=== PATIENT | female | born 1935 | race Asian ===

== ENCOUNTER 2016-09-27 05:42 | Inpatient (IN) | payer MEDICARE, OTHER ==
[2016-09-27] MEDS ORDERED: SODIUM CHLORIDE 1,000 ML IV STA ×2 (05:55→06:57)
--- NOTE | 2016-09-27 06:00 | PDOC ---
History of Present Illness - General Stated Complaint: WEAKNESS Time Seen by Provider: 09/27/16 05:45 History Source: Patient, Family Exam Limitations: Language Barrier (The patient's son provided translation) - History of Present Illness Initial Comments: CHIEF COMPLAINT: 81 y/o female with PMH NIDDM, HTN, HLD, afib (on Coumadin), ACS with previous CABG BIB EMS for hematuria and weakness. HISTORY OF PRESENT ILLNESS: According to the patient's son the patient has had blood in her urine for the past 3 days and has been feeling progressively worse. She was seen by her primary and prescribed an antibiotic but she has only taken 1 dose so far. She continues to feel unwell and feverish although no temp was ever taken. The patient denies cough, CP, SOB, n/v/d, abd pain, back pain, dysuria. PCP is Dr. Delgado Vice President Business & Corporate Development is Dr. Fishman. Vital signs on arrival are within normal limits. REVIEW OF SYSTEMS: GENERAL/CONSTITUTIONAL: + fever/chills. + weakness. No weight change. HEAD, EYES, EARS, NOSE AND THROAT: No change in vision. No ear pain or discharge. No sore throat. CARDIOVASCULAR: No chest pain or shortness of breath. RESPIRATORY: No cough, wheezing, or hemoptysis. GASTROINTESTINAL: No abd pain, nausea, vomiting, diarrhea. GENITOURINARY: +hematuria. MUSCULOSKELETAL: No joint or muscle swelling or pain. No neck or back pain. SKIN: No rash or easy bruising. NEUROLOGIC: No headache, vertigo, loss of consciousness, or loss of sensation. PHYSICAL EXAM: GENERAL: The patient is awake, alert, and fully oriented, in no acute distress. She has increased respirations. HEAD: Normal with no signs of trauma. ENT: Pupils equal, round and reactive to light, extraocular movements intact, sclera anicteric, conjunctiva clear. Neck supple. Mucous membranes mildly dry. LUNGS: Clear to auscultation bilaterally. Normal excursion. No respiratory distress or use of accessory muscles. CV: RRR, S1/S2, no MRG. Cap refill < 2 sec. ABDOMEN: Soft, non-distended, non-tender even to deep palpation, no hepatomegaly or splenomegaly, no masses. EXTREMITIES: Normal range of motion, no edema. NEUROLOGICAL: Normal speech, normal gait. CN II-XII grossly intact. PSYCH: Normal mood, normal affect. SKIN: Warm, dry, normal turgor, no rashes or lesions noted. Past History - Past Medical History Allergies/Adverse Reactions: Allergies Allergy/AdvReac Type Severity Reaction Status Date / Time No Known Allergies Allergy Verified 12/14/14 12:05 Home Medications: Ambulatory Orders Folic Acid - 1 mg PO DAILY #0 tablet 10/22/12 Metformin HCl [Glucophage -] 500 mg PO ACBK #0 tablet 10/22/12 Multivitamins [Multivit ([facility] Formulary)] 1 udtab PO DAILY #0 tab 10/22/12 Warfarin Sodium [Coumadin] 5 mg PO DAILY #0 07/31/13 Bisacodyl [Laxative] 5 mg PO DAILY 12/14/14 Diltiazem Cd [Cardizem Cd -] 120 mg PO DAILY 12/14/14 Furosemide [Lasix -] 40 mg PO DAILY 12/14/14 Meloxicam [Mobic -] 15 mg PO DAILY 12/14/14 Montelukast Na [Singulair -] 10 mg PO HS 12/14/14 Ondansetron [Zofran *Odt*] 8 mg SL TID #20 od.tablet 12/14/14 Oxycodone HCl/Acetaminophen [Percocet 5-325 mg Tablet] 1 tab PO Q6H #20 tablet 12/14/14 Pregabalin [Lyrica -] 50 mg PO DAILY 12/14/14 Ranitidine HCl [Zantac] 150 mg PO HS 12/14/14 Salmeterol/Fluticasone [Advair 100Mcg/50Mcg -] 1 inh PO BID 12/14/14 Simvastatin [Zocor -] 10 mg PO HS 12/14/14 Asthma: Yes Cardiac Disorders: Yes COPD: Yes Diabetes: Yes HTN: Yes Hypercholesterolemia: Yes - Surgical History Cardiac Surgery: Yes (Open heart, Mitral valve replaced) - Immunization History Immunization Up to Date: No - Psycho/Social/Smoking Cessation Hx Anxiety: No Suicidal Ideation: No Smoking Status: No Smoking History: Never smoked Have you smoked in the past 12 months: No Number of Cigarettes Smoked Daily: 0 Hx Alcohol Use: No Drug/Substance Use Hx: No Substance Use Type: None Hx Substance Use Treatment: No Heart Score/ECG Review - ECG Intrepretation Comment:: Twelve-lead EKG was performed and reviewed by Dr. Hills. There is an undetermined rhythm with a rate of 78bpm. The axis is normal. The intervals are normal. There are no ST or T wave abnormalities. Impression: Borderline twelve-lead EKG ED Treatment Course - LABORATORY CBC & Chemistry Diagram: 09/28/16 06:40 09/28/16 06:40 Medical Decision Making - Medical Decision Making A/P: 81 y/o female with subjective fever, hematuria and progressively worsening weakness for the past 3 days. Suspect urosepsis. Plan is as follows: 1. Septic work up CXR IMPRESSION: No evidence of acute pathology. I am signing this patient out to my colleague: SIOMARA May In brief, this patient is being seen in the ED for a chief complaint of: hematuria, subjective fever and weakness I have completed the initial assessment interview note and have ordered: labs, EKG, CXR, UA/culture, IV fluids I have reviewed the following results: EKG Pending results are: rest Please call the PCP: Sandy Plan for disposition is as follows: Pending *DC/Admit/Observation/Transfer Diagnosis at time of Disposition: Hematuria, Weakness, Hyperkalemia, Acute kidney injury, Sepsis - Referrals
[2016-09-27 06:19] LABS: BASOPHIL 0.2 % (0-2.0); EOSINOPHIL 0.1 % (0-4.5); MCHC 32.8 g/dl (32.0-36.0); MEAN CELL VOLUME 88.4 fl (80-96); MEAN PLT VOLUME 10.1 fl (7.5-11.1); NEUTROPHILS 80.9 % (42.8-82.8); PLATELET COUNT 155 K/MM3 (134-434); RDW 13.5 % (11.6-15.6); WHITE BLOOD COUNT 10.5 K/mm3 (4.0-10.0)
--- NOTE | 2016-09-27 06:23 | PDOC ---
[id number] 96 09/27/16 06:02 09/27/16 06:02 09/27/16 06:02 09/27/16 06:02 09/27/16 06:02 ED Treatment Course - LABORATORY CBC & Chemistry Diagram: 09/27/16 06:12 09/27/16 15:30 Medical Decision Making - Medical Decision Making 09/27/16 06:23 agree with care from APRIL Olmos *DC/Admit/Observation/Transfer Diagnosis at time of Disposition: Hematuria, Weakness, Hyperkalemia, Acute kidney injury, Sepsis
[2016-09-27 06:43] LABS: ALBUMIN 3.5 g/dl (3.4-5.0); ANION GAP 10 (8-16); BILIRUBIN,TOTAL 0.7 mg/dL (0.2-1.0); CALCIUM 8.6 mg/dL (8.5-10.1); CO2 19 mmol/L (21-32); CREATININE 2.9 mg/dL (0.55-1.02); GLUCOSE,RANDOM 164 mg/dL (74-106); SGOT/AST 26 U/L (15-37); SGPT/ALT 23 U/L (12-78); TOT PROT 6.9 g/dl (6.4-8.2)
[2016-09-27 06:44] LABS: PROTHROMBIN TIME (PATIENT) 75.9 SEC (9.98-11.88)
[2016-09-27 06:45] LABS: ALK PHOS 77 U/L (45-117); TROPONIN I < 0.02 ng/ml (0.00-0.05)
[2016-09-27 06:47] LABS: ACTIVATED PTT 57.8 SECONDS (26.9-34.4)
[2016-09-27] MEDS ORDERED: DEXTROSE 50%-WATER 50 ML VIAL IVPUSH ONE (06:58)
[2016-09-27] MEDS ORDERED: CALCIUM CHLORIDE 1 GM/10 ML *DISP.SYRIN IVPUSH ONE (06:58)
[2016-09-27] MEDS ORDERED: SODIUM POLYSTYRENE SULFONATE 15 GM/60 ML BOTTLE PO ONE (06:58)
[2016-09-27] MEDS ORDERED: SODIUM BICARBONATE 8.4% 50 MEQ/50 ML DISP.SYRIN IVPUSH ONE (06:58)
[2016-09-27] MEDS ORDERED: FUROSEMIDE 40 MG/4 ML INJECTABLE VIAL IVPUSH ONE (06:58)
[2016-09-27] MEDS ORDERED: INSULIN REGULAR HUMAN 100 UNITS/ML *VIAL IVPUSH ONE (06:58)
--- NOTE | 2016-09-27 07:07 | PDOC ---
*Physical Exam - Vital Signs Last Vital Signs Temp Pulse Resp BP Pulse Ox 98.9 F 80 14 122/60 96 09/27/16 06:02 09/27/16 06:02 09/27/16 06:02 09/27/16 06:02 09/27/16 06:02 ED Treatment Course - LABORATORY CBC & Chemistry Diagram: 09/27/16 06:12 09/27/16 06:12 - ADDITIONAL ORDERS Additional order review: Laboratory Results 09/27/16 09/27/16 06:12 06:12 Sodium 134 L Potassium 6.5 H* D Chloride 105 Carbon Dioxide 19 L D Anion Gap 10 BUN 76 H D Creatinine 2.9 H D Creat Clearance w eGFR 15.61 Random Glucose 164 H D Lactic Acid 1.081 Calcium 8.6 Total Bilirubin 0.7 D AST 26 D ALT 23 D Alkaline Phosphatase 77 D Creatine Kinase 53 Troponin I < 0.02 Total Protein 6.9 Albumin 3.5 09/27/16 06:12 RBC 3.77 MCV 88.4 MCHC 32.8 RDW 13.5 MPV 10.1 Neutrophils % 80.9 Lymphocytes % 9.0 D Monocytes % 9.8 Eosinophils % 0.1 D Basophils % 0.2 - Medications Given in the ED: ED Medications Discontinued Medications Generic Name Dose Route Start Last Admin Trade Name Freq PRN Reason Stop Dose Admin Sodium Chloride 1,000 mls @ 1,000 mls/hr 09/27/16 05:55 09/27/16 06:33 Normal Saline - IV 09/27/16 06:54 1,000 mls/hr ASDIR STA Administration Medical Decision Making - Medical Decision Making 09/27/16 07:07 Signout received from APRIL Olmos. Briefly, this is an 81 year old female with a history of NIDDM, HTN, HLD, Afib (on Coumadin), and CAD s/p CABG brought in by ambulance this morning for evaluation of weakness and hematuria. ER course so far notable for: -K 6.5: Kayexelate, calcium gluconate, sodium bicarbonate, insulin/dextrose given. (Lasix was ordered but canceled prior to administration). -Cr 2.9 (0.6 in 2015) -INR 6.64 Attempted to re-interview patient using [employer] client technical support associate #[id number], but she is barely answering questions other than to say that she feels cold. She is rigoring and tachypneic at 26 RR/min. Discussed with son Osmin by phone ); he states she has frequent UTIs. She has been having dysuria and hematuria for about 4 days. She has been complaining of chills. She saw Breanne (urology) in the office yesterday; son believes the doctor "did something to look at the bladder" (?cystoscopy) and prescribed Bactrim, of which she had one dose yesterday. Plan: -UA is pending; straight cath ordered -Will obtain rectal temp -Treatment of hyperkalemia above -Empiric Ceftriaxone -Fluids infusing -Renal consultation placed -Urology consultation placed -Will obtain renal and pelvic/bladder u/s -No active bleeding at this time; no reversal of warfarin ordered -Will admit *DC/Admit/Observation/Transfer Diagnosis at time of Disposition: Hematuria, Weakness, Hyperkalemia, Acute kidney injury Sepsis Qualifiers: Sepsis type: sepsis due to unspecified organism Qualified Code(s): A41.9 - Sepsis, unspecified organism - Discharge Dispostion Admit: Yes - Referrals - Patient Instructions - Post Discharge Activity
[2016-09-27] MEDS ORDERED: DEXTROSE 50%-WATER 50 ML DISP.SYRIN ONE (07:10)
[2016-09-27] MEDS ORDERED: INSULIN REGULAR HUMAN 100 UNITS/ML *VIAL ONE ×2 (07:11→08:06)
[2016-09-27] MEDS ORDERED: CALCIUM CHLORIDE 1 GM/10 ML *DISP.SYRIN ONE (07:12)
[2016-09-27 07:13] LABS: INR 6.64 (0.82-1.09)
[2016-09-27] MEDS ORDERED: CALCIUM GLUCONATE 10% - 1,000 MG/10 ML VIAL IVPUSH ONE (07:13)
[2016-09-27] MEDS ORDERED: CEFTRIAXONE 1 GM in DEXTROSE 5%-WATER - 50 ML IVPB ONE (07:30)
[2016-09-27] MEDS ORDERED: SODIUM POLYSTYRENE SULFONATE 15 GM/60 ML BOTTLE ONE (08:07)
[2016-09-27] MEDS ORDERED: CEFTRIAXONE 50 ML ONE (08:20)
[2016-09-27] MEDS ORDERED: ACETAMINOPHEN 325 MG TABLET (FP) PO ONE (08:34)
[2016-09-27 08:39] LABS: URINE APPEARANCE SLCLOUDY; URINE BILIRUBIN NEGATIVE (NEGATIVE); URINE GLUCOSE (UA) 2+ (NEGATIVE); URINE KETONE NEGATIVE (NEGATIVE); URINE NITRITE NEGATIVE (NEGATIVE); URINE UROBILINOGEN NEGATIVE E.U./dl (0.2-1.0)
[2016-09-27 08:45] LABS: URINE BLOOD 3+ (NEGATIVE)
[2016-09-27] MEDS ORDERED: ACETAMINOPHEN 325 MG TABLET (FP) ONE (08:45)
[2016-09-27 08:46] LABS: URINE COLOR PINK; URINE LEUK ESTERASE TRACE (NEGATIVE); URINE PROTEIN 2+ (NEGATIVE)
[2016-09-27 09:15] LABS: URINE MUCUS RARE; URINE RBC 960 /hpf (0-3); URINE WBC 20 /hpf (3-5)
[2016-09-27 10:19] LABS: CALCIUM 9.4 mg/dL (8.5-10.1); CREATININE 2.7 mg/dL (0.55-1.02)
--- NOTE | 2016-09-27 10:56 | CONSULT ---
Consult - text type - Consultation Consultation Note: Renal Consult for KATIE and Hyperkalemia This is a 81 year old Woman with PMhx of CAD s/p CABG, Hepatitis C, NIDDM, HLD, HTN, Afib on Coumadin, recurrent UTI's who presented with complaints of weakness and hematuria and found to have BUN/Cr of 76/2.9 and K of 6.5. Pt has seen urology before admission and was started on Bactrium for UTI. Daughter reports that she has been having gross red urine. No fever or chills. No N/V/D. Recently started on PPI, clarithromycin by GI (PUD?). On Lasix at home. uses Mobic at home. No recent contrast exposure. In the ED was given Insulin, D50, Kayexalate. No repeat K performed. PMHx: as above Allergies: NKDA Family Hx: NC Social Hx: No T/A/D ROS: as per HPI Home Meds: Home Medications Medication Instructions Recorded Folic Acid - 1 mg PO DAILY #0 tablet 10/22/12 Metformin HCl [Glucophage -] 500 mg PO ACBK #0 tablet 10/22/12 Multivitamins [Multivit ([facility] 1 udtab PO DAILY #0 tab 10/22/12 Formulary)] Warfarin Sodium [Coumadin] 5 mg PO DAILY #0 07/31/13 Bisacodyl [Laxative] 5 mg PO DAILY 12/14/14 Diltiazem Cd [Cardizem Cd -] 120 mg PO DAILY 12/14/14 Furosemide [Lasix -] 40 mg PO DAILY 12/14/14 Meloxicam [Mobic -] 15 mg PO DAILY 12/14/14 Montelukast Na [Singulair -] 10 mg PO HS 12/14/14 Ondansetron [Zofran *Odt*] 8 mg SL TID #20 od.tablet 12/14/14 Oxycodone HCl/Acetaminophen 1 tab PO Q6H #20 tablet 12/14/14 [Percocet 5-325 mg Tablet] Pregabalin [Lyrica -] 50 mg PO DAILY 12/14/14 Ranitidine HCl [Zantac] 150 mg PO HS 12/14/14 Salmeterol/Fluticasone [Advair 1 inh PO BID 12/14/14 100Mcg/50Mcg -] Simvastatin [Zocor -] 10 mg PO HS 12/14/14 Vital Signs Temperature 100.3 F H 09/27/16 07:50 Pulse Rate 82 09/27/16 09:11 Respiratory Rate 20 09/27/16 09:11 Blood Pressure 156/67 09/27/16 09:11 O2 Sat by Pulse Oximetry (%) 100 09/27/16 09:11 Intake & Output 09/24/16 09/25/16 09/26/16 09/27/16 23:59 23:59 23:59 23:59 Weight 165 lb Gen: NAD, awake and alert HEENT: NC/AT, MMM, No JVD CVS: irregular, No M/R Lungs: CTA (jun BS throughout) Abd: soft NT/ND, No bladder distension Ext: No edema, clubbing or cyanosis. Neuro: Awake and alert CBC, BMP 09/27/16 06:12 09/27/16 09:42 Current Medications Ceftriaxone Sodium (Rocephin 1gm Ivpb (Pre-Docked)) 50 mls @ 100 mls/hr IVPB DAILY NOA Sodium Chloride (Normal Saline -) 1,000 mls @ 100 mls/hr IV ASDIR NOA A/P 81 year old Woman with PMhx of CAD s/p CABG, Hepatitis C, NIDDM, HLD, HTN, Afib on Coumadin, recurrent UTI's who presented with complaints of weakness and hematuria and found to have BUN/Cr of 76/2.9 and K of 6.5 #Acute Renal Injury Likey related to volume depletion from diuretics + GOMEZ 2 inhibotor affecting renal circulatioin vs. Psedo KATIE From Bactrium Check Urine studies and Renal/Bladder US Start isotonic saline at 100cc per hour Dose all med for Cr Cl elss then 15 avoid NSAIDS, IV contrast #Hyperkalemia From Renal failure +/- Bactrium No improvement in K this AM, however only got kayexlate this morning at 8AM pt is having BM's continue isotonic saline and monitor K Tele monitoring repeat BMP this afternoon #Hematuria from UTI/Cysitis Urology follow up #Cystitis/UTI/Leukocytosis Started Ceftriaxone f/u cultures ID follow up #Metabolic Acidosis Start sodum bicarb 650mg Daily #Hypertension Resume Cardizem Goal BP < 140/90 #DM type 2 Insulin Sliding scale #Chronic Pain Avoid NSAIDs #Hepatitis C as reported by daughter Check Hepatitis Panel Thank you Jace Zavala DO
[2016-09-27] MEDS ORDERED: ONDANSETRON 4 MG TABLET PO PRN (10:58)
[2016-09-27] MEDS ORDERED: BISACODYL 5 MG TABLET.DR (FP) PO PRN (11:31)
[2016-09-27 11:54] VITALS: BMI 32.8
[2016-09-27] MEDS: CEFTRIAXONE 1 GM/50 ML IVPB SCH (12:08)
[2016-09-27] MEDS: SODIUM CHLORIDE 1,000 ML IV SCH ×2 (12:09→23:33)
[2016-09-27] MEDS ORDERED: PT OWN MED DRAWER 7, Y5N ONE (12:51)
[2016-09-27] MEDS: MULTIVITAMINS (DAILY MVI) TABLET (FP) PO SCH (12:54)
[2016-09-27] MEDS: FUROSEMIDE 40 MG TABLET (FP) PO SCH (12:54)
[2016-09-27] MEDS: PREGABALIN 50 MG CAPSULE PO SCH (12:54)
[2016-09-27] MEDS: FOLIC ACID 1 MG TABLET (FP) PO SCH (12:54)
--- NOTE | 2016-09-27 15:46 | PN ---
Progress Note (short form) - Note Progress Note: ID consult dictated imp/reccd 81 year old female admitted from home with hematuria and weakness noted to have elevated INR pmh of NIDDM, MVR started on bactrim yesterday agree with switch to ceftriaxone for UTI f/u cultures hematuria elevated INR KATIE history of MVR
[2016-09-27] MEDS: INSULIN SLIDING SCALE (NOVOLOG) 1 VIAL SQ SCH ×2 (17:11→21:45)
--- NOTE | 2016-09-27 17:29 | CONS ---
DATE OF CONSULTATION: 09/27/2016 REQUESTED BY : Isabelle Ferrari MD CHIEF COMPLAINT: 1. Rigors. 2. Feverish feeling. 3. Hematuria. 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 mechanical mitral valve prosthesis (2008), history of aortic valvular disease, aortic regurgitation of moderate severity, history of left ventricular diastolic dysfunction, status post left ventricular failure, history of hypertension, hypertensive cardiovascular disease, [id number]-zwyzajdni diabetes mellitus, hypercholesterolemia, bronchial asthma, and has had a traumatic intracranial bleed. The patient, for the past 5 days, has been complaining of gross hematuria, which is painless, does have frequency of micturition. No history of dysuria or urgency reported. She also has felt feverish and has had rigors. She developed generalized lethargy and weakness and was brought to the emergency room. There is no history of cough or expectoration. No history of chest pain or discomfort, either with rest or with exertion. Has chronic intermittent, dyspnea. No history of palpitations. PAST MEDICAL HISTORY: 1. As mentioned in the history of present illness. 2. History of pulmonary hypertension of mild to moderate severity. 3. History of degenerative joint disease. 4. History of chronic anemia. PAST SURGICAL HISTORY: Status post [employer] mechanical mitral valve replacement (tilting disc). SOCIAL HISTORY: She is a , has 3 sons and 3 daughters who are healthy. Nonsmoker and does not imbibe alcohol. FAMILY HISTORY: Father in his 70s of unknown cause. Mother in her early 80s, apparently related to carcinoma. Has one sister who apparently is healthy. ALLERGIES: None reported. PREADMISSION MEDICATIONS: 1. Cardizem CD 360 mg p.o. daily. 2. Zocor 10 mg p.o. daily. 3. Diovan HCT 320/12.5 mg p.o. daily. 4. Lasix 40 mg p.o. daily. 5. Potassium supplement 20 mEq p.o. daily. 6. Coumadin dose is being adjusted according to INR and was on 5 mg alternating with 7.5 mg. 7. Metformin 500 mg p.o. b.i.d. a.c. 8. Ecotrin 81 mg p.o. daily. 9. Lyrica 15 mg p.o. daily. 10. Advair 1 inhalation b.i.d. 11. Singulair 10 mg p.o. daily. 12. Multivitamin 1 p.o. daily. 13. Ventolin 1 inhalation t.i.d. p.r.n. 14. Zantac 150 mg p.o. daily. 15. Calcium plus vitamin D 1 p.o. daily. 16. Baclofen 10 mg p.o. daily. 17. Folic acid 1 mg p.o. daily. 18. Mobic 15 mg p.o. nightly p.r.n. 19. Parallax 1 packet p.o. daily. 20. Zocor 10 mg p.o. daily. REVIEW OF SYSTEMS: Constitutional: History of rigors, night sweats, and chills. No history of unintentional weight loss. HEENT: Denies having headaches, diplopia, blurred vision. No history of epistaxis, hoarseness, tinnitus, or deafness reported. Cardiovascular: See history of present illness. Respiratory: See history of present illness. History of intermittent dyspnea. No history of recent cough, expectoration, or hemoptysis. Denies having tuberculosis. Gastrointestinal: No history of nausea, vomiting, melena, hematemesis. History of recent constipation. No history of abdominal pain or discomfort. Neurological: No history of seizures or syncope, history of recent postural dizziness. No history of focal weakness. Genitourinary: See history of present illness. Endocrine: See history of present illness. Denies having any polyuria or polydipsia. No history of intolerance to cold or warm weather. Musculoskeletal: History of arthralgias. No history of myalgias reported. Hematological: No history of ecchymosis. See history of present illness. History of chronic anemia. PHYSICAL EXAMINATION: General: An 81-year-old female who was slightly lethargic. No pallor, cyanosis, clubbing, or jaundice. Vital Signs: Weight 173.6 pounds, blood pressure 156/67 mmHg. Followup blood pressure 124/52 mmHg. Pulse 95 beats per minute and regular. Respirations 18 per minute. Temperature 98.4 degrees Fahrenheit. Neck: Supple. No jugular venous distention. Hepatojugular reflux was negative, carotids were 2+, upstrokes were normal. No bruits were heard and no thyromegaly was present. Heart: PMI was in the 5th intercostal space. No heaves or thrills. Hood prosthetic sounds, grade 1/6 decrescendo systolic murmur was heard at the apex. No diastolic murmur or gallops were heard. Lungs: Decreased breath sound at both bases, no extraneous sounds were heard. Chest: Normal AP diameter, expansion was symmetrical. There was a well-healed midline sternotomy scar. Abdomen: Soft, protuberant and nontender. No hepatosplenomegaly or palpable masses were felt. Bowel sounds were present. No bruits were heard. Extremities: No calf tenderness or dependent edema. Femoral pulses were 2+. Dorsalis pedis and posterior tibial pulses were 1+. ECG: Not available. LABORATORY DATA: Urinalysis revealed 2+ protein, 2+ glucose, 3+ blood, trace urine leukocyte esterase. Chemistry: Sodium 139. Potassium 6.5, and 6.3, respectively. Chloride 110. CO2 20 mmol/L. BUN at 6:12 a.m. was 76 and creatinine was 2.9. Followup BUN is 68 and creatinine was 2.10 mg/dL. Random glucose at 9:42 234 mg/dL. Lactic acid was 1.007 at 8:18 a.m. Liver function tests: Total bilirubin 0.7, AST 26, ALT 23, alkaline phosphatase 77, troponin less than 0.02. CK was 53. WBC count 10,500. Hemoglobin 10.9 g/dL. Platelet count 155,000. There is a slight shift to the left. IMAGIN. X-ray chest. Impression: No evidence of pneumonia, congestive heart failure, pleural effusion or pneumothorax. 2. Ultrasound of the bladder and kidneys. Impression: Subcentimeter cyst in the upper pole of the right kidney. Bladder wall thickness is at the upper limits of normal. Contracted gallbladder with multiple stones. IMPRESSION: 1. Gross hematuria, most likely related to urinary tract infection/cystitis. 2. Acute renal failure. 3. Hyperkalemia, etiology secondary to renal failure. 4. Rheumatic mitral valvular disease with mitral stenosis and regurgitation, status post [employer] mechanical tilting disc prosthesis. 5. Hypertension, hypertensive cardiovascular disease. 6. Fve-laozeti-naikgcjbn diabetes mellitus. 7. Hypercholesterolemia. 8. History of bronchial asthma. 9. Chronic anemia. 10. Rheumatic valvular disease with aortic regurgitation of moderate severity. 11. Left ventricular diastolic dysfunction. 12. Status post traumatic intracranial bleed. 13. History of anemia. 14. History of hepatitis C as documented in the hospital record. 15. Suspect acute sepsis related to urinary tract infection. RECOMMENDATIONS: 1. Serial blood cultures. 2. Urinary culture and sensitivity. 3. Correction of hyperkalemia in progress. 4. Close monitoring of serum potassium levels. 5. ECG stat. 6. Nonsteroidal drugs must be avoided. 7. Close followup of INR. 8. Close followup of serum glucose levels. 9. . Continue cardiac medications as outlined. 10. The patient will require continuation of anticoagulation. PROGNOSIS: Critical. Thank you for your referral. YAHAIRA GAMBLE M.D. [id number]
--- NOTE | 2016-09-27 17:58 | HP ---
DATE OF ADMISSION: 09/27/2016 The patient is an 81-year-old female with a history of hypertension, hypercholesterolemia, diabetes, status post open heart surgery for mitral valve replacement, chronic arthralgia, hepatitis C, brought to the emergency room by the family with complaints of blood in the urine for the last 3 days, and was having progressive worsening. The patient was seen by Urology and given antibiotics for the UTI. She continues to feel unwell and feverish but no temperature was taken. Patient denies any chest pain, shortness of breath, nausea, vomiting, diarrhea, abdominal pain, back pain, or any dysuria. Regarding past medical history, as mentioned before. SURGICAL HISTORY: History of open heart surgery for mitral valve replacement. No known drug allergy. Patient is taking folic acid 1 mg daily, metformin 500 mg p.o. b.i.d., multivitamin, Coumadin 5 mg, laxative, diltiazem, Cardizem CD 120 mg p.o. daily, Lasix 40 mg p.o. daily, Mobic 15 mg daily, Singulair 10 mg, Zofran 4 mg p.o. t.i.d., Percocet, Lyrica 50 mg p.o. daily, Zantac 150 mg p.o. nightly, Advair 100/50 one inhalation b.i.d., simvastatin 10 mg p.o. nightly. Regarding the past medical history, history of asthma, COPD, diabetes, hypertension, chronic arthralgia. PERSONAL HISTORY: Nothing significant. No history of smoking or alcohol. Lives with the family. REVIEW OF SYSTEMS: Constitutional: Patient complains of mild feverish and chills. Head and Neck, ENT: Nothing significant. Cardiovascular: No chest pain, no shortness of breath. Respiratory: No cough, no wheezing. Gastrointestinal: No abdominal pain, nausea, vomiting, diarrhea. Genitourinary: No hematuria present. Musculoskeletal: No joint or muscle pain. Skin: No rash. PHYSICAL EXAMINATION IN EMERGENCY ROOM: Vital Signs: Temperature was 98.6, pulse rate 80, respiration 14, blood pressure 122/60, saturation 96%. Head and Neck: Normal. Chest: Clear. Cardiovascular: 1st and 2nd sound normal. Abdomen: Soft. No tenderness, no distention. Bowel sounds present. No CVA tenderness. Extremities: Mild pedal edema present. Neurological: Normal speech, normal gait. Cranial nerves 2-12 normal. LABORATORIES: CBC: WBC 10.5, hemoglobin 10.9, hematocrit 3.3, platelets 155, INR 6.64, PTT 57.8, calcium 8.4, AST/ALT normal. BMP: Sodium 134, potassium 6.5, chloride 105, bicarbonate 19, BUN 76, creatinine 2.9, sugar 164, lactic acid pending. CK 53. Urine shows protein 2+, glucose 2+, ketone negative. Chest x-ray: No pneumonia. Urine shows blood 3+, leukocyte esterase plus, RBC 960, WBC 20. Blood culture pending, urine culture pending. EKG shows 78 per minute, no ST-T wave changes. Patient was given Kayexalate because of the potassium 6.5, calcium gluconate, started on bicarbonate, insulin, in the emergency room, and was given ceftriaxone 1 dose in the emergency room and renal consult, urology consult, ID consult called. Patient admitted in the floor with admitting diagnosis of hematuria, UTI, weakness, hypokalemia, acute kidney injury hypokalemia, type 2 diabetes, chronic pain. PLAN: Coumadin on hold, metformin on hold. Renal consult, urology consult, cardiology consult, ID consult called. Patient empirically started on ceftriaxone. Home medication resumed. Will monitor the labs and PT/INR and potassium. Patient stable on the floor. MANISH ALCANTARA M.D. [id number]
[2016-09-27 18:12] LABS: CALCIUM 9.2 mg/dL (8.5-10.1); CREATININE 2.4 mg/dL (0.55-1.02)
--- NOTE | 2016-09-27 18:39 | CONS ---
DATE OF CONSULTATION: INFECTIOUS DISEASE CONSULTATION REQUESTING PHYSICIAN: Hilda Delgado M.D. CONSULTING PHYSICIAN: Yvette Martinez M.D. HISTORY OF PRESENT ILLNESS: This is an 81-year-old woman with past medical history of diabetes, hypertension, hyperlipidemia. She had a prosthetic mitral valve, history of rheumatic heart disease. She was admitted with hematuria. She was started on Bactrim the day prior to admission. She had taken 1 dose. She felt feverish at home. She came to the emergency room. She was found to have a temperature of 100.3 and hematuria, as well she was noted to have an elevated INR. I am asked to see her for possible urinary tract infection. She is awake and alert and currently resting comfortably. PAST MEDICAL HISTORY: Notable for history of asthma, coronary artery disease, COPD, diabetes, hypertension, hypercholesterolemia. SURGICAL HISTORY: Notable for mitral valve replacement. ALLERGIES: No known drug allergies. MEDICATION: As an outpatient include folic acid, metformin, multivitamins, Coumadin, Cardizem, Lasix, Mobic, Singulair, Percocet, Lyrica, Zantac, Advair, Zocor. FAMILY HISTORY: Noncontributory. SOCIAL HISTORY: She lives at home. REVIEW OF SYSTEMS: Notable for, she denies any chest pain, she denies any nausea/vomiting. PHYSICAL EXAMINATION: General: She is resting comfortably. Vital signs: Temperature 97.6, she had a temperature of 100.3 earlier this morning. Pulse is 97, blood pressure 119/43, respiratory rate 18. HEENT: Normocephalic. Eyes are anicteric. Neck: Supple. Lungs: Clear to auscultation. Heart: Regular rate and rhythm. Abdomen: Soft, nontender. Extremities: Without edema. LABORATORY: Notable for a white count of 10.5, hemoglobin 10.9, platelets 155, BUN and creatinine are 68 and 2.7. Urinalysis has 960 red cells with 20 white cells , INR is 6.6. Urine and blood cultures are pending. She had a renal and bladder ultrasound that is negative for obstruction. IMPRESSION: 1. In summary, this is an 81-year-old woman with a history of coronary artery bypass graft, hepatitis C, prior mitral valve replacement on Coumadin, admitted with hematuria, INR of 6. She was often noted to be in acute renal failure with a creatinine of 2.7 and a potassium of 6.3. She was started on Rocephin for possible UTI. I would continue her on this at this time. 2. Hematuria, may be partially due to her elevated INR. Her coumadin is being held. 3. Acute kidney injury, she is being evaluated by nephrology. There is no evidence of hydronephrosis. She is receiving some IV hydration. Lastly, history of mitral valve replacement. Blood cultures have been sent, we will follow up on this. Further recommendations to follow. Morena [id number] MTDD
[2016-09-27] MEDS: ATORVASTATIN CA 10 MG TABLET (FP) PO SCH (21:44)
[2016-09-27] MEDS: FLUTICASONE/SALMETEROL 100 MCG/50 MCG DISKUS IH SCH (21:44)
[2016-09-27] MEDS: MONTELUKAST NA 10 MG TABLET PO SCH (21:45)
[2016-09-27] MEDS: RANITIDINE HCL 150 MG TABLET (FP) PO SCH (21:45)
[2016-09-28] MEDS: INSULIN SLIDING SCALE (NOVOLOG) 1 VIAL SQ SCH ×4 (06:16→21:54)
[2016-09-28 07:35] LABS: BASOPHIL 0.7 % (0-2.0); EOSINOPHIL 0.8 % (0-4.5); MCH 29.3 pg (25.7-33.7); MCHC 33.1 g/dl (32.0-36.0); MEAN CELL VOLUME 88.3 fl (80-96); MEAN PLT VOLUME 9.6 fl (7.5-11.1); NEUTROPHILS 66.9 % (42.8-82.8); PLATELET COUNT 146 K/MM3 (134-434); RDW 13.7 % (11.6-15.6); WHITE BLOOD COUNT 8.5 K/mm3 (4.0-10.0)
[2016-09-28 07:42] LABS: PROTHROMBIN TIME (PATIENT) 93.2 SEC (9.98-11.88)
[2016-09-28 08:25] LABS: ALBUMIN 3.4 g/dl (3.4-5.0); BILIRUBIN,TOTAL 0.5 mg/dL (0.2-1.0); CALCIUM 8.8 mg/dL (8.5-10.1); CREATININE 2.2 mg/dL (0.55-1.02); INR 8.12 (0.82-1.09); TOT PROT 6.7 g/dl (6.4-8.2)
--- NOTE | 2016-09-28 09:10 | PN ---
Progress Note, Physician Chief Complaint: Pt lying in bed hematuria improved blood cul negative urine cul report pending bladder ultrasound shows subcentimeter cyst in the upperpole of kidney contracted gallbladder with multiple stones Inr supertherapeutic,no active bleeding Urology consult pending - Current Medication List Current Medications: Active Medications Acetaminophen (Tylenol -) 650 mg PO Q6H PRN PRN Reason: FEVER OR PAIN Atorvastatin Calcium (Lipitor -) 10 mg PO HS [facility] Last Admin: 09/27/16 21:44 Dose: 10 mg Bisacodyl (Dulcolax -) 5 mg PO DAILY PRN PRN Reason: CONSTIPATION Diltiazem HCl (Cardizem Cd -) 120 mg PO DAILY [facility] Last Admin: 09/27/16 12:54 Dose: 120 mg Folic Acid (Folic Acid -) 1 mg PO DAILY [facility] Last Admin: 09/27/16 12:54 Dose: 1 mg Furosemide (Lasix -) 40 mg PO DAILY [facility] Last Admin: 09/27/16 12:54 Dose: 40 mg Ceftriaxone Sodium (Rocephin 1gm Ivpb (Pre-Docked)) 50 mls @ 100 mls/hr IVPB DAILY [facility] Last Admin: 09/27/16 12:08 Dose: Not Given Sodium Chloride (Normal Saline -) 1,000 mls @ 100 mls/hr IV ASDIR [facility] Last Admin: 09/27/16 23:33 Dose: 100 mls/hr Insulin Aspart (Novolog Vial Sliding Scale -) 1 vial SQ ACHS [facility] PRN Reason: Protocol Last Admin: 09/28/16 06:16 Dose: Not Given Montelukast Sodium (Singulair -) 10 mg PO [facility] Last Admin: 09/27/16 21:45 Dose: 10 mg Multivitamins/Minerals/Vitamin C (Tab-A-Vit -) 1 tab PO DAILY [facility] Last Admin: 09/27/16 12:54 Dose: 1 tab Ondansetron HCl (Zofran -) 4 mg PO TID PRN PRN Reason: NAUSEA/VOMITING Pregabalin (Lyrica -) 50 mg PO DAILY [facility] Last Admin: 09/27/16 12:54 Dose: 50 mg Ranitidine HCl (Zantac -) 150 mg PO [facility] Last Admin: 09/27/16 21:45 Dose: 150 mg Fluticasone/Salmeterol (Advair 100mcg/50mcg -) 1 puff IH BID [facility] Last Admin: 09/27/16 21:44 Dose: 1 puff - Objective Vital Signs: Vital Signs Temperature 99.2 F 09/28/16 06:00 Pulse Rate 107 H 09/28/16 06:00 Respiratory Rate 20 09/28/16 06:00 Blood Pressure 138/71 09/28/16 06:00 O2 Sat by Pulse Oximetry (%) 97 09/27/16 21:00 Constitutional: Yes: No Distress Eyes: Yes: Conjunctiva Clear HENT: Yes: Atraumatic, Normocephalic Neck: Yes: Supple, Trachea Midline Cardiovascular: Yes: Regular Rate and Rhythm Respiratory: Yes: Wheezes Gastrointestinal: Yes: Normal Bowel Sounds, Soft Genitourinary: Yes: Hematuria Musculoskeletal: Yes: WNL Extremities: Yes: WNL Edema: Yes Edema: LLE: Trace, RLE: Trace Peripheral Pulses WNL: Yes Neurological: Yes: WNL, Alert, Oriented Psychiatric: Yes: Alert, Oriented Labs: CBC, BMP 09/28/16 06:40 09/28/16 06:40 INR, PTT INR 8.12 (0.82-1.09) H* 09/28/16 06:40 - ....Imaging Ultrasound: Report Reviewed Assessment/Plan Hematuria R/o UTI KATIE improving Hyperkalemia improving INR supertherapeutic DM ,HTN Open heart surgery for mitral valve repair arthralgia ASTHMA PLAN Coumadin on hold Bronchodialator Will monitor,INR,CREatininie,K will f/u cardiology,renal,ID ,and urology recc will f/u urine cul report
--- NOTE | 2016-09-28 09:51 | CON.GU ---
Consult Reason for Consultation:: GROSS HEMATURIA AND UTI RECCURENT - History of Present Illness Chief Complaint: GROSS HEMATURIA AND UTI History of Present Illness: 81 YO FEMALE PATIENT ON CHRONIC AC FOR AF ADMITTED WITH COAGULOPATHY SECONDARY TO COUMADIN. PT HAD BEEN SEEN IN OFFICE FOR RECCURENT UTI'S AND GROSS HEMATURIA TREATED WITH ANTIBIOTICS. PMH: CABG, HTN, COPD, DM MEDS: MONTELEUKAST,SIMVISTATIN,METFORMIN, LASIX, ALDACTONE,COUMADIN, DITROPAN ALL: NONE - History Source History Provided By: Patient, Medical Record - Past Medical History [employer]: Yes: Dementia Cardio/Vascular: Yes: CAD, HTN, Mitral Stenosis Pulmonary: Yes: Asthma Infectious Disease: Yes: Other (Cellulitis) Musculoskeletal: Yes: Bursitis Rheumatology: Yes: Other (Rhematoid ) - Past Surgical History Past Surgical History: Yes: CABG, Valve Replacement - Alcohol/Substance Use Hx Alcohol Use: No History of Substance Use: reports: None - Smoking History Smoking history: Never smoked Have you smoked in the past 12 months: No Aproximately how many cigarettes per day: 0 Home Medications - Allergies Allergies/Adverse Reactions: Allergies Allergy/AdvReac Type Severity Reaction Status Date / Time No Known Allergies Allergy Verified 12/14/14 12:05 - Home Medications Home Medications: Ambulatory Orders Folic Acid - 1 mg PO DAILY #0 tablet 10/22/12 Metformin HCl [Glucophage -] 500 mg PO ACBK #0 tablet 10/22/12 Multivitamins [Multivit ([facility] Form[facility])] 1 udtab PO DAILY #0 tab 10/22/12 Warfarin Sodium [Coumadin] 5 mg PO DAILY #0 07/31/13 Bisacodyl [Laxative] 5 mg PO DAILY 12/14/14 Diltiazem Cd [Cardizem Cd -] 120 mg PO DAILY 12/14/14 Furosemide [Lasix -] 40 mg PO DAILY 12/14/14 Meloxicam [Mobic -] 15 mg PO DAILY 12/14/14 Montelukast Na [Singulair -] 10 mg PO HS 12/14/14 Ondansetron [Zofran *Odt*] 8 mg SL TID #20 od.tablet 12/14/14 Oxycodone HCl/Acetaminophen [Percocet 5-325 mg Tablet] 1 tab PO Q6H #20 tablet 12/14/14 Pregabalin [Lyrica -] 50 mg PO DAILY 12/14/14 Ranitidine HCl [Zantac] 150 mg PO HS 12/14/14 Salmeterol/Fluticasone [Advair 100Mcg/50Mcg -] 1 inh PO BID 12/14/14 Simvastatin [Zocor -] 10 mg PO HS 12/14/14 Review of Systems Findings/Remarks: GROSS HEMATURIA AND RECCURENT UTI Physical Exam- Vital Signs: Vital Signs Temperature 99.2 F 09/28/16 06:00 Pulse Rate 107 H 09/28/16 06:00 Respiratory Rate 20 09/28/16 06:00 Blood Pressure 138/71 09/28/16 06:00 O2 Sat by Pulse Oximetry (%) 97 09/27/16 21:00 Labs: CBC, BMP 09/28/16 06:40 09/28/16 06:40 Problem List - Problems (1) Hematuria Assessment/Plan: WILL NEED CYSTO BLADDER BX WHEN INR NORMALIZED TO R/O B;LADDER NEOPLASM MAY BE DONE OUTPT Code(s): R31.9 - HEMATURIA, UNSPECIFIED
[2016-09-28] MEDS: FLUTICASONE/SALMETEROL 100 MCG/50 MCG DISKUS IH SCH ×2 (09:58→21:54)
[2016-09-28] MEDS: FUROSEMIDE 40 MG TABLET (FP) PO SCH (09:59)
[2016-09-28] MEDS: MULTIVITAMINS (DAILY MVI) TABLET (FP) PO SCH (09:59)
[2016-09-28] MEDS: PREGABALIN 50 MG CAPSULE PO SCH (09:59)
[2016-09-28] MEDS: FOLIC ACID 1 MG TABLET (FP) PO SCH (09:59)
[2016-09-28] MEDS: CEFTRIAXONE 1 GM/50 ML IVPB SCH (10:00)
[2016-09-28] MEDS: SODIUM CHLORIDE 1,000 ML IV SCH ×2 (10:02→11:19)
[2016-09-28] MEDS: ACETAMINOPHEN 325 MG TABLET (FP) PO PRN ×2 (10:15→16:46)
[2016-09-28] MEDS: ALBUTEROL SO4 0.083% IH SOL 2.5 MG/3 ML VIAL.NEB. NEB PRN ×3 (10:49→23:10)
--- NOTE | 2016-09-28 11:31 | PN ---
Progress Note (short form) - Note Progress Note: Renal Follow up for KATIE Pt seen and examined at the bedside getting Neb Tx no sob no overnight events Vital Signs Temperature 98.8 F 09/28/16 10:00 Pulse Rate 112 H 09/28/16 10:00 Respiratory Rate 22 09/28/16 10:00 Blood Pressure 144/75 09/28/16 10:00 O2 Sat by Pulse Oximetry (%) 97 09/27/16 21:00 Gen: NAD, awake and alert CVS: irregular, No M/R Lungs: CTA (dec BS throughout) Abd: soft NT/ND, No bladder distension Ext: No edema, clubbing or cyanosis. CBC, BMP 09/28/16 06:40 09/28/16 06:40 Laboratory Tests 09/28/16 06:40 Calcium 8.8 Phosphorus 4.0 Magnesium 2.0 D Albumin 3.4 Current Medications Acetaminophen (Tylenol -) 650 mg PO Q6H PRN PRN Reason: FEVER OR PAIN Last Admin: 09/28/16 10:15 Dose: 650 mg Albuterol Sulfate (Ventolin 0.083% Nebulizer Soln -) 1 amp NEB Q6H PRN PRN Reason: SHORT OF BREATH/WHEEZING Last Admin: 09/28/16 10:49 Dose: 1 amp Atorvastatin Calcium (Lipitor -) 10 mg PO HS [facility] Last Admin: 09/27/16 21:44 Dose: 10 mg Bisacodyl (Dulcolax -) 5 mg PO DAILY PRN PRN Reason: CONSTIPATION Diltiazem HCl (Cardizem Cd -) 120 mg PO DAILY [facility] Last Admin: 09/28/16 10:00 Dose: 120 mg Folic Acid (Folic Acid -) 1 mg PO DAILY [facility] Last Admin: 09/28/16 09:59 Dose: 1 mg Furosemide (Lasix -) 40 mg PO DAILY [facility] Last Admin: 09/28/16 09:59 Dose: 40 mg Ceftriaxone Sodium (Rocephin 1gm Ivpb (Pre-Docked)) 50 mls @ 100 mls/hr IVPB DAILY [facility] Last Admin: 09/28/16 10:00 Dose: 100 mls/hr Sodium Chloride (Normal Saline -) 1,000 mls @ 100 mls/hr IV ASDIR [facility] Last Admin: 09/28/16 11:19 Dose: Not Given Insulin Aspart (Novolog Vial Sliding Scale -) 1 vial SQ ACHS [facility] PRN Reason: Protocol Last Admin: 09/28/16 06:16 Dose: Not Given Montelukast Sodium (Singulair -) 10 mg PO HS [facility] Last Admin: 09/27/16 21:45 Dose: 10 mg Multivitamins/Minerals/Vitamin C (Tab-A-Vit -) 1 tab PO DAILY [facility] Last Admin: 09/28/16 09:59 Dose: 1 tab Ondansetron HCl (Zofran -) 4 mg PO TID PRN PRN Reason: NAUSEA/VOMITING Pregabalin (Lyrica -) 50 mg PO DAILY [facility] Last Admin: 09/28/16 09:59 Dose: 50 mg Ranitidine HCl (Zantac -) 150 mg PO HS [facility] Last Admin: 09/27/16 21:45 Dose: 150 mg Fluticasone/Salmeterol (Advair 100mcg/50mcg -) 1 puff IH BID [facility] Last Admin: 09/28/16 09:58 Dose: 1 puff A/P 81 year old Woman with PMhx of CAD s/p CABG, Hepatitis C, NIDDM, HLD, HTN, Afib on Coumadin, recurrent UTI's who presented with complaints of weakness and hematuria and found to have BUN/Cr of 76/2.9 and K of 6.5 #Acute Renal Injury Likey related to volume depletion from diuretics + GOMEZ 2 inhibotor affecting renal circulatioin vs. Psedo KATIE From Bactrium Cr improving with IVF continue for now #Hyperkalemia From Renal failure +/- Bactrium improved continue IVF and trend avoid bactrium #Cystitis/UTI/Leukocytosis Continue Ceftriaxone f/u cultures ID follow up #Metabolic Acidosis Continue sodum bicarb 650mg Daily #Hypertension Resume Cardizem Goal BP < 140/90 #Hepatitis C as reported by daughter Check Hepatitis Panel Thank you Jace Zavala DO
[2016-09-28] MEDS ORDERED: INSULIN (NOVOLOG) ASPART 100 UNITS/ML 10ML VIAL ONE (11:58)
--- NOTE | 2016-09-28 12:32 | EKG ---
Test Reason : Blood Pressure : / mmHG Vent. Rate : 078 BPM Atrial Rate : 078 BPM P-R Int : 000 ms QRS Dur : 080 ms QT Int : 348 ms P-R-T Axes : 000 089 048 degrees QTc Int : 396 ms SINUS RHYTHM WITH SINUS ARRHYTHMIA versus ATRIAL FLUTTER WITH VARIABLE A-V BLOCK LOW VOLTAGE QRS ABNORMAL ECG Confirmed by ELVIS HARO MD ([id number]) on 09/28/2016 12:31:42 PM Referred By: Confirmed By:ELVIS HARO MD
--- NOTE | 2016-09-28 16:28 | PN ---
Progress Note (short form) - Note Progress Note: feels better pink urine fevers resolved Vital Signs Period Temp Pulse Resp BP Sys/[place] Pulse Ox Last 24 Hr 98.1 F-99.2 F 88-112 18-22 109-144/46-75 95-97 cor-rrr llungs clear abd soft,nt no cvat, no suprapubic tenderness ext no edema CBC, BMP 09/28/16 06:40 09/28/16 06:40 a/p hematuria elevated inr KATIE prosthetic MVR improving suspect UTI- culture negative, but received antibiotics prior to urine culture being sent continue rocephin #2
--- NOTE | 2016-09-28 16:40 | PN ---
Progress Note, Physician Chief Complaint: Events noted Not in distress History of Present Illness: Patient was seen and examined. Awake. Chart was reviewed No chest pain, SOB or palpitation - Current Medication List Current Medications: Active Medications Acetaminophen (Tylenol -) 650 mg PO Q6H PRN PRN Reason: FEVER OR PAIN Last Admin: 09/28/16 10:15 Dose: 650 mg Albuterol Sulfate (Ventolin 0.083% Nebulizer Soln -) 1 amp NEB Q6H PRN PRN Reason: SHORT OF BREATH/WHEEZING Last Admin: 09/28/16 10:49 Dose: 1 amp Atorvastatin Calcium (Lipitor -) [address] [facility] Last Admin: 09/27/16 21:44 Dose: 10 mg Bisacodyl (Dulcolax -) 5 mg PO DAILY PRN PRN Reason: CONSTIPATION Diltiazem HCl (Cardizem Cd -) [address] [facility] Last Admin: 09/28/16 10:00 Dose: 120 mg Folic Acid (Folic Acid -) [address] [facility] Last Admin: 09/28/16 09:59 Dose: 1 mg Furosemide (Lasix -) [address] [facility] Last Admin: 09/28/16 09:59 Dose: 40 mg Ceftriaxone Sodium (Rocephin 1gm Ivpb (Pre-Docked)) 50 mls @ 100 mls/hr IVPB DAILY [facility] Last Admin: 09/28/16 10:00 Dose: 100 mls/hr Sodium Chloride (Normal Saline -) 1,000 mls @ 100 mls/hr IV ASDIR [facility] Last Admin: 09/28/16 11:19 Dose: Not Given Insulin Aspart (Novolog Vial Sliding Scale -) [address] [facility] PRN Reason: Protocol Last Admin: 09/28/16 16:27 Dose: Not Given Montelukast Sodium (Singulair -) [address] [facility] Last Admin: 09/27/16 21:45 Dose: 10 mg Multivitamins/Minerals/Vitamin C (Tab-A-Vit -) [address] [facility] Last Admin: 09/28/16 09:59 Dose: 1 tab Ondansetron HCl (Zofran -) 4 mg PO TID PRN PRN Reason: NAUSEA/VOMITING Pregabalin (Lyrica -) [address] [facility] Last Admin: 09/28/16 09:59 Dose: 50 mg Ranitidine HCl (Zantac -) [address] [facility] Last Admin: 09/27/16 21:45 Dose: 150 mg Fluticasone/Salmeterol (Advair 100mcg/50mcg -) [address] [facility] Last Admin: 09/28/16 09:58 Dose: 1 puff - Objective Vital Signs: Vital Signs Temperature 98.5 F 09/28/16 14:12 Pulse Rate 94 H 09/28/16 14:12 Respiratory Rate 18 09/28/16 14:12 Blood Pressure 109/55 09/28/16 14:12 O2 Sat by Pulse Oximetry (%) 95 09/28/16 09:00 Neck: Yes: Supple Cardiovascular: Yes: Regular Rate and Rhythm, S1, S2, Other (Mechanical click) Respiratory: Yes: Diminished Gastrointestinal: Yes: Normal Bowel Sounds, Soft. No: Tenderness Edema: No Labs: CBC, BMP 09/28/16 06:40 09/28/16 06:40 INR, PTT INR 8.12 (0.82-1.09) H* 09/28/16 06:40 Problem List - Problems (1) Acute kidney injury Code(s): N17.9 - ACUTE KIDNEY FAILURE, UNSPECIFIED (2) Anemia Code(s): D64.9 - ANEMIA, UNSPECIFIED Qualifiers: Anemia type: unspecified type Qualified Code(s): D64.9 - Anemia, unspecified (3) Aortic valvular disease Code(s): I35.9 - NONRHEUMATIC AORTIC VALVE DISORDER, UNSPECIFIED (5) Diabetes mellitus Code(s): E11.9 - TYPE 2 DIABETES MELLITUS WITHOUT COMPLICATIONS Qualifiers: Diabetes mellitus type: type 2 Diabetes mellitus complication status: without complication Diabetes mellitus intermediate school teacher insulin use: without intermediate school teacher use Qualified Code(s): E11.9 - Type 2 diabetes mellitus without complications (6) H/O mitral valve replacement Code(s): Z95.2 - PRESENCE OF PROSTHETIC HEART VALVE (7) Hypertension Code(s): I10 - ESSENTIAL (PRIMARY) HYPERTENSION Qualifiers: Hypertension type: essential hypertension Qualified Code(s): I10 - Essential (primary) hypertension (8) Hematuria Code(s): R31.9 - HEMATURIA, UNSPECIFIED (9) INR, elevated Code(s): R79.1 - ABNORMAL COAGULATION PROFILE (10) UTI (urinary tract infection) Code(s): N39.0 - URINARY TRACT INFECTION, SITE NOT SPECIFIED Assessment/Plan 1. History of Influenza A infection with underlying COPD 2. Rheumatic heart disease s/p mechanical mitral valve replacement 3. HTN 4. Type 2 DM 5. Hyperlipidemia 6. History of ntracranial hemorrhage 7. CKD 8. UTI 9. Supratherapeutic INR PLAN: 1. Continue antibiotic coverage as per ID 2. Hold Warfarin and monitor INR 3. Continue Diltiazem 4. Continue Lipitor Further plans are to follow Israel Pinto MD
[2016-09-28] MEDS: ATORVASTATIN CA 10 MG TABLET (FP) PO SCH (21:54)
[2016-09-28] MEDS: MONTELUKAST NA 10 MG TABLET PO SCH (21:54)
[2016-09-28] MEDS: RANITIDINE HCL 150 MG TABLET (FP) PO SCH (21:54)
[2016-09-29] MEDS: INSULIN SLIDING SCALE (NOVOLOG) 1 VIAL SQ SCH ×3 (06:13→16:40)
[2016-09-29 08:02] LABS: BASOPHIL 0.8 % (0-2.0); EOSINOPHIL 4.9 % (0-4.5); MCH 29.3 pg (25.7-33.7); MCHC 33.3 g/dl (32.0-36.0); MEAN PLT VOLUME 9.4 fl (7.5-11.1); NEUTROPHILS 65.6 % (42.8-82.8); PLATELET COUNT 145 K/MM3 (134-434); RDW 13.7 % (11.6-15.6); WHITE BLOOD COUNT 6.6 K/mm3 (4.0-10.0)
[2016-09-29 08:21] LABS: ALBUMIN 3.1 g/dl (3.4-5.0); BILIRUBIN,TOTAL 0.6 mg/dL (0.2-1.0); CALCIUM 8.1 mg/dL (8.5-10.1); CREATININE 1.8 mg/dL (0.55-1.02); MAGNESIUM 1.7 mg/dL (1.8-2.4); TOT PROT 6.2 g/dl (6.4-8.2)
[2016-09-29 08:29] LABS: PROTHROMBIN TIME (PATIENT) 50.6 SEC (9.98-11.88)
[2016-09-29 08:43] LABS: INR 4.46 (0.82-1.09)
--- NOTE | 2016-09-29 08:49 | PN ---
Progress Note, Physician Chief Complaint: Pt lying in bed hematuria improved blood cul negative urine cul report negative bladder ultrasound shows subcentimeter cyst in the upperpole of kidney contracted gallbladder with multiple stones Inr supertherapeutic,no active bleeding,INR4.6 Urology consult appreciated,rec cystoscopy and bladder biopsy once INR therapeutic - Current Medication List Current Medications: Active Medications Acetaminophen (Tylenol -) 650 mg PO Q6H PRN PRN Reason: FEVER OR PAIN Last Admin: 09/28/16 16:46 Dose: 650 mg Albuterol Sulfate (Ventolin 0.083% Nebulizer Soln -) 1 amp NEB Q6H PRN PRN Reason: SHORT OF BREATH/WHEEZING Last Admin: 09/28/16 23:10 Dose: 1 amp Atorvastatin Calcium (Lipitor -) 10 mg PO HS [facility] Last Admin: 09/28/16 21:54 Dose: 10 mg Bisacodyl (Dulcolax -) 5 mg PO DAILY PRN PRN Reason: CONSTIPATION Diltiazem HCl (Cardizem Cd -) 120 mg PO DAILY [facility] Last Admin: 09/28/16 10:00 Dose: 120 mg Folic Acid (Folic Acid -) 1 mg PO DAILY [facility] Last Admin: 09/28/16 09:59 Dose: 1 mg Furosemide (Lasix -) 40 mg PO DAILY [facility] Last Admin: 09/28/16 09:59 Dose: 40 mg Ceftriaxone Sodium (Rocephin 1gm Ivpb (Pre-Docked)) 50 mls @ 100 mls/hr IVPB DAILY [facility] Last Admin: 09/28/16 10:00 Dose: 100 mls/hr Sodium Chloride (Normal Saline -) 1,000 mls @ 100 mls/hr IV ASDIR [facility] Last Admin: 09/28/16 11:19 Dose: Not Given Insulin Aspart (Novolog Vial Sliding Scale -) 1 vial SQ ACHS [facility] PRN Reason: Protocol Last Admin: 09/29/16 06:13 Dose: Not Given Montelukast Sodium (Singulair -) 10 mg PO HS [facility] Last Admin: 09/28/16 21:54 Dose: 10 mg Multivitamins/Minerals/Vitamin C (Tab-A-Vit -) 1 tab PO DAILY [facility] Last Admin: 09/28/16 09:59 Dose: 1 tab Ondansetron HCl (Zofran -) 4 mg PO TID PRN PRN Reason: NAUSEA/VOMITING Pregabalin (Lyrica -) 50 mg PO DAILY [facility] Last Admin: 09/28/16 09:59 Dose: 50 mg Ranitidine HCl (Zantac -) 150 mg PO HS [facility] Last Admin: 09/28/16 21:54 Dose: 150 mg Fluticasone/Salmeterol (Advair 100mcg/50mcg -) 1 puff IH BID [facility] Last Admin: 09/28/16 21:54 Dose: 1 puff - Objective Vital Signs: Vital Signs Temperature 98.6 F 09/29/16 05:12 Pulse Rate 96 H 09/29/16 05:12 Respiratory Rate 18 09/29/16 05:12 Blood Pressure 158/79 09/29/16 05:12 O2 Sat by Pulse Oximetry (%) 97 09/28/16 21:00 Constitutional: Yes: No Distress Eyes: Yes: Conjunctiva Clear HENT: Yes: Atraumatic, Normocephalic Neck: Yes: Supple, Trachea Midline Cardiovascular: Yes: Regular Rate and Rhythm Respiratory: Yes: CTA Bilaterally Gastrointestinal: Yes: Normal Bowel Sounds Edema: Yes Edema: LLE: Trace, RLE: Trace Peripheral Pulses WNL: Yes Neurological: Yes: WNL, Alert, Oriented Psychiatric: Yes: Alert, Oriented Labs: CBC, BMP 09/29/16 06:00 09/29/16 06:00 INR, PTT INR 4.46 (0.82-1.09) H* D 09/29/16 06:00 - ....Imaging EKG: Report Reviewed Assessment/Plan Hematuria R/o UTI KATIE improving Hyperkalemia improving INR supertherapeutic DM ,HTN Open heart surgery for mitral valve repair arthralgia ASTHMA PLAN Coumadin on hold Bronchodialator Will monitor,INR,CREatininie,K will f/u cardiology,renal,ID ,and urology recc continue meds
[2016-09-29] MEDS ORDERED: MAGNESIUM OXIDE 400 MG TABLET (FP) PO ONE (09:00)
[2016-09-29] MEDS: MULTIVITAMINS (DAILY MVI) TABLET (FP) PO SCH (09:31)
[2016-09-29] MEDS: PREGABALIN 50 MG CAPSULE PO SCH (09:31)
[2016-09-29] MEDS: FUROSEMIDE 40 MG TABLET (FP) PO SCH (09:31)
[2016-09-29] MEDS: FLUTICASONE/SALMETEROL 100 MCG/50 MCG DISKUS IH SCH (09:32)
[2016-09-29] MEDS: FOLIC ACID 1 MG TABLET (FP) PO SCH (09:32)
[2016-09-29] MEDS: CEFTRIAXONE 1 GM/50 ML IVPB SCH (09:32)
[2016-09-29] MEDS: SODIUM CHLORIDE 1,000 ML IV SCH (11:27)
--- NOTE | 2016-09-29 12:15 | PN ---
Progress Note (short form) - Note Progress Note: S: 81 year old female, history of rheumatic heart disease s/p mechanical [employer] mitral valve prosthesis. History of aortic valve disease, aortic regurgitation. Was admitted to the hospital with gross hemturia, rigors and lethargy, also known to have non insulin dependent diabetes mellitus, hypertension, hypertensive cardiovascular disease. On admission patient was found to have INR of of 6.64 and following day went up to 8.12. Currently is trending down and is 4.46. There is no gross hemturia noted. No chest pain reported. No dyspnea, PND or orthopnea. No history of palpitations. Patient is in atrial flutter with variant response. Active Medications Generic Name Dose Route Start Last Admin Trade Name Freq PRN Reason Stop Dose Admin Acetaminophen 650 mg 09/27/16 10:58 09/28/16 16:46 Tylenol - PO 650 mg Q6H PRN Administration FEVER OR PAIN Albuterol Sulfate 1 amp 09/28/16 09:11 09/28/16 23:10 Ventolin 0.083% Nebulizer Soln - NEB 1 amp Q6H PRN Administration SHORT OF BREATH/WHEEZING Atorvastatin Calcium 10 mg 09/27/16 22:00 09/28/16 21:54 Lipitor - PO 10 mg HS NOA Administration Bisacodyl 5 mg 09/27/16 11:31 Dulcolax - PO DAILY PRN CONSTIPATION Diltiazem HCl 120 mg 09/27/16 11:45 09/29/16 09:32 Cardizem Cd - PO 120 mg DAILY NOA Administration Folic Acid 1 mg 09/27/16 11:45 09/29/16 09:32 Folic Acid - PO 1 mg DAILY NOA Administration Furosemide 40 mg 09/27/16 11:30 09/29/16 09:31 Lasix - PO 40 mg DAILY NOA Administration Ceftriaxone Sodium 50 mls @ 100 mls/hr 09/27/16 11:00 09/29/16 09:32 Rocephin 1gm Ivpb (Pre-Docked) IVPB 100 mls/hr DAILY NOA Administration Sodium Chloride 1,000 mls @ 100 mls/hr 09/27/16 11:00 09/29/16 11:27 Normal Saline - IV Not Given ASDIR NOA Insulin Aspart 1 vial 09/27/16 16:30 09/29/16 11:28 Novolog Vial Sliding Scale - SQ Not Given ACHS NOA Protocol Montelukast Sodium 10 mg 09/27/16 22:00 09/28/16 21:54 Singulair - PO 10 mg HS NOA Administration Multivitamins/Minerals/Vitamin C 1 tab 09/27/16 11:30 09/29/16 09:31 Tab-A-Vit - PO 1 tab DAILY NOA Administration Ondansetron HCl 4 mg 09/27/16 10:58 Zofran - PO TID PRN NAUSEA/VOMITING Pregabalin 50 mg 09/27/16 11:30 09/29/16 09:31 Lyrica - PO 50 mg DAILY NOA Administration Ranitidine HCl 150 mg 09/27/16 22:00 09/28/16 21:54 Zantac - PO 150 mg HS NOA Administration Fluticasone/Salmeterol 1 puff 09/27/16 22:00 09/29/16 09:32 Advair 100mcg/50mcg - IH 1 puff BID NOA Administration O: 81 year old female was in no acute distress, no pallor, cyanosis, clubbing, or jaundice. Last Vital Signs Temp Pulse Resp BP Pulse Ox 98.6 F 98 H 18 158/79 96 09/29/16 05:12 09/29/16 11:33 09/29/16 05:12 09/29/16 05:12 09/29/16 11:33 Neck: Supple, no JVD, negative HJR, carotids were equal and upstrokes were normal, no thyromegaly appreciated. Heart: PMI was in the 5th intercostal space, no heaves or thrills, crisp prosthetic sounds. Grade I/ epical systolic murmur. No diastolic murmur or gallops were appreciated. Lungs: Clear on auscultation bilaterally. Abdomen: Soft, nontender, no hepatosplenomegaly appreciated, and no palpable masses were felt. Extremities: No calf tenderness or dependent edema. Pulses are normal. CBC, BMP 09/29/16 06:00 09/29/16 06:00 Laboratory Results - last 24 hr 09/27/16 09/28/16 09/28/16 15:30 16:04 21:52 WBC RBC Hgb Hct MCV MCHC RDW Plt Count MPV Neutrophils % Lymphocytes % Monocytes % Eosinophils % Basophils % INR Sodium Potassium Chloride Carbon Dioxide Anion Gap BUN Creatinine Creat Clearance w eGFR POC Glucometer 113 152 Random Glucose Calcium Phosphorus Magnesium Total Bilirubin AST ALT Alkaline Phosphatase Total Protein Albumin Hepatitis A IgM Ab Negative Hep Bs Antigen Negative Hep B Core IgM Ab Negative Hepatitis C Ab (EIA) >11.0 H 09/29/16 09/29/16 09/29/16 05:37 06:00 06:00 WBC 6.6 RBC 3.39 L Hgb 9.9 L Hct 29.8 L MCV 88.0 MCHC 33.3 RDW 13.7 Plt Count 145 MPV 9.4 Neutrophils % 65.6 Lymphocytes % 17.6 Monocytes % 11.1 H Eosinophils % 4.9 H D Basophils % 0.8 INR 4.46 H* D Sodium Potassium Chloride Carbon Dioxide Anion Gap BUN Creatinine Creat Clearance w eGFR POC Glucometer 120 Random Glucose Calcium Phosphorus Magnesium Total Bilirubin AST ALT Alkaline Phosphatase Total Protein Albumin Hepatitis A IgM Ab Hep Bs Antigen Hep B Core IgM Ab Hepatitis C Ab (EIA) 09/29/16 09/29/16 06:00 11:28 WBC RBC Hgb Hct MCV MCHC RDW Plt Count MPV Neutrophils % Lymphocytes % Monocytes % Eosinophils % Basophils % INR Sodium 140 Potassium 5.0 Chloride 108 H Carbon Dioxide 25 Anion Gap 7 L BUN 38 H D Creatinine 1.8 H Creat Clearance w eGFR 27.07 POC Glucometer 102 Random Glucose 121 H Calcium 8.1 L Phosphorus 4.0 Magnesium 1.7 L Total Bilirubin 0.6 AST 50 H D ALT 33 Alkaline Phosphatase 75 Total Protein 6.2 L Albumin 3.1 L Hepatitis A IgM Ab Hep Bs Antigen Hep B Core IgM Ab Hepatitis C Ab (EIA) Impression: 1. Gross hematuria and clinical presentation compatible with urinary sepsis. Code(s): R31.9 - HEMATURIA, UNSPECIFIED 2. Rheumatic heart disease s/p mechanical valve prosthesis Code(s): I09.9 - RHEUMATIC HEART DISEASE, UNSPECIFIED 3. Hypertension, hypertensive cardiovascular disease Code(s): I10 - ESSENTIAL (PRIMARY) HYPERTENSION 4. Atrial flutter with varying AV response. Code(s): I48.92 - UNSPECIFIED ATRIAL FLUTTER 5. Non insulin dependent diabetes mellitus Code(s): E11.9 - TYPE 2 DIABETES MELLITUS WITHOUT COMPLICATIONS 6. Aortic valvular disease with moderate aortic regurgitation. Code(s): I35.9 - NONRHEUMATIC AORTIC VALVE DISORDER, UNSPECIFIED 7. Anemia Code(s): D64.9 - ANEMIA, UNSPECIFIED Recommendations: 1. According to her son, he suspects his mother may have been accidentally been taking excessive dose of warfarin. 2. Son was advised that family should take responsibility that she receives appropriate doses of medications. 3. INR should be between 2.5-3.5, preferably around 3.0 or slightly above. 4. Follow up hemoglobin, hematocrit. 5. Antibiotics prophylaxes for surgical procedure. Attestation: Documentation prepared by Ben Gale, acting as medical auditor for Robert Langley MD.
--- NOTE | 2016-09-29 13:33 | PN ---
Progress Note (short form) - Note Progress Note: feels better Vital Signs Period Temp Pulse Resp BP Sys/[place]more Pulse Ox Last 24 Hr 98.4 F-98.6 F 86-98 18-20 109-158/55-79 96-97 cor-rrr lungs clear abd soft,nt ext no edema CBC, BMP 09/29/16 06:00 09/29/16 06:00 Microbiology 09/27/16 06:12 Blood - Peripheral Venous Blood Culture - Preliminary NO GROWTH OBTAINED AFTER 48 HOURS, INCUBATION TO CONTINUE FOR 3 DAYS. 09/27/16 06:12 Blood - Peripheral Venous Blood Culture - Preliminary NO GROWTH OBTAINED AFTER 48 HOURS, INCUBATION TO CONTINUE FOR 3 DAYS. 09/27/16 08:57 Urine - Urine Clean Catch Urine Culture - Final NO GROWTH OBTAINED a/p hematuria-uti elevated inr-improved KATIE- imprroving prosthetic MVR improving suspect UTI- culture negative, but received antibiotics prior to urine culture being sent on rocephin #3 can switch to po keflex to complete 7 days Problem List - Problems (1) Hematuria Code(s): R31.9 - HEMATURIA, UNSPECIFIED (2) UTI (urinary tract infection) Code(s): N39.0 - URINARY TRACT INFECTION, SITE NOT SPECIFIED (3) Acute kidney injury Code(s): N17.9 - ACUTE KIDNEY FAILURE, UNSPECIFIED (4) H/O mitral valve replacement Code(s): Z95.2 - PRESENCE OF PROSTHETIC HEART VALVE
--- NOTE | 2016-09-29 15:11 | PN ---
Progress Note (short form) - Note Progress Note: Renal Follow up for KATIE Pt seen and examined at the bedside no acute complaints Vital Signs Temperature 97.8 F 09/29/16 14:51 Pulse Rate 74 09/29/16 14:51 Respiratory Rate 18 09/29/16 14:51 Blood Pressure 130/54 09/29/16 14:51 O2 Sat by Pulse Oximetry (%) 96 09/29/16 11:33 Intake & Output 09/26/16 09/27/16 09/28/16 09/29/16 23:59 23:59 23:59 23:59 Intake Total 800 3000 1930 Output Total 100 Balance 800 2900 1930 Weight 173 lb 6.4 oz 260 lb 8 oz 168 lb 7 oz Gen: NAD, awake and alert CVS: irregular, No M/R Lungs: CTA Abd: soft NT/ND, No bladder distension Ext: No edema, clubbing or cyanosis. CBC, BMP 09/29/16 06:00 09/29/16 06:00 Current Medications Acetaminophen (Tylenol -) 650 mg PO Q6H PRN PRN Reason: FEVER OR PAIN Last Admin: 09/28/16 16:46 Dose: 650 mg Albuterol Sulfate (Ventolin 0.083% Nebulizer Soln -) 1 amp NEB Q6H PRN PRN Reason: SHORT OF BREATH/WHEEZING Last Admin: 09/28/16 23:10 Dose: 1 amp Aspirin (Asa -) 81 mg PO DAILY [facility] Atorvastatin Calcium (Lipitor -) 10 mg PO HS [facility] Last Admin: 09/28/16 21:54 Dose: 10 mg Bisacodyl (Dulcolax -) 5 mg PO DAILY PRN PRN Reason: CONSTIPATION Cephalexin HCl (Keflex -) 250 mg PO BID [facility] Diltiazem HCl (Cardizem Cd -) 120 mg PO DAILY [facility] Last Admin: 09/29/16 09:32 Dose: 120 mg Folic Acid (Folic Acid -) 1 mg PO DAILY [facility] Last Admin: 09/29/16 09:32 Dose: 1 mg Furosemide (Lasix -) 40 mg PO DAILY [facility] Last Admin: 09/29/16 09:31 Dose: 40 mg Sodium Chloride (Normal Saline -) 1,000 mls @ 100 mls/hr IV ASDIR [facility] Last Admin: 09/29/16 11:27 Dose: Not Given Insulin Aspart (Novolog Vial Sliding Scale -) 1 vial SQ ACHS NOA PRN Reason: Protocol Last Admin: 09/29/16 11:28 Dose: Not Given Montelukast Sodium (Singulair -) 10 mg PO HS [facility] Last Admin: 09/28/16 21:54 Dose: 10 mg Multivitamins/Minerals/Vitamin C (Tab-A-Vit -) 1 tab PO DAILY [facility] Last Admin: 09/29/16 09:31 Dose: 1 tab Ondansetron HCl (Zofran -) 4 mg PO TID PRN PRN Reason: NAUSEA/VOMITING Pregabalin (Lyrica -) 50 mg PO DAILY [facility] Last Admin: 09/29/16 09:31 Dose: 50 mg Ranitidine HCl (Zantac -) 150 mg PO HS [facility] Last Admin: 09/28/16 21:54 Dose: 150 mg Fluticasone/Salmeterol (Advair 100mcg/50mcg -) 1 puff IH BID [facility] Last Admin: 09/29/16 09:32 Dose: 1 puff A/P 81 year old Woman with PMhx of CAD s/p CABG, Hepatitis C, NIDDM, HLD, HTN, Afib on Coumadin, recurrent UTI's who presented with complaints of weakness and hematuria and found to have BUN/Cr of 76/2.9 and K of 6.5 #Acute Renal Injury Secondary to volume depletion -> ATN Urine studies consistent with tubular damage volume status looks improved BP stable d/C IVF and trend renal function Dose all meds for Cr Cl less then 20 #Hyperkalemia no improved low k diet #Cystitis/UTI/Leukocytosis Continue Ceftriaxone f/u cultures ID follow up #Metabolic Acidosis Continue sodum bicarb 650mg Daily #Hypertension Resume Cardizem Goal BP < 140/90 #Hepatitis C as reported by daughter hepatitis C ab positive GI/Hepatology follow up as outpatient Thank you Jace Zavala DO
[2016-09-29 18:06] VITALS: BP 147/67; PULSE 98; TEMP 97.6
[2016-09-30] MEDS ORDERED: CEPHALEXIN MONOHYDRATE 250 MG CAPSULE (FP) PO SCH (10:00)
[2016-09-30] MEDS ORDERED: ASPIRIN 81 MG CHEWABLE TABLETS PO SCH (10:00)
== END 2016-09-29 19:20 | disposition left against medical advice (07) | DRG 689 ==
LOC: JER 05:42 → JERBED 08:32 → J5S 10:12
PROVIDERS: ADMIT Internal Medicine; ATTEND Internal Medicine
DX: N39.0 Urinary tract infection, site not specified (principal); N17.0 Acute kidney failure with tubular necrosis; E87.2 Acidosis; I48.92 Unspecified atrial flutter; R31.9 Hematuria, unspecified; E86.9 Volume depletion, unspecified; D72.829 Elevated white blood cell count, unspecified; R31.0 Gross hematuria; I09.9 Rheumatic heart disease, unspecified; E11.9 Type 2 diabetes mellitus without complications; D64.9 Anemia, unspecified; R79.1 Abnormal coagulation profile; E78.5 Hyperlipidemia, unspecified; I11.9 Hypertensive heart disease without heart failure; I25.10 Atherosclerotic heart disease of native coronary artery without angina pectoris; Z95.1 Presence of aortocoronary bypass graft; E87.5 Hyperkalemia; G89.29 Other chronic pain; I48.91 Unspecified atrial fibrillation; B19.20 Unspecified viral hepatitis C without hepatic coma; Z95.2 Presence of prosthetic heart valve; I35.1 Nonrheumatic aortic (valve) insufficiency
CPT/HCPCS: 36415; 71010-TC; 76775-TC; 76856-TC; 80048; 80053; 80074; 81003; 81015; 82550; 82570; 83605; 83735; 84100; 84156; 84300; 84484; 85025; 85610; 85730; 86850; 86900; 86901; 87040; 87086; 93005; 93010; 94640; 99285-25

== ENCOUNTER 2016-11-02 08:12 | Emergency (ER) | payer OTHER ==
[2016-11-02 08:29] VITALS: TEMP 98.5; BMI 30.5
[2016-11-02] MEDS ORDERED: SODIUM CHLORIDE 1,000 ML IV SCH (08:45)
--- NOTE | 2016-11-02 08:52 | PDOC ---
History of Present Illness - General Chief Complaint: Pain, Acute Stated Complaint: left side pain Time Seen by Provider: 11/02/16 08:20 - History of Present Illness Initial Comments: 11/02/16 08:48 81-year-old female who speaks M[place]ese, who is with an aide who speaks [place]. Neither speak Hebrew History was provided by old records, and the patient was interviewed with the translation phone 81-year-old female with a past medical history of CAD and CABG, hepatitis C, diabetes, hyperlipidemia, hypertension, atrial fibrillation on Coumadin, recurrent UTIs, rheumatic heart disease, prosthetic mitral valve, and a recent admission for acute kidney injury and UTI at [facility] Patient is complaining of left flank pain, without radiation to the abdomen She denies any dysuria or burning She denies any associated abdominal pain She denies any chest pain No further history or review of systems is available from the patient, as she is a poor historian coming even with the waste transportation technician phone and a certified [place] waste transportation technician We are attempting to contact her daughter No further history or review of systems is available at this time Past History - Past Medical History Allergies/Adverse Reactions: Allergies Allergy/AdvReac Type Severity Reaction Status Date / Time No Known Allergies Allergy Verified 11/02/16 08:31 Home Medications: Ambulatory Orders Diltiazem HCl [Tiazac] 360 mg PO DAILY 11/02/16 Docusate Sodium [Colace -] 100 mg PO TID 11/02/16 Folic Acid 1 mg PO DAILY 11/02/16 Furosemide [Lasix] 40 mg PO DAILY 11/02/16 Lidocaine 5% Patch [Lidoderm Patch -] 1 patch TP DAILY #30 patch 11/02/16 Loratadine [Allergy] 10 mg PO DAILY 11/02/16 Meloxicam [Mobic (Nf) -] 7.5 mg PO DAILY 11/02/16 Metformin HCl 500 mg PO BID 11/02/16 Montelukast Na [Singulair -] 10 mg PO HS 11/02/16 Spironolactone [Aldactone] 25 mg PO DAILY 11/02/16 Valsartan/Hydrochlorothiazide [Valsartan-Hctz 160-12.5 mg Tab] 1 each PO DAILY 11/02/16 Levofloxacin [Levaquin] 500 mg PO DAILY #10 tablet 05/07/17 Asthma: Yes Cardiac Disorders: Yes COPD: Yes Diabetes: Yes HTN: Yes Hypercholesterolemia: Yes - Surgical History Cardiac Surgery: Yes (MITRAL VALVE REPLACMENT) - Immunization History Immunization Up to Date: No - Psycho/Social/Smoking Cessation Hx Anxiety: No Suicidal Ideation: No Smoking Status: No Smoking History: Never smoked Have you smoked in the past 12 months: No Number of Cigarettes Smoked Daily: 0 Hx Alcohol Use: No Drug/Substance Use Hx: No Substance Use Type: None Hx Substance Use Treatment: No *Physical Exam - Vital Signs Last Vital Signs Temp Pulse Resp BP Pulse Ox 98.5 F 115 H 20 130/74 97 11/02/16 08:13 11/02/16 08:13 11/02/16 08:13 11/02/16 08:13 11/02/16 08:13 - Physical Exam Comments: 11/02/16 08:51 Physical exam Last Vital Signs Temp Pulse Resp BP Pulse Ox 98.5 F 115 H 20 130/74 97 11/02/16 08:13 11/02/16 08:13 11/02/16 08:13 11/02/16 08:13 11/02/16 08:13 GENERAL: The patient is awake, alert, answering simple questions with waste transportation technician from and moving all extremities HEAD: Normal with no signs of trauma. EYES: sclera anicteric, conjunctiva are normal. ENT: Moist mucous membranes. NECK: Normal range of motion, supple LUNGS: Breath sounds equal, clear to auscultation bilaterally. No wheezes, and no crackles. HEART: Tachycardic Regular rate and rhythm 100-110, normal S1 and S2 with a 1-2 out of 6 prosthetic valve murmur ABDOMEN: Soft, nontender, normoactive bowel sounds. No guarding, no rebound. No masses appreciated. The abdomen is completely soft and nontender A left flank bruise is noted, and there is tenderness around this area There is no right CVA or flank tenderness EXTREMITIES: Normal range of motion, no edema. No clubbing or cyanosis. No cords, erythema, or tenderness. NEUROLOGICAL: Cranial nerves II through XII grossly intact. Normal speech, normal gait. PSYCH: Normal mood, normal affect. SKIN: Warm, Dry, ED Treatment Course - LABORATORY CBC & Chemistry Diagram: 11/02/16 08:37 11/02/16 08:37 - RADIOLOGY Radiology Studies Ordered: Category Date Time Status CHEST X-RAY PORTABLE* [RAD] Stat Radiology 11/02/16 08:32 Ordered Medical Decision Making - Medical Decision Making 11/02/16 08:54 EKG Sinus tachycardia 101 And IV conduction time Normal QTC Nonspecific ST-T is When compared to the EKG of 09/27/16, atrial fibrillation was present on the prior EKG 81-year-old female with extensive past medical history as noted, who is a poor historian even with a certified [place] waste transportation technician via waste transportation technician phone, presents with left flank pain, and bruise noted on the left flank, although patient does not know how that occurred She does have a history of recent UTI and ARF/KATIE 11/02/16 09:33 Daughter just arrived - further hx obtained Since Sunday pt has been having midline back pain rad to L flank area She did take her mother to pain management physician, and she did have some injections in the area from pain management and thinks that the flank hematoma is due to the pain management injections The patient denies any recent urinary burning, dysuria, urgency, or frequency, although she does get frequent UTIs there has been no recent fever There was no fall or injury The patient denies any abdominal pain 11/02/16 10:56 Chest x-ray Patient is slightly rotated which, in, in addition with overlying soft tissues, obscures the left lateral base No focal consolidation is seen CT scan of the chest without contrast No evidence of left rib fracture or acute pathology The lung archuleta are clear, and there are no areas of consolidation or pleural effusions CT scan of the abdomen and pelvis NAD Severe DJD of the L-spine 11/02/16 11:33 Case and all results discussed with Dr. Delgado on-patient's primary care physician and admitting physician on recent admission She does not want the patient started on antibiotics yet, and will await urine results, because she often has contaminated urine specimens Will hold Coumadin for [address] Delgado will check the urine culture results, and recheck INR Dr. Mccollum states that the patient always has back pain and they have tried multiple different ways to manage her chronic back pain Impression-back area hematoma due to pain management injection Repeat vital signs Vital Signs - 24 hr 11/02/16 11/02/16 11/02/16 08:13 08:57 09:40 Temperature 98.5 F Pulse Rate 115 H Pulse Rate [ 96 H Apical] Respiratory 20 Rate Blood Pressure 130/74 130/74 Blood Pressure 126/71 [Right Arm] O2 Sat by Pulse 97 99 Oximetry (%) Vital signs improved, patient comfortable Patient was given IV hydration in the ER due to her elevated BUN to creatinine ratio Urine micro pending at the time of discharge all labwork reviewed Addendum - Progress Note - Progress Note Progress Note: Informed by the support staff that the patient had a positive urine culture from her ED visit on 11/02/16 for >100,000 colonies of Klebsiella Pneumoniae. I reviewed the patient's EMR and found that she was not started on abx during that visit as she has had frequent colonization and they were waiting for the UCx before starting abx. I called the patient and spoke to her daughter and informed her of the results. I called the [facility] in [place] and precribed Levaquin 500mg QD x 10 days. I have also instructed the patient's daughter to have her follow-up with her PCP this week. Initialized on 11/05/16 13:57 - END OF NOTE *DC/Admit/Observation/Transfer Diagnosis at time of Disposition: Hematoma, Back pain - Discharge Dispostion Disposition: HOME Condition at time of disposition: Stable - Prescriptions Prescriptions: Levofloxacin [Levaquin] 500 mg PO DAILY #10 tablet Lidocaine 5% Patch [Lidoderm Patch -] 1 patch TP DAILY #30 patch - Referrals Referrals: Hilda Delgado MD [Primary Care Provider] - 24 hours - Patient Instructions Additional Instructions: Do not take your Coumadin for 2 days-please call Dr. Delgado for further instructions on her Coumadin Dr. Delgado will call you with the urine cultures if they are positive Dr. Delgado will arrange for a repeat Coumadin level/INR Followup with your primary care physician in 24 hours Return immediately if you worsen in any way Take your medications as directed -no Coumadin for 2 days
[2016-11-02 09:40] VITALS: BP 126/71; PULSE 96
[2016-11-02 10:05] LABS: ALBUMIN 4.2 g/dl (3.5-5.0); ALK PHOS 81 U/L (32-92); ANION GAP 9 (8-16); BILIRUBIN,TOTAL 0.5 mg/dl (0.2-1.0); CO2 26 mmol/L (22-28); GLUCOSE,RANDOM 134 mg/dl (74-106); MAGNESIUM 1.8 mg/dL (1.8-2.4); SGOT/AST 45 U/L (10-42); SGPT/ALT 33 U/L (10-40)
[2016-11-02 10:11] LABS: MCH 28.9 pg (25.7-33.7); MCHC 32.9 g/dl (32.0-36.0); MEAN CELL VOLUME 87.9 fl (80-96); MEAN PLT VOLUME 10.1 fl (7.5-11.1); PLATELET COUNT 223 K/MM3 (134-434); RDW 13.2 % (11.6-15.6); WHITE BLOOD COUNT 7.4 K/mm3 (4.0-10.8)
[2016-11-02 10:38] LABS: PROTHROMBIN TIME (PATIENT) 48.2 SEC (10.2-13.0)
[2016-11-02 11:00] LABS: CPK(DFH) 44 IU/L (26-140)
[2016-11-02 11:16] LABS: PH,URINE 5.5 (4.5-8); URINE BILIRUBIN Negative (NEGATIVE); URINE BLOOD Negative (NEGATIVE); URINE GLUCOSE (UA) Negative (NEGATIVE); URINE KETONE Negative (NEGATIVE); URINE NITRITE Negative (NEGATIVE); URINE PROTEIN Negative (NEGATIVE); URINE UROBILINOGEN 0.2 E.U/dl (0.2-1.0)
[2016-11-02 11:19] LABS: URINE APPEARANCE CLOUDY; URINE COLOR YELLOW; URINE LEUK ESTERASE 1+ (NEGATIVE)
[2016-11-02 11:30] LABS: TROPONIN I (DFP) < 0.03 ng/ml (0.03-0.50)
[2016-11-02 11:35] LABS: INR 4.43 (0.82-1.09)
--- NOTE | 2016-11-02 13:53 | EKG ---
Test Reason : Blood Pressure : / mmHG Vent. Rate : 101 BPM Atrial Rate : 101 BPM P-R Int : 160 ms QRS Dur : 078 ms QT Int : 326 ms P-R-T Axes : 069 084 068 degrees QTc Int : 422 ms SINUS TACHYCARDIA POSSIBLE LEFT ATRIAL ENLARGEMENT NONSPECIFIC T WAVE ABNORMALITY BORDERLINE ECG WHEN COMPARED WITH ECG OF 27-SEP-2016 06:07, SINUS RHYTHM HAS REPLACED ATRIAL FLUTTER Confirmed by ELIU MI MD ([id number]) on 11/02/2016 1:53:10 PM Referred By: LUBNA ABARCA Confirmed By:ELIU MI MD
[2016-11-02 14:47] LABS: URINE RBC 0-1 /hpf (0-3)
[2016-11-02 14:48] LABS: URINE BACTERIA MANY /hpf (NEGATIVE)
== END 2016-11-02 12:04 | disposition home or self-care (01) ==
LOC: FER 08:12
DX: M54.9 Dorsalgia, unspecified (principal); S30.1XXA Contusion of abdominal wall, initial encounter; I25.10 Atherosclerotic heart disease of native coronary artery without angina pectoris; Z95.1 Presence of aortocoronary bypass graft; E11.9 Type 2 diabetes mellitus without complications; E78.5 Hyperlipidemia, unspecified; I10 Essential (primary) hypertension; I48.91 Unspecified atrial fibrillation; Z79.01 Long term (current) use of anticoagulants; I34.1 Nonrheumatic mitral (valve) prolapse
CPT/HCPCS: 36415; 71010-TC; 71250-TC; 74176-TC; 80053; 81003; 81015; 82550; 83605; 83690; 83735; 84484; 85027; 85610; 87040; 87086; 87186; 93005; 99285-25

== ENCOUNTER 2017-01-23 10:40 | Emergency (ER) | payer OTHER ==
[2017-01-23 10:49] VITALS: TEMP 97.9; BMI 32.9
[2017-01-23 11:06] LABS: BASOPHIL 1.2 % (0-2.0); EOSINOPHIL 1.9 % (0-4.5); MCH 29.3 pg (25.7-33.7); MCHC 33.8 g/dl (32.0-36.0); MEAN CELL VOLUME 86.7 fl (80-96); MEAN PLT VOLUME 8.9 fl (7.5-11.1); NEUTROPHILS 72.2 % (42.8-82.8); PLATELET COUNT 193 K/MM3 (134-434); RDW 12.4 % (11.6-15.6); WHITE BLOOD COUNT 7.2 K/mm3 (4.0-10.8)
[2017-01-23 11:20] LABS: PH,URINE 5.5 (4.5-8); URINE APPEARANCE Clear; URINE BILIRUBIN Negative (NEGATIVE); URINE BLOOD 1+ (NEGATIVE); URINE GLUCOSE (UA) Negative (NEGATIVE); URINE KETONE Negative (NEGATIVE); URINE NITRITE Positive (NEGATIVE); URINE PROTEIN Negative (NEGATIVE); URINE UROBILINOGEN 0.2 (0.2-1.0)
[2017-01-23 11:20] LABS: INR 3.79 (0.82-1.09); PROTHROMBIN TIME (PATIENT) 41.4 SEC (10.2-13.0)
[2017-01-23 11:21] LABS: URINE COLOR YELLOW; URINE LEUK ESTERASE TRACE (NEGATIVE)
[2017-01-23 11:24] LABS: CPK(DFH) 40 IU/L (26-140)
[2017-01-23 11:25] LABS: ALBUMIN 3.9 g/dl (3.5-5.0); ALK PHOS 94 U/L (32-92); ANION GAP 6 (8-16); BILIRUBIN,TOTAL 0.7 mg/dl (0.2-1.0); CALCIUM 9.2 mg/dl (8.4-10.2); CO2 29 mmol/L (22-28); CREATININE 0.8 mg/dl (0.6-1.3); GLUCOSE,RANDOM 159 mg/dl (74-106); SGOT/AST 63 U/L (10-42); SGPT/ALT 32 U/L (10-40); TOT PROT 7.2 g/dl (6.4-8.3)
--- NOTE | 2017-01-23 11:25 | PDOC ---
History of Present Illness - General Chief Complaint: Shortness of Breath Stated Complaint: SOB Time Seen by Provider: 01/23/17 10:45 History Source: Care Provider Exam Limitations: No Limitations, Language Barrier - History of Present Illness Initial Comments: 01/23/17 11:20 81 yo F with h/o HTN asthma, DM HTN mitral valve replacement, frequent UTI chf, here with c/o sob. per aid, pt started to have c/o sob yesterday, also c/o bilat leg swelling. now c/o chest pain and upper back pain. was given 3 nebs yesterday no relief. no f/c no n/v no mod factors. on coumadin, no f/c no h/o pe or dvt. no other mod factors. 01/23/17 11:36 Presenting Symptoms: Chest Pain, Short of Breath Timing/Duration: reports: constant Location: reports: substernal, back Chest Pain Radiation: reports: no radiation Activities at Onset: reports: none Past History - Past Medical History Allergies/Adverse Reactions: Allergies Allergy/AdvReac Type Severity Reaction Status Date / Time No Known Allergies Allergy Verified 01/23/17 10:43 Home Medications: Ambulatory Orders Albuterol Sulfate Inhaler - [Ventolin Hfa Inhaler -] 1 puff IH TID 01/23/17 Aspirin [Ecotrin] 81 mg PO DAILY 01/23/17 Baclofen [Lioresal -] 10 mg PO DAILY 01/23/17 Bisacodyl [Gentle Laxative] 5 mg PO DAILY 01/23/17 Calcium Carb/Vitamin D3/Vit K1 [Calcium + D Soft Chewable Tab] 1 each PO DAILY 01/23/17 Diltiazem Cd [Cardizem Cd -] 360 mg PO ONCE 01/23/17 Fluticasone/Salmeterol [Advair Hfa 115-21 Mcg Inhaler] 1 inh PO BID 01/23/17 Folic Acid 1 mg PO DAILY 01/23/17 Furosemide [Lasix] 40 mg PO DAILY 01/23/17 Hydrochlorothiazide [Hctz -] 12.5 mg PO DAILY 01/23/17 Meloxicam [Mobic] 15 mg PO DAILY 01/23/17 Metformin HCl [Glucophage -] 500 mg PO BID 01/23/17 Montelukast Na [Singulair -] 10 mg PO HS 01/23/17 Polyethylene Glycol 3350 [Miralax (For Daily Use) -] 17 gm PO DAILY 01/23/17 Pregabalin [Lyrica -] 50 mg PO DAILY 01/23/17 Ranitidine HCl [Zantac] 150 mg PO DAILY 01/23/17 Simvastatin [Zocor] 10 mg PO HS 01/23/17 Spironolactone [Aldactone] 25 mg PO DAILY 01/23/17 Valsartan [Diovan] 320 mg PO DAILY 01/23/17 Warfarin Sodium [Coumadin] 0 mg PO ASDIR 01/23/17 Asthma: Yes Cardiac Disorders: Yes COPD: Yes Diabetes: Yes HTN: Yes Hypercholesterolemia: Yes - Surgical History Cardiac Surgery: Yes (MITRAL VALVE REPLACMENT) - Immunization History Immunization Up to Date: No - Psycho/Social/Smoking Cessation Hx Anxiety: No Suicidal Ideation: No Smoking Status: No Smoking History: Never smoked Have you smoked in the past 12 months: No Number of Cigarettes Smoked Daily: 0 Hx Alcohol Use: No Drug/Substance Use Hx: No Substance Use Type: None Hx Substance Use Treatment: No Review of Systems - Review of Systems Constitutional: No: Chills, Diaphoresis, Fever Respiratory: Yes: Cough, Orthopnea, Shortness of Breath, SOB at Rest, Wheezing Cardiac (ROS): Yes: Chest Pain, Edema. No: Irregular Heart Rate : No: Burning, Dysuria, Discharge Integumentary: No: Bruising All Other Systems: Reviewed and Negative *Physical Exam - Vital Signs Last Vital Signs Temp Pulse Resp BP Pulse Ox 97.9 F 83 24 155/81 97 01/23/17 10:40 01/23/17 14:20 01/23/17 14:20 01/23/17 14:20 01/23/17 14:20 - Physical Exam General Appearance: Yes: Nourished, Appropriately Dressed, Mild Distress HEENT: positive: Normal ENT Inspection Neck: positive: Trachea midline Respiratory/Chest: positive: Accessory Muscle Use, Labored Respiration, Other ( decre breath sounds on expiration) Cardiovascular: positive: Regular Rhythm, Regular Rate, S1, S2, Edema Gastrointestinal/Abdominal: positive: Normal Bowel Sounds. negative: Tender, Flat Musculoskeletal: positive: Normal Inspection. negative: CVA Tenderness Extremity: positive: Normal Capillary Refill Integumentary: positive: Normal Color, Dry, Warm Neurologic: positive: Fully Oriented, Alert, Normal Mood/Affect Heart Score/ECG Review #1 ECG reviewed & interpreted by me at: 11:28 General ECG Interpretation: Sinus Rhythm, Normal Rate, Normal Intervals, No acute ischemic changes Compared to previous ECG there are: Changes noted - ECG Intrepretation Rhythm: Regularly Irregular ED Treatment Course - LABORATORY CBC & Chemistry Diagram: 01/23/17 10:57 01/23/17 10:57 - ADDITIONAL ORDERS Additional order review: Laboratory Results 01/23/17 01/23/17 01/23/17 11:21 10:57 10:57 INR Sodium 136 Potassium 4.1 Chloride 101 Carbon Dioxide 29 H Anion Gap 6 L BUN 24 H D Creatinine 0.8 Creat Clearance w eGFR > 60 Random Glucose 159 H Calcium 9.2 Total Bilirubin 0.7 D AST 63 H D ALT 32 Alkaline Phosphatase 94 H Creatine Kinase 40 Troponin I < 0.03 L Total Protein 7.2 Albumin 3.9 Urine Color Yellow Urine Appearance Clear Urine pH 5.5 Ur Specific [place] 1.010 Urine Protein Negative Urine Glucose (UA) Negative Urine Ketones Negative Urine Blood 1+ Urine Nitrite Positive Urine Bilirubin Negative Urine Urobilinogen 0.2 Ur Leukocyte Esterase Trace H 01/23/17 10:57 INR 3.79 H Sodium Potassium Chloride Carbon Dioxide Anion Gap BUN Creatinine Creat Clearance w eGFR Random Glucose Calcium Total Bilirubin AST ALT Alkaline Phosphatase Creatine Kinase Troponin I Total Protein Albumin Urine Color Urine Appearance Urine pH Ur Specific [place] Urine Protein Urine Glucose (UA) Urine Ketones Urine Blood Urine Nitrite Urine Bilirubin Urine Urobilinogen Ur Leukocyte Esterase 01/23/17 10:57 RBC 3.79 MCV 86.7 MCHC 33.8 RDW 12.4 MPV 8.9 D Neutrophils % 72.2 Lymphocytes % 19.9 Monocytes % 4.8 Eosinophils % 1.9 D Basophils % 1.2 - RADIOLOGY Radiology Studies Ordered: Category Date Time Status CHEST X-RAY PORTABLE* [RAD] Stat Radiology 01/23/17 10:55 Completed - Medications Given in the ED: ED Medications Discontinued Medications Generic Name Dose Route Start Last Admin Trade Name Freq PRN Reason Stop Dose Admin Albuterol/Ipratropium 1 amp 01/23/17 11:39 01/23/17 11:48 Duoneb - NEB 01/23/17 11:40 1 amp ONCE ONE Administration Aspirin 162 mg 01/23/17 11:38 07/25/17 11:48 Asa - PO 01/23/17 11:39 162 mg ONCE ONE Administration Methylprednisolone Sodium Succinate 125 mg 01/23/17 12:27 01/23/17 12:42 Solu-Medrol - IVPB 01/23/17 12:28 125 mg ONCE ONE Administration Medical Decision Making - Medical Decision Making 01/23/17 11:31 81 yo F wtih /o HTN HLD CHF CAD ( cabg) frequet UTI asthma here wtih sob, and peripheral edema. differential CHF, pna, acs, infection such as uti, anemia. plan labs cxr asa, ekg trop cbc lytes bnp. will require admission. 01/23/17 12:57 pt much improved with nebs, steroids, will admit due to severity of sxs, mild distress on initial evaluation. cxr mild congestion overall unchanged. dr. saldaña. 01/23/17 15:27 d/w dr saldaña who knows pt well,. states pt refuseds admission frequently leaves AMA. daughter at bedside would like to take pt home. states much improved. has followup scheduled with radiology technologist in am tomorrow. will dc on steroids, given xtra dose of lasix here in ed. feeling much better. rq dc home. *DC/Admit/Observation/Transfer Diagnosis at time of Disposition: Asthma attack - Discharge Dispostion Disposition: HOME Condition at time of disposition: Improved Admit: No - Patient Instructions Printed Discharge Instructions: Asthma -- Adult Additional Instructions: you should follow up with your water quality manager DR Gifford or Dr Salmeron. call to schedule. also you should take prednisone 40 mg daily 5 days. follow up with your radiology technologist tomorrow as scheduled. return for any worsening symtpoms, recurrent pain or any concerns.
[2017-01-23] MEDS ORDERED: ASPIRIN 81 MG CHEWABLE TABLETS PO ONE (11:38)
[2017-01-23] MEDS ORDERED: ALBUTEROL SO4 2.5/IPRATROPIUM 0.5 INH SOL 3 ML VIAL.NEB. NEB ONE ×2 (11:39→11:45)
[2017-01-23] MEDS ORDERED: ASPIRIN 81 MG CHEWABLE TABLETS ONE (11:45)
[2017-01-23] MEDS ORDERED: methylPREDNISolone NA SUCC 125 MG/2 ML VIAL IVPB ONE (12:27)
[2017-01-23] MEDS ORDERED: methylPREDNISolone NA SUCC 125 MG/2 ML VIAL ONE (12:36)
[2017-01-23 13:49] LABS: TROPONIN I (DFP) < 0.03 ng/ml (0.03-0.50)
[2017-01-23 14:20] VITALS: BP 155/81; PULSE 83
[2017-01-23] MEDS ORDERED: FUROSEMIDE 40 MG/4 ML INJECTABLE VIAL IVPUSH ONE (15:26)
[2017-01-23] MEDS ORDERED: FUROSEMIDE 40 MG/4 ML INJECTABLE VIAL ONE (15:29)
[2017-01-23 17:16] LABS: URINE RBC 0-2 /hpf (0-3)
[2017-01-23 17:17] LABS: URINE BACTERIA MODERATE /hpf (NEGATIVE)
--- NOTE | 2017-01-23 21:03 | EKG ---
Test Reason : Blood Pressure : / mmHG Vent. Rate : 098 BPM Atrial Rate : 098 BPM P-R Int : 172 ms QRS Dur : 082 ms QT Int : 338 ms P-R-T Axes : 064 080 063 degrees QTc Int : 431 ms NORMAL SINUS RHYTHM NORMAL ECG WHEN COMPARED WITH ECG OF 02-NOV-2016 08:38, NO SIGNIFICANT CHANGE WAS FOUND CL Confirmed by YAHAIRA GAMBLE MD ([id number]) on 01/23/2017 9:03:13 PM Referred By: INGRIS MASON Confirmed By:YAHAIRA GAMBLE MD
== END 2017-01-23 15:40 | disposition home or self-care (01) ==
LOC: FER 10:40
PROC: 3E0F7GC Introduction of Other Therapeutic Substance into Respiratory Tract, Via Natural or Artificial Opening (ICD-10-PCS; principal; 2017-01-23)
PROC: 3E033GC Introduction of Other Therapeutic Substance into Peripheral Vein, Percutaneous Approach (ICD-10-PCS; 2017-01-23)
DX: J45.901 Unspecified asthma with (acute) exacerbation (principal); I10 Essential (primary) hypertension; E78.5 Hyperlipidemia, unspecified; I25.10 Atherosclerotic heart disease of native coronary artery without angina pectoris; Z87.440 Personal history of urinary (tract) infections
CPT/HCPCS: 36415; 71010-TC; 80053; 81003; 81015; 82550; 83880; 84484; 85025; 85610; 93005; 94640; 96374; 96375; 99284-25

== ENCOUNTER 2017-05-01 23:22 | Emergency (ER) | payer OTHER ==
[2017-05-01 23:33] VITALS: BP 134/64; PULSE 88; TEMP 97.5; BMI 29.2
--- NOTE | 2017-05-01 23:40 | PDOC ---
History of Present Illness - General Chief Complaint: Nasal Bleeding Stated Complaint: NOSE BLEED Time Seen by Provider: 05/01/17 23:35 History Source: Patient Exam Limitations: No Limitations - History of Present Illness Initial Comments: 05/01/17 23:36 82 yo [place] woman with artificial heart valve taking 10 mg coumadin daily had 5 minute nosebleed at 6pm. No bleeding since then. In the past when this has happened, her INR has been too high. It was checked yesterday and it was 2.5. Last month she was in [place], she had a nosebleed and the local doctor gave her a pill to take to stop the bleeding ? (vitK?) ? She took one of those tonight. She also was recently found to have a UTI by her pmd and is scheduled to start an antibiotic tomorrow. Timing/Duration: resolved prior to arrival Severity: mild Modifying Factors: worse with: cold therapy, eating, immobilization, medication , movement, rest, other Associated Symptoms: denies: denies symptoms, chest pain, cough, diaphoresis, fever/chills, headaches, loss of appetite, malaise, nausea/vomiting, rash, seizure, shortness of breath, syncope, weakness, other Aspirin Received prior to arrival: Yes: 81 mg x 1 (also taking coumadin) Past History - Past Medical History Allergies/Adverse Reactions: Allergies Allergy/AdvReac Type Severity Reaction Status Date / Time No Known Allergies Allergy Verified 05/01/17 23:23 Home Medications: Ambulatory Orders Albuterol Sulfate Inhaler - [Ventolin Hfa Inhaler -] 1 puff IH TID 01/23/17 Bisacodyl [Gentle Laxative] 5 mg PO DAILY 01/23/17 Calcium Carb/Vitamin D3/Vit K1 [Calcium + D Soft Chewable Tab] 1 each PO DAILY 01/23/17 Fluticasone/Salmeterol [Advair Hfa 115-21 Mcg Inhaler] 1 inh PO BID 01/23/17 Folic Acid 1 mg PO DAILY 01/23/17 Furosemide [Lasix] 40 mg PO DAILY 01/23/17 Hydrochlorothiazide [Hctz -] 12.5 mg PO DAILY 01/23/17 Meloxicam [Mobic] 15 mg PO DAILY 01/23/17 Montelukast Na [Singulair -] 10 mg PO HS 01/23/17 Polyethylene Glycol 3350 [Miralax (For Daily Use) -] 17 gm PO DAILY 01/23/17 Pregabalin [Lyrica -] 50 mg PO DAILY 01/23/17 Ranitidine HCl [Zantac] 150 mg PO DAILY 01/23/17 Simvastatin [Zocor] 10 mg PO HS 01/23/17 Spironolactone [Aldactone] 25 mg PO DAILY 01/23/17 Warfarin Sodium [Coumadin] 0 mg PO ASDIR 01/23/17 Asthma: Yes Cardiac Disorders: Yes (Artificial Mitral Valve) COPD: Yes Diabetes: Yes HTN: Yes Hypercholesterolemia: Yes - Surgical History Cardiac Surgery: Yes (MITRAL VALVE REPLACMENT) - Immunization History Immunization Up to Date: No - Suicide/Smoking/Psychosocial Hx Smoking Status: No Smoking History: Never smoked Have you smoked in the past 12 months: No Number of Cigarettes Smoked Daily: 0 Information on smoking cessation initiated: No Hx Alcohol Use: No Drug/Substance Use Hx: No Substance Use Type: None Hx Substance Use Treatment: No Review of Systems - Review of Systems Able to Perform ROS?: Yes Is the patient limited Georgian proficient: No Constitutional: No: Symptoms Reported HEENTM: Yes: See HPI Respiratory: No: Symptoms reported Cardiac (ROS): No: Symptoms Reported ABD/GI: No: Symptoms Reported : No: Symptoms Reported Musculoskeletal: No: Symptoms Reported Integumentary: No: Symptoms Reported, Pruritus Psychiatric: No: Anxiety, Depression Endocrine: No: Symptoms Reported Hematologic/Lymphatic: No: Symptoms Reported All Other Systems: Reviewed and Negative *Physical Exam - Vital Signs Last Vital Signs Temp Pulse Resp BP Pulse Ox 97.5 F L 88 18 134/64 99 05/01/17 23:29 05/01/17 23:29 05/01/17 23:29 05/01/17 23:29 05/01/17 23:29 - Physical Exam Comments: 05/01/17 23:41 NO BLEEDING General Appearance: Yes: Nourished, Appropriately Dressed. No: Apparent Distress HEENT: positive: Normal ENT Inspection Neck: positive: Trachea midline, Supple Respiratory/Chest: positive: Lungs Clear, Normal Breath Sounds Cardiovascular: positive: Regular Rhythm, Regular Rate, Murmur Gastrointestinal/Abdominal: positive: Normal Bowel Sounds, Flat, Soft Rectal Exam: positive: deferred Lymphatic: negative: Adenopathy, Tenderness Musculoskeletal: positive: Normal Inspection Extremity: positive: Normal Capillary Refill, Normal Inspection Integumentary: positive: Normal Color, Dry, Warm Neurologic: positive: Fully Oriented, Alert, Normal Mood/Affect ED Treatment Course - LABORATORY CBC & Chemistry Diagram: 05/01/17 23:46 05/01/17 23:46 *DC/Admit/Observation/Transfer Diagnosis at time of Disposition: Epistaxis not due to trauma, Elevated international normalized ratio (INR) UTI (urinary tract infection) Qualifiers: Urinary tract infection type: site unspecified Hematuria presence: without hematuria Qualified Code(s): N39.0 - Urinary tract infection, site not specified - Discharge Dispostion Disposition: HOME Condition at time of disposition: Good Admit: No - Patient Instructions Printed Discharge Instructions: DI for Nosebleed Additional Instructions: Call your doctor tomorrow to find out what coumadin dose to take.
[2017-05-02 00:27] LABS: BASOPHIL 0.7 % (0-2.0); EOSINOPHIL 2.4 % (0-4.5); MCH 27.9 pg (25.7-33.7); MEAN CELL VOLUME 84.6 fl (80-96); MEAN PLT VOLUME 9.3 fl (7.5-11.1); NEUTROPHILS 62.5 % (42.8-82.8); PLATELET COUNT 192 K/MM3 (134-434); RDW 14.9 % (11.6-15.6); WHITE BLOOD COUNT 9.6 K/mm3 (4.0-10.0)
[2017-05-02 00:29] LABS: URINE APPEARANCE CLOUDY; URINE BILIRUBIN NEGATIVE (NEGATIVE); URINE BLOOD NEGATIVE (NEGATIVE); URINE COLOR YELLOW; URINE GLUCOSE (UA) NEGATIVE (NEGATIVE); URINE KETONE NEGATIVE (NEGATIVE); URINE NITRITE POSITIVE (NEGATIVE); URINE PROTEIN NEGATIVE (NEGATIVE); URINE UROBILINOGEN NEGATIVE mg/dL (0.2-1.0)
[2017-05-02 00:34] LABS: URINE BACTERIA MANY /hpf (NONE SEEN); URINE HYALINE CAST 5 /lpf; URINE MUCUS RARE; URINE RBC 2 /hpf (0-3); URINE WBC 170 /hpf (3-5)
[2017-05-02 00:40] LABS: INR 3.02 (0.82-1.09); PROTHROMBIN TIME (PATIENT) 34.1 SEC (9.98-11.88)
[2017-05-02] MEDS ORDERED: CEPHALEXIN MONOHYDRATE 500 MG CAPSULE (UD) PO ONE (00:50)
[2017-05-02] MEDS ORDERED: CEPHALEXIN MONOHYDRATE 500 MG CAPSULE (UD) ONE (00:52)
[2017-05-02 01:03] LABS: ALBUMIN 3.7 g/dl (3.4-5.0); ALK PHOS 103 U/L (45-117); ANION GAP 7 (8-16); BILIRUBIN,TOTAL 0.3 mg/dL (0.2-1.0); CO2 30 mmol/L (21-32); GLUCOSE,RANDOM 140 mg/dL (74-106); SGOT/AST 53 U/L (15-37); SGPT/ALT 38 U/L (12-78); TOT PROT 7.8 g/dl (6.4-8.2)
[2017-05-02 09:20] LABS: URINE LEUK ESTERASE 2+ (NEGATIVE)
== END 2017-05-02 01:31 | disposition home or self-care (01) ==
LOC: FER 23:22
DX: R04.0 Epistaxis (principal); D68.9 Coagulation defect, unspecified; Z79.01 Long term (current) use of anticoagulants; J45.909 Unspecified asthma, uncomplicated; I51.9 Heart disease, unspecified; I10 Essential (primary) hypertension; E11.9 Type 2 diabetes mellitus without complications
CPT/HCPCS: 36415; 80053; 81003; 81015; 85025; 85610; 86850; 86900; 86901; 99282-25

== ENCOUNTER 2017-06-27 11:50 | Emergency (ER) | payer OTHER ==
[2017-06-27 12:19] VITALS: TEMP 97.9; BMI 33.5
--- NOTE | 2017-06-27 12:22 | PDOC ---
History of Present Illness - General Chief Complaint: Nasal Bleeding Stated Complaint: NOSE BLEED Time Seen by Provider: 06/27/17 12:21 Past History - Past Medical History Allergies/Adverse Reactions: Allergies Allergy/AdvReac Type Severity Reaction Status Date / Time No Known Allergies Allergy Verified 06/27/17 12:16 Home Medications: Ambulatory Orders Albuterol Sulfate Inhaler - [Ventolin Hfa Inhaler -] 1 puff IH TID 01/23/17 Fluticasone/Salmeterol [Advair Hfa 115-21 Mcg Inhaler] 1 inh PO BID 01/23/17 Folic Acid 1 mg PO DAILY 01/23/17 Furosemide [Lasix] 40 mg PO DAILY 01/23/17 Montelukast Na [Singulair -] 10 mg PO HS 01/23/17 Polyethylene Glycol 3350 [Miralax (For Daily Use) -] 17 gm PO DAILY 01/23/17 Pregabalin [Lyrica -] 50 mg PO DAILY 01/23/17 Simvastatin [Zocor] 10 mg PO HS 01/23/17 Dexlansoprazole [Dexilant] 60 mg PO DAILY 05/07/17 Diltiazem HCl [Diltiazem ER] 360 mg PO DAILY 05/07/17 Fluticasone/Salmeterol [Advair 250-50 Diskus] 1 each IH DAILY 05/07/17 Metformin HCl 500 mg PO DAILY 05/07/17 Valsartan/Hydrochlorothiazide [Valsartan-Hctz 320-12.5 mg Tab] 1 each PO DAILY 05/07/17 Warfarin Sodium [Coumadin] 5 mg PO HS 05/07/17 Asthma: Yes Cardiac Disorders: Yes (Artificial Mitral Valve) COPD: Yes Diabetes: Yes HTN: Yes Hypercholesterolemia: Yes - Surgical History Cardiac Surgery: Yes (MITRAL VALVE REPLACMENT) - Immunization History Immunization Up to Date: No - Suicide/Smoking/Psychosocial Hx Smoking Status: No Smoking History: Never smoked Have you smoked in the past 12 months: No Number of Cigarettes Smoked Daily: 0 Hx Alcohol Use: No Drug/Substance Use Hx: No Substance Use Type: None Hx Substance Use Treatment: No *Physical Exam - Vital Signs Last Vital Signs Temp Pulse Resp BP Pulse Ox 97.9 F 79 19 144/64 100 06/27/17 12:16 06/27/17 12:16 06/27/17 12:16 06/27/17 12:16 06/27/17 12:16 *DC/Admit/Observation/Transfer - Referrals - Patient Instructions - Post Discharge Activity - Attestations Physician Attestion: 06/27/17 12:22 I, Dr. Barney Johnson, attest that this document has been prepared under my direction and personally reviewed by me in its entirety. I further attest, that it accurately reflects all work, treatment, procedures and medical decision -making performed by me.
--- NOTE | 2017-06-27 12:29 | PDOC ---
History of Present Illness - General Chief Complaint: Nasal Bleeding Stated Complaint: NOSE BLEED Time Seen by Provider: 06/27/17 12:21 History Source: Patient, Family - History of Present Illness Timing/Duration: other (last night) Past History - Past Medical History Allergies/Adverse Reactions: Allergies Allergy/AdvReac Type Severity Reaction Status Date / Time No Known Allergies Allergy Verified 06/27/17 12:16 Home Medications: Ambulatory Orders Albuterol Sulfate Inhaler - [Ventolin Hfa Inhaler -] 1 puff IH TID 01/23/17 Fluticasone/Salmeterol [Advair Hfa 115-21 Mcg Inhaler] 1 inh PO BID 01/23/17 Folic Acid 1 mg PO DAILY 01/23/17 Furosemide [Lasix] 40 mg PO DAILY 01/23/17 Montelukast Na [Singulair -] 10 mg PO HS 01/23/17 Polyethylene Glycol 3350 [Miralax (For Daily Use) -] 17 gm PO DAILY 01/23/17 Pregabalin [Lyrica -] 50 mg PO DAILY 01/23/17 Simvastatin [Zocor] 10 mg PO HS 01/23/17 Dexlansoprazole [Dexilant] 60 mg PO DAILY 05/07/17 Diltiazem HCl [Diltiazem ER] 360 mg PO DAILY 05/07/17 Fluticasone/Salmeterol [Advair 250-50 Diskus] 1 each IH DAILY 05/07/17 Metformin HCl 500 mg PO DAILY 05/07/17 Valsartan/Hydrochlorothiazide [Valsartan-Hctz 320-12.5 mg Tab] 1 each PO DAILY 05/07/17 Warfarin Sodium [Coumadin] 5 mg PO HS 05/07/17 Asthma: Yes Cardiac Disorders: Yes (Artificial Mitral Valve) COPD: Yes Diabetes: Yes HTN: Yes Hypercholesterolemia: Yes - Surgical History Cardiac Surgery: Yes (MITRAL VALVE REPLACMENT) - Immunization History Immunization Up to Date: No - Suicide/Smoking/Psychosocial Hx Smoking Status: No Smoking History: Never smoked Have you smoked in the past 12 months: No Number of Cigarettes Smoked Daily: 0 Hx Alcohol Use: No Drug/Substance Use Hx: No Substance Use Type: None Hx Substance Use Treatment: No Review of Systems - Review of Systems Constitutional: No: Chills, Fever, Malaise, Weakness HEENTM: Yes: Nose Bleeding Neurological: No: Headache, Dizziness *Physical Exam - Vital Signs Last Vital Signs Temp Pulse Resp BP Pulse Ox 97.9 F 79 19 144/64 100 06/27/17 12:16 06/27/17 12:16 06/27/17 12:16 06/27/17 12:16 06/27/17 12:16 - Physical Exam General Appearance: Yes: Appropriately Dressed HEENT: positive: Normal Voice, Other (active bleed in L nares) Neck: positive: Supple Respiratory/Chest: negative: Respiratory Distress Integumentary: positive: Dry, Warm Neurologic: positive: Fully Oriented, Alert, Normal Mood/Affect Medical Decision Making - Medical Decision Making 06/27/17 12:26 82-year-old female, history of hypertension, hyperlipidemia, CAD, CABG, A. fib on Coumadin, CHF, prosthetic mitral valve, rheumatic heart disease, diabetes, asthma, recurrent UTIs, hep C, presents to the ER with nosebleed. States since last night, she has bled on and off only from her left nares despite holding pressure. No trauma or recent URIs. Denies headache, dizziness or syncope. Has been seen multiple times in ED for epistaxis, last time a month ago and found to have supratherapeutic INR to 4.5. At that time was told to discontinue coumadin for to 3 days and discuss possibly switching to eliquis with her software engineering project manager. As per daughter. Patient was told by her software engineering project manager, Dr. Daily, that because of her mechanical valve, she needs to continue coumadinn SEE exam Recurrent epistaxis Continues to bleed from L nares, no visible vessel, trace blood in oropharynx On coumadin w/ INR to 4.55 on ED visit for epistaxis 1 month ago -afrin/nasal pressure -labs including pt/inr -dispo pending 06/27/17 13:18 Bleeding resolved after nasal pressure 2. Will administer Afrin and have patient hold for another 10 minutes. If no resolution, will place nasal packing. Labs including INR still pending. Will discuss management w/ Dr Daily 06/27/17 13:19 Case signed out to Dr Villarreal at this time. Aware of plan
[2017-06-27] MEDS ORDERED: OXYMETAZOLINE 0.05% NASAL SOLUTION 15 ML BOTTLE NS ONE (12:42)
--- NOTE | 2017-06-27 13:51 | PDOC ---
*Physical Exam - Vital Signs Last Vital Signs Temp Pulse Resp BP Pulse Ox 97.9 F 79 19 144/64 100 06/27/17 12:16 06/27/17 12:16 06/27/17 12:16 06/27/17 12:16 06/27/17 12:16 ED Treatment Course - LABORATORY CBC & Chemistry Diagram: 06/27/17 13:00 06/27/17 13:00 Medical Decision Making - Medical Decision Making 06/27/17 13:50 The patient was signed out to me by Chanel CHEN. The patient is an 82F on coumadin who presents with epistaxis. Bleeding has stopped. APRIL Hernandez has ordered afrin. Will be administered and continue pressure by Fraknlin SY. Will reassess before and after afrin administration. 06/27/17 13:59 Bleeding has stopped in affected nostril (L). Afrin administered in both. Will wait 1 hour and reassess. 06/27/17 15:06 INR 4.42. Patient informed to hold coumadin for 1 day. CMP and cardiac profile negative. 06/27/17 15:13 Dr. Hoffmann has been paged to inform about INR checking. Prescription for Afrin sent to pt's preferred pharmacy. 06/27/17 15:45 Pt has f/u with hydro electric station operator (Sravanthi) on Sunday to check INR. Ready for d/c. *DC/Admit/Observation/Transfer Diagnosis at time of Disposition: Epistaxis, Elevated INR (international normalized ratio), INR, elevated, Epistaxis not due to trauma - Discharge Dispostion Disposition: HOME Condition at time of disposition: Stable Admit: No - Prescriptions Prescriptions: Oxymetazoline 0.05% Nasal Soln [Afrin -] 1 spray NS ONCE #1 spraybtl Oxymetazoline 0.05% Nasal Soln [Afrin -] 1 spray NS ONCE #2 spraybtl - Referrals - Patient Instructions Printed Discharge Instructions: DI for Nosebleed Additional Instructions: Please return to the ER if symptoms persist, worsen, or new symptoms arise. Please follow up with your primary care physician in 2-3 days. Please keep your appointment with Dr. Obregon and check your INR. Please return to the ER if you have any signs or symptoms of chest pain, shortness of breath, uncontrollable fever, chills, nausea, vomiting, numbness, tingling, or weakness in any part of your body, changes in vision, or slurred speech. Please take your medications as prescribed. Use Afrin as needed. - Post Discharge Activity
[2017-06-27 13:57] LABS: BASO # 0.1 #; BASO % 0.5 % (0-2.0); EOS # 0.1 #; EOS % 0.7 % (0-4.5); LYMPH # 2.5; MCH 26.2 pg (25.7-33.7); MCHC 31.1 g/dl (32.0-36.0); MEAN CELL VOLUME 84.3 fl (80-96); MEAN PLT VOLUME 9.3 fl (7.5-11.1); MONO # 0.9 #; NEUT % 69.2 % (42.8-82.8); PLATELET COUNT 173 K/MM3 (134-434); RDW 14.8 % (11.6-15.6); WHITE BLOOD COUNT 11.5 K/mm3 (4.0-10.0)
[2017-06-27 14:20] LABS: ALBUMIN 3.8 g/dl (3.4-5.0); ANION GAP 8 (8-16); CALCIUM 9.3 mg/dL (8.5-10.1); CO2 34 mmol/L (21-32); CREATININE 1.1 mg/dL (0.55-1.02); GLUCOSE,RANDOM 127 mg/dL (74-106); SGOT/AST 38 U/L (15-37); SGPT/ALT 30 U/L (12-78)
[2017-06-27 14:22] LABS: ALK PHOS 118 U/L (45-117); BILIRUBIN,TOTAL 0.5 mg/dL (0.2-1.0); TOT PROT 7.8 g/dl (6.4-8.2)
[2017-06-27 14:23] LABS: INR 4.42 (0.82-1.09)
[2017-06-27 14:57] LABS: CPK 33 IU/L (26-192); TROPONIN I < 0.02 ng/ml (0.00-0.05)
--- NOTE | 2017-06-27 15:11 | PDOC ---
Attending Attestation - Resident Resident Name: Jamie Villarreal - ED Attending Attestation I have performed the following: I have examined & evaluated the patient, The case was reviewed & discussed with the resident, I agree w/resident's findings & plan, Exceptions are as noted - HPI HPI: 06/27/17 15:10 Nosebleed hx of same on blood thinner (coumadin) - Physicial Exam PE: 06/27/17 15:10 No Active Bleeding - Medical Decision Making 06/27/17 15:[address] Villarreal's Assessment and Plan
[2017-06-27 15:54] VITALS: BP 126/56; PULSE 77
--- NOTE | 2017-06-28 13:08 | EKG ---
Test Reason : Blood Pressure : / mmHG Vent. Rate : 077 BPM Atrial Rate : 077 BPM P-R Int : 182 ms QRS Dur : 088 ms QT Int : 390 ms P-R-T Axes : 068 069 061 degrees QTc Int : 441 ms NORMAL SINUS RHYTHM NONSPECIFIC ST AND T WAVE ABNORMALITY ABNORMAL ECG WHEN COMPARED WITH ECG OF 23-JAN-2017 10:49, NONSPECIFIC T WAVE ABNORMALITY, WORSE IN ANTERIOR LEADS Confirmed by ESTRELLITA MATIAS, ELVIS ([id number]) on 06/28/2017 1:08:32 PM Referred By: Confirmed By:ELVIS HARO MD
== END 2017-06-27 16:19 | disposition home or self-care (01) ==
LOC: JER 11:50
PROC: 0W3Q7ZZ Control Bleeding in Respiratory Tract, Via Natural or Artificial Opening (ICD-10-PCS; principal; 2017-06-27)
DX: R04.0 Epistaxis (principal); D68.32 Hemorrhagic disorder due to extrinsic circulating anticoagulants; T45.515A Adverse effect of anticoagulants, initial encounter; Y92.038 Other place in apartment as the place of occurrence of the external cause; I48.91 Unspecified atrial fibrillation; Z79.01 Long term (current) use of anticoagulants; D68.8 Other specified coagulation defects; I10 Essential (primary) hypertension; J44.9 Chronic obstructive pulmonary disease, unspecified; E11.9 Type 2 diabetes mellitus without complications; Z79.4 Long term (current) use of insulin; E78.00 Pure hypercholesterolemia, unspecified; Z95.2 Presence of prosthetic heart valve
CPT/HCPCS: 36415; 80053; 82550; 84484; 85025; 85610; 93005; 93010; 99283-25

== ENCOUNTER 2017-09-01 11:44 | Inpatient (IN) | payer OTHER ==
[2017-09-01 11:57] VITALS: BMI 31.1
--- NOTE | 2017-09-01 12:04 | PDOC ---
History of Present Illness - General History Source: Patient Exam Limitations: No Limitations - History of Present Illness Initial Comments: 09/01/17 12:17 Patient is an 82-year-old female with past medical history of hypertension, HLD , diabetes, status post open heart surgery for mitral valve replacement ( mechanical) chronic arthralgia, hep C was brought to the emergency department by her family after she had multiple episodes of nausea and vomiting this morning. Her granddaughter states her symptoms began around 5 AM. She states that she was throwing up consistently and it made her nervous so she brought her to the emergency department. Patient admits to dizziness however denies vertigo symptoms, chest pain, shortness of breath, headache, visual changes, weakness, numbness and tingling, loss of consciousness. <Mei Yepez - Last Filed: 09/01/17 17:42> <Kait Coe - Last Filed: 09/05/17 09:39> - General Chief Complaint: Nausea/Vomiting Stated Complaint: VOMITING Time Seen by Provider: 09/01/17 11:59 NIH Stroke Scale - Last Known Well Date/Time & Onset Date Last Known Well: 08/31/17 Time Last Known Well: 23:55 - Initial Evaluation Level of consciousness: Alert Ask patient the month and their age: Answers both correctly Ask patient to open & close eyes; make fist and let go: Obeys both correctly Best gaze (horizontal eye movement): Normal Visual field testing: No visual field loss Facial paresis (Show teeth/raise eyebrows/close eyes tight): Minor paralysis ( flattened nasolabial fold, asymmetry on smiling) Motor Function: Left Arm: Normal Motor Function: Right Arm: Normal (extends arm 90 (or 45) degrees for 10 seconds without drift Motor Function: Left Leg: Normal (extends leg 30 degrees for 5 seconds without drift) Motor Function: Right Leg: Normal (extends leg 30 degrees for 5 seconds without drift) Limb Ataxia: No ataxia Sensory(Use pinprick test arms,legs,trunk,face/side to side): Normal Best language (Describe picture, name items, read sentences): No Aphasia Dysarthria (read several words): Normal articulation Extinction and Inattention: No abnormality - Total Score NIH Stroke Scale Score: 1 <Mei Yepez - Last Filed: 09/01/17 17:42> tPA Exclusion Checklist 0-3hr - Time Elapsed Date last known well: 08/31/17 Time last known well: 23:55 Elaspsed time: Day(s) and 17 Hour(s) and 47 Minutes - Thrombolytic Therapy Candidate Is the patient eligible for Thrombolytic Therapy?: No - Exclusion Criteria 0-3hr Hx of previous IC hemorrhage, IC neoplasm, AVM or aneurysm: Yes Active internal bleeding: Yes Blding diathesis(low plt ct, inc PTT,INR>1.7 or use of NOAC): Yes - Ineligibility reason(s) Reasons No tPA given: See reason(s) noted above <Mei Yepez - Last Filed: 09/01/17 17:42> Past History - Travel Traveled outside of the country in the last 30 days: No Close contact w/someone who was outside of country & ill: No - Past Medical History Asthma: Yes Cardiac Disorders: Yes (Artificial Mitral Valve) COPD: Yes Diabetes: Yes HTN: Yes Hypercholesterolemia: Yes - Surgical History Cardiac Surgery: Yes (MITRAL VALVE REPLACMENT) - Immunization History Immunization Up to Date: No - Suicide/Smoking/Psychosocial Hx Smoking Status: No Smoking History: Never smoked Have you smoked in the past 12 months: No Number of Cigarettes Smoked Daily: 0 Hx Alcohol Use: No Drug/Substance Use Hx: No Substance Use Type: None Hx Substance Use Treatment: No <Mei Yepez - Last Filed: 09/01/17 17:42> <Kait Coe - Last Filed: 09/05/17 09:39> - Past Medical History Allergies/Adverse Reactions: Allergies Allergy/AdvReac Type Severity Reaction Status Date / Time No Known Allergies Allergy Verified 06/27/17 12:16 Home Medications: Ambulatory Orders Albuterol Sulfate Inhaler - [Ventolin Hfa Inhaler -] 1 puff IH TID 01/23/17 Folic Acid 1 mg PO DAILY 01/23/17 Furosemide [Lasix] 40 mg PO DAILY 01/23/17 Montelukast Na [Singulair -] 10 mg PO HS 01/23/17 Polyethylene Glycol 3350 [Miralax (For Daily Use) -] 17 gm PO DAILY 01/23/17 Pregabalin [Lyrica -] 50 mg PO DAILY 01/23/17 Simvastatin [Zocor] 10 mg PO HS 01/23/17 Dexlansoprazole [Dexilant] 60 mg PO DAILY 05/07/17 Diltiazem HCl [Diltiazem ER] 360 mg PO DAILY 05/07/17 Fluticasone/Salmeterol [Advair 250-50 Diskus] 1 each IH DAILY 05/07/17 Metformin HCl 500 mg PO DAILY 05/07/17 Valsartan/Hydrochlorothiazide [Valsartan-Hctz 320-12.5 mg Tab] 1 each PO DAILY 05/07/17 Warfarin Sodium [Coumadin] 5 mg PO HS 05/07/17 Oxymetazoline 0.05% Nasal Soln [Afrin -] 1 spray NS ONCE #1 spraybtl 06/27/17 Review of Systems - Review of Systems Able to Perform ROS?: Yes Comments:: 09/01/17 13:27 CONSTITUTIONAL: Absent: fever, chills, diaphoresis, generalized weakness, malaise, loss of appetite HEENT: Absent: rhinorrhea, nasal congestion, throat pain, throat swelling, difficulty swallowing, mouth swelling, ear pain, eye pain, visual Changes CARDIOVASCULAR: Absent: chest pain, loss of consciousness, palpitations, irregular heart rate, peripheral edema RESPIRATORY: Absent: cough, shortness of breath, dyspnea with exertion, orthopnea, wheezing, stridor, hemoptysis GASTROINTESTINAL: Present: nausea, vomiting. Absent: abdominal pain, abdominal distension, nausea , vomiting, diarrhea, constipation, melena, hematochezia GENITOURINARY: Absent: dysuria, frequency, urgency, hesitancy, hematuria, flank pain, genital pain MUSCULOSKELETAL: Absent: myalgia, arthralgia, joint swelling SKIN: Absent: rash, itching, pallor HEMATOLOGIC/IMMUNOLOGIC: Absent: easy bleeding, easy bruising, lymphadenopathy, frequent infections ENDOCRINE: Absent: unexplained weight gain, unexplained weight loss, heat intolerance, cold intolerance NEUROLOGIC: Present: dizziness Absent: headache, focal weakness or paresthesias, dizziness, unsteady gait, seizure, mental status changes, bladder or bowel incontinence PSYCHIATRIC: Absent: anxiety, depression, suicidal or homicidal ideation, hallucinations. Is the patient limited Khmer proficient: No <Mei Yepez - Last Filed: 09/01/17 17:42> *Physical Exam - Vital Signs Last Vital Signs Temp Pulse Resp BP Pulse Ox 97.4 F L 84 16 178/80 91 L 09/01/17 11:55 09/01/17 11:55 09/01/17 11:55 09/01/17 11:55 09/01/17 11:55 - Physical Exam Comments: 09/01/17 17:27 GENERAL: Well developed, well nourished. Awake and alertx3. No acute distress. HEENT: Normocephalic, atraumatic. PERRLA, EOMI. No conjunctival pallor. Sclera are non- icteric. Moist mucous membranes. Oropharynx is clear. NECK: Supple. Full ROM. No JVD. Carotid pulses 2+ and symmetric, without bruits. No thyromegaly. No lymphadenopathy. CARDIOVASCULAR: Regular rate and rhythm. No murmurs, rubs, or gallops. Mechanical click heard. Distal pulses are 2+ and symmetric. PULMONARY: No evidence of respiratory distress. Lungs clear to auscultation bilaterally. No wheezing, rales or rhonchi. ABDOMINAL: Soft. Non-tender. Non-distended. No rebound or guarding. No organomegaly. Normoactive bowel sounds. MUSCULOSKELETAL Normal range of motion at all joints. No bony deformities or tenderness. No CVA tenderness. EXTREMITIES: No cyanosis. No clubbing. No edema. No calf tenderness. SKIN: Warm and dry. Normal capillary refill. No rashes. No jaundice. NEUROLOGICAL: Alert, awake, appropriate. Cranial nerves 2-12 intact. Minor flattening of the nasolabial fold on the right. No deficits to light touch and temperature in face , upper extremities and lower extremities. No motor deficits in the in face, upper extremities and lower extremities. Normoreflexic in the upper and lower extremities. Normal speech. Toes are down-going bilaterally. Gait is normal without ataxia. PSYCHIATRIC: Cooperative. Good eye contact. Appropriate mood and affect. <Mei Yepez - Last Filed: 09/01/17 17:42> - Vital Signs Last Vital Signs Temp Pulse Resp BP Pulse Ox 98.5 F 103 H 14 136/76 100 09/03/17 14:00 09/03/17 15:02 09/03/17 15:02 09/03/17 14:00 09/03/17 15:02 <Kait Coe - Last Filed: 09/05/17 09:39> ED Treatment Course - LABORATORY CBC & Chemistry Diagram: 09/01/17 12:13 09/01/17 12:13 <Mei Yepez - Last Filed: 09/01/17 17:42> - LABORATORY CBC & Chemistry Diagram: 09/03/17 05:10 09/03/17 07:20 - ADDITIONAL ORDERS Additional order review: 09/01/17 12:13 RBC 4.71 MCV 85.2 MCHC 32.9 RDW 15.0 MPV 9.3 Neutrophils % 81.1 Lymphocytes % 15.9 D Monocytes % 2.4 L Eosinophils % 0.1 D Basophils % 0.5 - Medications Given in the ED: ED Medications Discontinued Medications Generic Name Dose Route Start Last Admin Trade Name Saulq PRN Reason Stop Dose Admin Acetaminophen 650 mg 09/02/17 18:49 09/02/17 18:58 Tylenol - PO 650 mg Q6H PRN Administration PAIN LEVEL 4 - 6 Acetaminophen 1,000 mg 09/03/17 09:00 09/03/17 08:53 Ofirmev Injection - IVPB 09/03/17 09:01 1,000 mg ONCE ONE Administration Chlorhexidine Gluconate 1 applic 09/02/17 22:00 09/02/17 22:12 Hibiclens For Decolonization - TP 1 applic HS NOA Administration Diphenhydramine HCl 12.5 mg 09/01/17 12:07 09/01/17 12:28 Benadryl Injection - IVPUSH 09/01/17 12:08 12.5 mg ONCE ONE Administration Hydrochlorothiazide 12.5 mg 09/02/17 11:00 09/03/17 11:25 Hctz - PO Not Given DAILY NOA Sodium Chloride 1,000 mls @ 125 mls/hr 09/01/17 12:06 09/01/17 12:28 Normal Saline - IV 09/01/17 20:05 125 mls/hr ASDIR STA Administration Sodium Chloride 1,000 mls @ 42 mls/hr 09/01/17 16:36 09/01/17 16:40 Normal Saline - IV 09/02/17 11:54 42 mls/hr ASDIR STA Administration Nicardipine HCl 25 mg/ 250 mls @ 25 mls/hr 09/03/17 11:00 09/03/17 11:41 Dextrose IVPB 2.5 mg/hr TITR NOA 25 mls/hr Protocol Administration 2.5 MG/HR Propofol 1,000,000 mcg in 100 mls @ 4.472 mls/hr 09/03/17 15:30 09/03/17 15: 27 Diprivan - IVPB 10 mcg/kg/min TITR NOA 4.472 mls/hr Protocol Administration 10 MCG/KG/MIN Labetalol HCl 10 mg 09/03/17 08:39 09/03/17 08:48 Normodyne Injection - IVPUSH 09/03/17 08:40 10 mg ONCE ONE Administration Labetalol HCl 20 mg 09/03/17 09:42 09/03/17 09:58 Normodyne Injection - IVPUSH 09/03/17 09:43 20 mg ONCE ONE Administration Levetiracetam 500 mg 09/02/17 22:00 09/03/17 11:26 Keppra - PO Not Given BID NOA Levetiracetam 500 mg 09/03/17 12:15 09/03/17 13:04 Keppra Injection - IVPB 500 mg BID NOA Administration Mannitol 25 gm 09/03/17 12:14 09/03/17 13:37 Osmitrol - IVPB 09/03/17 12:15 25 gm ONCE ONE Administration Metoclopramide HCl 10 mg 09/01/17 12:07 09/01/17 12:28 Reglan Injection - IVPB 09/01/17 12:08 10 mg ONCE ONE Administration Mupirocin 1 applic 09/02/17 10:00 09/03/17 12:52 Bactroban Ointment (For Decolonization) - NS 09/07/17 09:59 1 appful BID NOA Administration Ondansetron HCl 8 mg 09/01/17 13:24 09/01/17 13:38 Zofran Injection IVPB 09/01/17 13:25 8 mg ONCE ONE Administration Propofol 100,000 mcg 09/03/17 14:53 09/03/17 14:45 Diprivan - IVPUSH 09/03/17 14:54 100,000 mcg ONCE STA Administration Rocuronium Rueter 50 mg 09/03/17 14:53 09/03/17 14:48 Zemuron - IV 09/03/17 14:54 50 mg ONCE STA Administration Rocuronium Rueter 50 mg 09/03/17 14:53 09/03/17 15:18 Zemuron - IVPUSH 09/03/17 14:54 50 mg ONCE STA Administration Valsartan 320 mg 09/02/17 11:00 09/03/17 11:25 Diovan - PO Not Given DAILY NOA <Kait Coe - Last Filed: 09/05/17 09:39> Medical Decision Making - Critical Care Time Total Critical Care Time (minutes): 40 Critical Care Statement: The care of this patient involved high complexity decision making to prevent further life threatening deterioration of the patient 's condition and/or to evaluate & treat vital organ system(s) failure or risk of failure. - Medical Decision Making 09/01/17 12:28 Patient is an 82-year-old female with significant past medical history, currently on Coumadin for a mechanical heart valve, weakness emergency department for nausea, vomiting and dizziness since 5 AM. Given vague symptoms will order a broad workup. Diagnosis includes but is not limited to ACS, CVA, viral illness. SBO and gallbladder pathology less likely due to no abdominal pain on exam. Vital signs are notable for an oxygen saturation of 91%. Patient was placed on 2L nasal cannula. Patient speaks primarily Urdo. Daughter at bedside translating. 1.CBC, CMP, PT/INR, cardiac profile, UA, UC, BNP, mag, lipase 2.head CT, EKG, chest x-ray 3.IV fluids, Reglan, Benadryl 4.reevaluate 09/01/17 13:01 Received call from radiology with concern for a focal lesion in the occipital region of the left lobe. Radiologist to read. 09/01/17 13:10 Radiology sees a acute/subacute hemorrhage of the left occipital lobe measuring approximately 2.7 x 2.2 cm. Neurosurgery paged at this time. Vital signs currently stable. 09/01/17 13:[address] Coles neurosurgery in the ED. He states that there is a active bleeding given the fluid level on CT. Given size he states that we should elect to observe at this time. Patient will eventually be placed in ICU. PT/INR is currently 3.9, slightly elevated from the 3.5 base. We'll consult with cardiology at this time, to discuss further Coumadin management given active bleed. Patient's primary care doctor also called at this time for admission. Lab work other than Pt/INr is grossly unremarkable. BNP is at baseline. EKG: NSR, rate 82, Normal axis. QTc 464. Non-specific st-t wave changes V2,V3 09/01/17 14:[address] 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 States that the patient has a mechanical heart valve. Given that Coumadin is a little high can hold today however does not recommend reversing the Coumadin as there is a very high risk of further clot which could lead to stroke or valve failure. Conversation was relayed to neurosurgery who agrees with management. 09/01/17 16:01 Patient's vital signs are currently stable blood pressure 153/87, no need for antihypertensives at this time we'll allow for permissive hypertension. Oxygen saturation 100 on 2 L. No focal neuro deficits at this time. Patient to be transferred to ICU. <Mei Yepez - Last Filed: 09/01/17 17:42> *DC/Admit/Observation/Transfer - Discharge Dispostion Admit: Yes <Mei Yepez - Last Filed: 09/01/17 17:42> - Attestations Physician Attestion: I reviewed the case with the mid-level practitioner and agree with the mid- level practitioner's assessment, diagnosis and disposition. <Kait Coe - Last Filed: 09/05/17 09:39> Diagnosis at time of Disposition: Hemorrhagic stroke - Discharge Dispostion Disposition: TRANSFER ACUTE CARE/OTHER HOSP Condition at time of disposition: Guarded
[2017-09-01] MEDS ORDERED: SODIUM CHLORIDE 1,000 ML IV STA ×2 (12:06→16:36)
[2017-09-01] MEDS ORDERED: METOCLOPRAMIDE HCL INJECTION 10 MG/2 ML VIAL IVPB ONE (12:07)
[2017-09-01] MEDS ORDERED: METOCLOPRAMIDE HCL INJECTION 10 MG/2 ML VIAL ONE (12:15)
[2017-09-01 12:25] LABS: BASO % 0.5 % (0-2.0); EOS % 0.1 % (0-4.5); HEMATOCRIT 40.1 % (32.4-45.2); HEMOGLOBIN 13.2 GM/dL (10.7-15.3); LYMPH % 15.9 % (8-40); MCHC 32.9 g/dl (32.0-36.0); MEAN CELL VOLUME 85.2 fl (80-96); MEAN PLT VOLUME 9.3 fl (7.5-11.1); MONO % 2.4 % (3.8-10.2); NEUT % 81.1 % (42.8-82.8); PLATELET COUNT 173 K/MM3 (134-434); RBC 4.71 M/mm3 (3.60-5.2); WHITE BLOOD COUNT 8.7 K/mm3 (4.0-10.0)
[2017-09-01 12:57] LABS: ALBUMIN 4.2 g/dl (3.4-5.0); ANION GAP 6 (8-16); BLOOD UREA NITROGEN 23 mg/dL (7-18); CALCIUM 8.8 mg/dL (8.5-10.1); CHLORIDE 102 mmol/L (98-107); CO2 30 mmol/L (21-32); GLUCOSE,RANDOM 177 mg/dL (74-106); MAGNESIUM 2.1 mg/dL (1.8-2.4); POTASSIUM 4.5 mmol/L (3.5-5.1); SODIUM 138 mmol/L (136-145)
[2017-09-01 13:00] LABS: ALK PHOS 146 U/L (45-117); BILIRUBIN,TOTAL 0.6 mg/dL (0.2-1.0); CREATININE 0.8 mg/dL (0.55-1.02); SGOT/AST 63 U/L (15-37); SGPT/ALT 42 U/L (12-78); TOT PROT 8.2 g/dl (6.4-8.2)
[2017-09-01 13:05] LABS: LIPASE 177 U/L (73-393)
[2017-09-01 13:13] LABS: INR 3.98 (0.82-1.09)
[2017-09-01 13:21] LABS: N-TERMINAL BNP 1385.96 pg/ml (5-450)
[2017-09-01] MEDS ORDERED: ONDANSETRON 4 MG/2 ML VIAL IVPB ONE (13:24)
[2017-09-01] MEDS ORDERED: ONDANSETRON 4 MG/2 ML VIAL ONE (13:35)
--- NOTE | 2017-09-01 16:10 | CONSULT ---
Consult - text type - Consultation Consultation Note: NEUROSURGERY CONSULTATION Patient is a 82 year old [place] female who is maintained on Warfarin therapy for a mechanical Mitral valve. Her INR is 3.9. She presents to the ER with a progressive headache associated with nausea and vomiting. She may have fallen at home, however, this was not observed. Head CT demonstrates a 2.9 cm Left cerebellar hematoma with a fluid level suggesting that there is no clotting of the blood. The patient is somnolent, but awakens to voice and answers questions. My understanding is that due to the nature of her heart valve , cessation and reversal of her anticoagulation is extremely risky and not advised by Cardiology. Although it does not appear that this lesion is actively bleeding, there is a trace amount of mass effect on the fourth ventricle. Fortunately, she has some degree of atrophy which is likely preventing her ICP from rising excessively. In the setting of being unable to reverse her anticoagulation, she remains at high risk of progression of this or another focus of bleeding. There is a 2 cm parasagittal density in the Left frontal lobe which may represent another hemorrhage or more likely a small parasagittal meningioma. This does not appear to warrant acute Neurosurgical attention. Management will be conservative at this time and should involve: -Admit to ICU -HOB at 30 degrees -minimize fluids -Serial Neuro exams -Repeat Head CT in AM or with any Neurological progression.
--- NOTE | 2017-09-01 20:30 | CONSULT ---
Consult Consult Specialty:: pulm critical care Referred by:: yun coles Reason for Consultation:: cerebellar hematoma - History of Present Illness Chief Complaint: dizziness History of Present Illness: This is an 82 yo female who is Jered and Kazakh speaking only with pmhx of htn, HLD, diabetes, s/p MVR replacement w/ mech valve on coumadin at home, chronic arthralgia, ?hep C (as per chart review) was initially brought to ED by her her granddaughter for multiple episodes of nausea and vomiting starting since 5AM. Her granddaughter states her symptoms began around 5 AM. Patient c/o TOURE and dizziness, but denied abdominal pain or discomfort, vertigo symptoms, chest pain , shortness of breath, headache, visual changes, weakness, numbness and tingling , loss of consciousness. In the ED pt vital signs stable, BP 153/87, o2 sat noted to be 91%. She was worked up broadly given her symptoms. She was treated with antiemetics and given IVF. Head CT remarkable for an acute/subacute hemorrhage of the left occipital lobe measuring approximately 2.7 x 2.2 cm, neuro srgy consulted. Dr. Coles from neurosurgery confirmed that there was active bleeding on CT, and given size that plan is to observe at this time. PT/INR is currently 3.9, slightly elevated from the 3.5 base. BNP was at baseline. EKG showed NSR, rate 82,QTc 464. Non-specific st-t wave changes V2,V3. 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 Primary care doctor also called prior to admission. Patient remained without focal neuro deficits. Transferred to ICu for further monitoring and management. In the ICU, pt is hemodynamically stable with BPs 140-150s/70s, neuro exam is without deficits, PERRL, brisk @3mm. 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 - History Source History Provided By: Family Member, Medical Record Limitations to Obtaining History: Language Barrier (speaks Kazakh and jered only) - Past Medical History HOSPICE MASSAGE THERAPIST: Yes: Dementia. No: Alzheimer's, CVA, Migraine, Multiple Sclerosis, Peripheral Neuropathy, Parkinson's, Seizure, Syncope, TIA, Vertigo, Other Cardio/Vascular: Yes: CAD, HTN, Mitral Stenosis Pulmonary: Yes: Asthma Gastrointestinal: No: Ascites, Cancer, Constipation, Crohn's Disease, Diverticulitis, Diverticulosis, Esophageal Varices, Gastritis, GERD, GI Bleed, Hemorrhoids, Hiatal Hernia, Inflamatory Bowel Disease, Irritable Bowel Disease, Pancreatitis, Peptic Ulcer Disease, Ulcerative Colitis, Other Hepatobiliary: No: Cirrhosis, Cholelithiasis, Cholecystitis, Choledocholithiasis , Hepatitis A, Hepatitis B, Hepatitis C, Other Renal/: No: Renal Failure, Renal Inusuff, BPH, Cancer, Hematuria, Hemodialysis , Neurogenic Bladder, Renal Calculi, UTI, Other Reproductive: No: Ectopic , Endometriosis, Fibroids, PID, Polycystic Ovary Syndrome, Postmenopausal, Other ...: No Heme/Onc: No: Anemia, B12 Deficiency, Bleeding Disorder, Cancer, Current Chemotherapy, Current Radiation Therapy, Hemochromatosis, Hypercoaguable State, Myeloproliferative Synd, Sickle Cell Disease, Sickle Cell Trait, Thrombocytopenia, Other Infectious Disease: Yes: Other (hep c?) Musculoskeletal: Yes: Bursitis Rheumatology: Yes: Other (Rhematoid ) Dermatology: Yes: Cellulitis - Past Surgical History Past Surgical History: Yes: CABG, Valve Replacement - Alcohol/Substance Use Hx Alcohol Use: No History of Substance Use: reports: None - Smoking History Smoking history: Never smoked Have you smoked in the past 12 months: No Aproximately how many cigarettes per day: 0 - Social History Usual Living Arrangement: Other ([facility]) ADL: Family Assistance Home Medications - Allergies Allergies/Adverse Reactions: Allergies Allergy/AdvReac Type Severity Reaction Status Date / Time No Known Allergies Allergy Verified 06/27/17 12:16 - Home Medications Home Medications: Ambulatory Orders Albuterol Sulfate Inhaler - [Ventolin Hfa Inhaler -] 1 puff IH TID 01/23/17 Folic Acid 1 mg PO DAILY 01/23/17 Furosemide [Lasix] 40 mg PO DAILY 01/23/17 Montelukast Na [Singulair -] 10 mg PO HS 01/23/17 Polyethylene Glycol 3350 [Miralax (For Daily Use) -] 17 gm PO DAILY 01/23/17 Pregabalin [Lyrica -] 50 mg PO DAILY 01/23/17 Simvastatin [Zocor] 10 mg PO HS 01/23/17 Dexlansoprazole [Dexilant] 60 mg PO DAILY 05/07/17 Diltiazem HCl [Diltiazem ER] 360 mg PO DAILY 05/07/17 Fluticasone/Salmeterol [Advair 250-50 Diskus] 1 each IH DAILY 05/07/17 Metformin HCl 500 mg PO DAILY 05/07/17 Valsartan/Hydrochlorothiazide [Valsartan-Hctz 320-12.5 mg Tab] 1 each PO DAILY 05/07/17 Warfarin Sodium [Coumadin] 5 mg PO HS 05/07/17 Oxymetazoline 0.05% Nasal Soln [Afrin -] 1 spray NS ONCE #1 spraybtl 06/27/17 Family Disease History - Family Disease History Family History: Unremarkable Review of Systems - Review of Systems Constitutional: reports: No Symptoms Eyes: reports: No Symptoms HENT: reports: No Symptoms Neck: reports: No Symptoms Cardiovascular: reports: No Symptoms Respiratory: reports: No Symptoms Gastrointestinal: reports: Nausea, Vomiting Genitourinary: reports: No Symptoms Breasts: reports: No Symptoms Reported Musculoskeletal: reports: No Symptoms Integumentary: reports: No Symptoms Neurological: reports: Dizziness, Headache Endocrine: reports: No Symptoms Hematology/Lymphatic: reports: No Symptoms Psychiatric: reports: No Symptoms Physical Exam Vital Signs: Vital Signs Temperature 98 F 09/01/17 17:30 Pulse Rate 74 09/01/17 20:00 Respiratory Rate 22 09/01/17 20:00 Blood Pressure 159/75 09/01/17 20:00 O2 Sat by Pulse Oximetry (%) 100 09/01/17 20:14 Constitutional: Yes: Well Nourished, No Distress, Calm Eyes: Yes: WNL, Conjunctiva Clear, EOM Intact, PERRL HENT: Yes: WNL, Atraumatic, Normocephalic Neck: Yes: WNL, Supple, Trachea Midline Cardiovascular: Yes: WNL, Regular Rate and Rhythm Respiratory: Yes: WNL, Regular, CTA Bilaterally Gastrointestinal: Yes: WNL, Normal Bowel Sounds, Soft ...Rectal Exam: Yes: Deferred Renal/: Yes: WNL Breast(s): Yes: WNL Musculoskeletal: Yes: WNL Extremities: Yes: WNL Edema: No Peripheral Pulses WNL: Yes Integumentary: Yes: WNL Wound/Incision: Yes: Clean/Dry Neurological: Yes: WNL, Alert, Oriented. No: Aphasia, Lethargy, Numbness, Weakness ...Motor Strength: WNL Psychiatric: Yes: WNL, Alert, Oriented Labs: CBC, BMP 09/01/17 12:13 09/01/17 12:13 Imaging - Results Chest X-ray: Report Reviewed (no infiltrates) Cat Scan: Report Reviewed (head ct left cerebellar hematoma 2.7cmx2.2 cm) EKG: Report Reviewed (NSR, no St changes) Problem List - Problems (1) CHF (congestive heart failure) Code(s): I50.9 - HEART FAILURE, UNSPECIFIED (2) Diabetes mellitus Code(s): E11.9 - TYPE 2 DIABETES MELLITUS WITHOUT COMPLICATIONS Qualifiers: Diabetes mellitus type: type 2 Diabetes mellitus complication status: without complication Diabetes mellitus senior living insulin use: without senior living use Qualified Code(s): E11.9 - Type 2 diabetes mellitus without complications (3) Elevated INR (international normalized ratio) Code(s): R79.1 - ABNORMAL COAGULATION PROFILE (4) H/O mitral valve replacement Code(s): Z95.2 - PRESENCE OF PROSTHETIC HEART VALVE (5) Cerebellar hemorrhage, acute Code(s): I61.4 - NONTRAUMATIC INTRACEREBRAL HEMORRHAGE IN CEREBELLUM Assessment/Plan This is an 82 yo female who is Jered and Kazakh speaking only with pmhx of htn, HLD, diabetes, s/p MVR replacement w/ mech valve on coumadin at home, chronic arthralgia, hep C who initially presented to [facility] w/ n/v, dizziness and worsening TOURE found to have a cerebellar hematoma on head CT w/o focal neuro deficits in the setting of an INR of 3.9, consulted by nrsgy and transferred to ICU for further monitoring. Left cerebellar hematoma s/p MV replacement, mech valve Supratherapeutic INR -no acute intervention at this time, nrsgy following -maintain HOB at 30 degrees -Serial Neuro exams -Repeat Head CT in AM or with any Neurological progression -no reversal of INR -f/u INR, therpeutic range for mech valve 2.5-3.5 -Hold coumadin today -monitor SBPs, currently 140-150s
[2017-09-02 03:36] LABS: URINE APPEARANCE CLOUDY; URINE BILIRUBIN NEGATIVE (NEGATIVE); URINE BLOOD 1+ (NEGATIVE); URINE COLOR YELLOW; URINE GLUCOSE (UA) NEGATIVE (NEGATIVE); URINE KETONE NEGATIVE (NEGATIVE); URINE NITRITE NEGATIVE (NEGATIVE); URINE UROBILINOGEN NEGATIVE mg/dL (0.2-1.0)
[2017-09-02 03:39] LABS: URINE LEUK ESTERASE 2+ (NEGATIVE); URINE PROTEIN 1+ (NEGATIVE)
[2017-09-02 03:58] LABS: EPI CELLS FEW /HPF (FEW); URINE BACTERIA FEW /hpf (NONE SEEN); URINE MUCUS RARE
[2017-09-02 06:38] LABS: BASO % 0.3 % (0-2.0); EOS % 0.2 % (0-4.5); HEMATOCRIT 36.2 % (32.4-45.2); HEMOGLOBIN 12.1 GM/dL (10.7-15.3); LYMPH % 15.4 % (8-40); MCH 28.5 pg (25.7-33.7); MCHC 33.4 g/dl (32.0-36.0); MEAN CELL VOLUME 85.3 fl (80-96); MEAN PLT VOLUME 10.2 fl (7.5-11.1); MONO % 4.9 % (3.8-10.2); NEUT % 79.2 % (42.8-82.8); PLATELET COUNT 173 K/MM3 (134-434); RBC 4.24 M/mm3 (3.60-5.2); WHITE BLOOD COUNT 8.2 K/mm3 (4.0-10.0)
[2017-09-02 06:54] LABS: INR 2.89 (0.82-1.09); PROTHROMBIN TIME (PATIENT) 32.7 SEC (9.98-11.88)
[2017-09-02 07:04] LABS: ALBUMIN 3.5 g/dl (3.4-5.0); ANION GAP 10 (8-16); BLOOD UREA NITROGEN 18 mg/dL (7-18); CALCIUM 9.2 mg/dL (8.5-10.1); CHLORIDE 104 mmol/L (98-107); CO2 28 mmol/L (21-32); GLUCOSE,RANDOM 123 mg/dL (74-106); POTASSIUM 4.2 mmol/L (3.5-5.1); SODIUM 142 mmol/L (136-145)
[2017-09-02 07:08] LABS: ALK PHOS 116 U/L (45-117); BILIRUBIN,TOTAL 0.6 mg/dL (0.2-1.0); CREATININE 0.7 mg/dL (0.55-1.02); SGOT/AST 45 U/L (15-37); SGPT/ALT 34 U/L (12-78); TOT PROT 7.4 g/dl (6.4-8.2)
--- NOTE | 2017-09-02 08:34 | PN ---
Progress Note (short form) - Note Progress Note: Chief Complaint: Events noted, notes reviewed, denies any further headaches or nausea, denies any chest pain or dyspnea, sinus rhythm is maintained History of Present Illness: Seen and examined in the ICU. Full consult dictated - Current Medication List Current Medications Chlorhexidine Gluconate (Hibiclens For Decolonization -) 1 applic TP HS NOA Sodium Chloride (Normal Saline -) 1,000 mls @ 42 mls/hr IV ASDIR STA Stop: 09/02/17 11:54 Last Admin: 09/01/17 16:40 Dose: 42 mls/hr Mupirocin (Bactroban Ointment (For Decolonization) -) 1 applic NS BID NOA Stop: 09/07/17 09:59 Review of Systems - Review of Systems Cardiovascular: As noted above Respiratory: denies: denies: Cough or Sputum Production Gastrointestinal: denies: Diarrhea, Constipation or Abdominal Discomfort but reports Nausea and Vomiting Musculoskeletal: No Symptoms Reported Endocrine: No Symptoms Reported - Objective Vital Signs: Last Vital Signs Temp Pulse Resp BP Pulse Ox 97.8 F 66 19 138/65 100 09/02/17 06:00 09/02/17 06:00 09/02/17 06:00 09/02/17 06:00 09/01/17 20:14 Intake & Output 08/30/17 08/31/17 09/01/17 09/02/17 23:59 23:59 23:59 23:59 Intake Total 504 Output Total 100 100 Balance -100 404 Weight 176 lb 168 lb 1 oz Neck: Supple Negative JVD No bruit Cardiovascular: Mechanical Click S2 Regular Rate and Rhythm Grade 1-2/6 SARAH Respiratory: Diminished Breath Sounds at the Bases Gastrointestinal: Soft Benign Normal Bowel Sounds Ext: No Edema Labs: Troponin, BNP 09/01/17 12:13 Troponin I < 0.02 B-Natriuretic Peptide 1385.96 H CBC, BMP 09/02/17 05:30 09/02/17 05:30 Hepatic Panel Total Bilirubin 0.6 mg/dL (0.2-1.0) 09/02/17 05:30 AST 45 U/L (15-37) H 09/02/17 05:30 ALT 34 U/L (12-78) 09/02/17 05:30 Alkaline Phosphatase 116 U/L (45-117) 09/02/17 05:30 Albumin 3.5 g/dl (3.4-5.0) 09/02/17 05:30 INR, PTT INR 2.89 (0.82-1.09) H 09/02/17 05:30 Assessment/Plan ASSESSMENT: 1. Headaches, nausea and vomiting referable to intra-cranial bleed, spontaneous bleed versus bleed related to supra-therapeutic INR, versus other pathologies i.e. intra-cranial lesion, or CVA with hemorrhagic transformation 2. 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 CAD angina pectoris 4. Diastolic LV dysfunction with chronic class 0-I NYHA classification LV failure, compensated/euvolemic 5. HTN 6. DM 7. Hyperlipidemia 8. Prior history of intra-cranial hemorrhage, traumatic 9. History of reactive airway disease 10. History of CKD 11. Supra-therapeutic INR PLAN: 1. Hold Warfarin and monitor INR (ideally INR to maintained between 2.5-3.5), to resume once cleared by neuro-surgery, patient cannot be off of A/C in view of the above noted MV mechanical prosthesis 2. Resume Diovan, hemodynamics permitting 3. Resume Cardizem CD, hemodynamics permitting 4. Resume Lipitor 5. Repeat CT scan of the head as per neuro-surgery, versus MRI of the brain for further evaluation Enrique Daily MD
[2017-09-02] MEDS: MUPIROCIN 2% TOPICAL OINTMENT FOR DECOLONIZATION NS SCH ×2 (10:00→22:13)
--- NOTE | 2017-09-02 10:41 | PN ---
Progress Note (short form) - Note Progress Note: PULMONARY/CCM Pt seen and examined in the ICU. Still some nausea this AM but feeling better today. Denies headache. Last Vital Signs Temp Pulse Resp BP Pulse Ox 97.8 F 97 H 18 157/69 100 09/02/17 06:00 09/02/17 08:00 09/02/17 08:00 09/02/17 08:00 09/01/17 20:14 Intake & Output 08/30/17 08/31/17 09/01/17 09/02/17 23:59 23:59 23:59 23:59 Intake Total 504 Output Total 100 100 Balance -100 404 Weight 79.832 kg 76.232 kg Gen: NAD at rest Heart: RRR Lung: decreased breath sounds at the bases Abd: soft, nontender Ext: no edema CBC, BMP 09/02/17 05:30 09/02/17 05:30 INR, PTT INR 2.89 (0.82-1.09) H 09/02/17 05:30 Active Medications Chlorhexidine Gluconate (Hibiclens For Decolonization -) 1 applic TP HS NOA Hydrochlorothiazide (Hctz -) 12.5 mg PO DAILY NOA Sodium Chloride (Normal Saline -) 1,000 mls @ 42 mls/hr IV ASDIR STA Stop: 09/02/17 11:54 Last Admin: 09/01/17 16:40 Dose: 42 mls/hr Mupirocin (Bactroban Ointment (For Decolonization) -) 1 applic NS BID NOA Stop: 09/07/17 09:59 Valsartan (Diovan -) 320 mg PO DAILY [facility] A/P Cerebellar Hemorrhage Supratherapeutic INR Mechanical Valve Replacement CAD LV Diastolic Dysfunction HTN DM Hyperlipidemia COPD - d/c IVF - keep SBP <160 - continue anticoagulation, target INR 2.5-3.5 - PO as tolerated - discussed with neurosurgery, for repeat CT head in AM - continue ICU monitoring critical care time spent in reviewing chart, evaluating patient and formulating plan 35 min
--- NOTE | 2017-09-02 10:43 | PN ---
Progress Note, Physician Chief Complaint: Pt seen in ICU PT awake alert,answerirng questions,vitals stable No new events after admission in ICU mild headache still presents no new neurologic events noted cardiology note appreciated coumadin on hold cardiology rec regarding warfarin noted RPT CT scan pending - Current Medication List Current Medications: Active Medications Chlorhexidine Gluconate (Hibiclens For Decolonization -) 1 applic TP HS NOA Hydrochlorothiazide (Hctz -) 12.5 mg PO DAILY NOA Sodium Chloride (Normal Saline -) 1,000 mls @ 42 mls/hr IV ASDIR STA Stop: 09/02/17 11:54 Last Admin: 09/01/17 16:40 Dose: 42 mls/hr Mupirocin (Bactroban Ointment (For Decolonization) -) 1 applic NS BID NOA Stop: 09/07/17 09:59 Valsartan (Diovan -) 320 mg PO DAILY [facility] - Objective Vital Signs: Vital Signs Temperature 97.8 F 09/02/17 06:00 Pulse Rate 97 H 09/02/17 08:00 Respiratory Rate 18 09/02/17 08:00 Blood Pressure 157/69 09/02/17 08:00 O2 Sat by Pulse Oximetry (%) 100 09/01/17 20:14 Constitutional: Yes: Well Nourished, No Distress Eyes: Yes: Conjunctiva Clear, PERRL HENT: Yes: WNL Neck: Yes: WNL, Supple Cardiovascular: Yes: Regular Rate and Rhythm, Other (Mechanical click present) Respiratory: Yes: Regular, CTA Bilaterally Gastrointestinal: Yes: Normal Bowel Sounds, Soft Genitourinary: Yes: WNL Extremities: Yes: WNL Edema: LLE: Trace, RLE: Trace Neurological: Yes: WNL, Alert, Oriented, Cran Nerves II-XII Intact ...Motor Strength: WNL Psychiatric: Yes: WNL, Alert Labs: CBC, BMP 09/02/17 05:30 09/02/17 05:30 INR, PTT INR 2.89 (0.82-1.09) H 09/02/17 05:30 - ....Imaging X-ray: Report Reviewed Cat Scan: Report Reviewed EKG: Report Reviewed Assessment/Plan Intracranial hemorrhagie, headache,nausea Supratherapeutic INR COPD DM MVR HTN Hypercholestrolemia CAD ,LV diastolic dysfunction CKD PLAN Rpt CT scan of head pending COumadin on HOLD NEURO check ,MOnitor Pt, PTT and INR NEUROlogy ,cardiology F/U
[2017-09-02] MEDS: VALSARTAN 160 MG TABLET (UD) PO SCH (11:00)
[2017-09-02] MEDS: HYDROCHLOROTHIAZIDE 12.5 MG CAPSULE (FP) PO SCH (11:00)
--- NOTE | 2017-09-02 11:07 | PN ---
Progress Note (short form) - Note Progress Note: Patient is more alert than when I saw her yesterday in ER. Interacts with daughter appropriately. She complains of dry mouth which can be expected given that we held her NPO. PLAN -Continue ICU observation -Repeat Head CT in AM -Patient would benefit from semi-elective MRI brain in 2-3 weeks when clot resolves to characterize Meningioma and seek any underlying lesion in cerebellum -Continue supportive care with Coumadin therapy for her mechanical heart valve with attempts to avoid super-therapeutic INR -No acute Neurosurgical intervention planned -case discussed with son and daughter -May d/c IV fluids and allow patient to drink
--- NOTE | 2017-09-02 12:46 | CONSULT ---
Consult - text type - Consultation Consultation Note: Neurology History of Present Illness Patient is an 82-year-old female with past medical history of hypertension, HLD , diabetes, status post open heart surgery for mitral valve replacement ( mechanical) chronic arthralgia, hep C was brought to the emergency department by her family after she had multiple episodes of nausea and vomiting. Her granddaughter reported that her symptoms began around 5 AM on morning of admission. She states that she was throwing up consistently and it made her nervous so she brought her to the emergency department. Patient admited to dizziness. CT head completed and showed acute/subacute hemorrhage of the left occipital lobe measuring approximately 2.[address] Gildardo Ramirez contacted and reviewed and did not pursue surgical intervention. Spoke with Dr. Michelle Fishman, Cardiology, and due to mechanical value, cannot reverse INR but being monitored. She is in ICU under close monitoring. Spoke with daughter and patient does have HTN. Night before admission BP was 170;s systolic. Discussed with her possible etiologies and if nontraumatic then hypertensive likely but will need to rule out aneurysm. Shape of lesion also well circumscribed and I would like to make sure not oncologic with blood and edema. She will need CTA for aneurysm as well as MRI brain (note made of possible meningioma). Daughter trying to avoid telling patient diagnosis due to concern for grief. Past History - Travel Traveled outside of the country in the last 30 days: No Close contact w/someone who was outside of country & ill: No - Past Medical History Allergies/Adverse Reactions: Allergies Allergy/AdvReac Type Severity Reaction Status Date / Time No Known Allergies Allergy Verified 06/27/17 12:16 Home Medications: Ambulatory Orders Albuterol Sulfate Inhaler - [Ventolin Hfa Inhaler -] 1 puff IH TID 01/23/17 Folic Acid 1 mg PO DAILY 01/23/17 Furosemide [Lasix] 40 mg PO DAILY 01/23/17 Montelukast Na [Singulair -] 10 mg PO HS 01/23/17 Polyethylene Glycol 3350 [Miralax (For Daily Use) -] 17 gm PO DAILY 01/23/17 Pregabalin [Lyrica -] 50 mg PO DAILY 01/23/17 Simvastatin [Zocor] 10 mg PO HS 01/23/17 Dexlansoprazole [Dexilant] 60 mg PO DAILY 05/07/17 Diltiazem HCl [Diltiazem ER] 360 mg PO DAILY 05/07/17 Fluticasone/Salmeterol [Advair 250-50 Diskus] 1 each IH DAILY 05/07/17 Metformin HCl 500 mg PO DAILY 05/07/17 Valsartan/Hydrochlorothiazide [Valsartan-Hctz 320-12.5 mg Tab] 1 each PO DAILY 05/07/17 Warfarin Sodium [Coumadin] 5 mg PO HS 05/07/17 Oxymetazoline 0.05% Nasal Soln [Afrin -] 1 spray NS ONCE #1 spraybtl 06/27/17 Asthma: Yes Cardiac Disorders: Yes (Artificial Mitral Valve) COPD: Yes Diabetes: Yes HTN: Yes Hypercholesterolemia: Yes - Surgical History Cardiac Surgery: Yes (MITRAL VALVE REPLACMENT) - Immunization History Immunization Up to Date: No - Suicide/Smoking/Psychosocial Hx Smoking Status: No Smoking History: Never smoked Have you smoked in the past 12 months: No Number of Cigarettes Smoked Daily: 0 Hx Alcohol Use: No Drug/Substance Use Hx: No Substance Use Type: None Hx Substance Use Treatment: No Review of Systems CONSTITUTIONAL: Absent: fever, chills, diaphoresis, generalized weakness, malaise, loss of appetite HEENT: Absent: rhinorrhea, nasal congestion, throat pain, throat swelling, difficulty swallowing, mouth swelling, ear pain, eye pain, visual Changes CARDIOVASCULAR: Absent: chest pain, loss of consciousness, palpitations, irregular heart rate, peripheral edema RESPIRATORY: Absent: cough, shortness of breath, dyspnea with exertion, orthopnea, wheezing, stridor, hemoptysis GASTROINTESTINAL: Present: nausea, vomiting. Absent: abdominal pain, abdominal distension, nausea , vomiting, diarrhea, constipation, melena, hematochezia GENITOURINARY: Absent: dysuria, frequency, urgency, hesitancy, hematuria, flank pain, genital pain MUSCULOSKELETAL: Absent: myalgia, arthralgia, joint swelling SKIN: Absent: rash, itching, pallor HEMATOLOGIC/IMMUNOLOGIC: Absent: easy bleeding, easy bruising, lymphadenopathy, frequent infections ENDOCRINE: Absent: unexplained weight gain, unexplained weight loss, heat intolerance, cold intolerance NEUROLOGIC: Present: dizziness Absent: headache, focal weakness or paresthesias, dizziness, unsteady gait, seizure, mental status changes, bladder or bowel incontinence PSYCHIATRIC: Absent: anxiety, depression, suicidal or homicidal ideation, hallucinations. Is the patient limited Slovenian proficient: No *Physical Exam - Vital Signs Last Vital Signs Temp Pulse Resp BP Pulse Ox 97.4 F L 84 16 178/80 91 L 09/01/17 11:55 09/01/17 11:55 09/01/17 11:55 09/01/17 11:55 09/01/17 11:55 GENERAL: Well developed, well nourished. Awake and alertx3. No acute distress. HEENT: Normocephalic, atraumatic. PERRLA, EOMI. No conjunctival pallor. Sclera are non- icteric. Moist mucous membranes. Oropharynx is clear. NECK: Supple. Full ROM. No JVD. Carotid pulses 2+ and symmetric, without bruits. No thyromegaly. No lymphadenopathy. CARDIOVASCULAR: Regular rate and rhythm. No murmurs, rubs, or gallops. Mechanical click heard. Distal pulses are 2+ and symmetric. PULMONARY: No evidence of respiratory distress. Lungs clear to auscultation bilaterally. No wheezing, rales or rhonchi. ABDOMINAL: Soft. Non-tender. Non-distended. No rebound or guarding. No organomegaly. Normoactive bowel sounds. MUSCULOSKELETAL Normal range of motion at all joints. No bony deformities or tenderness. No CVA tenderness. EXTREMITIES: No cyanosis. No clubbing. No edema. No calf tenderness. SKIN: Warm and dry. Normal capillary refill. No rashes. No jaundice. NEUROLOGICAL: Alert, awake, appropriate. Cranial nerves 2-12 intact. Minor flattening of the nasolabial fold on the right. No deficits to light touch and temperature in face , upper extremities and lower extremities. No motor deficits in the in face, upper extremities and lower extremities. Normoreflexic in the upper and lower extremities. Slurred speech noted, Finger to nose ataxic CBCD WBC 8.2 K/mm3 (4.0-10.0) 09/02/17 05:30 RBC 4.24 M/mm3 (3.60-5.2) 09/02/17 05:30 Hgb 12.1 GM/dL (10.7-15.3) 09/02/17 05:30 Hct 36.2 % (32.4-45.2) 09/02/17 05:30 MCV 85.3 fl (80-96) 09/02/17 05:30 MCHC 33.4 g/dl (32.0-36.0) 09/02/17 05:30 RDW 15.0 % (11.6-15.6) 09/02/17 05:30 Plt Count 173 K/MM3 (134-434) 09/02/17 05:30 MPV 10.2 fl (7.5-11.1) 09/02/17 05:30 CMP Sodium 142 mmol/L (136-145) 09/02/17 05:30 Potassium 4.2 mmol/L (3.5-5.1) 09/02/17 05:30 Chloride 104 mmol/L (98-107) 09/02/17 05:30 Carbon Dioxide 28 mmol/L (21-32) 09/02/17 05:30 Anion Gap 10 (8-16) 09/02/17 05:30 BUN 18 mg/dL (7-18) 09/02/17 05:30 Creatinine 0.7 mg/dL (0.55-1.02) 09/02/17 05:30 Creat Clearance w eGFR > 60 (>60) 09/02/17 05:30 Calcium 9.2 mg/dL (8.5-10.1) 09/02/17 05:30 Total Bilirubin 0.6 mg/dL (0.2-1.0) 09/02/17 05:30 AST 45 U/L (15-37) H 09/02/17 05:30 ALT 34 U/L (12-78) 09/02/17 05:30 Alkaline Phosphatase 116 U/L (45-117) 09/02/17 05:30 Total Protein 7.4 g/dl (6.4-8.2) 09/02/17 05:30 Albumin 3.5 g/dl (3.4-5.0) 09/02/17 05:30 Medical Decision Making 82-year-old female with past medical history of hypertension, HLD, diabetes, status post open heart surgery for mitral valve replacement (mechanical) chronic arthralgia, hep C was brought to the emergency department by her family after she had multiple episodes of nausea and vomiting. CT head completed and showed acute/subacute hemorrhage of the left occipital lobe measuring approximately 2.[address] Gildardo Ramirez contacted and reviewed and did not pursue surgical intervention. Spoke with Dr. Michelle Fishman, Cardiology, and due to mechanical value, cannot reverse INR but being monitored. She is in ICU under close monitoring. Spoke with daughter and patient does have HTN. Night before admission BP was 170;s systolic. Discussed with her possible etiologies and if nontraumatic then hypertensive likely but will need to rule out aneurysm. Shape of lesion also well circumscribed and I would like to make sure not oncologic with blood and edema. She will need CTA for aneurysm as well as MRI brain (note made of possible meningioma). Repeat CT head ordered Blood pressure control recommended, goal <140/90 in patient, < 130/80 as outpatient Avoid antiplatelet medication AC as per cardiology Will need physical therapy will add keppra 500mg twice daily for seizure prevention fall precautions Follow up NSGY notes Concern that edema usually maximal in posterior fossa days 3-5, continue close monitoring of mental status Continue neuro checks Discussed with nurse Total Critical Care Time (minutes): 40
--- NOTE | 2017-09-02 13:13 | HP ---
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 As per the granddaughter, she states that her symptoms began around 5 a.m. Patient complained of some mild headache and dizziness also but denied any abdominal pain or discomfort. No chest pain, no shortness of breath. No visual disturbance. No weakness, no numbness, no tingling. No loss of consciousness. No history of any fall. So patient brought to the emergency room for further evaluation and treatment. Regarding the past medical history, as mentioned before, hypertension, diabetes, hypercholesterolemia, congestive heart failure, chronic hepatitis C, chronic arthralgia, mitral valve replacement with a mechanical valve. Patient is on Coumadin. No known drug allergy. MEDICATION: Ventolin HFA, folic acid, Lasix, Singulair, MiraLax daily, Lyrica 50 mg daily, Zocor 10 mg daily, Dexilant, diltiazem ER 360 mg daily, metformin 500 mg daily, valsartan/hydrochlorothiazide 320/12.5 mg daily, Coumadin 5 mg p.o. nightly. PAST MEDICAL HISTORY: As mentioned before, asthma, COPD, diabetes, hypertension, hyperlipidemia, mitral valve replacement. PERSONAL HISTORY: Patient lives with her daughter. No history of smoking, alcohol, or drugs. REVIEW OF SYSTEMS: Patient denied fever, chills. Head and Neck: No rhinorrhea, no nasal congestion, no sore throat. Cardiovascular: No chest pain, no loss of consciousness, no palpitation, no irregular heartbeat. Respiratory: No shortness of breath, no cough, no dyspnea. Gastrointestinal: Mild nausea, vomiting, diarrhea. Absent abdominal pain or abdominal distention. Genitourinary: No urinary symptom. Musculoskeletal: History of arthralgia Skin: No rash, no itching. Hematological: Absent easy bleeding or easy bruising, lymphadenopathy. Endocrine: Diabetes. No history of unexplained weight loss. Central Nervous System: Dizziness present, mild headache present. Psychiatric: No history of depression, anxiety, or suicidal or homicidal thought. VITAL SIGNS: In the emergency room, the temperature was 97.4, pulse 84 per minute, respirations 16, blood pressure 178/80, pulse oximetry 91%. Patient started on 2 L oxygen. PHYSICAL EXAMINATION: General: Well developed, well nourished, awake, alert, oriented x3, in no acute distress. Head and Neck: Normal. Neck supple. No JVD. Cardiovascular: 1st and 2nd sound normal. Metallic click heard. Pulmonary: No evidence of respiratory distress. Lungs clear auscultation bilaterally. Abdomen: Nontender, soft, no distention. Bowel sounds present. Musculoskeletal: Normal range of movement. No bony deformities. Extremities: Mild pedal edema present. No calf tenderness. Skin: Warm and dry. Normal capillary refill. Neurological: Patient is alert, awake, oriented x3. Cranial nerves 2-12 intact. No motor or sensory deficit. Reflexes normal. Normal speech. Toes are downgoing bilaterally. Gait is normal without ataxia. Regarding the labs, CBC normal, INR 3.98. CMP normal. Calcium 8.8, ALT 42, AST 63, alkaline phosphatase 146. Troponin less than 0.02. BNP 1385. Total protein 8.2, lipase 177. Urine shows protein, blood 1+, leukocytes 2+, WBC 37, bacteria few. Urine culture pending. Chest x-ray: Enlarged heart. No significant change. EKG: Normal sinus rhythm, rate 82, normal axis, nonspecific ST-wave changes. Head CT shows 2.7 and 2.2 cm focal acute/subacute hemorrhage in the left posterior medial aspect of the cerebellum with a small fluid level and another small foci of hemorrhage along the superior margin measuring 1.2 cm with a hypodense center and findings are consistent with an intracranial hemorrhage. In the ER, case was discussed with Neurosurgery and Cardiology. As per Cardiology, because of the history of mechanical heart valve, recommend to hold the Coumadin; however, does not recommend reversing the Coumadin as there is a very high risk of clot which could lead to stroke or valve failure. Neurosurgery recommended to observed, recommended to repeat the CAT scan and monitor the bleed, and monitor PT/INR. Patient admitted in ICU with admitting diagnosis of intracranial bleed, supratherapeutic INR, headache, nausea, mitral valve replacement. PLAN: Hold the Coumadin, monitor PT/INR closely, repeat CAT scan, neuro check, neurology and cardiology followup, nasal oxygen, minimize the fluid, serial neuro examination. Condition guarded. Will monitor the patient in ICU. MANISH ALCANTARA M.D. /[id number]
--- NOTE | 2017-09-02 14:26 | EKG ---
Test Reason : Blood Pressure : / mmHG Vent. Rate : 082 BPM Atrial Rate : 082 BPM P-R Int : 206 ms QRS Dur : 090 ms QT Int : 398 ms P-R-T Axes : 052 058 047 degrees QTc Int : 464 ms NORMAL SINUS RHYTHM CANNOT RULE OUT ANTERIOR INFARCT , AGE UNDETERMINED ABNORMAL ECG Confirmed by MD JONNY, JENIFER ([id number]) on 09/02/2017 2:25:33 PM Referred By: Confirmed By:JENIFER FULLER MD
--- NOTE | 2017-09-02 15:34 | CONS ---
DATE OF CONSULTATION: 09/02/2017 REQUESTING PHYSICIAN: Hilda Delgado MD CHIEF COMPLAINT: Nausea, vomiting, intracranial bleed, evaluation of cardiac status. 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 Upon evaluation in the emergency room, the patient was noted to have evidence of a cerebellar bleed. The patient's INR value was noted at 3.9. The patient denied any fall or trauma. The patient continues to report persistent of dyspnea with mild to moderate physical exertion. The patient denies any orthopnea, paroxysmal or nocturnal dyspnea, or peripheral edema. The patient denies any chest discomfort. The patient denies any palpitations, dizziness, lightheadedness, or syncope. PAST MEDICAL HISTORY: Coronary artery disease, angina pectoris, diastolic left ventricular dysfunction with chronic class 0-1 [place] [employer] classification left ventricular failure, rheumatic heart disease, rheumatic mitral valve disease, post mitral valve replacement, mechanical [place] prosthesis, hypertensive cardiovascular disease, diabetes mellitus, hypercholesterolemia, traumatic intracranial bleed, reactive airway disease, recent recurrent epistaxis. SOCIAL HISTORY: Nonsmoker. FAMILY HISTORY: Positive coronary artery disease. ALLERGIES: None reported. MEDICAL THERAPY: At home included Ventolin inhaler, Dexilant 60 mg once a day, Cardizem CD 360 mg once a day, Advair Diskus 1 puff twice a day, folic acid 1 mg once a day, Lasix 40 mg once a day, metformin 500 mg once a day, Singulair 10 mg once a day, MiraLAX 17 g once a day, Lyrica 50 mg once a day, Zocor 10 mg once a day, Diovan HCT 320/12.5 once a day, and Coumadin 5 mg once daily. REVIEW OF SYSTEMS: Head and Neck: Denies headache, photophobia, blurring of vision. Respiratory: No cough or sputum production. Cardiovascular: As noted above. Gastrointestinal: Reported nausea and vomiting. Denied any constipation, diarrhea, or abdominal discomfort. Genitourinary: No symptoms reported. Musculoskeletal: History of degenerative joint disease. PHYSICAL EXAMINATION: Vital Signs: Blood pressure 138/65 mmHg, pulse rate 66 beats per minute. Head and Neck: Pupils equal and reactive to light and accommodation. Extraocular muscles are intact. Anicteric sclerae. Negative JVD. No bruits appreciated. Chest: Clear to auscultation and percussion. Cardiovascular: Mechanical click. S2 regular. Grade 1/6 to 2/6 systolic ejection murmur. No gallops. Abdomen: Soft, benign. Normoactive bowel sounds. Extremities: Negative edema. Intact distal pulses. No calf tenderness. EKG reveals sinus rhythm with nonspecific T-wave abnormality. CT scan of the head report was noted. CBC reveals white cell count 8.2, hemoglobin 12.1, platelet count 173. Basic metabolic profile reveals sodium 142, potassium 4.2, BUN 18, creatinine 0.7. Troponin less than 0.02. B-type natriuretic peptide 1385. ASSESSMENT: 1. Headache, nausea, vomiting referable to intracranial bleed. Spontaneous bleed versus bleed related to supratherapeutic international normalized ratio versus other pathologies, i.e. intracranial lesion or possible cerebrovascular accident with hemorrhagic transformation unlikely. 2. Rheumatic heart disease post mechanical mitral valve replacement. 3. Coronary artery disease, angina pectoris. 4. Diastolic left ventricular dysfunction with chronic class 0-1 [place] [employer] classification left ventricular failure, compensated, euvolemic. 5. Hypertensive cardiovascular disease. 6. Diabetes mellitus. 7. Hypercholesterolemia. 8. Prior history of traumatic intracranial hemorrhage. 9. History of reactive airway disease. 10. History of chronic kidney disease. 11. Supratherapeutic international normalized ratio. RECOMMENDATION: 1. Warfarin therapy to be withheld and monitor INR. Ideally, INR to be maintained between 2.5 and 3.5 to resume once cleared by Neurosurgery. The patient cannot be off of anticoagulation in view of the above-noted mitral valve mechanical prosthesis. 2. Resumption of Diovan therapy hemodynamics permitting. 3. Resumption of Cardizem CD therapy hemodynamics permitting. 4. Resumption of statin therapy. 5. Repeat CT scan of the head as per Neurology versus obtaining MRI of the brain for further evaluation. Thank you for the kind referral. ADAM DISLA M.D. [id number]
[2017-09-02] MEDS ORDERED: ACETAMINOPHEN 325 MG TABLET (FP) PO PRN (18:49)
[2017-09-02] MEDS ORDERED: CHLORHEXIDINE GLUCONATE 4% CLEANSER FOR DECOLONIZATION TP SCH (22:00)
[2017-09-02] MEDS: levETIRAcetam 500 MG TABLET (FP) PO SCH (22:12)
[2017-09-03 05:49] LABS: BASO % 0.5 % (0-2.0); EOS % 0.8 % (0-4.5); HEMATOCRIT 38.6 % (32.4-45.2); HEMOGLOBIN 12.7 GM/dL (10.7-15.3); MCH 28.1 pg (25.7-33.7); MEAN CELL VOLUME 85.2 fl (80-96); MEAN PLT VOLUME 9.9 fl (7.5-11.1); MONO % 6.8 % (3.8-10.2); NEUT % 75.9 % (42.8-82.8); PLATELET COUNT 168 K/MM3 (134-434); RBC 4.53 M/mm3 (3.60-5.2); RDW 15.1 % (11.6-15.6); WHITE BLOOD COUNT 9.9 K/mm3 (4.0-10.0)
--- NOTE | 2017-09-03 05:50 | CONSULT ---
Consult - text type - Consultation Consultation Note: Pt was sent down for a repeat Head CT, but as per nurses she became very anxious on the table and moving around so CT was not able to be done. Neuro exam is unchanged without deficits. Anxiety subsided once back in patient room. Rec is to attempt CT this morning. Avoid using sedation, as to not mask neuro exam. Nancie Davidson, ACNP-BC Pulm Critical care
[2017-09-03 06:06] LABS: INR 2.38 (0.82-1.09); PROTHROMBIN TIME (PATIENT) 26.9 SEC (9.98-11.88)
[2017-09-03 06:09] LABS: ACTIVATED PTT 35.7 SECONDS (26.9-34.4)
[2017-09-03] MEDS: VALSARTAN 160 MG TABLET (UD) PO SCH ×2 (07:41→11:25)
[2017-09-03] MEDS: HYDROCHLOROTHIAZIDE 12.5 MG CAPSULE (FP) PO SCH ×2 (07:43→11:25)
--- NOTE | 2017-09-03 07:46 | PN ---
Progress Note, Physician History of Present Illness: HPI 82 YOF, Icelandic and Andres speaking, with dementia, h/o HTN, HLD, CAD s/p CABG, DM, s/p MVR (mechanical, on coumadin), asthma, rheumatoid arthritis, possible HCV ( as per chart review) brought into ED by family on 09/01/17 AM for dizziness, TOURE, n /v multiple episodes. On arrival in ED pulse ox was 91% and BP was 153/87. INR 3.9 in ED. HCT showed e/o acute/subacute hemorrhage of the left occipital lobe measuring approximately 2.7 x 2.2 cm, neuro srgy consulted. Dr. Coles from neurosurgery confirmed that there was active bleeding on CT, planned to observe at this time and attempt re-HCT in morning of 09/02/17, but patient was restless and unable to tolerate. Pt's screen vent binder Dr. Daily consulted, does not recommend reversing the Coumadin as there is a very high risk of further clot which could lead to stroke or valve failure. Patient lives with family. HOME MEDS Albuterol Sulfate Inhaler - [Ventolin Hfa Inhaler -] 1 puff IH TID 01/23/17 Folic Acid 1 mg PO DAILY 01/23/17 Furosemide [Lasix] 40 mg PO DAILY 01/23/17 Montelukast Na [Singulair -] 10 mg PO HS 01/23/17 Polyethylene Glycol 3350 [Miralax (For Daily Use) -] 17 gm PO DAILY 01/23/17 Pregabalin [Lyrica -] 50 mg PO DAILY 01/23/17 Simvastatin [Zocor] 10 mg PO HS 01/23/17 Dexlansoprazole [Dexilant] 60 mg PO DAILY 05/07/17 Diltiazem HCl [Diltiazem ER] 360 mg PO DAILY 05/07/17 Fluticasone/Salmeterol [Advair 250-50 Diskus] 1 each IH DAILY 05/07/17 Metformin HCl 500 mg PO DAILY 05/07/17 Valsartan/Hydrochlorothiazide [Valsartan-Hctz 320-12.5 mg Tab] 1 each PO DAILY 05/07/17 Warfarin Sodium [Coumadin] 5 mg PO HS 05/07/17 Oxymetazoline 0.05% Nasal Soln [Afrin -] 1 spray NS ONCE #1 spraybtl 06/27/17 24 HOUR EVENTS This AM patient with systolic BP above 180. She remains nonfocal, no complaints. Regular meds including HCTZ and Diovan given and will closely monitor. RN notes patient coughs with drinking water, high aspiration risk. Went for repeat HCT, shows expansion of the cerebellar hematoma. SUBJECTIVE Unable to provide subjective report herself d/t tiredness, but the family states she is no longer mentating as well as yesterday. 24 HOUR INTAKE & OUTPUT Intake: 1008cc Output: 100cc Net: 908cc BM: None reported LINES/TUBES/DRAINS PIV - Current Medication List Current Medications: Active Medications Acetaminophen (Tylenol -) 650 mg PO Q6H PRN PRN Reason: PAIN LEVEL 4 - 6 Last Admin: 09/02/17 18:58 Dose: 650 mg Chlorhexidine Gluconate (Hibiclens For Decolonization -) 1 applic TP HS [facility] Last Admin: 09/02/17 22:12 Dose: 1 applic Hydrochlorothiazide (Hctz -) 12.5 mg PO DAILY [facility] Last Admin: 09/02/17 11:00 Dose: 12.5 mg Levetiracetam (Keppra -) 500 mg PO BID [facility] Last Admin: 09/02/17 22:12 Dose: 500 mg Mupirocin (Bactroban Ointment (For Decolonization) -) 1 applic NS BID [facility] Stop: 09/07/17 09:59 Last Admin: 09/02/17 22:13 Dose: Not Given Valsartan (Diovan -) 320 mg PO DAILY [facility] Last Admin: 09/02/17 11:00 Dose: 320 mg - Objective Vital Signs: Vital Signs Temperature 99.8 F H 09/03/17 06:00 Pulse Rate 89 09/03/17 06:00 Respiratory Rate 20 09/03/17 06:00 Blood Pressure 168/72 09/03/17 06:00 O2 Sat by Pulse Oximetry (%) 100 09/02/17 19:54 Constitutional: Yes: No Distress, Calm, Other (initially sleeping, tired but somewhat arousable to voice, not speaking) Eyes: Yes: WNL, Conjunctiva Clear, EOM Intact HENT: Yes: WNL, Atraumatic, Normocephalic Neck: Yes: WNL, Supple, Trachea Midline Cardiovascular: Yes: WNL, Regular Rate and Rhythm Respiratory: Yes: WNL, Regular, CTA Bilaterally, Wheezes (faint expiratory bilaterally) Gastrointestinal: Yes: WNL, Normal Bowel Sounds, Soft Musculoskeletal: Yes: WNL Extremities: Yes: WNL. No: Calf Tenderness, Cold, Cyanosis, Pallor Edema: No Peripheral Pulses: Left Doralis Pedis: 2+, Right Dorsalis Pedis: 2+ Integumentary: Yes: WNL Neurological: Yes: Confusion (per baseline (dementia)), Cran Nerves II-XII Intact, Other (moving (flinching) all extremities, tracks with eyes, no facial droop, no nystagmus). No: Alert, Oriented ...Motor Strength: WNL Labs: CBC, BMP 09/03/17 05:10 INR, PTT INR 2.38 (0.82-1.09) H 09/03/17 05:10 Assessment/Plan 82 YOF, [place]ic and Andres speaking, with dementia, h/o prior traumatic ICH, HTN, HLD, CAD s/p CABG, DM, s/p MVR (mechanical, on coumadin), asthma, rheumatoid arthritis, possible HCV (as per chart review) brought into ED by family on AM for dizziness, TOURE, n/v multiple episodes, HCT showed cerebellar hemorrhage , ED INR was 3.98, Dr. Coles consulted, and patient's outpatient screen vent binder Dr. Daily recommended against reversing INR. NEURO #Left cerebellar hematoma, nontraumatic, likely acute, worsening. Patient also lethargic this AM, hypertensive. Cardiology expresses great concern with reversing AC for possibility of thrombus formation on mechanical valve. Neurosurgery recommends OR intervention to stop bleeding, but the INR would need to be 1.4 or lower for this. There is possibility of transfer to [place] or another institution with balloon pump capability in case the patient has cardiovascular collapse as a result of coumadin reversal. -Talk with [place] transfer center and family about options -Neurosurgery Dr. Coles following -Maintain HOB at 30 degrees -Serial neuro exams -BP medication to maintain <140/90 while inpatient -Continue Keppra CARD #HTN, fluctuating chronic. Goal inpatient BP per Dr. Moon is <140/90. -Continue home Diovan/HCTZ -Start cardizem ggt -Continue close monitoring #Mechanical MVR. Anticoagulated with Coumadin. Pt's outpatient screen vent binder Dr. Daily recommends against reversing or stopping Coumadin d/t high risk of clot. -Continue Coumadin home dose -Goal INR 2.5 -Hold dose if INR>3.5 #CAD, s/p CABG -Continue on telemetry monitoring -Continue home meds HEME #Supratherapeutic INR. On Coumadin for mechanical valve. INR in ED was 3.98. Now 2.38. -Do not reverse INR for now -Hold Coumadin dose if >3.5 -Goal INR 2.5 -Monitor for signs of bleeding -May end up reversing coumadin if procedure is planned ENDO #Diabetes mellitus, chronic. -Diabetic diet -Monitor BG -May add insulin if hyperglycemia FEN -Speech/swallow eval -If taking PO fluids may DC maintenance IVF -Monitor CMP, Mg, Phos -Replace lytes prn PPX DVT: Home Coumadin GI: None PT: When able DISPO Further ICU care
[2017-09-03 08:33] LABS: ALBUMIN 3.8 g/dl (3.4-5.0); ANION GAP 9 (8-16); BILIRUBIN,TOTAL 1.1 mg/dL (0.2-1.0); BLOOD UREA NITROGEN 20 mg/dL (7-18); CALCIUM 9.9 mg/dL (8.5-10.1); CHLORIDE 103 mmol/L (98-107); CO2 32 mmol/L (21-32); CREATININE 0.8 mg/dL (0.55-1.02); GLUCOSE,RANDOM 122 mg/dL (74-106); MAGNESIUM 2.2 mg/dL (1.8-2.4); PHOSPHOROUS 2.6 mg/dL (2.5-4.9); POTASSIUM 3.9 mmol/L (3.5-5.1); SGOT/AST 39 U/L (15-37); SGPT/ALT 30 U/L (12-78); SODIUM 144 mmol/L (136-145); TOT PROT 7.9 g/dl (6.4-8.2)
[2017-09-03 08:34] LABS: ALK PHOS 114 U/L (45-117)
[2017-09-03] MEDS ORDERED: LABETALOL HCL 5 MG/1 ML (100MG/20 ML VIAL) IVPUSH ONE ×2 (08:39→09:42)
[2017-09-03] MEDS ORDERED: ACETAMINOPHEN 1000 MG/100 ML VIAL (NON FORMULARY) IVPB ONE (09:00)
--- NOTE | 2017-09-03 09:29 | PN ---
Progress Note (short form) - Note Progress Note: Neurology History of Present Illness Patient is an 82-year-old female with past medical history of hypertension, HLD , diabetes, status post open heart surgery for mitral valve replacement ( mechanical) chronic arthralgia, hep C was brought to the emergency department by her family after she had multiple episodes of nausea and vomiting. Her granddaughter reported that her symptoms began around 5 AM on morning of admission. She states that she was throwing up consistently and it made her nervous so she brought her to the emergency department. Patient admited to dizziness. CT head completed and showed acute/subacute hemorrhage of the left occipital lobe measuring approximately 2.[address] Gildardo Ramirez contacted and reviewed and did not pursue surgical intervention at the time. Spoke with Dr. Michelle Fishman, Cardiology, and due to mechanical value, cannot reverse INR but being monitored, downtrended. She is in ICU under close monitoring. Spoke with daughter previously and patient does have HTN. Night before admission BP was 170;s systolic. Discussed with her possible etiologies and if nontraumatic then hypertensive likely but will need to rule out aneurysm. Shape of lesion also well circumscribed and I would like to make sure not oncologic with blood and edema. She will need CTA for aneurysm as well as MRI brain (note made of possible meningioma). Daughter trying to avoid telling patient diagnosis due to concern for grief. Repeat Head CT reviewed, expansion of hemorrhage noted, still well circumscribed. Spoke to resident, blood pressures have been running high, advised tighter control. To also notify NSGY regarding next steps. CTA completed, awaiting report. Active Medications Acetaminophen (Tylenol -) 650 mg PO Q6H PRN PRN Reason: PAIN LEVEL 4 - 6 Last Admin: 09/02/17 18:58 Dose: 650 mg Chlorhexidine Gluconate (Hibiclens For Decolonization -) 1 applic TP HS [facility] Last Admin: 09/02/17 22:12 Dose: 1 applic Hydrochlorothiazide (Hctz -) 12.5 mg PO DAILY [facility] Last Admin: 09/03/17 07:43 Dose: 12.5 mg Levetiracetam (Keppra -) 500 mg PO BID [facility] Last Admin: 09/02/17 22:12 Dose: 500 mg Mupirocin (Bactroban Ointment (For Decolonization) -) 1 applic NS BID [facility] Stop: 09/07/17 09:59 Last Admin: 09/02/17 22:13 Dose: Not Given Valsartan (Diovan -) 320 mg PO DAILY [facility] Last Admin: 09/03/17 07:41 Dose: 320 mg *Physical Exam Vital Signs Temperature 99.8 F H 09/03/17 06:00 Pulse Rate 89 09/03/17 06:00 Respiratory Rate 20 09/03/17 06:00 Blood Pressure 168/72 09/03/17 06:00 O2 Sat by Pulse Oximetry (%) 100 09/02/17 19:54 GENERAL: Well developed, well nourished. Somnolent but tracking examiner, not following complex commands, won't respond when asked name, location HEENT: Normocephalic, atraumatic. PERRLA, EOMI. No conjunctival pallor. Sclera are non- icteric. Moist mucous membranes. Oropharynx is clear. NECK: Supple. Full ROM. No JVD. Carotid pulses 2+ and symmetric, without bruits. No thyromegaly. No lymphadenopathy. CARDIOVASCULAR: Regular rate and rhythm. No murmurs, rubs, or gallops. Mechanical click heard. Distal pulses are 2+ and symmetric. PULMONARY: No evidence of respiratory distress. Lungs clear to auscultation bilaterally. No wheezing, rales or rhonchi. ABDOMINAL: Soft. Non-tender. Non-distended. No rebound or guarding. No organomegaly. Normoactive bowel sounds. MUSCULOSKELETAL Normal range of motion at all joints. No bony deformities or tenderness. No CVA tenderness. EXTREMITIES: No cyanosis. No clubbing. No edema. No calf tenderness. SKIN: Warm and dry. Normal capillary refill. No rashes. No jaundice. NEUROLOGICAL: Alert, awake, appropriate. Cranial nerves 2-12 intact. Minor flattening of the nasolabial fold on the right. No deficits to light touch and temperature in face , upper extremities and lower extremities. No motor deficits in the in face, upper extremities and lower extremities. Normoreflexic in the upper and lower extremities. Slurred speech noted, Finger to nose ataxic CBCD WBC 9.9 K/mm3 (4.0-10.0) 09/03/17 05:10 RBC 4.53 M/mm3 (3.60-5.2) 09/03/17 05:10 Hgb 12.7 GM/dL (10.7-15.3) 09/03/17 05:10 Hct 38.6 % (32.4-45.2) 09/03/17 05:10 MCV 85.2 fl (80-96) 09/03/17 05:10 MCHC 33.0 g/dl (32.0-36.0) 09/03/17 05:10 RDW 15.1 % (11.6-15.6) 09/03/17 05:10 Plt Count 168 K/MM3 (134-434) 09/03/17 05:10 MPV 9.9 fl (7.5-11.1) 09/03/17 05:10 CMP Sodium 144 mmol/L (136-145) 09/03/17 07:20 Potassium 3.9 mmol/L (3.5-5.1) 09/03/17 07:20 Chloride 103 mmol/L (98-107) 09/03/17 07:20 Carbon Dioxide 32 mmol/L (21-32) 09/03/17 07:20 Anion Gap 9 (8-16) 09/03/17 07:20 BUN 20 mg/dL (7-18) H 09/03/17 07:20 Creatinine 0.8 mg/dL (0.55-1.02) 09/03/17 07:20 Creat Clearance w eGFR > 60 (>60) 09/03/17 07:20 Calcium 9.9 mg/dL (8.5-10.1) 09/03/17 07:20 Total Bilirubin 1.1 mg/dL (0.2-1.0) H D 09/03/17 07:20 AST 39 U/L (15-37) H 09/03/17 07:20 ALT 30 U/L (12-78) 09/03/17 07:20 Alkaline Phosphatase 114 U/L (45-117) 09/03/17 07:20 Total Protein 7.9 g/dl (6.4-8.2) 09/03/17 07:20 Albumin 3.8 g/dl (3.4-5.0) 09/03/17 07:20 09/01/17 CT head reviewed 09/03/17 CT head reviewed 09/03/17 CTA head and neck reviewed Medical Decision Making 82-year-old female with past medical history of hypertension, HLD, diabetes, status post open heart surgery for mitral valve replacement (mechanical) chronic arthralgia, hep C was brought to the emergency department by her family after she had multiple episodes of nausea and vomiting. CT head completed and showed acute/subacute hemorrhage of the left occipital lobe measuring approximately 2.[address] Gildardo Ramirez contacted and reviewed and did not pursue surgical intervention. Spoke with Dr. Michelle Fishman, Cardiology, and due to mechanical value, cannot reverse INR but being monitored. She is in ICU under close monitoring. Spoke with daughter and patient does have HTN. Night before admission BP was 170;s systolic. Discussed with her possible etiologies and if nontraumatic then hypertensive likely but will need to rule out aneurysm. Shape of lesion also well circumscribed and I would like to make sure not oncologic with blood and edema. CTA completed, awaiting report Repeat CT head reviewed and with expansion of bleed, more somnolent today, not following commands, won't respond to where she is or reply when asked name in wrang[place] language Blood pressure control recommended, goal <140/90 in patient, < 130/80 as outpatient Avoid antiplatelet medication AC as per cardiology Will need physical therapy Added keppra 500mg twice daily for seizure prevention fall precautions Follow up NSGY notes, to be notified of CT results Concern that edema usually maximal in posterior fossa days 3-5, continue close monitoring of mental status in ICU Continue neuro checks, kenna for lethargy, worsening N/V, worsened dysmetria Total Critical Care Time (minutes): 40
--- NOTE | 2017-09-03 09:41 | PN ---
Progress Note, Physician Chief Complaint: Pt seen in ICU PT lethargic,confused RPT CT scan of head done ,report pending neurolgy consult appreciated - Current Medication List Current Medications: Active Medications Acetaminophen (Tylenol -) 650 mg PO Q6H PRN PRN Reason: PAIN LEVEL 4 - 6 Last Admin: 09/02/17 18:58 Dose: 650 mg Chlorhexidine Gluconate (Hibiclens For Decolonization -) 1 applic TP HS [facility] Last Admin: 09/02/17 22:12 Dose: 1 applic Hydrochlorothiazide (Hctz -) 12.5 mg PO DAILY [facility] Last Admin: 09/03/17 07:43 Dose: 12.5 mg Levetiracetam (Keppra -) 500 mg PO BID [facility] Last Admin: 09/02/17 22:12 Dose: 500 mg Mupirocin (Bactroban Ointment (For Decolonization) -) 1 applic NS BID [facility] Stop: 09/07/17 09:59 Last Admin: 09/02/17 22:13 Dose: Not Given Valsartan (Diovan -) 320 mg PO DAILY [facility] Last Admin: 09/03/17 07:41 Dose: 320 mg - Objective Vital Signs: Vital Signs Temperature 99.8 F H 09/03/17 06:00 Pulse Rate 89 09/03/17 06:00 Respiratory Rate 20 09/03/17 06:00 Blood Pressure 168/72 09/03/17 06:00 O2 Sat by Pulse Oximetry (%) 100 09/02/17 19:54 Constitutional: Yes: No Distress Eyes: Yes: Conjunctiva Clear, EOM Intact, PERRL HENT: Yes: Atraumatic Neck: Yes: Supple, Trachea Midline Cardiovascular: Yes: Regular Rate and Rhythm Respiratory: Yes: Regular, CTA Bilaterally Gastrointestinal: Yes: WNL Edema: Yes Edema: LLE: Trace, RLE: Trace Peripheral Pulses WNL: Yes Neurological: Yes: Other (lethargic,confused) Labs: CBC, BMP 09/03/17 05:10 09/03/17 07:20 INR, PTT INR 2.38 (0.82-1.09) H 09/03/17 05:10 Assessment/Plan Intracranial hemorrhagie, headache,nausea COPD DM MVR HTN Hypercholestrolemia CAD ,LV diastolic dysfunction CKD PLAN Rpt CT scan of head report pending COumadin on HOLD NEURO check ,MOnitor Pt, PTT and INR NEUROlogy , neurosurgery cardiology F/U
[2017-09-03] MEDS ORDERED: NICARDIPINE 25 MG in DEXTROSE 5%-WATER - 240 ML IVPB SCH (11:00)
--- NOTE | 2017-09-03 11:12 | PN ---
Progress Note, Physician History of Present Illness: Worsened sensorium with progression in cerebellar bleed, INR 2.38. - Current Medication List Current Medications: Active Medications Acetaminophen (Tylenol -) 650 mg PO Q6H PRN PRN Reason: PAIN LEVEL 4 - 6 Last Admin: 09/02/17 18:58 Dose: 650 mg Chlorhexidine Gluconate (Hibiclens For Decolonization -) 1 applic TP HS [facility] Last Admin: 09/02/17 22:12 Dose: 1 applic Hydrochlorothiazide (Hctz -) 12.5 mg PO DAILY [facility] Last Admin: 09/03/17 07:43 Dose: 12.5 mg Nicardipine HCl 25 mg/ (Dextrose) 250 mls @ 25 mls/hr IVPB TITR NOA; 2.5 MG/HR PRN Reason: Protocol Levetiracetam (Keppra -) 500 mg PO BID [facility] Last Admin: 09/02/17 22:12 Dose: 500 mg Mupirocin (Bactroban Ointment (For Decolonization) -) 1 applic NS BID [facility] Stop: 09/07/17 09:59 Last Admin: 09/02/17 22:13 Dose: Not Given Valsartan (Diovan -) 320 mg PO DAILY [facility] Last Admin: 09/03/17 07:41 Dose: 320 mg - Objective Vital Signs: Vital Signs Temperature 99.8 F H 09/03/17 06:00 Pulse Rate 89 09/03/17 06:00 Respiratory Rate 20 09/03/17 06:00 Blood Pressure 168/72 09/03/17 06:00 O2 Sat by Pulse Oximetry (%) 100 09/02/17 19:54 Constitutional: Yes: No Distress, Calm Neck: Yes: Supple Cardiovascular: Yes: Regular Rate and Rhythm, Murmur ([place] mechanical valve sounds, 1/6 SM) Respiratory: Yes: Regular, Diminished, On Nasal O2 Gastrointestinal: Yes: Soft, Hypoactive Bowel Sounds Edema: No Labs: CBC, BMP 09/03/17 05:10 09/03/17 07:20 INR, PTT INR 2.38 (0.82-1.09) H 09/03/17 05:10 Problem List - Problems (1) Cerebellar hemorrhage, acute Code(s): I61.4 - NONTRAUMATIC INTRACEREBRAL HEMORRHAGE IN CEREBELLUM (2) Hemorrhagic stroke Code(s): I61.9 - NONTRAUMATIC INTRACEREBRAL HEMORRHAGE, UNSPECIFIED (3) Atrial flutter Code(s): I48.92 - UNSPECIFIED ATRIAL FLUTTER Qualifiers: Atrial flutter type: unspecified Qualified Code(s): I48.92 - Unspecified atrial flutter (4) Elevated INR (international normalized ratio) Code(s): R79.1 - ABNORMAL COAGULATION PROFILE (5) H/O mitral valve replacement Code(s): Z95.2 - PRESENCE OF PROSTHETIC HEART VALVE (6) Hypertension Code(s): I10 - ESSENTIAL (PRIMARY) HYPERTENSION Qualifiers: Hypertension type: essential hypertension Qualified Code(s): I10 - Essential (primary) hypertension (7) Rheumatic heart disease Code(s): I09.9 - RHEUMATIC HEART DISEASE, UNSPECIFIED Assessment/Plan 1. Progressive acute/subacute hemorrhage of the left cerebellum in context of supratherapeutic INR 2. 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 CAD angina pectoris 4. Diastolic LV dysfunction with chronic class 0-I NYHA classification LV failure, compensated/euvolemic 5. HTN 6. DM 7. Hyperlipidemia 8. Prior history of intracranial hemorrhage, traumatic 9. Paroxysmal atrial flutter->SR 10. Supratherapeutic INR PLAN: 1. Hold Warfarin and monitor INR (ideally INR to maintained between 2.5-3.5), given progression of bleed, NSG recommends decompression and reversal of anticoagulation, looks like have no choice but to accept and acknowledge risk of MV mechanical valve thrombosis with consequent pulmonary edema, CHF, cardiogenic shock, in meantime attempt conversation with [facility] NSG for possible transfer 2. Cardene gtt to be started 3. Plan pending discussion with NSG at [facility] and Dr. Luís Daily, explained to family
[2017-09-03] MEDS: levETIRAcetam 500 MG TABLET (FP) PO SCH (11:26)
[2017-09-03] MEDS ORDERED: niCARdipine HCL 25 MG/10 ML AMPUL IVPB ONE (11:31)
[2017-09-03 12:05] VITALS: TEMP 98.5
--- NOTE | 2017-09-03 12:13 | CONSULT ---
Admitting History and Physical - Admission History of Present Illness: Patient is an 82-year-old female with past medical history of hypertension, HLD , diabetes, status post open heart surgery for mitral valve replacement ( mechanical) chronic arthralgia, hep C was brought to the emergency department by her family after she had multiple episodes of nausea and vomiting Head CT - acute/subacute hemorrhage of the left occipital lobe measuring approximately 2.7 x 2.2 cm, Dr. Coles from neurosurgery confirmed that there was active bleeding on CT. Pt was alert answering questions on 09/02 per EMR. Lethargic today. Not following commands. Tolerating secretions. Pending transfer to [facility]. 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 No: Alzheimer's, CVA, Migraine, Multiple Sclerosis, Peripheral Neuropathy, Parkinson's, Seizure, Syncope, TIA, Vertigo, Other Cardiovascular: Yes: CAD, HTN, Mitral Stenosis Pulmonary: Yes: Asthma Gastrointestinal: No: Ascites, Cancer, Constipation, Crohn's Disease, Diverticulitis, Diverticulosis, Esophageal Varices, Gastritis, GERD, GI Bleed, Hemorrhoids, Hiatal Hernia, Inflamatory Bowel Disease, Irritable Bowel Disease, Pancreatitis, Peptic Ulcer Disease, Ulcerative Colitis, Other Hepatobiliary: No: Cirrhosis, Cholelithiasis, Cholecystitis, Choledocholithiasis , Hepatitis A, Hepatitis B, Hepatitis C, Other Renal/: No: Renal Failure, Renal Inusuff, BPH, Cancer, Hematuria, Hemodialysis , Neurogenic Bladder, Renal Calculi, UTI, Other ...: No Heme/Onc: No: Anemia, B12 Deficiency, Bleeding Disorder, Cancer, Current Chemotherapy, Current Radiation Therapy, Hemochromatosis, Hypercoaguable State, Myeloproliferative Synd, Sickle Cell Disease, Sickle Cell Trait, Thrombocytopenia, Other Infectious Disease: Yes: Other (hep c?) Musculoskeletal: Yes: Bursitis Rheumatology: Yes: Other (Rhematoid ) Dermatology: Yes: Cellulitis - Past Surgical History Past Surgical History: Yes: CABG, Valve Replacement - Advance Directives Advance Directives: Yes: Health Care Proxy - Smoking History Smoking history: Never smoked Have you smoked in the past 12 months: No Aproximately how many cigarettes per day: 0 - Alcohol/Substance Use Hx Alcohol Use: No History of Substance Use: reports: None - Social History ADL: Family Assistance History - Admission Reason For Visit: CVA - Diagnostics CT Scan: Report Reviewed (CT head completed and showed acute/subacute hemorrhage of the left occipital lobe measuring approximately 2.7 x 2.2 cm.) - Hearing Hearing: Impaired Hearing Aide: Yes With Patient: No Speech Evaluation - Communication Primary Language: [id number]
[2017-09-03] MEDS ORDERED: MANNITOL 25% 12.5 GM/50 ML VIAL IVPB ONE (12:14)
[2017-09-03] MEDS ORDERED: levETIRAcetam 500 MG/5 ML INJECTION VIAL IVPB SCH (12:15)
[2017-09-03] MEDS: MUPIROCIN 2% TOPICAL OINTMENT FOR DECOLONIZATION NS SCH (12:52)
--- NOTE | 2017-09-03 12:57 | PN ---
Teaching Attending Note Name of Resident: Ivon Brady ATTENDING PHYSICIAN STATEMENT I saw and evaluated the patient. I reviewed the resident's note and discussed the case with the resident. I agree with the resident's findings and plan as documented. SUBJECTIVE: Patient seen and examined in the ICU. Long discussion with the family in the presence of neurosurgery. Explained that neurosurgical intervention may precipitate a catastrophic cardiac event. Call has been made [facility] for potential tertiary care. Mental status/Neuro exam worsening. Intake & Output 08/31/17 09/01/17 09/02/17 09/03/17 23:59 23:59 23:59 23:59 Intake Total 1008 100 Output Total 100 100 Balance -100 908 100 Weight 176 lb 168 lb 1 oz 164 lb 5 oz Last Vital Signs Temp Pulse Resp BP Pulse Ox 98.5 F 104 H 20 134/85 100 09/03/17 12:00 09/03/17 12:00 09/03/17 12:00 09/03/17 12:00 09/03/17 09:00 Active Medications Acetaminophen (Tylenol -) 650 mg PO Q6H PRN PRN Reason: PAIN LEVEL 4 - 6 Last Admin: 09/02/17 18:58 Dose: 650 mg Chlorhexidine Gluconate (Hibiclens For Decolonization -) 1 applic TP HS [facility] Last Admin: 09/02/17 22:12 Dose: 1 applic Hydrochlorothiazide (Hctz -) 12.5 mg PO DAILY [facility] Last Admin: 09/03/17 11:25 Dose: Not Given Nicardipine HCl 25 mg/ (Dextrose) 250 mls @ 25 mls/hr IVPB TITR NOA; 2.5 MG/HR PRN Reason: Protocol Last Admin: 09/03/17 11:41 Dose: 2.5 mg/hr, 25 mls/hr Levetiracetam (Keppra Injection -) 500 mg IVPB BID [facility] Mupirocin (Bactroban Ointment (For Decolonization) -) 1 applic NS BID [facility] Stop: 09/07/17 09:59 Last Admin: 09/02/17 22:13 Dose: Not Given Valsartan (Diovan -) 320 mg PO DAILY [facility] Last Admin: 09/03/17 11:25 Dose: Not Given Gen: NAD at rest Heart: RRR Lung: decreased breath sounds at the bases Abd: soft, nontender Ext: no edema Laboratory Results - last 24 hr 09/02/17 09/03/17 09/03/17 13:28 05:10 05:10 WBC 9.9 RBC 4.53 Hgb 12.7 Hct 38.6 MCV 85.2 MCH 28.1 MCHC 33.0 RDW 15.1 Plt Count 168 MPV 9.9 Neutrophils % 75.9 Lymphocytes % 16.0 Monocytes % 6.8 Eosinophils % 0.8 D Basophils % 0.5 PT with INR INR PTT (Actin FS) Sodium Cancelled Potassium Cancelled Chloride Cancelled Carbon Dioxide Cancelled Anion Gap Cancelled BUN Cancelled Creatinine Cancelled Creat Clearance w eGFR Cancelled POC Glucometer [id number] Random Glucose Cancelled Calcium Cancelled Phosphorus Cancelled Magnesium Cancelled Total Bilirubin Cancelled AST Cancelled ALT Cancelled Alkaline Phosphatase Cancelled Total Protein Cancelled Albumin Cancelled 09/03/17 09/03/17 05:10 07:20 WBC RBC Hgb Hct MCV MCH MCHC RDW Plt Count MPV Neutrophils % Lymphocytes % Monocytes % Eosinophils % Basophils % PT with INR 26.90 H INR 2.38 H PTT (Actin FS) 35.7 H Sodium 144 Potassium 3.9 Chloride 103 Carbon Dioxide 32 Anion Gap 9 BUN 20 H Creatinine 0.8 Creat Clearance w eGFR > 60 POC Glucometer Random Glucose 122 H Calcium 9.9 Phosphorus 2.6 Magnesium 2.2 Total Bilirubin 1.1 H D AST 39 H ALT 30 Alkaline Phosphatase 114 Total Protein 7.9 Albumin 3.8 A/P 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 They have expressed understanding of the Risks and Benefits. - continue ICU monitoring Dr Castaneda Critical care time spent in reviewing chart, evaluating patient and formulating plan 35 min
[2017-09-03] MEDS ORDERED: PROPOFOL 20 ML ONE (14:37)
[2017-09-03] MEDS ORDERED: PROPOFOL 1,000,000 MCG/100 ML VIAL ONE (14:49)
[2017-09-03] MEDS ORDERED: ROCURONIUM BROMIDE 50 MG/5 ML VIAL IV STA (14:53)
[2017-09-03] MEDS ORDERED: ROCURONIUM BROMIDE 50 MG/5 ML VIAL IVPUSH STA (14:53)
[2017-09-03] MEDS ORDERED: PROPOFOL 200 MG/20 ML VIAL IVPUSH STA (14:53)
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
--- NOTE | 2017-09-03 15:03 | PROC ---
Intubation - Intubation Reason for Intubation: Airway Protection Intubation Method: orotracheal Blade used: Glidescope Tube Size (cm): 7.5 Tube position confirmed by: Direct visualization, CO2 detector, Chest x-ray, Breath sounds Breath Sounds after Intubation: equal Post Intubation Xray: Yes
[2017-09-03 15:04] VITALS: PULSE 103
[2017-09-03] MEDS ORDERED: PROPOFOL 1,000,000 MCG/100 ML VIAL IVPB SCH (15:30)
[2017-09-03 15:39] LABS: ARTERIAL BLOOD GAS PCO2 42.4 mmHg (35-45); ARTERIAL BLOOD GAS pH 7.44 (7.35-7.45)
[2017-09-03 15:46] LABS: ALLENS TEST POSITIVE; ARTERIAL BLD GAS O2 SATURATION 99.5 % (90-98.9); ARTERIAL BLOOD GAS BASE EXCESS 5.8 meq/l (-2-2)
[2017-09-03 15:56] VITALS: BP 136/76
--- NOTE | 2017-09-03 16:22 | PN ---
Progress Note (short form) - Note Progress Note: Patient with progressive neurological decline today and hypertension to SBP > 180. Repeat Head CT shows that Cerebellar ICH has expanded from 2.9cm to 4.3cm with complete obliteration of the fourth ventricle and obstructive hydrocephalus ( significant ventriculomegally, dilation of third ventricle, temporal horn enlargement and transependymal edema). ICH has multiple fluid levels consistent with anticoagulation. I discussed patient's condition and potential treatment strategies with patient' s family, ICU team, Dr. Minh Daily (Cardiology) and Dr. Foote (Cardiology). Although she has a mechanical mitral valve which requires anticoagulation, her intracranial pathology has progressed substantially and requires intervention. Patient will likely require reversal of anticoagulation, EVD and evacuation of ICH/posterior fossa decompression. It is possible that anticoagulation may be started again 48 hours after intervention. Failure to rapidly relieve ICP/ hydrocephalus will likely result in a poor outcome. Family is well aware of the challenges and lack of a clear treatment strategy given the competing requirements of her brain and heart. If patient were to undergo reversal of anticoagulation, there would be a substantial risk that she would thrombose her valve and may require advanced cardiac life support such as ECMO, Balloon pump or possible emergency valve replacement. These advanced cardiac technologies are not immediately available at [facility] was contacted and accepted the patient for transfer. I spoke at length with the Neuro ICU Fellow and offered to speak to the Neurosurgery team. 80 minutes of critical care time
--- NOTE | 2017-09-05 20:53 | DS ---
Physical Examination Vital Signs: Vital Signs Temperature 98.5 F 09/03/17 14:00 Pulse Rate 103 H 09/03/17 15:02 Respiratory Rate 14 09/03/17 15:02 Blood Pressure 136/76 09/03/17 14:00 O2 Sat by Pulse Oximetry (%) 100 09/03/17 15:02 Labs: CBC, BMP 09/03/17 05:10 09/03/17 07:20 Discharge Summary Reason For Visit: CVA,cerebellar hemorrhage Intracranial hemorrhage,cerebellar hemorrhage, Supratherapeutic INR Headache Vomiting MItral valve replacement HTN Hypercholestrolemia,DM Arthritis Hospital Course: Pt with h/o MVR on coumadin,HTN,HYPERCHOLESTROLEMIA,DM,Arthralgia ADMITTED in ICU with h/o headache and vomiting and supratherapeutic INR at the time of ER visit,vitals were BP was 178/80,PR84,temp97.4,resp 16 and sat 91% CBC wasNL,HB/HCT shows 13.2/40.1 CMP NL,INR 3.98,Bnp 1385.96 troponin negative X ray chest No acute change ECG shows NSR ,no acute change Ct head shows Lt cerebellar hemorrhage of size about 2.7cm and another homerrhage in the superior surface.head and neck CTA shows no evidense of carotid stenosis Pt was followed by cardiology,Neurosurgeon,Neurology and critical care team in the ICU next day morning Ptwas lethargic,disoriented and blood pressure was high RPT Head ct shows cerebellar hge expanded from2.9cm to 4.3 cm ,and and obstuctive hydrocephalus and complete obliteration of fouth ventricle. ICH has multiple fluid levels As per neurosurgeon pt needs reversal of anticoagulation,evacuation of hematoma and posterior fossa decompression, If pt undergo reversal of anticoagulation ,there is high risk for valve thrombosis and further complcations ,that may require advanced cardiac life support.pt intubated for airway protection Pt transferred to [facility] neuro ICU for furher management Condition: Guarded - Instructions Referrals: Hilda Delgado MD [Primary Care Provider] - Disposition: TRANSFER ACUTE CARE/OTHER HOSP - Home Medications Comprehensive Discharge Medication List: Ambulatory Orders Albuterol Sulfate Inhaler - [Ventolin Hfa Inhaler -] 1 puff IH TID 01/23/17 Folic Acid 1 mg PO DAILY 01/23/17 Furosemide [Lasix] 40 mg PO DAILY 01/23/17 Montelukast Na [Singulair -] 10 mg PO HS 01/23/17 Polyethylene Glycol 3350 [Miralax (For Daily Use) -] 17 gm PO DAILY 01/23/17 Pregabalin [Lyrica -] 50 mg PO DAILY 01/23/17 Simvastatin [Zocor] 10 mg PO HS 01/23/17 Dexlansoprazole [Dexilant] 60 mg PO DAILY 05/07/17 Diltiazem HCl [Diltiazem ER] 360 mg PO DAILY 05/07/17 Fluticasone/Salmeterol [Advair 250-50 Diskus] 1 each IH DAILY 05/07/17 Metformin HCl 500 mg PO DAILY 05/07/17 Valsartan/Hydrochlorothiazide [Valsartan-Hctz 320-12.5 mg Tab] 1 each PO DAILY 05/07/17 Warfarin Sodium [Coumadin] 5 mg PO HS 05/07/17 Oxymetazoline 0.05% Nasal Soln [Afrin -] 1 spray NS ONCE #1 spraybtl 06/27/17
== END 2017-09-03 16:33 | disposition short-term general hospital (02) | DRG 64 ==
LOC: JER 11:44 → JERBED 15:10 → JICU 18:26
PROVIDERS: ADMIT Family Medicine; ATTEND Family Medicine
PROC: 0CHY7BZ Insertion of Airway into Mouth and Throat, Via Natural or Artificial Opening (ICD-10-PCS; principal; 2017-09-03)
PROC: 5A1935Z Respiratory Ventilation, Less than 24 Consecutive Hours (ICD-10-PCS; 2017-09-03)
DX: I61.4 Nontraumatic intracerebral hemorrhage in cerebellum (principal); G93.6 Cerebral edema; I25.110 Atherosclerotic heart disease of native coronary artery with unstable angina pectoris; I48.92 Unspecified atrial flutter; G91.1 Obstructive hydrocephalus; E78.5 Hyperlipidemia, unspecified; M25.50 Pain in unspecified joint; R79.1 Abnormal coagulation profile; J44.9 Chronic obstructive pulmonary disease, unspecified; R51 Headache; I09.9 Rheumatic heart disease, unspecified; E78.00 Pure hypercholesterolemia, unspecified; M06.80 Other specified rheumatoid arthritis, unspecified site; R11.2 Nausea with vomiting, unspecified; I12.9 Hypertensive chronic kidney disease with stage 1 through stage 4 chronic kidney disease, or unspecified chronic kidney disease; E11.22 Type 2 diabetes mellitus with diabetic chronic kidney disease; N18.9 Chronic kidney disease, unspecified; Z95.2 Presence of prosthetic heart valve; Z95.1 Presence of aortocoronary bypass graft; Z79.01 Long term (current) use of anticoagulants
CPT/HCPCS: 36415; 36600; 70450-TC; 70496-TC; 70498-TC; 71045-TC-FY; 80053; 81003; 81015; 82550; 82803; 82962; 83690; 83735; 83880; 84100; 84484; 85025; 85610; 85730; 87086; 87186; 93005; 93010; 94002; 99285-25

== ENCOUNTER 2017-10-18 12:09 | Inpatient (IN) | payer OTHER | END 2017-10-29 13:15 | disposition home health service (06) | DRG 64 | LOC: JER 12:09 → JERBED 17:43 → J6S 20:44 → J4S 10-19 09:44 | PROVIDERS: ADMIT Internal Medicine | CPT/HCPCS: 36415; 70450-TC; 70470-TC; 70553-TC; 71045-TC-FY; 74019-TC-FY; 76775-TC; 76856-TC; 80048; 80053; 80061; 81003; 81015; 82140; 82550; 82607; 82746; 82962; 83036; 83721; 83735; 83880; 84100; 84439; 84443; 84484; 85025; 85027; 85610; 85730; 87040; 87086; 87186; 93005; 93010; 94640; 97116-GP; 97162-GP; 99282-25; J1644; J7620 ==

== ENCOUNTER 2017-11-19 17:48 | Emergency (ER) | payer OTHER ==
[2017-11-19 18:32] VITALS: BMI 29.7
--- NOTE | 2017-11-19 19:33 | PDOC ---
History of Present Illness - General History Source: Patient, Family Exam Limitations: No Limitations - History of Present Illness Initial Comments: 11/19/17 20:42 The patient is a 82 year old female with past medical history of asthma, stroke (2X), artificial mitral valve, COPD, diabetes, HTN, and Hypercholesterolemia presents to the emergency department s/p a fall. As per the son, the patient isnt normally ambulatory uses assistance from the aid or family members. The patient tired to ambulate today without assistance to the bathroom when she fell on a carpeted floor injuring predominantly her left side. The patient states bilateral shoulder pain, left posterior neck pain, left ear with and left bahai pain. The patient is currently on coumadin. The patient suffered a stroke couple of months prior with right sided weakness. The patient was at [facility] 1 month prior and was discharged home. Allergies: NKDA Surgical history: Mitral valve replacement. Social history: None reported [employer]: Dr. Bear Coles PCP: Hilda Skaggs <Mahnaz De Los Santos - Last Filed: 11/19/17 20:41> <Ying Lewis - Last Filed: 11/20/17 19:48> <Opal Snyder - Last Filed: 11/20/17 20:09> - General Chief Complaint: Injury Stated Complaint: FALL Time Seen by Provider: 11/19/17 18:24 Past History <Mahnaz De Los Santos - Last Filed: 11/19/17 20:41> <Ying Lewis - Last Filed: 11/20/17 19:48> - Past Medical History Asthma: Yes Cardiac Disorders: Yes (Artificial Mitral Valve) COPD: Yes Diabetes: Yes HTN: Yes Hypercholesterolemia: Yes - Surgical History Cardiac Surgery: Yes (MITRAL VALVE REPLACMENT) - Immunization History Immunization Up to Date: No - Suicide/Smoking/Psychosocial Hx Smoking Status: No Smoking History: Never smoked Have you smoked in the past 12 months: No Number of Cigarettes Smoked Daily: 0 Hx Alcohol Use: No Drug/Substance Use Hx: No Substance Use Type: None Hx Substance Use Treatment: No <Opal Snyder - Last Filed: 11/20/17 20:09> - Past Medical History Allergies/Adverse Reactions: Allergies Allergy/AdvReac Type Severity Reaction Status Date / Time No Known Allergies Allergy Verified 06/27/17 12:16 Home Medications: Ambulatory Orders Acetaminophen [Acetaminophen ER] 650 mg PO Q4H PRN 11/19/17 Albuterol 2.5/Ipratropium 0.5 [Duoneb -] 1 neb NEB Q4H PRN 11/19/17 Amantadine HCl [Amantadine] 100 mg PO DAILY 11/19/17 Ascorbic Acid [C-1000] 1,000 mg PO DAILY 11/19/17 Atorvastatin Calcium 10 mg PO HS 11/19/17 Fluticasone/Salmeterol [Advair 250-50 Diskus] 1 each IH DAILY 11/19/17 Fluticasone/Salmeterol [Advair Hfa 115-21 Mcg Inhaler] 1 inh PO BID 11/19/17 Folic Acid 1 mg PO DAILY 11/19/17 Furosemide [Lasix] 40 mg PO DAILY 11/19/17 Melatonin 5 mg PO HS 11/19/17 Mirtazapine 15 mg PO DAILY 11/19/17 Montelukast Sodium [Singulair] 10 mg PO HS 11/19/17 Polyethylene Glycol 3350 [Miralax (For Daily Use) -] 17 gm PO DAILY 11/19/17 Polyvinyl Alcohol 15 ml OP DAILY 11/19/17 Ranitidine [Zantac -] 150 mg PO DAILY 11/19/17 Riboflavin (Vitamin B2) [Vitamin B-2] 100 mg PO DAILY 11/19/17 Sennosides [Senna] 8.6 mg PO DAILY 11/19/17 Tamsulosin HCl [Flomax] 0.4 mg PO DAILY 11/19/17 Valsartan 40 mg PO DAILY 11/19/17 Warfarin Na [Coumadin] 5 mg PO ASDIR 11/19/17 Warfarin Sodium 7.5 mg PO ASDIR 11/19/17 Valsartan [Diovan] 40 mg PO DAILY 7 Days tablet 11/20/17 Trauma Specific PMHX - Complaint Specific PMHX Arthritis: No Back Injury: No Neck Injury: No <Opal Snyder - Last Filed: 11/20/17 20:09> Review of Systems - Review of Systems Able to Perform ROS?: Yes Comments:: 11/19/17 20:45 CONSTITUTIONAL: (+) generalized right sided weakness. Absent: fever, chills, diaphoresis, malaise, loss of appetite HEENT: (+) Left bahai, cheek and ear pain. Absent: rhinorrhea, nasal congestion, throat pain, throat swelling, difficulty swallowing, mouth swelling, eye pain, visual Changes CARDIOVASCULAR: Absent: chest pain, syncope, palpitations, irregular heart rate, lightheadedness , peripheral edema RESPIRATORY: Absent: cough, shortness of breath, dyspnea with exertion, orthopnea, wheezing, stridor, hemoptysis GASTROINTESTINAL: Absent: abdominal pain, abdominal distension, nausea, vomiting, diarrhea, constipation, melena, hematochezia GENITOURINARY: Absent: dysuria, frequency, urgency, hesitancy, hematuria, flank pain, genital pain MUSCULOSKELETAL: (+)Bilateral shoulder pain. Bilateral lower extremity edema. Absent: myalgia, arthralgia, joint swelling SKIN:(+) Abrasion near the left eye. Absent: rash, itching, pallor HEMATOLOGIC/IMMUNOLOGIC: Absent: easy bleeding, easy bruising, lymphadenopathy, frequent infections ENDOCRINE: Absent: unexplained weight gain, unexplained weight loss, heat intolerance, cold intolerance NEUROLOGIC: Absent: headache, focal weakness or paresthesias, dizziness, seizure, mental status changes, bladder or bowel incontinence PSYCHIATRIC: Absent: anxiety, depression, suicidal or homicidal ideation, hallucinations. <Mahnaz De Los Santos - Last Filed: 11/19/17 20:41> *Physical Exam - Vital Signs Last Vital Signs Temp Pulse Resp BP Pulse Ox 97.5 F L 96 H 18 144/78 100 11/19/17 18:14 11/19/17 18:14 11/19/17 18:14 11/19/17 18:14 11/19/17 18:14 - Physical Exam Comments: 11/19/17 20:42 GENERAL: Well developed, well nourished. Awake and alert. No acute distress. HEENT: (+) Significant face trauma. Left "cauliflower" ear hematoma on the pinna. Left periorbital erythema. Abrasion noted on the left lateral eye beginning the zygomatic region. (+)Left ear pain, hematoma noted.1 cm abrasion noted on the Left periorbital lateral surface of the eye. Normocephalic, PERRLA , EOMI. No conjunctival pallor. Sclera are non-icteric. Moist mucous membranes. Oropharynx is clear. NECK: Supple. Full ROM. No JVD. Carotid pulses 2+ and symmetric, without bruits. No thyromegaly. No lymphadenopathy. CARDIOVASCULAR: Regular rate and rhythm. No murmurs, rubs, or gallops. Distal pulses are 2+ and symmetric. PULMONARY: No evidence of respiratory distress. Lungs clear to auscultation bilaterally. No wheezing, rales or rhonchi. ABDOMINAL: Soft. Non-tender. Non-distended. No rebound or guarding. No organomegaly. Normoactive bowel sounds. MUSCULOSKELETAL Normal range of motion at all joints. No bony deformities or tenderness. No CVA tenderness. EXTREMITIES: (+) Lower leg weakness, right more than left. Bilateral pedal edema. No hip pain. Bilateral shoulder pain, able to raise both arms, subjective pain. No deformities noted. No cyanosis. No clubbing. No calf tenderness. SKIN: Warm and dry. Normal capillary refill. No rashes. No jaundice. NEUROLOGICAL: Alert, awake, appropriate. Cranial nerves 2-12 intact. No deficits to light touch and temperature in face, upper extremities and lower extremities. No motor deficits in the in face, upper extremities and lower extremities. Normoreflexic in the upper and lower extremities. Normal speech. Toes are down- going bilaterally. Gait is normal without ataxia. PSYCHIATRIC: Cooperative. Good eye contact. Appropriate mood and affect. <Mahnaz De Los Santos - Last Filed: 11/19/17 20:41> - Vital Signs Last Vital Signs Temp Pulse Resp BP Pulse Ox 97.5 F L 73 16 130/67 97 11/19/17 18:14 11/20/17 07:10 11/20/17 07:10 11/20/17 07:10 11/20/17 07:10 <Ying Lewis - Last Filed: 11/20/17 19:48> - Vital Signs Last Vital Signs Temp Pulse Resp BP Pulse Ox 97.5 F L 96 H 18 144/78 100 11/19/17 18:14 11/19/17 18:14 11/19/17 18:14 11/19/17 18:14 11/19/17 18:14 <Opal Snyder - Last Filed: 11/20/17 20:09> Moderate Sedation - Procedure Monitoring Vital Signs: Vital Signs Temp Pulse Resp BP Pulse Ox 97.5 F L 96 H 18 144/78 100 11/19/17 18:14 11/19/17 18:14 11/19/17 18:14 11/19/17 18:14 11/19/17 18:14 <Mahnaz De Los Santos - Last Filed: 11/19/17 20:41> - Procedure Monitoring Vital Signs: Vital Signs Temp Pulse Resp BP Pulse Ox 97.5 F L 73 16 130/67 97 11/19/17 18:14 11/20/17 07:10 11/20/17 07:10 11/20/17 07:10 11/20/17 07:10 <Ying Lewis - Last Filed: 11/20/17 19:48> - Procedure Monitoring Vital Signs: Vital Signs Temp Pulse Resp BP Pulse Ox 97.5 F L 96 H 18 144/78 100 11/19/17 18:14 11/19/17 18:14 11/19/17 18:14 11/19/17 18:14 11/19/17 18:14 <Opal Snyder - Last Filed: 11/20/17 20:09> ED Treatment Course - LABORATORY CBC & Chemistry Diagram: 11/19/17 20:18 11/19/17 20:18 - ADDITIONAL ORDERS Additional order review: 11/19/17 20:18 RBC 4.49 MCV 78.7 L MCHC 31.5 L RDW 16.1 H MPV 8.4 Neutrophils % 64.7 Lymphocytes % 26.1 D Monocytes % 7.3 Eosinophils % 1.3 Basophils % 0.6 - Medications Given in the ED: ED Medications Discontinued Medications Generic Name Dose Route Start Last Admin Trade Name Charles PRN Reason Stop Dose Admin Acetaminophen 650 mg 11/19/17 23:05 11/20/17 00:10 Tylenol - PO 11/19/17 23:06 650 mg ONCE ONE Administration Acetaminophen 1,000 mg 11/20/17 09:10 11/20/17 11:34 Ofirmev Injection - IVPB 11/20/17 09:11 1,000 mg ONCE ONE Administration Warfarin Sodium 7.5 mg 11/20/17 18:00 11/20/17 17:50 Coumadin - PO 11/20/17 18:01 7.5 mg ONCE@1800 ONE Administration <Ying Lewis - Last Filed: 11/20/17 19:48> - LABORATORY CBC & Chemistry Diagram: 11/19/17 20:18 11/19/17 20:18 <Opal Snyder - Last Filed: 11/20/17 20:09> Medical Decision Making - Medical Decision Making 11/20/17 19:[address] Ferrari. <Ying Lewis - Last Filed: 11/20/17 19:48> - Medical Decision Making 11/20/17 00:57 YUNG chung [facility] [phone] <Opal Snyder - Last Filed: 11/20/17 20:09> *DC/Admit/Observation/Transfer - Attestations Scribe Attestion: 11/19/17 20:46 Documentation prepared by Mahnaz De Los Santos, acting as medical information specialist for Opal Snyder MD. <Mahnaz De Los Santos - Last Filed: 11/19/17 20:41> <Ying Lewis - Last Filed: 11/20/17 19:48> - Discharge Dispostion Decision to Admit order: No <Opal Snyder - Last Filed: 11/20/17 20:09> Diagnosis at time of Disposition: Paroxysmal A-fib, Elevated INR (international normalized ratio) Fall Qualifiers: Encounter type: initial encounter Qualified Code(s): W19.XXXA - Unspecified fall, initial encounter Head injury Qualifiers: Encounter type: initial encounter Qualified Code(s): S09.90XA - Unspecified injury of head, initial encounter - Discharge Dispostion Disposition: HOME Condition at time of disposition: Good - Prescriptions Prescriptions: Valsartan [Diovan] 40 mg PO DAILY 7 Days tablet - Referrals Referrals: Bear Coles MD, [facility] [Primary Care Provider] - - Patient Instructions Printed Discharge Instructions: DI for Closed Head Injury Additional Instructions: THIS PATIENT IS ON ANTICOAGULATION AND HAD A MECHANICAL FALL SUSTAINED HEAD TRAUMA AND RIGHT SIDED FACIAL ABRASION AND ECCHYMOSIS. PATIENT REQUIRED A REPEAT CT SCAN OF THE HEAD AND OBSERVATION PLEASE FOLLOW UP WITH THE REGULAR PHYSICIAN - Post Discharge Activity
[2017-11-19 20:49] LABS: BASO % 0.6 % (0-2.0); EOS % 1.3 % (0-4.5); HEMATOCRIT 35.3 % (32.4-45.2); HEMOGLOBIN 11.1 GM/dL (10.7-15.3); LYMPH % 26.1 % (8-40); MCH 24.8 pg (25.7-33.7); MCHC 31.5 g/dl (32.0-36.0); MEAN CELL VOLUME 78.7 fl (80-96); MEAN PLT VOLUME 8.4 fl (7.5-11.1); MONO % 7.3 % (3.8-10.2); NEUT % 64.7 % (42.8-82.8); PLATELET COUNT 258 K/MM3 (134-434); RBC 4.49 M/mm3 (3.60-5.2); RDW 16.1 % (11.6-15.6); WHITE BLOOD COUNT 8.1 K/mm3 (4.0-10.0)
[2017-11-19 21:10] LABS: INR 2.31 (0.82-1.09); PROTHROMBIN TIME (PATIENT) 26.1 SEC (9.7-13.0)
[2017-11-19 21:20] LABS: ALBUMIN 3.8 g/dl (3.4-5.0); ANION GAP 3 (8-16); BILIRUBIN,TOTAL 0.3 mg/dL (0.2-1.0); BLOOD UREA NITROGEN 12 mg/dL (7-18); CALCIUM 9.5 mg/dL (8.5-10.1); CHLORIDE 103 mmol/L (98-107); CO2 34 mmol/L (21-32); CREATININE 0.7 mg/dL (0.55-1.02); GLUCOSE,RANDOM 140 mg/dL (74-106); POTASSIUM 3.9 mmol/L (3.5-5.1); SGOT/AST 33 U/L (15-37); SGPT/ALT 24 U/L (12-78); SODIUM 140 mmol/L (136-145)
[2017-11-19 21:21] LABS: ALK PHOS 117 U/L (45-117)
[2017-11-19] MEDS ORDERED: ACETAMINOPHEN 325 MG TABLET (FP) PO ONE (23:05)
[2017-11-20] MEDS ORDERED: ACETAMINOPHEN 1000 MG/100 ML VIAL (NON FORMULARY) IVPB ONE (09:10)
[2017-11-20] MEDS ORDERED: ALBUTEROL SO4 0.083% IH SOL 2.5 MG/3 ML VIAL.NEB. NEB PRN (10:42)
[2017-11-20] MEDS ORDERED: ACETAMINOPHEN 325 MG TABLET (FP) PO PRN (10:54)
[2017-11-20] MEDS ORDERED: ACETAMINOPHEN INJECTION 100 ML IVPB ONE (11:21)
[2017-11-20] MEDS ORDERED: ALBUTEROL SO4 0.083% IH SOL 2.5 MG/3 ML VIAL.NEB. NEB ONE (11:21)
--- NOTE | 2017-11-20 13:45 | CONSULT ---
Consult - text type - Consultation Consultation Note: Neurology History of Present Illness The patient is a 82 year old female, asked by Dr. saldaña to see patient, with past medical history of asthma, stroke (2X), artificial mitral valve, COPD, diabetes, HTN, and Hypercholesterolemia presents to the emergency department s/ p a fall. he patient suffered a stroke couple of months prior with right sided weakness. The patient was at [facility] 1 month prior and was discharged home. As per the son, the patient isnt normally ambulatory and uses assistance from the aid or family members. The patient tired to ambulate yesterday without assistance to the bathroom when she fell on a carpeted floor injuring predominantly her left side. The patient is currently on coumadin. She completed CT head which residual hematoma, decreased in size. CT cervical spine and face reviewed, no fractures reported. She was admitted overnight for observatin and planned for repeat CAT scan of the head, 24 hours after initial CAT scan. She is neurologically at baseline in bed though does have some ecchymosis of the left auricular and periorbital region. However, she is mentating well according to the family. Allergies: NKDA Surgical history: Mitral valve replacement. Social history: None reported [employer] Grade [employer] Teacher: Dr. Bear Coles PCP: Hilda Skaggs - General Chief Complaint: Injury Stated Complaint: FALL Time Seen by Provider: 11/19/17 18:24 Past History - Past Medical History Asthma: Yes Cardiac Disorders: Yes (Artificial Mitral Valve) COPD: Yes Diabetes: Yes HTN: Yes Hypercholesterolemia: Yes - Surgical History Cardiac Surgery: Yes (MITRAL VALVE REPLACMENT) - Immunization History Immunization Up to Date: No - Suicide/Smoking/Psychosocial Hx Smoking Status: No Smoking History: Never smoked Have you smoked in the past 12 months: No Number of Cigarettes Smoked Daily: 0 Hx Alcohol Use: No Drug/Substance Use Hx: No Substance Use Type: None Hx Substance Use Treatment: No - Past Medical History Allergies/Adverse Reactions: Allergies Allergy/AdvReac Type Severity Reaction Status Date / Time No Known Allergies Allergy Verified 06/27/17 12:16 Home Medications: Ambulatory Orders Acetaminophen [Acetaminophen ER] 650 mg PO Q4H PRN 11/19/17 Albuterol 2.5/Ipratropium 0.5 [Duoneb -] 1 neb NEB Q4H PRN 11/19/17 Amantadine HCl [Amantadine] 100 mg PO DAILY 11/19/17 Ascorbic Acid [C-1000] 1,000 mg PO DAILY 11/19/17 Atorvastatin Calcium 10 mg PO HS 11/19/17 Fluticasone/Salmeterol [Advair 250-50 Diskus] 1 each IH DAILY 11/19/17 Fluticasone/Salmeterol [Advair Hfa 115-21 Mcg Inhaler] 1 inh PO BID 11/19/17 Folic Acid 1 mg PO DAILY 11/19/17 Furosemide [Lasix] 40 mg PO DAILY 11/19/17 Melatonin 5 mg PO HS 11/19/17 Mirtazapine 15 mg PO DAILY 11/19/17 Montelukast Sodium [Singulair] 10 mg PO HS 11/19/17 Polyethylene Glycol 3350 [Miralax (For Daily Use) -] 17 gm PO DAILY 11/19/17 Polyvinyl Alcohol 15 ml OP DAILY 11/19/17 Ranitidine [Zantac -] 150 mg PO DAILY 11/19/17 Riboflavin (Vitamin B2) [Vitamin B-2] 100 mg PO DAILY 11/19/17 Sennosides [Senna] 8.6 mg PO DAILY 11/19/17 Tamsulosin HCl [Flomax] 0.4 mg PO DAILY 11/19/17 Valsartan 40 mg PO DAILY 11/19/17 Warfarin Na [Coumadin] 5 mg PO ASDIR 11/19/17 Warfarin Sodium 7.5 mg PO ASDIR 11/19/17 Review of Systems CONSTITUTIONAL: (+) generalized right sided weakness. Absent: fever, chills, diaphoresis, malaise, loss of appetite HEENT: (+) Left advent, cheek and ear pain. Absent: rhinorrhea, nasal congestion, throat pain, throat swelling, difficulty swallowing, mouth swelling, eye pain, visual Changes CARDIOVASCULAR: Absent: chest pain, syncope, palpitations, irregular heart rate, lightheadedness , peripheral edema RESPIRATORY: Absent: cough, shortness of breath, dyspnea with exertion, orthopnea, wheezing, stridor, hemoptysis GASTROINTESTINAL: Absent: abdominal pain, abdominal distension, nausea, vomiting, diarrhea, constipation, melena, hematochezia GENITOURINARY: Absent: dysuria, frequency, urgency, hesitancy, hematuria, flank pain, genital pain MUSCULOSKELETAL: (+)Bilateral shoulder pain. Bilateral lower extremity edema. Absent: myalgia, arthralgia, joint swelling SKIN:(+) Abrasion near the left eye. Absent: rash, itching, pallor HEMATOLOGIC/IMMUNOLOGIC: Absent: easy bleeding, easy bruising, lymphadenopathy, frequent infections ENDOCRINE: Absent: unexplained weight gain, unexplained weight loss, heat intolerance, cold intolerance NEUROLOGIC: Absent: headache, focal weakness or paresthesias, dizziness, seizure, mental status changes, bladder or bowel incontinence PSYCHIATRIC: Absent: anxiety, depression, suicidal or homicidal ideation, hallucinations. *Physical Exam Vital Signs Period Temp Pulse Resp BP Sys/[place] Pulse Ox Last 24 Hr 97.5 F 73-96 16-18 130-144/67-78 97-100 GENERAL: Well developed, well nourished. Awake and alert. No acute distress. HEENT: (+) Significant face trauma. Left "cauliflower" ear hematoma on the pinna. Left periorbital erythema. Abrasion noted on the left lateral eye beginning the zygomatic region. (+)Left ear pain, hematoma noted.1 cm abrasion noted on the Left periorbital lateral surface of the eye. Normocephalic, PERRLA , EOMI. No conjunctival pallor. Sclera are non-icteric. Moist mucous membranes. Oropharynx is clear. NECK: Supple. Full ROM. No JVD. Carotid pulses 2+ and symmetric, without bruits. No thyromegaly. No lymphadenopathy. CARDIOVASCULAR: Regular rate and rhythm. No murmurs, rubs, or gallops. Distal pulses are 2+ and symmetric. PULMONARY: No evidence of respiratory distress. Lungs clear to auscultation bilaterally. No wheezing, rales or rhonchi. ABDOMINAL: Soft. Non-tender. Non-distended. No rebound or guarding. No organomegaly. Normoactive bowel sounds. MUSCULOSKELETAL Normal range of motion at all joints. No bony deformities or tenderness. No CVA tenderness. EXTREMITIES: (+) Lower leg weakness, right more than left. Bilateral pedal edema. No hip pain. Bilateral shoulder pain, able to raise both arms, subjective pain. No deformities noted. No cyanosis. No clubbing. No calf tenderness. SKIN: Warm and dry. Normal capillary refill. No rashes. No jaundice. NEUROLOGICAL: Alert, awake, appropriate. Cranial nerves 2-12 intact. No deficits to light touch and temperature in face, upper extremities and lower extremities. No motor deficits in the in face, upper extremities and lower extremities. Normoreflexic in the upper and lower extremities. PSYCHIATRIC: Cooperative. Good eye contact. Appropriate mood and affect. CBCD WBC 8.1 K/mm3 (4.0-10.0) 11/19/17 20:18 RBC 4.49 M/mm3 (3.60-5.2) 11/19/17 20:18 Hgb 11.1 GM/dL (10.7-15.3) 11/19/17 20:18 Hct 35.3 % (32.4-45.2) 11/19/17 20: MCV 78.7 fl (80-96) L 11/19/17 20:18 MCHC 31.5 g/dl (32.0-36.0) L 11/19/17 20:18 RDW 16.1 % (11.6-15.6) H 11/19/17 20:18 Plt Count 258 K/MM3 (134-434) D 11/19/17 20:18 MPV 8.4 fl (7.5-11.1) 11/19/17 20:18 CMP Sodium 140 mmol/L (136-145) 11/19/17 20:18 Potassium 3.9 mmol/L (3.5-5.1) 11/19/17 20:18 Chloride 103 mmol/L (98-107) 11/19/17 20:18 Carbon Dioxide 34 mmol/L (21-32) H 11/19/17 20:18 Anion Gap 3 (8-16) L 11/19/17 20:18 BUN 12 mg/dL (7-18) 11/19/17 20:18 Creatinine 0.7 mg/dL (0.55-1.02) 11/19/17 20:18 Creat Clearance w eGFR > 60 (>60) 11/19/17 20:18 Calcium 9.5 mg/dL (8.5-10.1) 11/19/17 20:18 Total Bilirubin 0.3 mg/dL (0.2-1.0) D 11/19/17 20:18 AST 33 U/L (15-37) 11/19/17 20:18 ALT 24 U/L (12-78) 11/19/17 20:18 Alkaline Phosphatase 117 U/L (45-117) 11/19/17 20:18 Total Protein 8.0 g/dl (6.4-8.2) 11/19/17 20:18 Albumin 3.8 g/dl (3.4-5.0) 11/19/17 20:18 CT head, C spine and Facial bones reviewed Medical Decision Making 82 year old female, asked by Dr. saldaña to see patient, with past medical history of asthma, stroke (2X), artificial mitral valve, COPD, diabetes, HTN, and Hypercholesterolemia presents to the emergency department s/p a fall. he patient suffered a stroke couple of months prior with right sided weakness. The patient was at [facility] 1 month prior and was discharged home. As per the son, the patient isnt normally ambulatory and uses assistance from the aid or family members. The patient tired to ambulate yesterday without assistance to the bathroom when she fell on a carpeted floor injuring predominantly her left side. The patient is currently on coumadin. She completed CT head which residual hematoma, decreased in size. CT cervical spine and face reviewed, no fractures reported. Planned for repeat CAT scan of the head, is stable, ok for discharge. She is neurologically at baseline in bed Fall precautions highly recommended to family AC as previously prescirbed Stroke precautions Monitor BP, maintain normotensive range Monitor LDL, goal < 70, continue statin Avoid further head trauma Discussed with family and primary
--- NOTE | 2017-11-20 15:41 | HP ---
DATE OF ADMISSION: 11/19/2017 Patient is an 82-year-old female with a past medical history of asthma, stroke x2, artificial mitral valve replacement, COPD, diabetes, hypertension, hypercholesterolemia, presented to the emergency department with status post fall. As per the son, the patient was not normally ambulatory without assistance from the aide or family members. The patient tried to ambulate today without assistance to the bathroom when she fell on the floor, injuring predominantly her left side of the face. Patient states complaints of shoulder pain, left posterior neck pain, left ear with left adventism pain. The patient is currently on Coumadin. Patient was diagnosed to have a stroke a couple of months ago and with right-sided weakness and was at a long term and recently discharged home. ALLERGIES: No known drug allergy. MEDICAL HISTORY: History of asthma, artificial mitral valve replacement, COPD, diabetes, hypertension, stroke, hypercholesterolemia. SURGERY: Status post mitral valve replacement. PERSONAL HISTORY: Never smoked. HOME MEDICATIONS: Patient is on acetaminophen, albuterol nebulizing treatment, amantadine 100 mg daily, ascorbic acid, atorvastatin, Advair, folic acid, Lasix, melatonin, Singulair, 50 mg daily, Zantac, vitamin B2, senna, Flomax, valsartan, and warfarin. REVIEW OF SYSTEMS: Constitutional: Right-sided mild weakness present. No fever. No loss of appetite. HEENT: Complains of left facial pain, ear pain. Nose: No rhinorrhea. Cardiovascular: History of mitral valve replacement. Chest: No shortness of breath. Mild coughing present. Gastrointestinal: No constipation. No vomiting. No diarrhea. Genitourinary: No dysuria. No hesitancy. Musculoskeletal: Patient has shoulder pain. Skin: Abrasion on the left side of the face near the left eye. Neurological: No headache. Right-sided mild weakness present. No dizziness. Psychiatry: No depression. No anxiety. PHYSICAL EXAMINATION: Vital Signs: On examination in the ER, temperature 97.5, pulse 96, respirations 18, blood pressure 144/78, pulse 100%. General: Patient is well developed, well nourished, awake, alert. No acute distress. HEENT: Significant left-sided facial ecchymosis and swelling and small hematoma on the left pinna. Left periorbital erythema. Abrasion noted on the left lateral side of the face near the zygomatic region. A small hematoma on the left side of the face near the left eye. Abrasion noted on the left periorbital lateral surface of the eye. Normocephalic. Pupils equally reactive to light and accommodation. Neck: Supple. No JVD. Cardiovascular: Regular rate and rhythm. No murmur. Respiratory: Occasional wheeze present. Bilateral equal air entry. Abdomen: Soft and nontender. There is no distention. Bowel sounds present. Musculoskeletal: Normal range of motion at all joints. Extremities: Right lower leg weakness. Bilateral pedal edema. Patient is able to raise both arms. Skin: Warm and dry. A small abrasion on the left side of the face. Neurological: Alert, awake. Cranial nerves 2-12 intact. No deficit to touch. Moderate deficit in the face. Right-sided lower extremity slight weakness present. Normal reflex in the left upper and lower extremity. Toes are downgoing bilaterally. Psychiatry: Patient is cooperating. Good eye contact. LABORATORY: INR 2.31, PT 26.1. CBC shows WBC 8.1, hemoglobin 11.1, hematocrit 35.3, platelets 258. Chemistry: Sodium 140, potassium 3.9, chloride of 103, carbon dioxide 34, BUN 12, creatinine 0.7, glucose 140. AST and ALT normal. Cervical spine CT with no fracture seen. Head CT with no CT evidence of acute intracranial pathology. In comparison to the previous CT of the head, there is diminished size of the subacute left cerebellar hematoma measuring 2.5 cm compared to the old one. Embolization coils are seen along the center and right lateral aspect of the tentorium. Left chronic parietal cortical artifact. Moderate periventricular and subcortical microvascular ischemic changes. Stable frontal meningioma, 1.[address] with no evidence of fracture. Chest x-ray: No pneumothorax. No fracture seen. Atelectasis of the left lung base present. patient kept for observation with a diagnosis of status post fall, left facial injury, status post cerebrovascular accident, hypertension, mitral valve replacement, hypercholesterolemia. Patient stable. PLAN: continu home medications. We will observe the patient. Monitor the PT/ INR. Cardiology consult.neurology consult and rpt CT head after 24 hrs IF Patient stable. and if Rpt ct head unchanged will d/c home Morena [id number] MTDD
--- NOTE | 2017-11-20 16:13 | EKG ---
Test Reason : Blood Pressure : / mmHG Vent. Rate : 076 BPM Atrial Rate : 441 BPM P-R Int : 000 ms QRS Dur : 084 ms QT Int : 392 ms P-R-T Axes : 000 069 075 degrees QTc Int : 441 ms ATRIAL FIBRILLATION ABNORMAL ECG WHEN COMPARED WITH ECG OF 18-OCT-2017 14:01, NO SIGNIFICANT CHANGE WAS FOUND Confirmed by MD Lawrence Daniel ([id number]) on 11/20/2017 4:12:34 PM Referred By: Confirmed By:Todd Lawernce MD
[2017-11-20] MEDS ORDERED: ACETAMINOPHEN 325 MG TABLET (FP) ONE (17:06)
[2017-11-20] MEDS ORDERED: WARFARIN NA 7.5 MG TABLET (FP) PO ONE (18:00)
[2017-11-20 21:49] VITALS: BP 142/76; PULSE 80; TEMP 98.9
[2017-11-20] MEDS ORDERED: SENNOSIDES 8.6MG TABLET (FP) PO SCH (22:00)
[2017-11-20] MEDS ORDERED: BUDESONIDE/FORMETEROL FUMARATE 160/4.5 mcg INHALER IH SCH (22:00)
[2017-11-20] MEDS ORDERED: MONTELUKAST NA 10 MG TABLET PO SCH (22:00)
[2017-11-21] MEDS ORDERED: TAMSULOSIN HCL 0.4 MG CAP.ER.24H (FP) PO SCH (08:30)
[2017-11-21] MEDS ORDERED: FUROSEMIDE 40 MG TABLET (FP) PO SCH (10:00)
[2017-11-21] MEDS ORDERED: POLYETHYLENE GLYCOL 3350 119 GM BTL PO SCH (10:00)
[2017-11-21] MEDS ORDERED: VALSARTAN 40 MG TABLET (FP) PO SCH (10:00)
[2017-11-21] MEDS ORDERED: RANITIDINE HCL 150 MG TABLET (FP) PO SCH (10:00)
[2017-11-21] MEDS ORDERED: FOLIC ACID 1 MG TABLET (FP) PO SCH (10:00)
[2017-11-21] MEDS ORDERED: MIRTAZAPINE 15 MG TABLET (FP) PO SCH (22:00)
[2017-11-21] MEDS ORDERED: ATORVASTATIN CA 10 MG TABLET (FP) PO SCH (22:00)
--- NOTE | 2017-11-22 16:23 | DS ---
DATE OF ADMISSION: 11/19/2017 DATE OF DISCHARGE: 11/20/2017 Patient is an 82-year-old female with past medical history of asthma, stroke x2, artificial mitral valve replacement, COPD, diabetes, hypertension, hypercholesterolemia. She presented to the emergency room with a history of fall, and afterward, patient complained of shoulder pain, posterior neck pain, left ear, and left buddhism pain. Patient was taking Coumadin at the time of the fall. History of stroke a couple of months prior with right-sided weakness. Patient was in a fdc after the stroke and discharged home recently. At the time of admission, medication list reviewed, and no known drug allergy. In the ER, the temperature was 97.5, pulse 96, respirations 18, blood pressure 144/78, pulse 100%. Examination of the patient: Well-nourished, alert, oriented. No apparent distress but with significant facial trauma. Left pinna: There is a small hematoma. Left periorbital erythema. Abrasion noted on the left lateral side of the eye at the beginning of the zygomatic region, and a 1-cm abrasion noted in the left periorbital area. Pupils equally reactive to light and accommodation. Neck: Supple. No JVD. Carotid pulses present. Chest: Clear. Cardiovascular System: First and second sounds normal. Abdomen: Soft. No tenderness. No distention. Bowel sounds present. Extremities: Right lower extremity weakness. Bilateral mild pedal edema present. Neurological examination: Patient alert, oriented x3. Right-sided mild weakness present. Regarding the labs: CBC: WBC 8.1, hemoglobin 11.1, hematocrit 24.3, platelets 258. Comprehensive panel normal. PT 26, INR 2.31. Echocardiogram shows atrial fibrillation with a rate of 76 per minute. No significant change compared to the old EKG. Cervical spine CT: No fracture seen. Head CT shows no CT evidence of acute intracranial pathology. In comparison to the previous CT done in September, there is diminished size of late subacute left cerebellar hematoma. It is noted currently 2.4 cm. It was previously 3.4 cm. Embolization coils are again seen along the center and right lateral aspect of the tentorium. Late chronic right temporoparietal cortical infarct. Stable frontal meningioma. Some chronic microvascular ischemic changes present. Facial bone CT: There is no fracture seen. Chest x-ray: Large heart. Scoliosis present. No acute fracture. No signs of infiltrate. Patient was observed for 24 hours. Repeat CAT scan of the head is unchanged. Neurology consult was called. There was no new neurological progression. Vitals were stable during the observation time. Patient was given the home medication. Patient is stable, discharged home in a stable condition. I recommend to continue the home medication and follow with the primary and Cardiology in 1 week. MANISH LEMA M.D. [id number]
== END 2017-11-20 21:47 | disposition home or self-care (01) ==
LOC: JER 17:48 → UNDOADMOB 23:31 → JERBED 23:31 → JER 11-20 21:47
PROC: 3E033NZ Introduction of Analgesics, Hypnotics, Sedatives into Peripheral Vein, Percutaneous Approach (ICD-10-PCS; principal; 2017-11-19)
PROC: 3E0F7GC Introduction of Other Therapeutic Substance into Respiratory Tract, Via Natural or Artificial Opening (ICD-10-PCS; 2017-11-19)
DX: I48.0 Paroxysmal atrial fibrillation (principal); Z79.01 Long term (current) use of anticoagulants; R79.1 Abnormal coagulation profile; S00.83XA Contusion of other part of head, initial encounter; S00.432A Contusion of left ear, initial encounter; S05.12XA Contusion of eyeball and orbital tissues, left eye, initial encounter; S00.212A Abrasion of left eyelid and periocular area, initial encounter; M25.512 Pain in left shoulder; M25.511 Pain in right shoulder; W18.39XA Other fall on same level, initial encounter; Y93.01 Activity, walking, marching and hiking; Y92.018 Other place in single-family (private) house as the place of occurrence of the external cause; Y99.8 Other external cause status; I10 Essential (primary) hypertension; E11.9 Type 2 diabetes mellitus without complications; J44.9 Chronic obstructive pulmonary disease, unspecified; J45.909 Unspecified asthma, uncomplicated; I69.851 Hemiplegia and hemiparesis following other cerebrovascular disease affecting right dominant side
CPT/HCPCS: 36415; 70450-TC; 70486-TC; 71045-TC-FY; 72125-TC; 80053; 85025; 85610; 93005; 93010; 94640; 96374; 99285-25; J0131

== ENCOUNTER 2019-03-08 21:06 | Inpatient (IN) | payer OTHER ==
[2019-03-08] MEDS ORDERED: NITROGLYCERIN SUBLINGUAL 1/150 0.4 MG TAB SL ONE (21:09)
--- NOTE | 2019-03-08 21:28 | PDOC ---
History of Present Illness - History of Present Illness Initial Comments: 03/08/19 21:29 HPI: 83 y/o F with hx of asthma, stroke (2X), mitral valve replacement, COPD, diabetes, HTN, Hep C=, and HLD BIBEMS for 1 week of cough and elevated BP at home today to 190-200s/90-100s. Over the past 6-7 days patient has had constant cough associated with chest congestion, and feeling tired. Cough was initially nonproductive but now is productive was white sputum. Also reports flushing of cheeks over the past couple days, but denies fever or chills. She reports visiting her PCP 2 days ago and was given augmentin + steroid pack. Presenting because BP elevated at home despite taking additional BP meds per oncall physician for PCP. Patient denies TOURE, vision change, chest pain, palpitations, SOB, abdominal pain , nausea, vomiting, diarrhea, constipation, dysuria. PMHx: as noted above ROS: as noted SHx: Denies tobacco use; no alcohol use; no rec drugs Allergies: NKDA Early Learning Teacher: Dr. Bear Coles PCP: Hilda Skaggs ROS: GENERAL/CONSTITUTIONAL: No fever or chills. No weakness. HEAD, EYES, EARS, NOSE AND THROAT: No change in vision. No ear pain or discharge. +sore throat. CARDIOVASCULAR: No chest pain RESPIRATORY: + cough, wheezing GASTROINTESTINAL: No nausea, vomiting, diarrhea or constipation. GENITOURINARY: No dysuria, frequency, or change in urination. MUSCULOSKELETAL: No joint or muscle swelling or pain. No neck or back pain. SKIN: No rash NEUROLOGIC: No headache, vertigo, loss of consciousness, or change in strength/ sensation. ENDOCRINE: No increased thirst. No abnormal weight change HEMATOLOGIC/LYMPHATIC: No anemia, easy bleeding, or history of blood clots. ALLERGIC/IMMUNOLOGIC: No hives or skin allergy. PE: GENERAL: Awake, alert, and fully oriented, no acute distress HEAD: No signs of trauma, normocephalic, atraumatic EYES: EOMI, sclera anicteric, conjunctiva clear ENT: Auricles normal inspection, hearing grossly normal, nares patent, oropharynx clear without exudates. Moist mucosa NECK: Normal ROM, no lymphadenopathy LUNGS: Audible constant cough; No increased work of breathing, symmetrical chest rise, wheezes audible in left sided middle lung base and rhonchi in R and L lungfields HEART: Regular rate and rhythm, normal S1 and S2, no murmurs, peripheral pulses 2+ and equal bilaterally. ABDOMEN: Soft, nontender, nondistended, normoactive bowel sounds. No guarding, no rebound. No masses EXTREMITIES: Normal inspection, Normal range of motion, no edema. No clubbing or cyanosis. NEUROLOGICAL: Cranial nerves II through XII grossly intact. Normal speech, normal gait, no focal sensorimotor deficits SKIN: Warm, Dry, normal turgor, no rashes or lesions noted <Kathie Whitley - Last Filed: 03/09/19 00:01> <Viktoriya Ovalle - Last Filed: 03/09/19 02:56> - General Chief Complaint: Blood Pressure Problem Stated Complaint: HIGH BLOOD PRESSURE Time Seen by Provider: 03/08/19 21:21 Past History - Past Medical History Asthma: Yes Cardiac Disorders: Yes (Artificial Mitral Valve) CVA: Yes (hemmoragic 09/16) COPD: Yes Diabetes: Yes HTN: Yes Hypercholesterolemia: Yes - Surgical History Cardiac Surgery: Yes (MITRAL VALVE REPLACMENT) - Immunization History Immunization Up to Date: No - Suicide/Smoking/Psychosocial Hx Smoking Status: No Smoking History: Never smoked Have you smoked in the past 12 months: No Number of Cigarettes Smoked Daily: 0 Hx Alcohol Use: No Drug/Substance Use Hx: No Substance Use Type: None Hx Substance Use Treatment: No <Kathie Whitley - Last Filed: 03/09/19 00:01> <Viktoriya Ovalle - Last Filed: 03/09/19 02:56> - Past Medical History Allergies/Adverse Reactions: Allergies Allergy/AdvReac Type Severity Reaction Status Date / Time No Known Allergies Allergy Verified 03/08/19 21:20 Home Medications: Ambulatory Orders Acetaminophen [Acetaminophen ER] 650 mg PO Q4H PRN 11/19/17 Albuterol 2.5/Ipratropium 0.5 [Duoneb -] 1 neb NEB Q4H PRN 11/19/17 Amantadine HCl [Amantadine] 100 mg PO DAILY 11/19/17 Ascorbic Acid [C-1000] 1,000 mg PO DAILY 11/19/17 Atorvastatin Calcium 10 mg PO HS 11/19/17 Fluticasone/Salmeterol [Advair 250-50 Diskus] 1 each IH DAILY 11/19/17 Fluticasone/Salmeterol [Advair Hfa 115-21 Mcg Inhaler] 1 inh PO BID 11/19/17 Folic Acid 1 mg PO DAILY 11/19/17 Furosemide [Lasix] 40 mg PO DAILY 11/19/17 Melatonin 5 mg PO HS 11/19/17 Mirtazapine 15 mg PO DAILY 11/19/17 Montelukast Sodium [Singulair] 10 mg PO HS 11/19/17 Polyethylene Glycol 3350 [Miralax (For Daily Use) -] 17 gm PO DAILY 11/19/17 Polyvinyl Alcohol 15 ml OP DAILY 11/19/17 Ranitidine [Zantac -] 150 mg PO DAILY 11/19/17 Riboflavin (Vitamin B2) [Vitamin B-2] 100 mg PO DAILY 11/19/17 Sennosides [Senna] 8.6 mg PO DAILY 11/19/17 Tamsulosin HCl [Flomax] 0.4 mg PO DAILY 11/19/17 Valsartan 40 mg PO DAILY 11/19/17 Warfarin Na [Coumadin] 5 mg PO ASDIR 11/19/17 Warfarin Sodium 7.5 mg PO ASDIR 11/19/17 Valsartan [Diovan] 40 mg PO DAILY 7 Days tablet 11/20/17 *Physical Exam - Vital Signs Last Vital Signs Temp Pulse Resp BP Pulse Ox 97.7 F 74 18 160/100 94 L 03/08/19 21:16 03/08/19 21:16 03/08/19 21:16 03/08/19 21:16 03/08/19 21:16 <Kathie Whitley - Last Filed: 03/09/19 00:01> - Vital Signs Last Vital Signs Temp Pulse Resp BP Pulse Ox 97.7 F 74 18 160/100 94 L 03/08/19 21:16 03/08/19 21:16 03/08/19 21:16 03/08/19 21:16 03/08/19 21:16 <Viktoriya Ovalle - Last Filed: 03/09/19 02:56> ED Treatment Course - LABORATORY CBC & Chemistry Diagram: 03/08/19 23:05 03/08/19 23:05 <Kathie Whitley - Last Filed: 03/09/19 00:01> - LABORATORY CBC & Chemistry Diagram: 03/08/19 23:05 03/08/19 23:05 - ADDITIONAL ORDERS Additional order review: Laboratory Results 03/08/19 23:05 Sodium 137 Potassium 4.7 Chloride 99 Carbon Dioxide 34 H Anion Gap 4 L BUN 28.6 H Creatinine 0.9 Est GFR (CKD-EPI)AfAm 69.01 Est GFR (CKD-EPI)NonAf 59.55 Random Glucose 163 H Calcium 9.7 Total Bilirubin 0.6 AST 36 ALT 34 Alkaline Phosphatase 101 Total Protein 7.5 Albumin 3.8 03/08/19 23:05 RBC 4.21 MCV 92.7 MCHC 33.0 RDW 13.8 D MPV 9.2 Neutrophils % 75.1 Lymphocytes % 19.9 D Monocytes % 4.7 Eosinophils % 0.0 D Basophils % 0.3 - RADIOLOGY Radiology Studies Ordered: Category Date Time Status CHEST PA & LAT [RAD] Stat Radiology 03/08/19 21:22 Ordered CHEST X-RAY PORTABLE* [RAD] Stat Radiology 03/08/19 21:10 Taken - Medications Given in the ED: ED Medications Discontinued Medications Generic Name Dose Route Start Last Admin Trade Name Charles PRN Reason Stop Dose Admin Acetaminophen 500 mg 03/08/19 22:31 03/08/19 23:14 Tylenol - PO 03/08/19 22:32 500 mg ONCE ONE Administration Albuterol/Ipratropium 1 amp 03/08/19 22:02 03/08/19 22:30 Duoneb - NEB 03/08/19 22:03 1 amp ONCE ONE Administration Azithromycin 500 mg/ Dextrose 250 mls @ 250 mls/hr 03/08/19 23:47 03/09/19 01 :20 IVPB 03/09/19 00:46 250 mls/hr ONCE ONE Administration Ceftriaxone Sodium 1,000 mg/ 50 mls @ 100 mls/hr 03/08/19 23:47 03/09/19 00: 50 Dextrose IVPB 03/09/19 00:16 100 mls/hr ONCE ONE Administration Nitroglycerin 0.4 mg 03/08/19 21:09 03/08/19 21:52 Nitrostat - SL 03/08/19 21:10 0.4 mg ONCE ONE Administration <Viktoriya Ovalle - Last Filed: 03/09/19 02:56> Medical Decision Making - Medical Decision Making 03/08/19 22:27 83 y/o F with hx of asthma, stroke (2X), mitral valve replacement, COPD, diabetes, HTN, Hep C=, and HLD BIBEMS for 1 week of cough and elevated BP at home today to 190-200s/90-100s; currently being treated with augmentin and methylprednisone by her PCP. Vitals on arrival with SBP 190 with decrease to 140s after nitro sublingual; AF. PE notable for wheezing and rhonchi on pulmonary exam -cbc, cmp, BCx -ekg, cxer -duonebs, tylenol 03/08/19 23:[address] serrano/kamini stevenson to discuss patient case; still awaiting callback 03/08/19 23:[address] Serrano to med surg will adminsiter iv abx ceft and azithro <Kathie Whitley - Last Filed: 03/09/19 00:01> *DC/Admit/Observation/Transfer - Discharge Dispostion Decision to Admit order: Yes <Kathie Whitley - Last Filed: 03/09/19 00:01> <Viktoriya Ovalle - Last Filed: 03/09/19 02:56> Diagnosis at time of Disposition: Pneumonia Qualifiers: Pneumonia type: due to unspecified organism Laterality: right Lung location: middle lobe of lung Qualified Code(s): J18.1 - Lobar pneumonia, unspecified organism Hypertension Qualifiers: Hypertension type: unspecified Qualified Code(s): I10 - Essential (primary) hypertension - Discharge Dispostion Condition at time of disposition: Stable
[2019-03-08] MEDS ORDERED: NITROGLYCERIN SUBLINGUAL 1/150 0.4 MG TAB ONE (21:40)
[2019-03-08] MEDS ORDERED: ALBUTEROL SO4 2.5/IPRATROPIUM 0.5 INH SOL 3 ML VIAL.NEB. NEB ONE ×2 (22:02→22:22)
[2019-03-08] MEDS ORDERED: ACETAMINOPHEN 500 MG TABLET (FP) PO ONE (22:31)
[2019-03-08 23:21] LABS: BASO % 0.3 % (0-2.0); HEMOGLOBIN 12.9 GM/dL (10.7-15.3); LYMPH % 19.9 % (8-40); MCH 30.6 pg (25.7-33.7); MEAN CELL VOLUME 92.7 fl (80-96); MEAN PLT VOLUME 9.2 fl (7.5-11.1); MONO % 4.7 % (3.8-10.2); NEUT % 75.1 % (42.8-82.8); PLATELET COUNT 192 K/MM3 (134-434); RBC 4.21 M/mm3 (3.60-5.2); RDW 13.8 % (11.6-15.6); WHITE BLOOD COUNT 10.4 K/mm3 (4.0-10.0)
[2019-03-08] MEDS ORDERED: AZITHROMYCIN IVPB 500 MG in DEXTROSE 5%-WATER - 250 ML IVPB ONE (23:47)
[2019-03-08] MEDS ORDERED: CEFTRIAXONE 1,000 MG in DEXTROSE 5%-WATER - 50 ML IVPB ONE (23:47)
[2019-03-08 23:48] LABS: ALBUMIN 3.8 g/dl (3.4-5.0); BILIRUBIN,TOTAL 0.6 mg/dL (0.2-1); BLOOD UREA NITROGEN 28.6 mg/dL (7-18); CALCIUM 9.7 mg/dL (8.5-10.1); CREATININE 0.9 mg/dL (0.55-1.3); POTASSIUM 4.7 mmol/L (3.5-5.1); TOT PROT 7.5 g/dl (6.4-8.2)
[2019-03-09] MEDS ORDERED: AZITHROMYCIN IVPB 500 MG/250 ML BAG IVPB ONE (00:47)
[2019-03-09] MEDS ORDERED: CEFTRIAXONE 1 GM/50 ML BAG ONE (00:47)
--- NOTE | 2019-03-09 01:55 | PDOC ---
Documentation entered by Symone June SCRIBE, acting as scribe for Viktoriya Ovalle MD. Viktoriya Ovalle MD: This documentation has been prepared by the Slade robison Adrianna, SCRIBE, under my direction and personally reviewed by me in its entirety. I confirm that the documentation accurately reflects all work, treatment, procedures, and medical decision making performed by me. Attending Attestation - Resident Resident Name: GutierrezRachelvaleria - ED Attending Attestation I have performed the following: I have examined & evaluated the patient, The case was reviewed & discussed with the resident, I agree w/resident's findings & plan - HPI HPI: The patient is an 83 year old female, with a significant PMH of HTN, HLD, DM, COPD, hepatitis C, mitral valve replacement, asthma, cerebrovascular hemorrhage (09/01/17), who presents to the ED for evaluation of cough for one week, and hypertension for one day. Patient reports developing a cough over the past week , which was originally non-productive but has become productive of white sputum. Patient endorses associated chest congestion, sinus congestion, and facial flushing. She reports seeing her PCP for this complaint and was placed on steroids and augmentin. Patient notes her BP was elevated today to ~200s/~ 100s. She admits to doubling her hypertension meds (as per request of PCP) without any change. Denies fever, chills, nausea, vomit, chest pain, palpitations, diarrhea, urinary symptoms, changes in vision, fall, or trauma. Allergies: NKDA Surgical history: Mitral valve replacement Social history: Denies EtOH, tobacco, or illicit drug use Driving Teacher: Dr. Coles PCP: Dr. Delgado - Physicial Exam PE: CONSTITUTIONAL: Hypertensive. Well-appearing; well-nourished; in no apparent distress HEAD: Normocephalic; atraumatic EYES: PERRL; EOM intact ENMT: External appears normal; normal oropharynx NECK: Supple; non-tender; no cervical lymphadenopathy CARD: Normal S1, S2; no murmurs, rubs, or gallops RESP: Normal chest excursion with respiration; breath sounds clear and equal bilaterally; no wheezes, rhonchi, or rales ABD: Soft, non-distended; non-tender; no palpable organomegaly, no palpable hernias EXT: Normal ROM in all four extremities; non-tender to palpation; distal pulses intact SKIN: Warm, dry, no rash NEURO: No focal neurological deficiencies. - Medical Decision Making 03/09/19 02:57 Pt has coarse breath sounds on the right; she will be admitted for IV treatment of her pneumonia and worsening COPD/Asthma 03/09/19 02:58 CXR: increased markings in the right lungs. Heart Score/ECG Review - ECG Intrepretation Rhythm: Regular Rhythm - [place]: Normal - ST and T Early Repolarization: No Non Specific ST-T Wave changes: No Flattened T Waves: No Prolonged Q-T Interval: No - ECG Impressions Normal ECG: Yes Non-specific ST Elevation: No Ischemic Changes: No
[2019-03-09] MEDS ORDERED: ALBUTEROL SO4 2.5/IPRATROPIUM 0.5 INH SOL 3 ML VIAL.NEB. NEB PRN (01:58)
[2019-03-09 06:04] VITALS: BMI 26.3
[2019-03-09 09:39] LABS: BASO % 0.3 % (0-2.0); EOS % 0.4 % (0-4.5); HEMATOCRIT 38.7 % (32.4-45.2); HEMOGLOBIN 12.8 GM/dL (10.7-15.3); LYMPH % 37.6 % (8-40); MCH 30.3 pg (25.7-33.7); MEAN CELL VOLUME 91.7 fl (80-96); MEAN PLT VOLUME 9.8 fl (7.5-11.1); MONO % 6.3 % (3.8-10.2); NEUT % 55.4 % (42.8-82.8); PLATELET COUNT 195 K/MM3 (134-434); RBC 4.22 M/mm3 (3.60-5.2); RDW 13.4 % (11.6-15.6); WHITE BLOOD COUNT 8.5 K/mm3 (4.0-10.0)
[2019-03-09 09:53] LABS: INR 3.21 (0.83-1.09); PROTHROMBIN TIME (PATIENT) 38.3 SEC (9.7-13.0)
[2019-03-09 09:55] LABS: ALBUMIN 3.7 g/dl (3.4-5.0); BILIRUBIN,TOTAL 0.6 mg/dL (0.2-1); BLOOD UREA NITROGEN 24.4 mg/dL (7-18); CALCIUM 9.8 mg/dL (8.5-10.1); CREATININE 0.7 mg/dL (0.55-1.3); POTASSIUM 3.8 mmol/L (3.5-5.1); TOT PROT 7.3 g/dl (6.4-8.2)
[2019-03-09] MEDS ORDERED: PT OWN MED DRAWER 7, Y5N ONE (11:47)
[2019-03-09] MEDS: RANITIDINE HCL 150 MG TABLET (FP) PO SCH (11:55)
[2019-03-09] MEDS: FOLIC ACID 1 MG TABLET (FP) PO SCH (11:55)
[2019-03-09] MEDS: VALSARTAN 40 MG TABLET (FP) PO SCH (11:56)
[2019-03-09] MEDS: SENNOSIDES 8.6MG TABLET (FP) PO SCH (11:56)
[2019-03-09] MEDS: BUDESONIDE/FORMETEROL FUMARATE 80/4.5 mcg INHALER IH SCH ×2 (11:56→22:30)
[2019-03-09] MEDS: POLYETHYLENE GLYCOL 3350 119 GM BTL PO SCH (11:56)
[2019-03-09] MEDS: FUROSEMIDE 40 MG TABLET (FP) PO SCH (11:56)
[2019-03-09] MEDS: AMANTADINE HCL 100 MG TABLET PO SCH (13:07)
--- NOTE | 2019-03-09 14:29 | HP ---
Admitting History and Physical - Admission History of Present Illness: Pt is an 83 y/o female w/ PMH significant for CVA(2X), HTN, asthma, CAD, dementia, Hep C, and HLD. Pt was BIBEMS for h/o cough wc is productive w/ greenish sputum and elevated BP at home today to 190-200s/90-100s. Over the past 6-7 days patient has had constant cough associated with chest congestion, and feeling tired. Also reports flushing of cheeks over the past couple days, fatigue but denies fever or chills. She reports visiting her PCP 2 days ago and was given augmentin + steroid pack. Presenting because BP elevated at home despite taking additional BP meds per director of education physician for PCP. 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: CVA, Dementia Cardiovascular: Yes: CAD, HTN, Mitral Stenosis Pulmonary: Yes: Asthma ...: No Infectious Disease: Yes: Other (hep c?) Musculoskeletal: Yes: Bursitis Rheumatology: Yes: Other (Rhematoid ) Dermatology: Yes: Cellulitis - Past Surgical History Past Surgical History: Yes: CABG, Valve Replacement - Smoking History Smoking history: Never smoked Have you smoked in the past 12 months: No Aproximately how many cigarettes per day: 0 - Alcohol/Substance Use Hx Alcohol Use: No History of Substance Use: reports: None - Social History ADL: Family Assistance Home Medications - Allergies Allergies/Adverse Reactions: Allergies Allergy/AdvReac Type Severity Reaction Status Date / Time No Known Allergies Allergy Verified 03/08/19 21:20 - Home Medications Home Medications: Ambulatory Orders Albuterol 2.5/Ipratropium 0.5 [Duoneb -] 1 neb NEB Q4H PRN 11/19/17 Ascorbic Acid [C-1000] 500 mg PO DAILY 11/19/17 Atorvastatin Calcium 10 mg PO HS 11/19/17 Fluticasone/Salmeterol [Advair 250-50 Diskus] 1 each IH DAILY 11/19/17 Fluticasone/Salmeterol [Advair Hfa 115-21 Mcg Inhaler] 1 inh PO BID 11/19/17 Folic Acid 1 mg PO DAILY 11/19/17 Furosemide [Lasix] 40 mg PO WEEKLY 11/19/17 Warfarin Na [Coumadin] 6 mg PO ASDIR 11/19/17 Esomeprazole Magnesium 40 mg PO DAILY 03/09/19 Losartan Potassium 50 mg PO DAILY 03/09/19 Multivit-Min/Iron/Folic/Lutein [Centrum Silver Women Tablet] 03/09/19 Spironolactone 25 mg PO DAILY 03/09/19 Family Disease History - Family Disease History Family History: Unable to Obtain (Pt doesn't remember) Review of Systems - Review of Systems Constitutional: reports: Loss of Appetite, Weakness Eyes: reports: No Symptoms HENT: reports: No Symptoms Neck: reports: No Symptoms Cardiovascular: reports: No Symptoms Respiratory: reports: Cough Gastrointestinal: reports: No Symptoms Genitourinary: reports: No Symptoms Physical Examination Vital Signs: Vital Signs Temperature 97.8 F 03/09/19 13:22 Pulse Rate 85 03/09/19 13:22 Respiratory Rate 18 03/09/19 13:22 Blood Pressure 141/76 03/09/19 13:22 O2 Sat by Pulse Oximetry (%) 98 03/09/19 04:30 Neck: Yes: WNL, Supple Cardiovascular: Yes: WNL, Regular Rate and Rhythm Respiratory: Yes: Wheezes Gastrointestinal: Yes: WNL, Normal Bowel Sounds, Soft Edema: No Neurological: Yes: WNL, Alert, Oriented ...Motor Strength: WNL Labs: CBC, BMP 03/09/19 07:56 03/09/19 07:56 Problem List - Problems (1) Asthma exacerbation Assessment/Plan: Cont IV ceftriaxone/zithro Cont solumedrol/nebulizers Pulmonary consult Code(s): J45.901 - UNSPECIFIED ASTHMA WITH (ACUTE) EXACERBATION (2) Hypertension Assessment/Plan: BP elevated Cont antihypertensives Check echo Cardio consult Code(s): I10 - ESSENTIAL (PRIMARY) HYPERTENSION Qualifiers: Hypertension type: unspecified Qualified Code(s): I10 - Essential (primary ) hypertension (3) Anemia Assessment/Plan: Monitor h/h Code(s): D64.9 - ANEMIA, UNSPECIFIED Qualifiers: Anemia type: unspecified type Qualified Code(s): D64.9 - Anemia, unspecified (4) Diabetes mellitus Assessment/Plan: Sliding scale w/ coverage Check HgA1c Code(s): E11.9 - TYPE 2 DIABETES MELLITUS WITHOUT COMPLICATIONS Qualifiers: Diabetes mellitus type: type 2 Diabetes mellitus long-term insulin use: without watermelon inspector use Diabetes mellitus complication status: without complication Qualified Code(s): E11.9 - Type 2 diabetes mellitus without complications (5) H/O mitral valve replacement Assessment/Plan: Cont coumadin Monitor PT/INR Code(s): Z95.2 - PRESENCE OF PROSTHETIC HEART VALVE (6) Dementia Assessment/Plan: Pt is on amantadine Unclear if there is a h/o Parkinson's dz vs dementia Code(s): F03.90 - UNSPECIFIED DEMENTIA WITHOUT BEHAVIORAL DISTURBANCE (7) HLD (hyperlipidemia) Assessment/Plan: Cont lipitor Code(s): E78.5 - HYPERLIPIDEMIA, UNSPECIFIED (8) CAD (coronary artery disease) Code(s): I25.10 - ATHSCL HEART DISEASE OF [place] CORONARY ARTERY W/O ANG PCTRS (9) CVA (cerebral vascular accident) Code(s): I63.9 - CEREBRAL INFARCTION, UNSPECIFIED
--- NOTE | 2019-03-09 16:39 | EKG ---
Test Reason : Blood Pressure : / mmHG Vent. Rate : 067 BPM Atrial Rate : 067 BPM P-R Int : 130 ms QRS Dur : 076 ms QT Int : 398 ms P-R-T Axes : 089 065 068 degrees QTc Int : 420 ms ATRIAL FIBRILLATION CANNOT RULE OUT ANTERIOR INFARCT , AGE UNDETERMINED ABNORMAL ECG Confirmed by PATRICIA WOODRUFF MD ([id number]) on 03/09/2019 4:38:46 PM Referred By: Confirmed By:PATRICIA WOODRUFF MD
[2019-03-09] MEDS ORDERED: ATORVASTATIN CA 10 MG TABLET (FP) PO SCH (22:00)
[2019-03-09] MEDS: MONTELUKAST NA 10 MG TABLET PO SCH (22:30)
[2019-03-09] MEDS: MIRTAZAPINE 15 MG TABLET (FP) PO SCH (22:30)
[2019-03-09] MEDS ORDERED: BENZOCAINE/MENTH/CETYLPYRD CL 1 EACH LOZENGE MM PRN (22:57)
[2019-03-10 07:50] LABS: BASO % 0.5 % (0-2.0); EOS % 1.3 % (0-4.5); HEMATOCRIT 40.3 % (32.4-45.2); HEMOGLOBIN 13.4 GM/dL (10.7-15.3); LYMPH % 39.2 % (8-40); MCH 30.6 pg (25.7-33.7); MCHC 33.3 g/dl (32.0-36.0); MEAN CELL VOLUME 91.8 fl (80-96); MEAN PLT VOLUME 9.8 fl (7.5-11.1); MONO % 6.6 % (3.8-10.2); NEUT % 52.4 % (42.8-82.8); PLATELET COUNT 195 K/MM3 (134-434); RBC 4.39 M/mm3 (3.60-5.2); RDW 13.6 % (11.6-15.6); WHITE BLOOD COUNT 8.8 K/mm3 (4.0-10.0)
[2019-03-10 07:56] LABS: ALBUMIN 3.4 g/dl (3.4-5.0); BILIRUBIN,TOTAL 0.4 mg/dL (0.2-1); BLOOD UREA NITROGEN 23.3 mg/dL (7-18); CALCIUM 9.3 mg/dL (8.5-10.1); CREATININE 0.7 mg/dL (0.55-1.3); TOT PROT 6.8 g/dl (6.4-8.2)
[2019-03-10] MEDS ORDERED: PATIENT'S OWN MEDICATION (NON-FORMULARY) (Multivit-Min/Iron/Folic/Lutein [Centrum Silver W PO SCH (08:00)
[2019-03-10] MEDS ORDERED: PT OWN MED DRAWER 7, Y5N ONE (09:26)
[2019-03-10] MEDS ORDERED: cefTRIAXone SODIUM 1 GM VIAL ONE (09:26)
[2019-03-10] MEDS ORDERED: DEXTROSE 5%-WATER - 50 ML IVPB ONE (09:27)
--- NOTE | 2019-03-10 09:39 | CON.PULM ---
Consult Consult Specialty:: PULMONARY Referred by:: Dr Serrano Reason for Consultation:: shortness of breath - History of Present Illness Chief Complaint: cough History of Present Illness: 83yo female with h/o HTN, DM, hyperlipidemia, COPD/asthma, h/o mechanical MVR, CAD, atrial fibrillation, LV diastolic dysfunction, h/o CVA who was admitted with cough and chest congestion. No chest pain or palpitations. +cough productive of white sputum and wheezing. No fevers or chills. Was started on antibiotics and steroids as outpt. No fevers recorded. CXR showing left base atelectasis. 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 Cardio/Vascular: Yes: CAD, HTN, Mitral Stenosis Pulmonary: Yes: Asthma ...: No Infectious Disease: Yes: Other (hep c?) Musculoskeletal: Yes: Bursitis Rheumatology: Yes: Other (Rhematoid ) Dermatology: Yes: Cellulitis - Past Surgical History Past Surgical History: Yes: CABG, Valve Replacement - Alcohol/Substance Use Hx Alcohol Use: No History of Substance Use: reports: None - Smoking History Smoking history: Never smoked Have you smoked in the past 12 months: No Aproximately how many cigarettes per day: 0 - Social History Usual Living Arrangement: Other (famnily) ADL: Family Assistance Home Medications - Allergies Allergies/Adverse Reactions: Allergies Allergy/AdvReac Type Severity Reaction Status Date / Time No Known Allergies Allergy Verified 03/08/19 21:20 - Home Medications Home Medications: Ambulatory Orders Albuterol 2.5/Ipratropium 0.5 [Duoneb -] 1 neb NEB Q4H PRN 11/19/17 Ascorbic Acid [C-1000] 500 mg PO DAILY 11/19/17 Atorvastatin Calcium 10 mg PO HS 11/19/17 Fluticasone/Salmeterol [Advair 250-50 Diskus] 1 each IH DAILY 11/19/17 Fluticasone/Salmeterol [Advair Hfa 115-21 Mcg Inhaler] 1 inh PO BID 11/19/17 Folic Acid 1 mg PO DAILY 11/19/17 Furosemide [Lasix] 40 mg PO WEEKLY 11/19/17 Warfarin Na [Coumadin] 6 mg PO ASDIR 11/19/17 Esomeprazole Magnesium 40 mg PO DAILY 03/09/19 Losartan Potassium 50 mg PO DAILY 03/09/19 Multivit-Min/Iron/Folic/Lutein [Centrum Silver Women Tablet] 03/09/19 Spironolactone 25 mg PO DAILY 03/09/19 Review of Systems - Review of Systems Constitutional: denies: Chills, Fever Eyes: denies: Recent Change in Vision HENT: denies: Throat Pain Neck: denies: Tenderness Cardiovascular: reports: Shortness of Breath. denies: Chest Pain, Edema, Palpitations Respiratory: reports: Cough, Wheezing. denies: Hemoptysis Gastrointestinal: denies: Abdominal Pain, Nausea, Vomiting Genitourinary: denies: Dysuria, Hematuria Neurological: denies: Dizziness, Headache Endocrine: denies: Unexplained Weight Loss Physical Exam Vital Sings: Vital Signs Temperature 98 F 03/09/19 22:33 Pulse Rate 90 03/09/19 22:33 Respiratory Rate 22 H 03/09/19 22:33 Blood Pressure 135/82 03/09/19 22:33 O2 Sat by Pulse Oximetry (%) 96 03/09/19 21:00 Constitutional: Yes: Calm Eyes: Yes: Conjunctiva Clear, EOM Intact HENT: Yes: Atraumatic, Normocephalic Neck: Yes: Supple, Trachea Midline Cardiovascular: Yes: Regular Rate and Rhythm Respiratory: Yes: Rhonchi, Wheezes ...Clubbing: No Gastrointestinal: Yes: Normal Bowel Sounds, Soft. No: Tenderness Edema: No Neurological: Yes: Alert Labs: CBC, BMP 03/10/19 06:45 03/10/19 06:45 Imaging - Results Chest X-ray: Report Reviewed, Image Reviewed (left base atelectasis) Problem List - Problems (1) Asthma with COPD with exacerbation Code(s): J44.1 - CHRONIC OBSTRUCTIVE PULMONARY DISEASE W (ACUTE) EXACERBATION; J45.901 - UNSPECIFIED ASTHMA WITH (ACUTE) EXACERBATION (2) Dementia Code(s): F03.90 - UNSPECIFIED DEMENTIA WITHOUT BEHAVIORAL DISTURBANCE (3) HLD (hyperlipidemia) Code(s): E78.5 - HYPERLIPIDEMIA, UNSPECIFIED (4) Hypertension Code(s): I10 - ESSENTIAL (PRIMARY) HYPERTENSION Qualifiers: Hypertension type: unspecified Qualified Code(s): I10 - Essential (primary ) hypertension Assessment/Plan Acute COPD Exacerbation LV Diastolic Dysfunction Atrial Fibrillation CAD h/o Mechanical MVR h/o CVA HTN DM Hyperlipidemia - IV medrol - inhaled bronchodilators standing and PRN - O2 to keep SpO2 >90% - on empiric antibiotics - rate control - continue anticoagulation Thank you for this consult Estevan Santos MD
[2019-03-10] MEDS ORDERED: ALBUTEROL SO4 0.083% IH SOL 2.5 MG/3 ML VIAL.NEB. NEB PRN (09:46)
[2019-03-10] MEDS ORDERED: ASCORBIC ACID 500 MG PO SCH (10:00)
[2019-03-10] MEDS: CEFTRIAXONE 1 GM in DEXTROSE 5%-WATER - 50 ML IVPB SCH (10:51)
[2019-03-10] MEDS: FOLIC ACID 1 MG TABLET (FP) PO SCH (10:52)
[2019-03-10] MEDS: SENNOSIDES 8.6MG TABLET (FP) PO SCH (10:52)
[2019-03-10] MEDS: VALSARTAN 40 MG TABLET (FP) PO SCH (10:52)
[2019-03-10] MEDS: POLYETHYLENE GLYCOL 3350 119 GM BTL PO SCH (10:52)
[2019-03-10] MEDS: ASCORBIC ACID 500 MG TABLET (FP) PO SCH (10:52)
[2019-03-10] MEDS: FUROSEMIDE 40 MG TABLET (FP) PO SCH (10:52)
[2019-03-10] MEDS: RANITIDINE HCL 150 MG TABLET (FP) PO SCH (10:52)
[2019-03-10] MEDS: MULTIVITAMINS (DAILY MVI) TABLET (FP) PO SCH (10:52)
[2019-03-10] MEDS: AMANTADINE HCL 100 MG TABLET PO SCH (10:53)
[2019-03-10] MEDS: methylPREDNISolone NA SUCC 40 MG/1 ML VIAL IVPUSH SCH ×2 (10:54→17:31)
[2019-03-10] MEDS: BUDESONIDE/FORMETEROL FUMARATE 80/4.5 mcg INHALER IH SCH (11:07)
[2019-03-10] MEDS: AZITHROMYCIN IVPB 250 MG in DEXTROSE 5%-WATER - 250 ML IVPB SCH (11:37)
[2019-03-10] MEDS: ALBUTEROL SO4 2.5/IPRATROPIUM 0.5 INH SOL 3 ML VIAL.NEB. NEB SCH ×3 (13:00→20:50)
[2019-03-10 13:02] LABS: PROTHROMBIN TIME (PATIENT) 48.6 SEC (9.7-13.0)
[2019-03-10 13:47] LABS: INR 4.06 (0.83-1.09)
--- NOTE | 2019-03-10 14:31 | CON.CARD ---
Consult Consult Specialty:: Cardiology Referred by:: Dr. Serrano Reason for Consultation:: Cardiac evaluation - History of Present Illness Chief Complaint: Hypertension History of Present Illness: Patient is an 83 year old female 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 She presented with an elevated BP at 190-200s mmHg systolic. She has had persistent cough associated with chest congestion for which she was given antibiotics ( Augmentin) and Prednisone pack. She also complained of nonproductive cough which then progressed to productive white sputum. She was initially instructed at home to take additional antihypertensive, however; when her BP continued to rise, she was advised to come into the hospital. She denies chest pain or palpitations. She does not have fever or chills. She does not have nausea, vomiting, diarrhea or abdominal pain. Denies headache. 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, Dementia Cardio/Vascular: Yes: CAD, HTN, Mitral Stenosis Pulmonary: Yes: Asthma Musculoskeletal: Yes: Bursitis Rheumatology: Yes: Rheumatoid Arthritis Dermatology: Yes: Cellulitis - Past Surgical History Past Surgical History: Yes: CABG, Valve Replacement (Mechanical mitral valve replacement) - Alcohol/Substance Use Hx Alcohol Use: No History of Substance Use: reports: None - Smoking History Smoking history: Never smoked Have you smoked in the past 12 months: No Aproximately how many cigarettes per day: 0 - Social History Usual Living Arrangement: Other (famnily) ADL: Family Assistance Home Medications - Allergies Allergies/Adverse Reactions: Allergies Allergy/AdvReac Type Severity Reaction Status Date / Time No Known Allergies Allergy Verified 03/08/19 21:20 - Home Medications Home Medications: Ambulatory Orders Albuterol 2.5/Ipratropium 0.5 [Duoneb -] 1 neb NEB Q4H PRN 11/19/17 Ascorbic Acid [C-1000] 500 mg PO DAILY 11/19/17 Atorvastatin Calcium 10 mg PO HS 11/19/17 Fluticasone/Salmeterol [Advair 250-50 Diskus] 1 each IH DAILY 11/19/17 Fluticasone/Salmeterol [Advair Hfa 115-21 Mcg Inhaler] 1 inh PO BID 11/19/17 Folic Acid 1 mg PO DAILY 11/19/17 Furosemide [Lasix] 40 mg PO WEEKLY 11/19/17 Warfarin Na [Coumadin] 6 mg PO ASDIR 11/19/17 Esomeprazole Magnesium 40 mg PO DAILY 03/09/19 Losartan Potassium 50 mg PO DAILY 03/09/19 Multivit-Min/Iron/Folic/Lutein [Centrum Silver Women Tablet] 03/09/19 Spironolactone 25 mg PO DAILY 03/09/19 Review of Systems Unable to obtain ROS, reason: Unable to fully obtain - Review of Systems Cardiovascular: reports: Shortness of Breath. denies: Chest Pain, Palpitations Respiratory: reports: Cough, SOB Gastrointestinal: denies: Abdominal Pain, Melena, Nausea, Rectal Bleeding, Vomiting Neurological: denies: Dizziness, Headache, Seizure, Syncope Vital Signs: Vital Signs Temperature 98 F 03/09/19 22:33 Pulse Rate 83 03/10/19 10:00 Respiratory Rate 20 03/10/19 10:00 Blood Pressure 116/60 03/10/19 10:00 O2 Sat by Pulse Oximetry (%) 96 03/09/19 21:00 HENT: Yes: Atraumatic Neck: Yes: Supple Respiratory: Yes: CTA Bilaterally Gastrointestinal: Yes: Normal Bowel Sounds, Soft. No: Tenderness Cardiovascular: Yes: Pulse Irregular JVD: No PMI: Non-Displaced Heart Sounds: Yes: S1, S2, Clicks Murmur: Yes: Systolic Murmur, Grade 1 Edema: No - Other Data Labs, Other Data: CBC, BMP 03/10/19 06:45 03/10/19 06:45 INR, PTT INR 4.06 (0.83-1.09) H* 03/10/19 12:08 Imaging - Results Chest X-ray: Report Reviewed (Large heart) Cat Scan: Report Reviewed (Head CT) EKG: Report Reviewed Problem List - Problems (1) Asthma with COPD with exacerbation Code(s): J44.1 - CHRONIC OBSTRUCTIVE PULMONARY DISEASE W (ACUTE) EXACERBATION; J45.901 - UNSPECIFIED ASTHMA WITH (ACUTE) EXACERBATION (2) CAD (coronary artery disease) Code(s): I25.10 - ATHSCL HEART DISEASE OF [place] CORONARY ARTERY W/O ANG PCTRS (3) CVA (cerebral vascular accident) Code(s): I63.9 - CEREBRAL INFARCTION, UNSPECIFIED (4) Dementia Code(s): F03.90 - UNSPECIFIED DEMENTIA WITHOUT BEHAVIORAL DISTURBANCE (5) HLD (hyperlipidemia) Code(s): E78.5 - HYPERLIPIDEMIA, UNSPECIFIED (6) Hypertension Code(s): I10 - ESSENTIAL (PRIMARY) HYPERTENSION Qualifiers: Hypertension type: unspecified Qualified Code(s): I10 - Essential (primary ) hypertension (7) Pneumonia Code(s): J18.9 - PNEUMONIA, UNSPECIFIED ORGANISM Qualifiers: Pneumonia type: due to unspecified organism Laterality: right Lung location: middle lobe of lung Qualified Code(s): J18.1 - Lobar pneumonia, unspecified organism (8) Acute on chronic diastolic (congestive) heart failure Code(s): I50.33 - ACUTE ON CHRONIC DIASTOLIC (CONGESTIVE) HEART FAILURE (9) Anemia Code(s): D64.9 - ANEMIA, UNSPECIFIED Qualifiers: Anemia type: unspecified type Qualified Code(s): D64.9 - Anemia, unspecified (10) CHF (congestive heart failure) Code(s): I50.9 - HEART FAILURE, UNSPECIFIED Qualifiers: Heart failure type: combined systolic and diastolic Heart failure chronicity: acute on chronic Qualified Code(s): I50.43 - Acute on chronic combined systolic (congestive) and diastolic (congestive) heart failure (11) Cerebellar hemorrhage, acute Code(s): I61.4 - NONTRAUMATIC INTRACEREBRAL HEMORRHAGE IN CEREBELLUM (12) Cerebellar stroke Code(s): I63.9 - CEREBRAL INFARCTION, UNSPECIFIED (13) Diabetes mellitus Code(s): E11.9 - TYPE 2 DIABETES MELLITUS WITHOUT COMPLICATIONS Qualifiers: Diabetes mellitus type: type 2 Diabetes mellitus terminal manager insulin use: without terminal manager use Diabetes mellitus complication status: without complication Qualified Code(s): E11.9 - Type 2 diabetes mellitus without complications (14) H/O mitral valve replacement Code(s): Z95.2 - PRESENCE OF PROSTHETIC HEART VALVE (15) Persistent atrial fibrillation Code(s): I48.1 - PERSISTENT ATRIAL FIBRILLATION (16) Rheumatic heart disease Code(s): I09.9 - RHEUMATIC HEART DISEASE, UNSPECIFIED (17) S/P coil embolization of cerebral aneurysm Code(s): Z98.890 - OTHER SPECIFIED POSTPROCEDURAL STATES Assessment/Plan 1. Hypertensive urgency now improved 2. Hypercholesterolemia 3. CAD 4. Rheumatic heart disease s/p MVR with mechanical prosthesis 5. Persistent AF 6. DM 7. Cerebellar hemorrhage and history of embolic stroke with residual deficit 8. Acute on chronic diastolic failure currently euvolemic/compensated 9. URI with underlying COPD PLAN: 1. Currently BP remains stable. Patient is on Valsartan 40 mg QD (was on Losartan 50 mg QD at home) 2. Continue Lipitor 3. ASA 4. Warfarin as per INR 5. Antibiotics 6. Steroids taper Further plans are to follow Israel Pinto MD
--- NOTE | 2019-03-10 15:04 | RAPID ---
Physical Examination Vital Signs: Vital Signs Temperature 98 F 03/09/19 22:33 Pulse Rate 83 03/10/19 10:00 Respiratory Rate 20 03/10/19 10:00 Blood Pressure 116/60 03/10/19 10:00 O2 Sat by Pulse Oximetry (%) 96 03/09/19 21:00 Labs: CBC, BMP 03/10/19 06:45 03/10/19 06:45 Rapid Response - Rapid Response Assessment: Cesario Valdez was called around 1:50pm, MDs responded immediately. Patient has history of stoke and per the daughter the patient had an episode of slurred speech. The patient's daughter notified the nurse who then called a cesario valdez. On arrival the patient was awake and alert. Her vitals were 123/70, 94%, p91. The patient was able to follow commands and speak clearly with no obvious focal deficits. Her NIH stroke scale was 0. The patient was sent for head CT without contrast and neurology was consulted. 81mg ASA were given and her Lipitor was increased to 40. She was transferred to telemetry for further workup and evaluation for stroke. Suspected CVA MD Exam Time (Code Valdez Time): 01:50 CT Stroke ordered: Yes Stat "Cesario Valdez" Consult to Neurology called & responded: Yes Last Known Well (Date): 03/10/19 Last Known Well (Time): 13:45 Symptom Discovery (Date): 03/10/19 Symptom Discovery (Time): 13:47 - NIH Stroke Scale/Score Level of consciousness: Alert Ask patient the month and their age: Answers both correctly Ask patient to open & close eyes; make fist and let go: Obeys both correctly Best gaze (horizontal eye movement): Normal Visual field testing: No visual field loss Facial paresis (Show teeth/raise eyebrows/close eyes tight): Normal symmetrical movement Motor Function: Left Arm: Normal Motor Function: Right Arm: Normal (extends arm 90 (or 45) degrees for 10 seconds without drift Motor Function: Left Leg: Normal (extends leg 30 degrees for 5 seconds without drift) Motor Function: Right Leg: Normal (extends leg 30 degrees for 5 seconds without drift) Limb Ataxia: No ataxia Sensory(Use pinprick test arms,legs,trunk,face/side to side): Normal Best language (Describe picture, name items, read sentences): No Aphasia Dysarthria (read several words): Normal articulation Extinction and Inattention: No abnormality NIH Stroke Scale Score: 0
--- NOTE | 2019-03-10 15:59 | EKG ---
Test Reason : Blood Pressure : / mmHG Vent. Rate : 084 BPM Atrial Rate : 138 BPM P-R Int : 000 ms QRS Dur : 076 ms QT Int : 380 ms P-R-T Axes : 000 054 069 degrees QTc Int : 449 ms ATRIAL FIBRILLATION ABNORMAL ECG WHEN COMPARED WITH ECG OF 08-MAR-2019 22:58, NO SIGNIFICANT CHANGE WAS FOUND Confirmed by MIRIAM TOLBERT MD ([id number]) on 03/10/2019 3:58:29 PM Referred By: Confirmed By:MIRIAM TOLBERT MD
[2019-03-10] MEDS: ASPIRIN COATED 81 MG TABLET.EC PO SCH (17:29)
--- NOTE | 2019-03-10 21:42 | PN ---
Progress Note, Physician - Current Medication List Current Medications: Active Medications Albuterol Sulfate (Ventolin 0.083% Nebulizer Soln -) 1 amp NEB Q4H PRN PRN Reason: SHORT OF BREATH/WHEEZING Albuterol/Ipratropium (Duoneb -) 1 amp NEB RQID [facility] Last Admin: 03/10/19 16:42 Dose: 1 amp Amantadine HCl (Symmetrel -) 100 mg PO DAILY [facility] Last Admin: 03/10/19 10:53 Dose: 100 mg Ascorbic Acid (Vitamin C -) 500 mg PO DAILY [facility] Last Admin: 03/10/19 10:52 Dose: 500 mg Aspirin (Ecotrin -) 81 mg PO ONCE [facility] Last Admin: 03/10/19 17:29 Dose: 81 mg Atorvastatin Calcium (Lipitor -) 40 mg PO HS [facility] Benzocaine/Menthol (Cepacol Lozenge -) 1 each MM Q6H PRN PRN Reason: SORE THROAT Budesonide/Formoterol Fumarate (Symbicort 80/4.5mcg -) 2 puff IH BID [facility] Last Admin: 03/10/19 11:07 Dose: 2 puff Folic Acid (Folic Acid -) 1 mg PO DAILY [facility] Last Admin: 03/10/19 10:52 Dose: 1 mg Furosemide (Lasix -) 40 mg PO DAILY [facility] Last Admin: 03/10/19 10:52 Dose: 40 mg Guaifenesin (Robitussin -) 5 ml PO Q6H PRN PRN Reason: COUGH Azithromycin 250 mg/ Dextrose 250 mls @ 250 mls/hr IVPB DAILY [facility] Last Admin: 03/10/19 11:37 Dose: 250 mls/hr Ceftriaxone Sodium 1 gm/ (Dextrose) 50 mls @ 100 mls/hr IVPB DAILY [facility]; Protocol Last Admin: 03/10/19 10:51 Dose: 100 mls/hr Methylprednisolone Sodium Succinate (Solu-Medrol -) 40 mg IVPUSH Q8H-IV NO[facility] Last Admin: 03/10/19 17:31 Dose: 40 mg Mirtazapine (Remeron -) 15 mg PO HS [facility] Last Admin: 03/09/19 22:30 Dose: 15 mg Montelukast Sodium (Singulair -) 10 mg PO HS [facility] Last Admin: 03/09/19 22:30 Dose: 10 mg Multivitamins/Minerals/Vitamin C (Tab-A-Vit -) 1 tab PO DAILY@0800 [facility] Last Admin: 03/10/19 10:52 Dose: 1 tab Polyethylene Glycol (Miralax (For Daily Use) -) 17 gm PO DAILY [facility] Last Admin: 03/10/19 10:52 Dose: 17 grams Ranitidine HCl (Zantac -) 150 mg PO DAILY [facility] Last Admin: 03/10/19 10:52 Dose: 150 mg Senna (Senna -) 1 tab PO DAILY [facility] Last Admin: 03/10/19 10:52 Dose: 1 tab Valsartan (Diovan -) 40 mg PO DAILY [facility] Last Admin: 03/10/19 10:52 Dose: 40 mg - Objective Vital Signs: Vital Signs Temperature 98.3 F 03/10/19 18:53 Pulse Rate 86 03/10/19 18:53 Respiratory Rate 20 03/10/19 20:49 Blood Pressure 153/69 03/10/19 18:53 O2 Sat by Pulse Oximetry (%) 94 L 03/10/19 20:49 Labs: CBC, BMP 03/10/19 06:45 03/10/19 06:45 INR, PTT INR 4.06 (0.83-1.09) H* 03/10/19 12:08 Problem List - Problems (1) Asthma exacerbation Code(s): J45.901 - UNSPECIFIED ASTHMA WITH (ACUTE) EXACERBATION (2) Hypertension Code(s): I10 - ESSENTIAL (PRIMARY) HYPERTENSION Qualifiers: Hypertension type: unspecified Qualified Code(s): I10 - Essential (primary ) hypertension (3) Anemia Code(s): D64.9 - ANEMIA, UNSPECIFIED Qualifiers: Anemia type: unspecified type Qualified Code(s): D64.9 - Anemia, unspecified (4) Diabetes mellitus Code(s): E11.9 - TYPE 2 DIABETES MELLITUS WITHOUT COMPLICATIONS Qualifiers: Diabetes mellitus type: type 2 Diabetes mellitus skilled nursing insulin use: without skilled nursing use Diabetes mellitus complication status: without complication Qualified Code(s): E11.9 - Type 2 diabetes mellitus without complications (5) H/O mitral valve replacement Code(s): Z95.2 - PRESENCE OF PROSTHETIC HEART VALVE (6) Dementia Code(s): F03.90 - UNSPECIFIED DEMENTIA WITHOUT BEHAVIORAL DISTURBANCE (7) HLD (hyperlipidemia) Code(s): E78.5 - HYPERLIPIDEMIA, UNSPECIFIED (8) CAD (coronary artery disease) Code(s): I25.10 - ATHSCL HEART DISEASE OF [place] CORONARY ARTERY W/O ANG PCTRS (9) CVA (cerebral vascular accident) Code(s): I63.9 - CEREBRAL INFARCTION, UNSPECIFIED
[2019-03-10] MEDS: MIRTAZAPINE 15 MG TABLET (FP) PO SCH (21:47)
[2019-03-10] MEDS: MONTELUKAST NA 10 MG TABLET PO SCH (21:47)
[2019-03-10] MEDS: ATORVASTATIN CA 40 MG TABLET (FP) PO SCH (21:47)
[2019-03-11] MEDS: methylPREDNISolone NA SUCC 40 MG/1 ML VIAL IVPUSH SCH ×3 (00:59→17:23)
[2019-03-11] MEDS: ALBUTEROL SO4 2.5/IPRATROPIUM 0.5 INH SOL 3 ML VIAL.NEB. NEB SCH ×4 (06:59→20:50)
[2019-03-11 07:03] LABS: BASO % 0.1 % (0-2.0); HEMATOCRIT 40.1 % (32.4-45.2); HEMOGLOBIN 13.5 GM/dL (10.7-15.3); LYMPH % 9.1 % (8-40); MCH 30.8 pg (25.7-33.7); MCHC 33.8 g/dl (32.0-36.0); MEAN CELL VOLUME 91.1 fl (80-96); MEAN PLT VOLUME 9.7 fl (7.5-11.1); MONO % 1.9 % (3.8-10.2); NEUT % 88.9 % (42.8-82.8); PLATELET COUNT 201 K/MM3 (134-434); RDW 13.5 % (11.6-15.6); WHITE BLOOD COUNT 8.8 K/mm3 (4.0-10.0)
[2019-03-11 07:10] LABS: INR 2.9 (0.83-1.09); PROTHROMBIN TIME (PATIENT) 34.6 SEC (9.7-13.0)
[2019-03-11 07:15] LABS: ALBUMIN 3.5 g/dl (3.4-5.0); BILIRUBIN,TOTAL 0.5 mg/dL (0.2-1); BLOOD UREA NITROGEN 35.9 mg/dL (7-18); CALCIUM 9.8 mg/dL (8.5-10.1); POTASSIUM 4.9 mmol/L (3.5-5.1); TOT PROT 7.4 g/dl (6.4-8.2)
--- NOTE | 2019-03-11 07:41 | PN ---
Progress Note (short form) - Note Progress Note: Chief Complaint: Events noted, notes reviewed, reporting cough productive of sputum and reports dyspnea, denies any chest pain History of Present Illness: Seen and examined on telemetry. Events noted, notes reviewed, reporting cough productive of sputum and reports dyspnea, denies any chest pain - Current Medication List Current Medications Albuterol Sulfate (Ventolin 0.083% Nebulizer Soln -) 1 amp NEB Q4H PRN PRN Reason: SHORT OF BREATH/WHEEZING Albuterol/Ipratropium (Duoneb -) 1 amp NEB RQID [facility] Last Admin: 03/11/19 06:59 Dose: 1 amp Amantadine HCl (Symmetrel -) 100 mg PO DAILY [facility] Last Admin: 03/10/19 10:53 Dose: 100 mg Ascorbic Acid (Vitamin C -) 500 mg PO DAILY [facility] Last Admin: 03/10/19 10:52 Dose: 500 mg Aspirin (Ecotrin -) 81 mg PO ONCE [facility] Last Admin: 03/10/19 17:29 Dose: 81 mg Atorvastatin Calcium (Lipitor -) 40 mg PO HS [facility] Last Admin: 03/10/19 21:47 Dose: 40 mg Benzocaine/Menthol (Cepacol Lozenge -) 1 each MM Q6H PRN PRN Reason: SORE THROAT Budesonide/Formoterol Fumarate (Symbicort 80/4.5mcg -) 2 puff IH BID [facility] Last Admin: 03/10/19 11:07 Dose: 2 puff Folic Acid (Folic Acid -) 1 mg PO DAILY [facility] Last Admin: 03/10/19 10:52 Dose: 1 mg Furosemide (Lasix -) 40 mg PO DAILY [facility] Last Admin: 03/10/19 10:52 Dose: 40 mg Guaifenesin (Robitussin -) 5 ml PO Q6H PRN PRN Reason: COUGH Azithromycin 250 mg/ Dextrose 250 mls @ 250 mls/hr IVPB DAILY [facility] Last Admin: 03/10/19 11:37 Dose: 250 mls/hr Ceftriaxone Sodium 1 gm/ (Dextrose) 50 mls @ 100 mls/hr IVPB DAILY [facility]; Protocol Last Admin: 03/10/19 10:51 Dose: 100 mls/hr Methylprednisolone Sodium Succinate (Solu-Medrol -) 40 mg IVPUSH Q8H-IV [facility] Last Admin: 03/11/19 00:59 Dose: 40 mg Mirtazapine (Remeron -) 15 mg PO HS [facility] Last Admin: 03/10/19 21:47 Dose: 15 mg Montelukast Sodium (Singulair -) 10 mg PO [facility] Last Admin: 03/10/19 21:47 Dose: 10 mg Multivitamins/Minerals/Vitamin C (Tab-A-Vit -) 1 tab PO DAILY@0800 [facility] Last Admin: 03/10/19 10:52 Dose: 1 tab Polyethylene Glycol (Miralax (For Daily Use) -) 17 gm PO DAILY [facility] Last Admin: 03/10/19 10:52 Dose: 17 grams Ranitidine HCl (Zantac -) 150 mg PO DAILY [facility] Last Admin: 03/10/19 10:52 Dose: 150 mg Senna (Senna -) 1 tab PO DAILY [facility] Last Admin: 03/10/19 10:52 Dose: 1 tab Valsartan (Diovan -) 40 mg PO DAILY [facility] Last Admin: 03/10/19 10:52 Dose: 40 mg Review of Systems - Review of Systems Cardiovascular: As noted above Respiratory: denies: reports: Cough and Sputum Production Gastrointestinal: denies: Nausea, Vomiting, Diarrhea, Constipation or Abdominal Discomfort Musculoskeletal: Degenerative Joint Pain Endocrine: Diabetes Mellitus - Objective Vital Signs: Last Vital Signs Temp Pulse Resp BP Pulse Ox 97.4 F L 94 H 20 127/84 94 L 03/11/19 02:00 03/11/19 02:00 03/11/19 02:00 03/11/19 02:00 03/10/19 20:49 Intake & Output 03/08/19 03/09/19 03/10/19 03/11/19 23:59 23:59 23:59 23:59 Intake Total 580 540 100 Output Total 700 Balance -120 540 100 Weight 160 lb 148 lb 9 oz Neck: Supple Negative JVD No bruit Cardiovascular: Mechanical Click S2 Irregularly Irregular Grade 1-2/6 SARAH Respiratory: Diminished Breath Sounds at the Bases Gastrointestinal: Soft Benign Normal Bowel Sounds Ext: No Edema Labs: CBC, BMP 03/11/19 06:10 Hepatic Panel Total Bilirubin 0.5 mg/dL (0.2-1) 03/11/19 06:10 AST 34 U/L (15-37) 03/11/19 06:10 ALT 40 U/L (13-61) 03/11/19 06:10 Alkaline Phosphatase 110 U/L (45-117) 03/11/19 06:10 Albumin 3.5 g/dl (3.4-5.0) 03/11/19 06:10 INR, PTT INR 2.90 (0.83-1.09) H 03/11/19 06:10 Assessment/Plan ASSESSMENT: 1. Hypertensive cardiovascular disease, hypertensive urgency clinically improved 2. Diastolic LV dysfunction with chronic class 0-I NYHA classification LV failure, clinically compensated 3. CAD angina pectoris 4. Rheumatic heart disease post mechanical mitral valve replacement 5. Persistent atrial fibrillation, [id number] score of 7 on anticoagulation therapy with Coumadin/Warfarin 6. History of subacute hemorrhage of the left cerebellum post embol[place] at [facility] [place] [facility] [place] 7. DM 8. Hypercholesterolemia 9. Prior history of traumatic intra-cranial hemorrhage 10. History of reactive airway disease/bronchial asthma- exacerbation/ bronchopneumonia 11. CKD PLAN: 1. Continue Warfarin and monitor INR closely (INR to be maintained between 2.5- 3.5)- continue Aspirin therapy administration with caution and close monitoring of hemoglobin level 2. Continue Diovan and dose titration as needed 3. Continue Lasix therapy 4. Continue Lipitor therapy 5. If needed Cardizem CD therapy may be initiated to assist with atrial fibrillation rate control, ideally beta donis therapy initiation is recommended but to be deferred in view of the above-noted exacerbation of her reactive airway disease 6. Antibiotics as per the primary team 7. Steroids and bronchodilators as per the primary team Enrique Daily MD
[2019-03-11] MEDS ORDERED: cefTRIAXone SODIUM 1 GM VIAL ONE (08:56)
[2019-03-11] MEDS ORDERED: DEXTROSE 5%-WATER - 50 ML IVPB ONE (08:56)
[2019-03-11] MEDS ORDERED: PT OWN MED DRAWER 7, Y5N ONE ×2 (08:57→10:47)
--- NOTE | 2019-03-11 09:04 | PN ---
Progress Note, Physician - Current Medication List Current Medications: Active Medications Albuterol Sulfate (Ventolin 0.083% Nebulizer Soln -) 1 amp NEB Q4H PRN PRN Reason: SHORT OF BREATH/WHEEZING Albuterol/Ipratropium (Duoneb -) 1 amp NEB RQID [facility] Last Admin: 03/11/19 06:59 Dose: 1 amp Amantadine HCl (Symmetrel -) 100 mg PO DAILY [facility] Last Admin: 03/10/19 10:53 Dose: 100 mg Ascorbic Acid (Vitamin C -) 500 mg PO DAILY [facility] Last Admin: 03/10/19 10:52 Dose: 500 mg Aspirin (Ecotrin -) 81 mg PO ONCE [facility] Last Admin: 03/10/19 17:29 Dose: 81 mg Atorvastatin Calcium (Lipitor -) 40 mg PO HS [facility] Last Admin: 03/10/19 21:47 Dose: 40 mg Benzocaine/Menthol (Cepacol Lozenge -) 1 each MM Q6H PRN PRN Reason: SORE THROAT Budesonide/Formoterol Fumarate (Symbicort 80/4.5mcg -) 2 puff IH BID [facility] Last Admin: 03/10/19 11:07 Dose: 2 puff Folic Acid (Folic Acid -) 1 mg PO DAILY [facility] Last Admin: 03/10/19 10:52 Dose: 1 mg Furosemide (Lasix -) 40 mg PO DAILY [facility] Last Admin: 03/10/19 10:52 Dose: 40 mg Guaifenesin (Robitussin -) 5 ml PO Q6H PRN PRN Reason: COUGH Azithromycin 250 mg/ Dextrose 250 mls @ 250 mls/hr IVPB DAILY [facility] Last Admin: 03/10/19 11:37 Dose: 250 mls/hr Ceftriaxone Sodium 1 gm/ (Dextrose) 50 mls @ 100 mls/hr IVPB DAILY [facility]; Protocol Last Admin: 03/10/19 10:51 Dose: 100 mls/hr Methylprednisolone Sodium Succinate (Solu-Medrol -) 40 mg IVPUSH Q8H-IV [facility] Last Admin: 03/11/19 00:59 Dose: 40 mg Mirtazapine (Remeron -) 15 mg PO HS [facility] Last Admin: 03/10/19 21:47 Dose: 15 mg Montelukast Sodium (Singulair -) 10 mg PO HS [facility] Last Admin: 03/10/19 21:47 Dose: 10 mg Multivitamins/Minerals/Vitamin C (Tab-A-Vit -) 1 tab PO DAILY@0800 [facility] Last Admin: 03/10/19 10:52 Dose: 1 tab Polyethylene Glycol (Miralax (For Daily Use) -) 17 gm PO DAILY [facility] Last Admin: 03/10/19 10:52 Dose: 17 grams Ranitidine HCl (Zantac -) 150 mg PO DAILY [facility] Last Admin: 03/10/19 10:52 Dose: 150 mg Senna (Senna -) 1 tab PO DAILY [facility] Last Admin: 03/10/19 10:52 Dose: 1 tab Valsartan (Diovan -) 40 mg PO DAILY [facility] Last Admin: 03/10/19 10:52 Dose: 40 mg - Objective Vital Signs: Vital Signs Temperature 97.4 F L 03/11/19 02:00 Pulse Rate 94 H 03/11/19 02:00 Respiratory Rate 20 03/11/19 02:00 Blood Pressure 127/84 03/11/19 02:00 O2 Sat by Pulse Oximetry (%) 94 L 03/10/19 20:49 Cardiovascular: Yes: Murmur, S1, S2 Respiratory: Yes: Regular, CTA Bilaterally Gastrointestinal: Yes: Normal Bowel Sounds, Soft Neurological: Yes: Alert, Weakness Labs: CBC, BMP 03/11/19 06:10 INR, PTT INR 2.90 (0.83-1.09) H 03/11/19 06:10 Problem List - Problems (1) CVA (cerebral vascular accident) Assessment/Plan: H/O CVA EVENT FROM YESTERDAY-?TIA ADD ASA PENDING NEURO OPINION ON COUMADIN--INR 2.9 ON STATIN Code(s): I63.9 - CEREBRAL INFARCTION, UNSPECIFIED (2) CAD (coronary artery disease) Assessment/Plan: PER CARDIO Code(s): I25.10 - ATHSCL HEART DISEASE OF [place] CORONARY ARTERY W/O ANG PCTRS (3) Aortic valvular disease Assessment/Plan: ON COUMADIN INR 2.9 Code(s): I35.9 - NONRHEUMATIC AORTIC VALVE DISORDER, UNSPECIFIED (4) CHF (congestive heart failure) Assessment/Plan: NO EVIDENCE OF FAILURE MONITOR Code(s): I50.9 - HEART FAILURE, UNSPECIFIED Qualifiers: Heart failure type: combined systolic and diastolic Heart failure chronicity: acute on chronic Qualified Code(s): I50.43 - Acute on chronic combined systolic (congestive) and diastolic (congestive) heart failure (5) Diabetes mellitus Assessment/Plan: [facility] Code(s): E11.9 - TYPE 2 DIABETES MELLITUS WITHOUT COMPLICATIONS Qualifiers: Diabetes mellitus type: type 2 Diabetes mellitus longwall headgate operator insulin use: without longwall headgate operator use Diabetes mellitus complication status: without complication Qualified Code(s): E11.9 - Type 2 diabetes mellitus without complications (6) H/O mitral valve replacement Assessment/Plan: ON AC Code(s): Z95.2 - PRESENCE OF PROSTHETIC HEART VALVE (7) Persistent atrial fibrillation Assessment/Plan: ON COUMADIN Code(s): I48.1 - PERSISTENT ATRIAL FIBRILLATION (8) S/P coil embolization of cerebral aneurysm Code(s): Z98.890 - OTHER SPECIFIED POSTPROCEDURAL STATES (9) Asthma with COPD with exacerbation Assessment/Plan: ON NEBS STEROIDS PULM ABX Code(s): J44.1 - CHRONIC OBSTRUCTIVE PULMONARY DISEASE W (ACUTE) EXACERBATION; J45.901 - UNSPECIFIED ASTHMA WITH (ACUTE) EXACERBATION
[2019-03-11] MEDS: CEFTRIAXONE 1 GM in DEXTROSE 5%-WATER - 50 ML IVPB SCH (09:52)
[2019-03-11] MEDS: RANITIDINE HCL 150 MG TABLET (FP) PO SCH (09:53)
[2019-03-11] MEDS: VALSARTAN 40 MG TABLET (FP) PO SCH (09:53)
[2019-03-11] MEDS: ASCORBIC ACID 500 MG TABLET (FP) PO SCH (09:53)
[2019-03-11] MEDS: FOLIC ACID 1 MG TABLET (FP) PO SCH (09:53)
[2019-03-11] MEDS: SENNOSIDES 8.6MG TABLET (FP) PO SCH (09:53)
[2019-03-11] MEDS: FUROSEMIDE 40 MG TABLET (FP) PO SCH (09:53)
[2019-03-11] MEDS: MULTIVITAMINS (DAILY MVI) TABLET (FP) PO SCH (09:53)
[2019-03-11] MEDS: BUDESONIDE/FORMETEROL FUMARATE 80/4.5 mcg INHALER IH SCH ×2 (09:53→22:23)
[2019-03-11] MEDS: AMANTADINE HCL 100 MG TABLET PO SCH (09:53)
[2019-03-11] MEDS: guaiFENesin 200 MG/10 ML 10 ML UNIT-DOSE CUPS PO PRN (10:49)
[2019-03-11] MEDS: POLYETHYLENE GLYCOL 3350 119 GM BTL PO SCH (10:50)
[2019-03-11] MEDS: AZITHROMYCIN IVPB 250 MG in DEXTROSE 5%-WATER - 250 ML IVPB SCH (10:50)
--- NOTE | 2019-03-11 11:58 | PN ---
Progress Note, Physician History of Present Illness: PULMONARY ALERT,LESS CONGESTED - Current Medication List Current Medications: Active Medications Albuterol Sulfate (Ventolin 0.083% Nebulizer Soln -) 1 amp NEB Q4H PRN PRN Reason: SHORT OF BREATH/WHEEZING Albuterol/Ipratropium (Duoneb -) 1 amp NEB RQID [facility] Last Admin: 03/11/19 11:22 Dose: 1 amp Amantadine HCl (Symmetrel -) 100 mg PO DAILY [facility] Last Admin: 03/11/19 09:53 Dose: 100 mg Ascorbic Acid (Vitamin C -) 500 mg PO DAILY [facility] Last Admin: 03/11/19 09:53 Dose: 500 mg Aspirin (Ecotrin -) 81 mg PO ONCE [facility] Last Admin: 03/10/19 17:29 Dose: 81 mg Aspirin (Ecotrin -) 81 mg PO DAILY [facility] Atorvastatin Calcium (Lipitor -) 40 mg PO HS [facility] Last Admin: 03/10/19 21:47 Dose: 40 mg Benzocaine/Menthol (Cepacol Lozenge -) 1 each MM Q6H PRN PRN Reason: SORE THROAT Budesonide/Formoterol Fumarate (Symbicort 80/4.5mcg -) 2 puff IH BID [facility] Last Admin: 03/11/19 09:53 Dose: 2 puff Folic Acid (Folic Acid -) 1 mg PO DAILY [facility] Last Admin: 03/11/19 09:53 Dose: 1 mg Furosemide (Lasix -) 40 mg PO DAILY [facility] Last Admin: 03/11/19 09:53 Dose: 40 mg Guaifenesin (Robitussin -) 5 ml PO Q6H PRN PRN Reason: COUGH Last Admin: 03/11/19 10:49 Dose: 5 ml Azithromycin 250 mg/ Dextrose 250 mls @ 250 mls/hr IVPB DAILY [facility] Last Admin: 03/11/19 10:50 Dose: 250 mls/hr Ceftriaxone Sodium 1 gm/ (Dextrose) 50 mls @ 100 mls/hr IVPB DAILY [facility]; Protocol Last Admin: 03/11/19 09:52 Dose: 100 mls/hr Methylprednisolone Sodium Succinate (Solu-Medrol -) 40 mg IVPUSH Q8H-IV [facility] Last Admin: 03/11/19 09:53 Dose: 40 mg Mirtazapine (Remeron -) 15 mg PO HS [facility] Last Admin: 03/10/19 21:47 Dose: 15 mg Montelukast Sodium (Singulair -) 10 mg PO HS [facility] Last Admin: 03/10/19 21:47 Dose: 10 mg Multivitamins/Minerals/Vitamin C (Tab-A-Vit -) 1 tab PO DAILY@0800 [facility] Last Admin: 03/11/19 09:53 Dose: 1 tab Polyethylene Glycol (Miralax (For Daily Use) -) 17 gm PO DAILY [facility] Last Admin: 03/11/19 10:50 Dose: 17 grams Ranitidine HCl (Zantac -) 150 mg PO DAILY [facility] Last Admin: 03/11/19 09:53 Dose: 150 mg Senna (Senna -) 1 tab PO DAILY [facility] Last Admin: 03/11/19 09:53 Dose: 1 tab Valsartan (Diovan -) 40 mg PO DAILY [facility] Last Admin: 03/11/19 09:53 Dose: 40 mg - Objective Vital Signs: Vital Signs Temperature 98.2 F 03/11/19 10:00 Pulse Rate 90 03/11/19 10:00 Respiratory Rate 20 03/11/19 10:00 Blood Pressure 137/83 03/11/19 10:00 O2 Sat by Pulse Oximetry (%) 95 03/11/19 09:00 Constitutional: Yes: Well Nourished, Calm Eyes: Yes: WNL HENT: Yes: WNL Neck: Yes: WNL Cardiovascular: Yes: Pulse Irregular, S1, S2 Respiratory: Yes: Wheezes (BILATERAL WHEEZES) Gastrointestinal: Yes: Normal Bowel Sounds, Soft Extremities: Yes: WNL Edema: No Labs: CBC, BMP 03/11/19 06:10 03/11/19 06:10 INR, PTT INR 2.90 (0.83-1.09) H 03/11/19 06:10 Assessment/Plan Problem List - Problems (1) Asthma with COPD with exacerbation Code(s): J44.1 - CHRONIC OBSTRUCTIVE PULMONARY DISEASE W (ACUTE) EXACERBATION; J45.901 - UNSPECIFIED ASTHMA WITH (ACUTE) EXACERBATION (2) Dementia Code(s): F03.90 - UNSPECIFIED DEMENTIA WITHOUT BEHAVIORAL DISTURBANCE (3) HLD (hyperlipidemia) Code(s): E78.5 - HYPERLIPIDEMIA, UNSPECIFIED (4) Hypertension Code(s): I10 - ESSENTIAL (PRIMARY) HYPERTENSION Qualifiers: Hypertension type: unspecified Qualified Code(s): I10 - Essential (primary ) hypertension Assessment/Plan Acute COPD Exacerbation LV Diastolic Dysfunction Atrial Fibrillation CAD h/o Mechanical MVR h/o CVA HTN DM Hyperlipidemia - IV medrol same dose - inhaled bronchodilators standing and PRN - O2 to keep SpO2 >90% - empiric antibiotics - rate control - anticoagulation DR RICHARD
[2019-03-11] MEDS: ASPIRIN COATED 81 MG TABLET.EC PO SCH (14:22)
[2019-03-11] MEDS ORDERED: WARFARIN NA 3 MG TABLET PO SCH (18:00)
[2019-03-11] MEDS: MONTELUKAST NA 10 MG TABLET PO SCH (22:23)
[2019-03-11] MEDS: MIRTAZAPINE 15 MG TABLET (FP) PO SCH (22:24)
[2019-03-11] MEDS: ATORVASTATIN CA 40 MG TABLET (FP) PO SCH (22:25)
--- NOTE | 2019-03-11 22:44 | CON.NEURO ---
Consult - Past Medical History [employer]: Yes: CVA, Dementia Cardio/Vascular: Yes: CAD, HTN, Mitral Stenosis Pulmonary: Yes: Asthma ...: No Infectious Disease: Yes: Other (hep c?) Musculoskeletal: Yes: Bursitis Rheumatology: Yes: Rheumatoid Arthritis Dermatology: Yes: Cellulitis - Past Surgical History Past Surgical History: Yes: CABG, Valve Replacement (Mechanical mitral valve replacement) - Alcohol/Substance Use Hx Alcohol Use: No History of Substance Use: reports: None - Smoking History Smoking history: Never smoked Have you smoked in the past 12 months: No Aproximately how many cigarettes per day: 0 - Social History Usual Living Arrangement: Other (f f [facility]) ADL: Family Assistance Home Medications - Allergies Allergies/Adverse Reactions: Allergies Allergy/AdvReac Type Severity Reaction Status Date / Time No Known Allergies Allergy Verified 03/08/19 21:20 - Home Medications Home Medications: Ambulatory Orders Albuterol 2.5/Ipratropium 0.5 [Duoneb -] 1 neb NEB Q4H PRN 11/19/17 Ascorbic Acid [C-1000] 500 mg PO DAILY 11/19/17 Atorvastatin Calcium 10 mg PO HS 11/19/17 Fluticasone/Salmeterol [Advair 250-50 Diskus] 1 each IH DAILY 11/19/17 Fluticasone/Salmeterol [Advair Hfa 115-21 Mcg Inhaler] 1 inh PO BID 11/19/17 Folic Acid 1 mg PO DAILY 11/19/17 Furosemide [Lasix] 40 mg PO WEEKLY 11/19/17 Warfarin Na [Coumadin] 6 mg PO ASDIR 11/19/17 Esomeprazole Magnesium 40 mg PO DAILY 03/09/19 Losartan Potassium 50 mg PO DAILY 03/09/19 Multivit-Min/Iron/Folic/Lutein [Centrum Silver Women Tablet] 03/09/19 Spironolactone 25 mg PO DAILY 03/09/19 Physical Exam-Neuro Vital Signs: Vital Signs Temperature 97.7 F 03/11/19 20:11 Pulse Rate 87 03/11/19 20:11 Respiratory Rate 20 03/11/19 20:11 Blood Pressure 157/82 03/11/19 20:11 O2 Sat by Pulse Oximetry (%) 95 03/11/19 09:00 Labs: CBC, BMP 03/11/19 06:10 03/11/19 06:10 INR, PTT INR 2.90 (0.83-1.09) H 03/11/19 06:10 Assessment/Plan cc Transient Slurring of speech lasting few minute HPI 83 year old female history of stroke, htn, asthma, dementia, cad, hep c , hld. paitent had episode of slurring of speech lating few minute, her nih score was 0. patient symptoms resolved and ct head was unremarkable. patient denies any focal nueological symptoms. PMH as above : Allergies/Adverse Reactions: Allergies Allergy/AdvReac Type Severity Reaction Status Date / Time No Known Allergies Allergy Verified 03/08/19 21:20 Home Medications: Albuterol 2.5/Ipratropium 0.5 [Duoneb -] 1 neb NEB Q4H PRN 11/19/17 Ascorbic Acid [C-1000] 500 mg PO DAILY 11/19/17 Atorvastatin Calcium 10 mg PO HS 11/19/17 Fluticasone/Salmeterol [Advair 250-50 Diskus] 1 each IH DAILY 11/19/17 Fluticasone/Salmeterol [Advair Hfa 115-21 Mcg Inhaler] 1 inh PO BID 11/19/17 Folic Acid 1 mg PO DAILY 11/19/17 Furosemide [Lasix] 40 mg PO WEEKLY 11/19/17 Warfarin Na [Coumadin] 6 mg PO ASDIR 11/19/17 Esomeprazole Magnesium 40 mg PO DAILY 03/09/19 Losartan Potassium 50 mg PO DAILY 03/09/19 Multivit-Min/Iron/Folic/Lutein [Centrum Silver Women Tablet] 03/09/19 Spironolactone 25 mg PO DAILY 03/09/19 ROS,FH,SH reviewed in cahrt NEUROLOGICAL EXAMINATION Alert oriented x 2, neck is supple, afebrile VSS eomi, pupils reactive no face asymmetry moving all ext sensation is noram ct head is noraml Assessment/plan Transeint slurring of speech? tia , she has history of stroke, htn, hld Plan agree with continue aspirin and increase lipitor 40 mg once a day - carotid ultrasound can be obtained - continue current level of care Thanking you so much Bridgette Urban MD
[2019-03-12] MEDS: methylPREDNISolone NA SUCC 40 MG/1 ML VIAL IVPUSH SCH ×3 (02:00→18:08)
[2019-03-12 06:28] LABS: BASO % 0.1 % (0-2.0); HEMATOCRIT 39.6 % (32.4-45.2); HEMOGLOBIN 12.9 GM/dL (10.7-15.3); LYMPH % 5.6 % (8-40); MCH 29.7 pg (25.7-33.7); MCHC 32.5 g/dl (32.0-36.0); MEAN CELL VOLUME 91.5 fl (80-96); MONO % 3.4 % (3.8-10.2); NEUT % 90.9 % (42.8-82.8); PLATELET COUNT 200 K/MM3 (134-434); RBC 4.33 M/mm3 (3.60-5.2); RDW 13.6 % (11.6-15.6); WHITE BLOOD COUNT 16.3 K/mm3 (4.0-10.0)
[2019-03-12 06:57] LABS: ALBUMIN 3.4 g/dl (3.4-5.0); BILIRUBIN,TOTAL 0.5 mg/dL (0.2-1); BLOOD UREA NITROGEN 37.9 mg/dL (7-18); CALCIUM 9.5 mg/dL (8.5-10.1); CREATININE 1.1 mg/dL (0.55-1.3); POTASSIUM 4.4 mmol/L (3.5-5.1); TOT PROT 6.9 g/dl (6.4-8.2)
[2019-03-12] MEDS: ALBUTEROL SO4 2.5/IPRATROPIUM 0.5 INH SOL 3 ML VIAL.NEB. NEB SCH ×4 (07:30→21:00)
[2019-03-12 08:01] LABS: INR 1.99 (0.83-1.09); PROTHROMBIN TIME (PATIENT) 23.6 SEC (9.7-13.0)
--- NOTE | 2019-03-12 08:53 | PN ---
Progress Note (short form) - Note Progress Note: c Transient Slurring of speech lasting few minute HPI 83 year old female history of stroke, htn, asthma, dementia, cad, hep c , hld. paitent had episode of slurring of speech lating few minute, her nih score was 0. patient symptoms resolved and ct head was unremarkable. patient denies any focal nueological symptoms. : NEUROLOGICAL EXAMINATION Alert oriented x 2, neck is supple, afebrile VSS eomi, pupils reactive no face asymmetry moving all ext sensation is noram ct head is normal, no acute findings Assessment/plan Transeint slurring of speech? tia , she has history of stroke, htn, hld . continue apsirin and statin, and coumadin Plan agree with continue aspirin and increase lipitor 40 mg once a day - carotid ultrasound can be obtained - continue current level of care Thanking you so much Bridgette Urban MD
--- NOTE | 2019-03-12 09:40 | PN ---
Progress Note, Physician History of Present Illness: Cough and dyspnea improved, denies chest pain. - Current Medication List Current Medications: Active Medications Albuterol Sulfate (Ventolin 0.083% Nebulizer Soln -) 1 amp NEB Q4H PRN PRN Reason: SHORT OF BREATH/WHEEZING Albuterol/Ipratropium (Duoneb -) 1 amp NEB RQID [facility] Last Admin: 03/11/19 20:50 Dose: 1 amp Amantadine HCl (Symmetrel -) 100 mg PO DAILY [facility] Last Admin: 03/11/19 09:53 Dose: 100 mg Ascorbic Acid (Vitamin C -) 500 mg PO DAILY [facility] Last Admin: 03/11/19 09:53 Dose: 500 mg Aspirin (Ecotrin -) 81 mg PO ONCE [facility] Last Admin: 03/11/19 14:22 Dose: 81 mg Aspirin (Ecotrin -) 81 mg PO DAILY [facility] Atorvastatin Calcium (Lipitor -) 40 mg PO HS [facility] Last Admin: 03/11/19 22:25 Dose: 40 mg Benzocaine/Menthol (Cepacol Lozenge -) 1 each MM Q6H PRN PRN Reason: SORE THROAT Budesonide/Formoterol Fumarate (Symbicort 80/4.5mcg -) 2 puff IH BID [facility] Last Admin: 03/11/19 22:23 Dose: 2 puff Folic Acid (Folic Acid -) 1 mg PO DAILY [facility] Last Admin: 03/11/19 09:53 Dose: 1 mg Furosemide (Lasix -) 40 mg PO DAILY [facility] Last Admin: 03/11/19 09:53 Dose: 40 mg Guaifenesin (Robitussin -) 5 ml PO Q6H PRN PRN Reason: COUGH Last Admin: 03/11/19 10:49 Dose: 5 ml Azithromycin 250 mg/ Dextrose 250 mls @ 250 mls/hr IVPB DAILY [facility] Last Admin: 03/11/19 10:50 Dose: 250 mls/hr Ceftriaxone Sodium 1 gm/ (Dextrose) 50 mls @ 100 mls/hr IVPB DAILY [facility]; Protocol Last Admin: 03/11/19 09:52 Dose: 100 mls/hr Methylprednisolone Sodium Succinate (Solu-Medrol -) 40 mg IVPUSH Q8H-IV [facility] Last Admin: 03/12/19 02:00 Dose: 40 mg Mirtazapine (Remeron -) 15 mg PO HS [facility] Last Admin: 03/11/19 22:24 Dose: 15 mg Montelukast Sodium (Singulair -) 10 mg PO [facility] Last Admin: 03/11/19 22:23 Dose: 10 mg Multivitamins/Minerals/Vitamin C (Tab-A-Vit -) 1 tab PO DAILY@0800 [facility] Last Admin: 03/11/19 09:53 Dose: 1 tab Polyethylene Glycol (Miralax (For Daily Use) -) 17 gm PO DAILY [facility] Last Admin: 03/11/19 10:50 Dose: 17 grams Ranitidine HCl (Zantac -) 150 mg PO DAILY [facility] Last Admin: 03/11/19 09:53 Dose: 150 mg Senna (Senna -) 1 tab PO DAILY [facility] Last Admin: 03/11/19 09:53 Dose: 1 tab Valsartan (Diovan -) 40 mg PO DAILY [facility] Last Admin: 03/11/19 09:53 Dose: 40 mg Warfarin Sodium (Coumadin -) 3 mg PO DAILY@1800 [facility] Last Admin: 03/11/19 17:23 Dose: 3 mg - Objective Vital Signs: Vital Signs Temperature 97.8 F 03/12/19 02:08 Pulse Rate 84 03/12/19 02:08 Respiratory Rate 20 03/12/19 02:08 Blood Pressure 132/71 03/12/19 02:08 O2 Sat by Pulse Oximetry (%) 95 03/11/19 09:00 Constitutional: Yes: No Distress, Calm, Thin Neck: Yes: Supple Cardiovascular: Yes: Pulse Irregular, Other (crisp mechanical valve sounds) Respiratory: Yes: Regular, Diminished Gastrointestinal: Yes: Soft, Hypoactive Bowel Sounds Edema: No Labs: CBC, BMP 03/12/19 05:40 03/12/19 05:40 INR, PTT INR 1.99 (0.83-1.09) H 03/12/19 05:40 - ....Imaging EKG: Report Reviewed (Tele: Rapid Afib) Problem List - Problems (1) Asthma with COPD with exacerbation Code(s): J44.1 - CHRONIC OBSTRUCTIVE PULMONARY DISEASE W (ACUTE) EXACERBATION; J45.901 - UNSPECIFIED ASTHMA WITH (ACUTE) EXACERBATION (2) CAD (coronary artery disease) Code(s): I25.10 - ATHSCL HEART DISEASE OF [place] CORONARY ARTERY W/O ANG PCTRS Qualifiers: Coronary Disease-Associated Artery/Lesion type: [place] artery [place] vs. transplanted heart: [place] heart Associated angina: without angina Qualified Code(s): I25.10 - Atherosclerotic heart disease of [place] coronary artery without angina pectoris (3) Dementia Code(s): F03.90 - UNSPECIFIED DEMENTIA WITHOUT BEHAVIORAL DISTURBANCE Qualifiers: Dementia type: unspecified type (4) HLD (hyperlipidemia) Code(s): E78.5 - HYPERLIPIDEMIA, UNSPECIFIED (5) Hypertension Code(s): I10 - ESSENTIAL (PRIMARY) HYPERTENSION Qualifiers: Hypertension type: unspecified Qualified Code(s): I10 - Essential (primary ) hypertension (6) Cerebellar stroke Code(s): I63.9 - CEREBRAL INFARCTION, UNSPECIFIED (7) Diabetes mellitus Code(s): E11.9 - TYPE 2 DIABETES MELLITUS WITHOUT COMPLICATIONS Qualifiers: Diabetes mellitus type: type 2 Diabetes mellitus jail insulin use: without ad terminal makeup operator use Diabetes mellitus complication status: without complication Qualified Code(s): E11.9 - Type 2 diabetes mellitus without complications (9) Hemorrhagic stroke Code(s): I61.9 - NONTRAUMATIC INTRACEREBRAL HEMORRHAGE, UNSPECIFIED (10) ocean transportation intermediary current use of anticoagulant therapy Code(s): Z79.01 - [facility] (CURRENT) USE OF ANTICOAGULANTS (11) Persistent atrial fibrillation Code(s): I48.1 - PERSISTENT ATRIAL FIBRILLATION (12) Rheumatic heart disease Code(s): I09.9 - RHEUMATIC HEART DISEASE, UNSPECIFIED (13) S/P coil embolization of cerebral aneurysm Code(s): Z98.890 - OTHER SPECIFIED POSTPROCEDURAL STATES Assessment/Plan 1. Acute COPD Exacerbation 2. Hypertensive cardiovascular disease, hypertensive urgency clinically improved 3. LV Diastolic Dysfunction, clinically euvolemic 4. CAD angina pectoris 5. 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 Persistent atrial fibrillation, [id number] score of 7 on anticoagulation therapy with Coumadin/Warfarin now subtherapeutic INR 7. Possible TIA, history of subacute hemorrhage of the left cerebellum post embolization at [facility] 8. DM 9. Hypercholesterolemia 10. Prior history of traumatic intra-cranial hemorrhage 11. CKD PLAN: 1. Increase Warfarin dose and monitor INR closely (INR to be maintained between 2.5-3.5)- continue Aspirin 81 qd with caution and close monitoring of hemoglobin level 2. Continue Diovan 40 qd dose titration as needed 3. Continue Lasix 40 qd 4. Continue Lipitor 40 qhs 5. Start Cardizem CD 120 qd to assist with atrial fibrillation rate control, ideally beta donis therapy initiation is recommended but to be deferred in view of the above-noted exacerbation of her reactive airway disease 6. IV steroids with GI protection, Singulair, abx course and bronchodilators as per the primary team 7. F/u carotid US, repeat echo 8. Thank you for consultative opportunity
[2019-03-12] MEDS: BUDESONIDE/FORMETEROL FUMARATE 80/4.5 mcg INHALER IH SCH ×2 (10:00→21:12)
[2019-03-12] MEDS ORDERED: cefTRIAXone SODIUM 1 GM VIAL ONE (10:43)
[2019-03-12] MEDS ORDERED: PT OWN MED DRAWER 7, Y5N ONE (10:43)
[2019-03-12] MEDS ORDERED: DEXTROSE 5%-WATER - 50 ML IVPB ONE (10:44)
[2019-03-12] MEDS: CEFTRIAXONE 1 GM in DEXTROSE 5%-WATER - 50 ML IVPB SCH (10:50)
[2019-03-12] MEDS: VALSARTAN 40 MG TABLET (FP) PO SCH (10:52)
[2019-03-12] MEDS: FOLIC ACID 1 MG TABLET (FP) PO SCH (10:52)
[2019-03-12] MEDS: SENNOSIDES 8.6MG TABLET (FP) PO SCH (10:52)
[2019-03-12] MEDS: ASCORBIC ACID 500 MG TABLET (FP) PO SCH (10:52)
[2019-03-12] MEDS: FUROSEMIDE 40 MG TABLET (FP) PO SCH (10:52)
[2019-03-12] MEDS: ASPIRIN COATED 81 MG TABLET.EC PO SCH ×2 (10:52→17:54)
[2019-03-12] MEDS: MULTIVITAMINS (DAILY MVI) TABLET (FP) PO SCH (10:53)
[2019-03-12] MEDS: RANITIDINE HCL 150 MG TABLET (FP) PO SCH (10:53)
[2019-03-12] MEDS: AMANTADINE HCL 100 MG TABLET PO SCH (10:53)
--- NOTE | 2019-03-12 11:56 | PN ---
Physical Exam: SUBJECTIVE: Patient seen and examined. She is coughing but otherwise has no complaints. OBJECTIVE: Vital Signs Period Temp Pulse Resp BP Sys/[place] Pulse Ox Last 24 Hr 97.7 F-98.4 F 84-96 20-22 129-157/60-84 GENERAL: The patient is awake, alert, and fully oriented, in no acute distress. LUNGS: Breath sounds equal, clear to auscultation bilaterally, no wheezes, no crackles, no accessory muscle use. HEART: Irregularly irregular without murmur, rub or gallop. ABDOMEN: Soft, nontender, nondistended, normoactive bowel sounds, no guarding, no rebound, no hepatosplenomegaly, no masses. EXTREMITIES: 2+ pulses, warm, well-perfused, no edema. NEUROLOGICAL: Cranial nerves II through XII grossly intact. Normal speech, gait not observed. Laboratory Results - last 24 hr 03/12/19 03/12/19 03/12/19 05:40 05:40 05:40 WBC 16.3 H RBC 4.33 Hgb 12.9 Hct 39.6 MCV 91.5 MCH 29.7 MCHC 32.5 RDW 13.6 Plt Count 200 MPV 10.0 Absolute Neuts (auto) 14.8 H Neutrophils % 90.9 H Lymphocytes % 5.6 L D Monocytes % 3.4 L Eosinophils % 0.0 Basophils % 0.1 Nucleated RBC % 0 PT with INR 23.60 H INR 1.99 H Sodium 138 Potassium 4.4 Chloride 100 Carbon Dioxide 32 Anion Gap 7 L BUN 37.9 H Creatinine 1.1 Est GFR (CKD-EPI)AfAm 54.15 Est GFR (CKD-EPI)NonAf 46.72 Random Glucose 285 H Calcium 9.5 Total Bilirubin 0.5 AST 32 ALT 39 Alkaline Phosphatase 120 H Total Protein 6.9 Albumin 3.4 Triglycerides 74 Cholesterol 130 Total LDL Cholesterol 50 HDL Cholesterol 69 H Active Medications Generic Name Dose Route Start Last Admin Trade Name Freq PRN Reason Stop Dose Admin Albuterol Sulfate 1 amp 03/10/19 09:46 Ventolin 0.083% Nebulizer Soln - NEB Q4H PRN SHORT OF BREATH/WHEEZING Albuterol/Ipratropium 1 amp 03/10/19 12:00 03/12/19 07:30 Duoneb - NEB 1 amp RQID NOA Administration Amantadine HCl 100 mg 03/09/19 10:00 03/12/19 10:53 Symmetrel - PO 100 mg DAILY NOA Administration Ascorbic Acid 500 mg 03/10/19 10:00 03/12/19 10:52 Vitamin C - PO 500 mg DAILY NOA Administration Aspirin 81 mg 03/10/19 15:00 03/11/19 14:22 Ecotrin - PO 81 mg ONCE NOA Administration Aspirin 81 mg 03/11/19 10:45 03/12/19 10:52 Ecotrin - PO 81 mg DAILY NOA Administration Atorvastatin Calcium 40 mg 03/10/19 22:00 03/11/19 22:25 Lipitor - PO 40 mg HS NOA Administration Benzocaine/Menthol 1 each 03/09/19 22:57 Cepacol Lozenge - MM Q6H PRN SORE THROAT Budesonide/Formoterol Fumarate 2 puff 03/09/19 10:00 03/11/19 22:23 Symbicort 80/4.5mcg - IH 2 puff BID NOA Administration Diltiazem HCl 120 mg 03/12/19 10:45 03/12/19 10:57 Cardizem Cd - PO 120 mg DAILY NOA Administration Folic Acid 1 mg 03/09/19 10:00 03/12/19 10:52 Folic Acid - PO 1 mg DAILY NOA Administration Furosemide 40 mg 03/09/19 10:00 03/12/19 10:52 Lasix - PO 40 mg DAILY NOA Administration Guaifenesin 5 ml 03/09/19 22:58 03/11/19 10:49 Robitussin - PO 5 ml Q6H PRN Administration COUGH Azithromycin 250 mg/ Dextrose 250 mls @ 250 mls/hr 03/10/19 10:00 03/11/19 10 :50 IVPB 250 mls/hr DAILY NOA Administration Ceftriaxone Sodium 1 gm/ 50 mls @ 100 mls/hr 03/10/19 10:00 03/12/19 10:50 Dextrose IVPB 100 mls/hr DAILY NOA Administration Protocol Methylprednisolone Sodium Succinate 40 mg 03/10/19 10:00 03/12/19 10:51 Solu-Medrol - IVPUSH 40 mg Q8H-IV NOA Administration Mirtazapine 15 mg 03/09/19 22:00 03/11/19 22:24 Remeron - PO 15 mg HS NOA Administration Montelukast Sodium 10 mg 03/09/19 22:00 03/11/19 22:23 Singulair - PO 10 mg HS NOA Administration Multivitamins/Minerals/Vitamin C 1 tab 03/10/19 08:00 03/12/19 10:53 Tab-A-Vit - PO 1 tab DAILY@0800 NOA Administration Polyethylene Glycol 17 gm 03/09/19 10:00 03/11/19 10:50 Miralax (For Daily Use) - PO 17 grams DAILY NOA Administration Ranitidine HCl 150 mg 03/09/19 10:00 03/12/19 10:53 Zantac - PO 150 mg DAILY NOA Administration Senna 1 tab 03/09/19 10:00 03/12/19 10:52 Senna - PO 1 tab DAILY NOA Administration Valsartan 40 mg 03/09/19 10:00 03/12/19 10:52 Diovan - PO 40 mg DAILY NOA Administration Warfarin Sodium 5 mg 03/12/19 18:00 Coumadin - PO DAILY@1800 [facility] ASSESSMENT/PLAN: 1. Acute exacerbation of COPD - Continue SoluMedrol, Symbicort, Singulair, DuoNeb, ceftriaxone, azithromycin 2. Hypertensive urgency - Resolved 3. HTN - Continue Diovan, Cardizem CD, Lasix 4. Hypertensive cardiovascular disease with LV diastolic dysfunction - No evidence of acute heart failure 5. CAD - Continue aspirin, Lipitor, Cardizem - Not on B-donis secondary to pulmonary disease 6. Rheumatic heart disease, history of mechanical mitral valve replacement - Continue Coumadin 7. Atrial fibrillation, permanent - Continue Cardizem CD, Coumadin 8. Possible TIA - Continue aspirin, Lipitor - Carotid dopplers ordered 9. History of left cerebellar hemorrhage, embolization of aneurysm 10. Type 2 diabetes mellitus 11. Hyperlipidemia - Continue Lipitor 12. Stage 3 CKD - Stable Visit type - Emergency Visit Emergency Visit: Yes ED Registration Date: 03/08/19 Care time: The patient presented to the Emergency Department on the above date and was hospitalized for further evaluation of their emergent condition. - New Patient This patient is new to me today: Yes Date on this admission: 03/12/19 - Critical Care Critical Care patient: No - Discharge Referral Referred to [facility] Med P.C.: No
[2019-03-12] MEDS: AZITHROMYCIN IVPB 250 MG in DEXTROSE 5%-WATER - 250 ML IVPB SCH (12:01)
[2019-03-12] MEDS: POLYETHYLENE GLYCOL 3350 119 GM BTL PO SCH (12:01)
--- NOTE | 2019-03-12 13:10 | PN ---
Progress Note, Physician History of Present Illness: PULMONARY ALERT.LESS CONGESTED,LESS DYSPNEIC - Current Medication List Current Medications: Active Medications Albuterol Sulfate (Ventolin 0.083% Nebulizer Soln -) 1 amp NEB Q4H PRN PRN Reason: SHORT OF BREATH/WHEEZING Albuterol/Ipratropium (Duoneb -) 1 amp NEB RQID [facility] Last Admin: 03/12/19 11:15 Dose: 1 amp Amantadine HCl (Symmetrel -) 100 mg PO DAILY NOA Last Admin: 03/12/19 10:53 Dose: 100 mg Ascorbic Acid (Vitamin C -) 500 mg PO DAILY [facility] Last Admin: 03/12/19 10:52 Dose: 500 mg Aspirin (Ecotrin -) 81 mg PO ONCE [facility] Last Admin: 03/11/19 14:22 Dose: 81 mg Aspirin (Ecotrin -) 81 mg PO DAILY [facility] Last Admin: 03/12/19 10:52 Dose: 81 mg Atorvastatin Calcium (Lipitor -) 40 mg PO HS [facility] Last Admin: 03/11/19 22:25 Dose: 40 mg Benzocaine/Menthol (Cepacol Lozenge -) 1 each MM Q6H PRN PRN Reason: SORE THROAT Budesonide/Formoterol Fumarate (Symbicort 80/4.5mcg -) 2 puff IH BID [facility] Last Admin: 03/11/19 22:23 Dose: 2 puff Diltiazem HCl (Cardizem Cd -) 120 mg PO DAILY [facility] Last Admin: 03/12/19 10:57 Dose: 120 mg Folic Acid (Folic Acid -) 1 mg PO DAILY [facility] Last Admin: 03/12/19 10:52 Dose: 1 mg Furosemide (Lasix -) 40 mg PO DAILY [facility] Last Admin: 03/12/19 10:52 Dose: 40 mg Guaifenesin (Robitussin -) 5 ml PO Q6H PRN PRN Reason: COUGH Last Admin: 03/11/19 10:49 Dose: 5 ml Azithromycin 250 mg/ Dextrose 250 mls @ 250 mls/hr IVPB DAILY [facility] Last Admin: 03/12/19 12:01 Dose: 250 mls/hr Ceftriaxone Sodium 1 gm/ (Dextrose) 50 mls @ 100 mls/hr IVPB DAILY [facility]; Protocol Last Admin: 03/12/19 10:50 Dose: 100 mls/hr Methylprednisolone Sodium Succinate (Solu-Medrol -) 40 mg IVPUSH Q8H-IV [facility] Last Admin: 03/12/19 10:51 Dose: 40 mg Mirtazapine (Remeron -) 15 mg PO HS [facility] Last Admin: 03/11/19 22:24 Dose: 15 mg Montelukast Sodium (Singulair -) 10 mg PO HS [facility] Last Admin: 03/11/19 22:23 Dose: 10 mg Multivitamins/Minerals/Vitamin C (Tab-A-Vit -) 1 tab PO DAILY@0800 [facility] Last Admin: 03/12/19 10:53 Dose: 1 tab Polyethylene Glycol (Miralax (For Daily Use) -) 17 gm PO DAILY [facility] Last Admin: 03/12/19 12:01 Dose: 17 grams Ranitidine HCl (Zantac -) 150 mg PO DAILY [facility] Last Admin: 03/12/19 10:53 Dose: 150 mg Senna (Senna -) 1 tab PO DAILY [facility] Last Admin: 03/12/19 10:52 Dose: 1 tab Valsartan (Diovan -) 40 mg PO DAILY [facility] Last Admin: 03/12/19 10:52 Dose: 40 mg Warfarin Sodium (Coumadin -) 5 mg PO DAILY@1800 [facility] - Objective Vital Signs: Vital Signs Temperature 98.4 F 03/12/19 10:00 Pulse Rate 96 H 03/12/19 10:00 Respiratory Rate 22 H 03/12/19 10:00 Blood Pressure 139/70 03/12/19 10:00 O2 Sat by Pulse Oximetry (%) 95 03/11/19 09:00 Constitutional: Yes: Well Nourished, Calm Eyes: Yes: WNL HENT: Yes: WNL Neck: Yes: WNL Cardiovascular: Yes: Pulse Irregular, S1, S2 Respiratory: Yes: Wheezes (SCATTERED ALEXA WHEEZES) Gastrointestinal: Yes: Normal Bowel Sounds, Soft Extremities: Yes: WNL Edema: No Labs: CBC, BMP 03/12/19 05:40 03/12/19 05:40 INR, PTT INR 1.99 (0.83-1.09) H 03/12/19 05:40 Assessment/Plan Problem List - Problems (1) Asthma with COPD with exacerbation Code(s): J44.1 - CHRONIC OBSTRUCTIVE PULMONARY DISEASE W (ACUTE) EXACERBATION; J45.901 - UNSPECIFIED ASTHMA WITH (ACUTE) EXACERBATION (2) Dementia Code(s): F03.90 - UNSPECIFIED DEMENTIA WITHOUT BEHAVIORAL DISTURBANCE (3) HLD (hyperlipidemia) Code(s): E78.5 - HYPERLIPIDEMIA, UNSPECIFIED (4) Hypertension Code(s): I10 - ESSENTIAL (PRIMARY) HYPERTENSION Qualifiers: Hypertension type: unspecified Qualified Code(s): I10 - Essential (primary ) hypertension Assessment/Plan Acute COPD Exacerbation improving LV Diastolic Dysfunction Atrial Fibrillation CAD h/o Mechanical MVR h/o CVA HTN DM Hyperlipidemia - IV medrol same dose - inhaled bronchodilators standing and PRN - O2 to keep SpO2 >90% - empiric antibiotics - rate control - anticoagulation - chest x-ray today DR RICHARD
--- NOTE | 2019-03-12 14:17 | ECHO ---
Name: JULY BAILEY Exam:Adult Echocardiogram Study Date: 03/12/2019 12:23 PM Age: 83 yrs Reason For Study: CHF Height: 63 in Weight: 148 lb BSA: 1.7 m2 MMode/2D Measurements & Calculations IVSd: 1.1 cm Ao root diam: 2.6 cm LVIDd: 3.3 cm LA dimension: 4.0 cm LVIDs: 2.4 cm LVPWd: 1.0 cm LVPWs: 1.0 cm EDV(Teich): 45.3 ml ESV(Teich): 20.1 ml LVOT diam: 1.4 cm Doppler Measurements & Calculations MV V2 max: 183.2 cm/sec Ao V2 max: 125.8 cm/sec MV max P.4 mmHg Ao max P.3 mmHg MV V2 mean: 107.9 cm/sec Ao V2 mean: 102.5 cm/sec MV mean P.5 mmHg Ao mean P.4 mmHg MV V2 VTI: 32.7 cm Ao V2 VTI: 25.6 cm AI P1/2t: 498.9 msec AI max jerman: 269.3 cm/sec TR max jerman: 232.1 cm/sec AI max P.0 mmHg TR max P.6 mmHg AI dec slope: 158.1 cm/sec2 RVSP(TR): 31.6 mmHg PA V2 max: 94.3 cm/sec Med Peak E' Jerman: 5.4 cm/sec PA max P.6 mmHg Lat Peak E' Jerman: 8.8 cm/sec RAP systole: 10.0 mmHg Procedure A two-dimensional transthoracic echocardiogram with color flow and Doppler was performed. Left Ventricle The left ventricular size, thickness and function are normal. The left ventricular ejection fraction is normal. Septal motion is consistent with post-operative state. Right Ventricle The right ventricle is mildly dilated. A moderator band is seen in the right ventricle. The right nacho tricular systolic function is mild to moderately reduced. Atria The left atrium is mildly dilated. The right atrium is mildly dilated. 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 Mitral Valve There is a mechanical mitral valve. The prosthetic mitral valve is well-seated. There is mild to mode rate mitral stenosis. There is no mitral regurgitation noted. Tricuspid Valve There is mild tricuspid valve thickening. There is no tricuspid stenosis. There is moderate tricuspid regurgitation. Right ventricular systolic pressure is elevated at 40-50mmHg. Aortic Valve The aortic valve is normal in structure and function. No hemodynamically significant valvular aortic stenosis. Mild aortic regurgitation. Pulmonic Valve The pulmonic valve is not well visualized. Great Vessels The aortic root is normal size. Pericardium/Pleura There is a mild pericardial effusion. Interpretation Summary The left ventricular size, thickness and function are normal There is a mild pericardial effusion. The left atrium is mildly dilated. The right atrium is mildly dilated. There is moderate tricuspid regurgitation. Right ventricular systolic pressure is elevated at 40-50mmHg. There is a mechanical mitral valve. The prosthetic mitral valve is well-seated. There is mild to moderate mitral stenosis. The atrial septum is aneurysmal. The right ventricle is mildly dilated. The right ventricular systolic function is mild to moderately reduced. A moderator band is seen in the right ventricle. Mild aortic regurgitation. The left ventricular ejection fraction is normal. Septal motion is consistent with post-operative state. MD Guillermo Zepeda 03/12/2019 02:16 PM
[2019-03-12] MEDS ORDERED: WARFARIN NA 5 MG TABLET (UD) PO SCH (18:00)
[2019-03-12] MEDS: WARFARIN NA 5 MG TABLET (UD) PO SCH (18:09)
[2019-03-12] MEDS: MIRTAZAPINE 15 MG TABLET (FP) PO SCH (21:13)
[2019-03-12] MEDS: MONTELUKAST NA 10 MG TABLET PO SCH (21:13)
[2019-03-12] MEDS: ATORVASTATIN CA 40 MG TABLET (FP) PO SCH (21:14)
[2019-03-13] MEDS: methylPREDNISolone NA SUCC 40 MG/1 ML VIAL IVPUSH SCH ×3 (01:16→17:51)
[2019-03-13] MEDS: guaiFENesin 200 MG/10 ML 10 ML UNIT-DOSE CUPS PO PRN (01:20)
[2019-03-13 07:05] LABS: INR 1.84 (0.83-1.09); PROTHROMBIN TIME (PATIENT) 21.9 SEC (9.7-13.0)
[2019-03-13 07:28] LABS: CALCIUM 9.5 mg/dL (8.5-10.1); CREATININE 1.2 mg/dL (0.55-1.3); POTASSIUM 4.1 mmol/L (3.5-5.1)
[2019-03-13 07:34] LABS: BASO % 0.5 % (0-2.0); HEMATOCRIT 37.9 % (32.4-45.2); HEMOGLOBIN 12.5 GM/dL (10.7-15.3); MCH 30.3 pg (25.7-33.7); MEAN CELL VOLUME 91.8 fl (80-96); MEAN PLT VOLUME 10.1 fl (7.5-11.1); MONO % 2.1 % (3.8-10.2); NEUT % 91.4 % (42.8-82.8); PLATELET COUNT 180 K/MM3 (134-434); RBC 4.13 M/mm3 (3.60-5.2); RDW 13.4 % (11.6-15.6); WHITE BLOOD COUNT 11.3 K/mm3 (4.0-10.0)
[2019-03-13] MEDS: ALBUTEROL SO4 2.5/IPRATROPIUM 0.5 INH SOL 3 ML VIAL.NEB. NEB SCH ×4 (08:00→20:30)
--- NOTE | 2019-03-13 09:32 | PN ---
Progress Note, Physician History of Present Illness: Cough and dyspnea improved, denies chest pain. - Current Medication List Current Medications: Active Medications Albuterol Sulfate (Ventolin 0.083% Nebulizer Soln -) 1 amp NEB Q4H PRN PRN Reason: SHORT OF BREATH/WHEEZING Albuterol/Ipratropium (Duoneb -) 1 amp NEB RQID [facility] Last Admin: 03/13/19 08:00 Dose: 1 amp Amantadine HCl (Symmetrel -) 100 mg PO DAILY [facility] Last Admin: 03/12/19 10:53 Dose: 100 mg Ascorbic Acid (Vitamin C -) 500 mg PO DAILY [facility] Last Admin: 03/12/19 10:52 Dose: 500 mg Aspirin (Ecotrin -) 81 mg PO ONCE [facility] Last Admin: 03/12/19 17:54 Dose: Not Given Aspirin (Ecotrin -) 81 mg PO DAILY [facility] Last Admin: 03/12/19 10:52 Dose: 81 mg Atorvastatin Calcium (Lipitor -) 40 mg PO HS [facility] Last Admin: 03/12/19 21:14 Dose: 40 mg Benzocaine/Menthol (Cepacol Lozenge -) 1 each MM Q6H PRN PRN Reason: SORE THROAT Budesonide/Formoterol Fumarate (Symbicort 80/4.5mcg -) 2 puff IH BID [facility] Last Admin: 03/12/19 21:12 Dose: 2 puff Diltiazem HCl (Cardizem Cd -) 120 mg PO DAILY [facility] Last Admin: 03/12/19 10:57 Dose: 120 mg Folic Acid (Folic Acid -) 1 mg PO DAILY [facility] Last Admin: 03/12/19 10:52 Dose: 1 mg Furosemide (Lasix -) 40 mg PO DAILY [facility] Last Admin: 03/12/19 10:52 Dose: 40 mg Guaifenesin (Robitussin -) 5 ml PO Q6H PRN PRN Reason: COUGH Last Admin: 03/13/19 01:20 Dose: 5 ml Azithromycin 250 mg/ Dextrose 250 mls @ 250 mls/hr IVPB DAILY [facility] Last Admin: 03/12/19 12:01 Dose: 250 mls/hr Ceftriaxone Sodium 1 gm/ (Dextrose) 50 mls @ 100 mls/hr IVPB DAILY [facility]; Protocol Last Admin: 03/12/19 10:50 Dose: 100 mls/hr Methylprednisolone Sodium Succinate (Solu-Medrol -) 40 mg IVPUSH Q8H-IV [facility] Last Admin: 03/13/19 01:16 Dose: 40 mg Mirtazapine (Remeron -) 15 mg PO HS [facility] Last Admin: 03/12/19 21:13 Dose: 15 mg Montelukast Sodium (Singulair -) 10 mg PO HS [facility] Last Admin: 03/12/19 21:13 Dose: 10 mg Multivitamins/Minerals/Vitamin C (Tab-A-Vit -) 1 tab PO DAILY@0800 [facility] Last Admin: 03/12/19 10:53 Dose: 1 tab Polyethylene Glycol (Miralax (For Daily Use) -) 17 gm PO DAILY [facility] Last Admin: 03/12/19 12:01 Dose: 17 grams Ranitidine HCl (Zantac -) 150 mg PO DAILY [facility] Last Admin: 03/12/19 10:53 Dose: 150 mg Senna (Senna -) 1 tab PO DAILY [facility] Last Admin: 03/12/19 10:52 Dose: 1 tab Valsartan (Diovan -) 40 mg PO DAILY [facility] Last Admin: 03/12/19 10:52 Dose: 40 mg Warfarin Sodium (Coumadin -) 5 mg PO DAILY@1800 [facility] Last Admin: 03/12/19 18:09 Dose: 5 mg - Objective Vital Signs: Vital Signs Temperature 98.1 F 03/13/19 02:11 Pulse Rate 82 03/13/19 02:11 Respiratory Rate 20 03/13/19 02:11 Blood Pressure 136/72 03/13/19 02:11 O2 Sat by Pulse Oximetry (%) 96 03/12/19 21:00 Constitutional: Yes: No Distress, Calm, Thin Neck: Yes: Supple Cardiovascular: Yes: Pulse Irregular, Other ([place] mechanical valve sounds) Respiratory: Yes: Regular, Diminished Gastrointestinal: Yes: Soft, Hypoactive Bowel Sounds Edema: No Labs: CBC, BMP 03/13/19 06:00 03/13/19 06:00 INR, PTT INR 1.84 (0.83-1.09) H 03/13/19 06:00 - ....Imaging Chest X-ray: Report Reviewed (Poor quality) EKG: Report Reviewed (Tele: Afib) Problem List - Problems (1) Asthma with COPD with exacerbation Code(s): J44.1 - CHRONIC OBSTRUCTIVE PULMONARY DISEASE W (ACUTE) EXACERBATION; J45.901 - UNSPECIFIED ASTHMA WITH (ACUTE) EXACERBATION (2) CAD (coronary artery disease) Code(s): I25.10 - ATHSCL HEART DISEASE OF [place] CORONARY ARTERY W/O ANG PCTRS Qualifiers: Coronary Disease-Associated Artery/Lesion type: [place] artery [place] vs. transplanted heart: [place] heart Associated angina: without angina Qualified Code(s): I25.10 - Atherosclerotic heart disease of [place] coronary artery without angina pectoris (3) Dementia Code(s): F03.90 - UNSPECIFIED DEMENTIA WITHOUT BEHAVIORAL DISTURBANCE Qualifiers: Dementia type: unspecified type (4) HLD (hyperlipidemia) Code(s): E78.5 - HYPERLIPIDEMIA, UNSPECIFIED (5) Hypertension Code(s): I10 - ESSENTIAL (PRIMARY) HYPERTENSION Qualifiers: Hypertension type: unspecified Qualified Code(s): I10 - Essential (primary ) hypertension (6) Cerebellar stroke Code(s): I63.9 - CEREBRAL INFARCTION, UNSPECIFIED (7) Diabetes mellitus Code(s): E11.9 - TYPE 2 DIABETES MELLITUS WITHOUT COMPLICATIONS Qualifiers: Diabetes mellitus type: type 2 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: without snf use Diabetes mellitus complication status: without complication Qualified Code(s): E11.9 - Type 2 diabetes mellitus without complications (9) Hemorrhagic stroke Code(s): I61.9 - NONTRAUMATIC INTRACEREBRAL HEMORRHAGE, UNSPECIFIED (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 Code(s): Z79.01 - STIPPLER (CURRENT) USE OF ANTICOAGULANTS (11) Persistent atrial fibrillation Code(s): I48.1 - PERSISTENT ATRIAL FIBRILLATION (12) Rheumatic heart disease Code(s): I09.9 - RHEUMATIC HEART DISEASE, UNSPECIFIED (13) S/P coil embolization of cerebral aneurysm Code(s): Z98.890 - OTHER SPECIFIED POSTPROCEDURAL STATES Assessment/Plan 03/12/2019 Carotid US: No sig stenosis bilaterally 03/12/2019 Echo: Normal LV size and fxn, mild pericardial effusion, mild ALESIA, mod TR, RVSP 40-50 mmHg, mch MV with mild-mod MS, mild dilated RV with mild-mod decreased RV fxn, moderator band, mild AR, paradoxical septal motion c/w post- op state 1. Acute COPD Exacerbation 2. Hypertensive cardiovascular disease, hypertensive urgency clinically improved 3. LV Diastolic Dysfunction, clinically euvolemic 4. CAD angina pectoris 5. 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 Persistent atrial fibrillation, [id number] score of 7 on anticoagulation therapy with Coumadin/Warfarin now subtherapeutic INR 7. Possible TIA, history of subacute hemorrhage of the left cerebellum post embolization at [facility] 8. DM 9. Hypercholesterolemia 10. Prior history of traumatic intra-cranial hemorrhage 11. CKD PLAN: 1. Start heparin gtt, increased Warfarin dose and monitor INR closely (INR to be maintained between 2.5-3.5)- continue Aspirin 81 qd with caution and close monitoring of hemoglobin level 2. Continue Diovan 40 qd dose titration as needed 3. Continue Lasix 40 qd 4. Continue Lipitor 40 qhs 5. Continue Cardizem CD 120 qd to assist with atrial fibrillation rate control in view of the above-noted exacerbation of her reactive airway disease 6. IV steroid taper with GI protection, Singulair, abx course, O2 and bronchodilators as per the primary team 7. F/u carotid US, repeat echo
[2019-03-13] MEDS ORDERED: HEPARIN NA (PORCINE) 5,000 UNITS/ML 1ML VIAL IVPUSH PRN ×2 (09:37)
[2019-03-13] MEDS ORDERED: DEXTROSE 5%-WATER - 50 ML IVPB ONE (09:45)
[2019-03-13] MEDS ORDERED: cefTRIAXone SODIUM 1 GM VIAL ONE (09:45)
[2019-03-13] MEDS: BUDESONIDE/FORMETEROL FUMARATE 80/4.5 mcg INHALER IH SCH ×2 (09:54→23:23)
[2019-03-13] MEDS: CEFTRIAXONE 1 GM in DEXTROSE 5%-WATER - 50 ML IVPB SCH (09:54)
[2019-03-13] MEDS: POLYETHYLENE GLYCOL 3350 119 GM BTL PO SCH (09:54)
[2019-03-13] MEDS: VALSARTAN 40 MG TABLET (FP) PO SCH (09:55)
[2019-03-13] MEDS: SENNOSIDES 8.6MG TABLET (FP) PO SCH (09:55)
[2019-03-13] MEDS: ASCORBIC ACID 500 MG TABLET (FP) PO SCH (09:55)
[2019-03-13] MEDS: MULTIVITAMINS (DAILY MVI) TABLET (FP) PO SCH (09:56)
[2019-03-13] MEDS: AMANTADINE HCL 100 MG TABLET PO SCH (09:56)
[2019-03-13] MEDS: ASPIRIN COATED 81 MG TABLET.EC PO SCH ×2 (09:57→15:00)
[2019-03-13] MEDS: AZITHROMYCIN IVPB 250 MG in DEXTROSE 5%-WATER - 250 ML IVPB SCH (09:57)
[2019-03-13] MEDS: RANITIDINE HCL 150 MG TABLET (FP) PO SCH (09:57)
[2019-03-13] MEDS: FOLIC ACID 1 MG TABLET (FP) PO SCH (09:57)
[2019-03-13] MEDS: FUROSEMIDE 40 MG TABLET (FP) PO SCH (09:57)
[2019-03-13] MEDS: HEPARIN - 25,000 UNIT in SODIUM CHLORIDE 495 ML IV SCH (11:00)
[2019-03-13 11:14] LABS: ANISOCYTOSIS 0; MACROCYTOSIS 0; PLATELET ESTIMATE NORMAL; TEAR DROP CELLS 1+
--- NOTE | 2019-03-13 12:49 | PN ---
Progress Note (short form) - Note Progress Note: 83 year old female history of stroke, htn, asthma, dementia, cad, hep c , hld. paitent had episode of slurring of speech lating few minute, her nih score was 0. patient symptoms resolved and ct head was unremarkable. patient denies any focal nueological symptoms. No new focal neurological symptms : NEUROLOGICAL EXAMINATION Alert oriented x 2, neck is supple, afebrile VSS eomi, pupils reactive no face asymmetry moving all ext sensation is noram ct head is normal, no acute findings Assessment/plan Transeint slurring of speech? tia , she has history of stroke, htn, hld . continue apsirin and statin, and coumadin . Patient can be resumed on anticoagulation, there is no contraindication from neurological point of view Plan continue aspirin and increase lipitor 40 mg once a day Life style modifications - Thanking you so much Bridgette Urban MD
--- NOTE | 2019-03-13 14:25 | PN ---
Progress Note (short form) - Note Progress Note: PULMONARY Still some chest congestion. Daughter at bedside, wants pt discharged or will AMA. Vital Signs Period Temp Pulse Resp BP Sys/[place] Pulse Ox Last 24 Hr 98.1 F-98.5 F 75-98 18-20 123-168/72-90 96 Gen: NAD at rest Heart: RRR Lung: bilateral rhonchi, wheezes Abd: soft, nontender Ext: no edema CBC, BMP 03/13/19 06:00 03/13/19 06:00 Active Medications Albuterol Sulfate (Ventolin 0.083% Nebulizer Soln -) 1 amp NEB Q4H PRN PRN Reason: SHORT OF BREATH/WHEEZING Albuterol/Ipratropium (Duoneb -) 1 amp NEB RQID [facility] Last Admin: 03/13/19 12:10 Dose: Not Given Amantadine HCl (Symmetrel -) 100 mg PO DAILY [facility] Last Admin: 03/13/19 09:56 Dose: 100 mg Ascorbic Acid (Vitamin C -) 500 mg PO DAILY [facility] Last Admin: 03/13/19 09:55 Dose: 500 mg Aspirin (Ecotrin -) 81 mg PO ONCE [facility] Last Admin: 03/12/19 17:54 Dose: Not Given Aspirin (Ecotrin -) 81 mg PO DAILY [facility] Last Admin: 03/13/19 09:57 Dose: 81 mg Atorvastatin Calcium (Lipitor -) 40 mg PO HS [facility] Last Admin: 03/12/19 21:14 Dose: 40 mg Benzocaine/Menthol (Cepacol Lozenge -) 1 each MM Q6H PRN PRN Reason: SORE THROAT Budesonide/Formoterol Fumarate (Symbicort 80/4.5mcg -) 2 puff IH BID [facility] Last Admin: 03/13/19 09:54 Dose: 2 puff Diltiazem HCl (Cardizem Cd -) 120 mg PO DAILY [facility] Last Admin: 03/13/19 09:55 Dose: 120 mg Folic Acid (Folic Acid -) 1 mg PO DAILY [facility] Last Admin: 03/13/19 09:57 Dose: 1 mg Furosemide (Lasix -) 40 mg PO DAILY [facility] Last Admin: 03/13/19 09:57 Dose: 40 mg Guaifenesin (Robitussin -) 5 ml PO Q6H PRN PRN Reason: COUGH Last Admin: 03/13/19 01:20 Dose: 5 ml Heparin Sodium (Porcine) (Heparin -) 1,000 unit IVPUSH PRN PRN PRN Reason: Heparin Heparin Sodium (Porcine) (Heparin -) 5,000 unit IVPUSH PRN PRN PRN Reason: Heparin Azithromycin 250 mg/ Dextrose 250 mls @ 250 mls/hr IVPB DAILY [facility] Last Admin: 03/13/19 09:57 Dose: 250 mls/hr Ceftriaxone Sodium 1 gm/ (Dextrose) 50 mls @ 100 mls/hr IVPB DAILY [facility]; Protocol Last Admin: 03/13/19 09:54 Dose: 100 mls/hr Heparin Sodium (Porcine) 25, (000 unit/ Sodium Chloride) 500 mls @ 16 mls/hr IV TITR [facility]; Protocol Methylprednisolone Sodium Succinate (Solu-Medrol -) 40 mg IVPUSH Q8H-IV [facility] Last Admin: 03/13/19 09:54 Dose: 40 mg Mirtazapine (Remeron -) 15 mg PO HS [facility] Last Admin: 03/12/19 21:13 Dose: 15 mg Montelukast Sodium (Singulair -) 10 mg PO HS [facility] Last Admin: 03/12/19 21:13 Dose: 10 mg Multivitamins/Minerals/Vitamin C (Tab-A-Vit -) 1 tab PO DAILY@0800 [facility] Last Admin: 03/13/19 09:56 Dose: 1 tab Polyethylene Glycol (Miralax (For Daily Use) -) 17 gm PO DAILY [facility] Last Admin: 03/13/19 09:54 Dose: 17 grams Ranitidine HCl (Zantac -) 150 mg PO DAILY [facility] Last Admin: 03/13/19 09:57 Dose: 150 mg Senna (Senna -) 1 tab PO DAILY [facility] Last Admin: 03/13/19 09:55 Dose: 1 tab Valsartan (Diovan -) 40 mg PO DAILY [facility] Last Admin: 03/13/19 09:55 Dose: 40 mg Warfarin Sodium (Coumadin -) 5 mg PO DAILY@1800 [facility] Last Admin: 03/12/19 18:09 Dose: 5 mg A/P Acute COPD Exacerbation LV Diastolic Dysfunction Atrial Fibrillation CAD h/o Mechanical MVR h/o CVA HTN DM Hyperlipidemia - if being discharged, would change steroids to PO prednisone 40mg BID - inhaled bronchodilators standing and PRN - O2 to keep SpO2 >90% - complete empiric antibiotics - rate control - continue anticoagulation Problem List - Problems (1) Asthma with COPD with exacerbation Code(s): J44.1 - CHRONIC OBSTRUCTIVE PULMONARY DISEASE W (ACUTE) EXACERBATION; J45.901 - UNSPECIFIED ASTHMA WITH (ACUTE) EXACERBATION (2) Dementia Code(s): F03.90 - UNSPECIFIED DEMENTIA WITHOUT BEHAVIORAL DISTURBANCE Qualifiers: Dementia type: unspecified type (3) HLD (hyperlipidemia) Code(s): E78.5 - HYPERLIPIDEMIA, UNSPECIFIED (4) Hypertension Code(s): I10 - ESSENTIAL (PRIMARY) HYPERTENSION Qualifiers: Hypertension type: unspecified Qualified Code(s): I10 - Essential (primary ) hypertension
[2019-03-13] MEDS: WARFARIN NA 5 MG TABLET (UD) PO SCH (17:50)
[2019-03-13] MEDS ORDERED: PT OWN MED DRAWER 7, Y5N ONE (19:46)
--- NOTE | 2019-03-13 22:10 | PN ---
Progress Note, Physician - Current Medication List Current Medications: Active Medications Albuterol Sulfate (Ventolin 0.083% Nebulizer Soln -) 1 amp NEB Q4H PRN PRN Reason: SHORT OF BREATH/WHEEZING Albuterol/Ipratropium (Duoneb -) 1 amp NEB RQID [facility] Last Admin: 03/13/19 20:30 Dose: 1 amp Amantadine HCl (Symmetrel -) 100 mg PO DAILY [facility] Last Admin: 03/13/19 09:56 Dose: 100 mg Ascorbic Acid (Vitamin C -) 500 mg PO DAILY [facility] Last Admin: 03/13/19 09:55 Dose: 500 mg Aspirin (Ecotrin -) 81 mg PO ONCE [facility] Last Admin: 03/13/19 15:00 Dose: Not Given Aspirin (Ecotrin -) 81 mg PO DAILY [facility] Last Admin: 03/13/19 09:57 Dose: 81 mg Atorvastatin Calcium (Lipitor -) 40 mg PO HS [facility] Last Admin: 03/12/19 21:14 Dose: 40 mg Benzocaine/Menthol (Cepacol Lozenge -) 1 each MM Q6H PRN PRN Reason: SORE THROAT Budesonide/Formoterol Fumarate (Symbicort 80/4.5mcg -) 2 puff IH BID [facility] Last Admin: 03/13/19 09:54 Dose: 2 puff Diltiazem HCl (Cardizem Cd -) 120 mg PO DAILY [facility] Last Admin: 03/13/19 09:55 Dose: 120 mg Folic Acid (Folic Acid -) 1 mg PO DAILY [facility] Last Admin: 03/13/19 09:57 Dose: 1 mg Furosemide (Lasix -) 40 mg PO DAILY [facility] Last Admin: 03/13/19 09:57 Dose: 40 mg Guaifenesin (Robitussin -) 5 ml PO Q6H PRN PRN Reason: COUGH Last Admin: 03/13/19 01:20 Dose: 5 ml Heparin Sodium (Porcine) (Heparin -) 1,000 unit IVPUSH PRN PRN PRN Reason: Heparin Heparin Sodium (Porcine) (Heparin -) 5,000 unit IVPUSH PRN PRN PRN Reason: Heparin Azithromycin 250 mg/ Dextrose 250 mls @ 250 mls/hr IVPB DAILY [facility] Last Admin: 03/13/19 09:57 Dose: 250 mls/hr Ceftriaxone Sodium 1 gm/ (Dextrose) 50 mls @ 100 mls/hr IVPB DAILY [facility]; Protocol Last Admin: 03/13/19 09:54 Dose: 100 mls/hr Heparin Sodium (Porcine) 25, (000 unit/ Sodium Chloride) 500 mls @ 16 mls/hr IV TITR [facility]; Protocol Last Admin: 03/13/19 11:00 Dose: 800 unit/hr, 16 mls/hr Methylprednisolone Sodium Succinate (Solu-Medrol -) 40 mg IVPUSH Q8H-IV [facility] Last Admin: 03/13/19 17:51 Dose: 40 mg Mirtazapine (Remeron -) 15 mg PO HS [facility] Last Admin: 03/12/19 21:13 Dose: 15 mg Montelukast Sodium (Singulair -) 10 mg PO HS [facility] Last Admin: 03/12/19 21:13 Dose: 10 mg Multivitamins/Minerals/Vitamin C (Tab-A-Vit -) 1 tab PO DAILY@0800 [facility] Last Admin: 03/13/19 09:56 Dose: 1 tab Polyethylene Glycol (Miralax (For Daily Use) -) 17 gm PO DAILY [facility] Last Admin: 03/13/19 09:54 Dose: 17 grams Ranitidine HCl (Zantac -) 150 mg PO DAILY [facility] Last Admin: 03/13/19 09:57 Dose: 150 mg Senna (Senna -) 1 tab PO DAILY [facility] Last Admin: 03/13/19 09:55 Dose: 1 tab Valsartan (Diovan -) 40 mg PO DAILY [facility] Last Admin: 03/13/19 09:55 Dose: 40 mg Warfarin Sodium (Coumadin -) 5 mg PO DAILY@1800 [facility] Last Admin: 03/13/19 17:50 Dose: 5 mg - Objective Vital Signs: Vital Signs Temperature 97.8 F 03/13/19 16:10 Pulse Rate 82 03/13/19 16:10 Respiratory Rate 20 03/13/19 16:10 Blood Pressure 130/62 03/13/19 16:10 O2 Sat by Pulse Oximetry (%) 95 03/13/19 09:00 Labs: CBC, BMP 03/13/19 06:00 03/13/19 06:00 INR, PTT INR 1.84 (0.83-1.09) H 03/13/19 06:00 Problem List - Problems (1) Asthma exacerbation Code(s): J45.901 - UNSPECIFIED ASTHMA WITH (ACUTE) EXACERBATION (2) Hypertension Code(s): I10 - ESSENTIAL (PRIMARY) HYPERTENSION Qualifiers: Hypertension type: unspecified Qualified Code(s): I10 - Essential (primary ) hypertension (3) Anemia Code(s): D64.9 - ANEMIA, UNSPECIFIED Qualifiers: Anemia type: unspecified type Qualified Code(s): D64.9 - Anemia, unspecified (4) Diabetes mellitus Code(s): E11.9 - TYPE 2 DIABETES MELLITUS WITHOUT COMPLICATIONS Qualifiers: Diabetes mellitus type: type 2 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 Diabetes mellitus complication status: without complication Qualified Code(s): E11.9 - Type 2 diabetes mellitus without complications (5) H/O mitral valve replacement Code(s): Z95.2 - PRESENCE OF PROSTHETIC HEART VALVE (6) Dementia Code(s): F03.90 - UNSPECIFIED DEMENTIA WITHOUT BEHAVIORAL DISTURBANCE Qualifiers: Dementia type: unspecified type (7) HLD (hyperlipidemia) Code(s): E78.5 - HYPERLIPIDEMIA, UNSPECIFIED (8) CAD (coronary artery disease) Code(s): I25.10 - ATHSCL HEART DISEASE OF [place] CORONARY ARTERY W/O ANG PCTRS Qualifiers: Coronary Disease-Associated Artery/Lesion type: [place] artery [place] vs. transplanted heart: [place] heart Associated angina: without angina Qualified Code(s): I25.10 - Atherosclerotic heart disease of [place] coronary artery without angina pectoris (9) CVA (cerebral vascular accident) Code(s): I63.9 - CEREBRAL INFARCTION, UNSPECIFIED Qualifiers: CVA mechanism: unspecified Qualified Code(s): I63.9 - Cerebral infarction, unspecified
[2019-03-13] MEDS: ATORVASTATIN CA 40 MG TABLET (FP) PO SCH (22:18)
[2019-03-13] MEDS: MONTELUKAST NA 10 MG TABLET PO SCH (22:18)
[2019-03-13] MEDS: MIRTAZAPINE 15 MG TABLET (FP) PO SCH (22:18)
[2019-03-14] MEDS: methylPREDNISolone NA SUCC 40 MG/1 ML VIAL IVPUSH SCH ×3 (02:57→17:07)
[2019-03-14] MEDS: ALBUTEROL SO4 2.5/IPRATROPIUM 0.5 INH SOL 3 ML VIAL.NEB. NEB SCH ×3 (07:35→15:31)
[2019-03-14 08:24] LABS: INR 2.88 (0.83-1.09); PROTHROMBIN TIME (PATIENT) 34.4 SEC (9.7-13.0)
[2019-03-14] MEDS ORDERED: DEXTROSE 5%-WATER - 50 ML IVPB ONE (09:09)
[2019-03-14] MEDS ORDERED: cefTRIAXone SODIUM 1 GM VIAL ONE (09:09)
--- NOTE | 2019-03-14 09:57 | PN ---
Progress Note, Physician History of Present Illness: Cough and dyspnea improved, denies chest pain. INR therapeutic. - Current Medication List Current Medications: Active Medications Albuterol Sulfate (Ventolin 0.083% Nebulizer Soln -) 1 amp NEB Q4H PRN PRN Reason: SHORT OF BREATH/WHEEZING Albuterol/Ipratropium (Duoneb -) 1 amp NEB RQID [facility] Last Admin: 03/14/19 07:35 Dose: 1 amp Amantadine HCl (Symmetrel -) 100 mg PO DAILY [facility] Last Admin: 03/13/19 09:56 Dose: 100 mg Ascorbic Acid (Vitamin C -) 500 mg PO DAILY [facility] Last Admin: 03/13/19 09:55 Dose: 500 mg Aspirin (Ecotrin -) 81 mg PO ONCE [facility] Last Admin: 03/13/19 15:00 Dose: Not Given Aspirin (Ecotrin -) 81 mg PO DAILY [facility] Last Admin: 03/13/19 09:57 Dose: 81 mg Atorvastatin Calcium (Lipitor -) 40 mg PO HS [facility] Last Admin: 03/13/19 22:18 Dose: 40 mg Benzocaine/Menthol (Cepacol Lozenge -) 1 each MM Q6H PRN PRN Reason: SORE THROAT Budesonide/Formoterol Fumarate (Symbicort 80/4.5mcg -) 2 puff IH BID [facility] Last Admin: 03/13/19 23:23 Dose: Not Given Diltiazem HCl (Cardizem Cd -) 120 mg PO DAILY [facility] Last Admin: 03/13/19 09:55 Dose: 120 mg Folic Acid (Folic Acid -) 1 mg PO DAILY [facility] Last Admin: 03/13/19 09:57 Dose: 1 mg Furosemide (Lasix -) 40 mg PO DAILY [facility] Last Admin: 03/13/19 09:57 Dose: 40 mg Guaifenesin (Robitussin -) 5 ml PO Q6H PRN PRN Reason: COUGH Last Admin: 03/13/19 01:20 Dose: 5 ml Heparin Sodium (Porcine) (Heparin -) 1,000 unit IVPUSH PRN PRN PRN Reason: Heparin Heparin Sodium (Porcine) (Heparin -) 5,000 unit IVPUSH PRN PRN PRN Reason: Heparin Azithromycin 250 mg/ Dextrose 250 mls @ 250 mls/hr IVPB DAILY [facility] Last Admin: 03/13/19 09:57 Dose: 250 mls/hr Ceftriaxone Sodium 1 gm/ (Dextrose) 50 mls @ 100 mls/hr IVPB DAILY [facility]; Protocol Last Admin: 03/13/19 09:54 Dose: 100 mls/hr Heparin Sodium (Porcine) 25, (000 unit/ Sodium Chloride) 500 mls @ 16 mls/hr IV TITR [facility]; Protocol Last Admin: 03/13/19 11:00 Dose: 800 unit/hr, 16 mls/hr Methylprednisolone Sodium Succinate (Solu-Medrol -) 40 mg IVPUSH Q8H-IV [facility] Last Admin: 03/14/19 02:57 Dose: 40 mg Mirtazapine (Remeron -) 15 mg PO HS [facility] Last Admin: 03/13/19 22:18 Dose: 15 mg Montelukast Sodium (Singulair -) 10 mg PO HS [facility] Last Admin: 03/13/19 22:18 Dose: 10 mg Multivitamins/Minerals/Vitamin C (Tab-A-Vit -) 1 tab PO DAILY@0800 [facility] Last Admin: 03/13/19 09:56 Dose: 1 tab Polyethylene Glycol (Miralax (For Daily Use) -) 17 gm PO DAILY [facility] Last Admin: 03/13/19 09:54 Dose: 17 grams Ranitidine HCl (Zantac -) 150 mg PO DAILY [facility] Last Admin: 03/13/19 09:57 Dose: 150 mg Senna (Senna -) 1 tab PO DAILY [facility] Last Admin: 03/13/19 09:55 Dose: 1 tab Valsartan (Diovan -) 40 mg PO DAILY [facility] Last Admin: 03/13/19 09:55 Dose: 40 mg Warfarin Sodium (Coumadin -) 5 mg PO DAILY@1800 [facility] Last Admin: 03/13/19 17:50 Dose: 5 mg - Objective Vital Signs: Vital Signs Temperature 97.7 F 03/14/19 06:00 Pulse Rate 90 03/14/19 06:00 Respiratory Rate 18 03/14/19 06:00 Blood Pressure 138/60 03/14/19 06:00 O2 Sat by Pulse Oximetry (%) 92 L 03/13/19 21:00 Constitutional: Yes: No Distress, Calm Neck: Yes: Supple Cardiovascular: Yes: Pulse Irregular, Other ([place] mechanical valve sounds) Respiratory: Yes: Regular, Diminished Gastrointestinal: Yes: Normal Bowel Sounds, Soft Edema: No Labs: CBC, BMP 03/13/19 06:00 03/13/19 06:00 INR, PTT INR 2.88 (0.83-1.09) H 03/14/19 06:42 - ....Imaging EKG: Report Reviewed (Tele: Afib) Problem List - Problems (1) Asthma with COPD with exacerbation Code(s): J44.1 - CHRONIC OBSTRUCTIVE PULMONARY DISEASE W (ACUTE) EXACERBATION; J45.901 - UNSPECIFIED ASTHMA WITH (ACUTE) EXACERBATION (2) CAD (coronary artery disease) Code(s): I25.10 - ATHSCL HEART DISEASE OF [place] CORONARY ARTERY W/O ANG PCTRS Qualifiers: Coronary Disease-Associated Artery/Lesion type: [place] artery [place] vs. transplanted heart: [place] heart Associated angina: without angina Qualified Code(s): I25.10 - Atherosclerotic heart disease of [place] coronary artery without angina pectoris (3) Dementia Code(s): F03.90 - UNSPECIFIED DEMENTIA WITHOUT BEHAVIORAL DISTURBANCE Qualifiers: Dementia type: unspecified type (4) HLD (hyperlipidemia) Code(s): E78.5 - HYPERLIPIDEMIA, UNSPECIFIED (5) Hypertension Code(s): I10 - ESSENTIAL (PRIMARY) HYPERTENSION Qualifiers: Hypertension type: unspecified Qualified Code(s): I10 - Essential (primary ) hypertension (6) Cerebellar stroke Code(s): I63.9 - CEREBRAL INFARCTION, UNSPECIFIED (7) Diabetes mellitus Code(s): E11.9 - TYPE 2 DIABETES MELLITUS WITHOUT COMPLICATIONS Qualifiers: Diabetes mellitus type: type 2 Diabetes mellitus 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 insulin use: without penitentiary use Diabetes mellitus complication status: without complication Qualified Code(s): E11.9 - Type 2 diabetes mellitus without complications (9) Hemorrhagic stroke Code(s): I61.9 - NONTRAUMATIC INTRACEREBRAL HEMORRHAGE, UNSPECIFIED (10) shelter current use of anticoagulant therapy Code(s): Z79.01 - HEALTH SPECIALIST (CURRENT) USE OF ANTICOAGULANTS (11) Persistent atrial fibrillation Code(s): I48.1 - PERSISTENT ATRIAL FIBRILLATION (12) Rheumatic heart disease Code(s): I09.9 - RHEUMATIC HEART DISEASE, UNSPECIFIED (13) S/P coil embolization of cerebral aneurysm Code(s): Z98.890 - OTHER SPECIFIED POSTPROCEDURAL STATES Assessment/Plan 03/12/2019 Carotid US: No sig stenosis bilaterally 03/12/2019 Echo: Normal LV size and fxn, mild pericardial effusion, mild ALESIA, mod TR, RVSP 40-50 mmHg, mch MV with mild-mod MS, mild dilated RV with mild-mod decreased RV fxn, moderator band, mild AR, paradoxical septal motion c/w post- op state 1. Acute COPD Exacerbation 2. Hypertensive cardiovascular disease, hypertensive urgency clinically improved 3. LV Diastolic Dysfunction, clinically euvolemic 4. CAD angina pectoris 5. 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 Persistent atrial fibrillation, [id number] score of 7 on anticoagulation therapy with Coumadin/Warfarin now therapeutic INR 7. Possible TIA, history of subacute hemorrhage of the left cerebellum post embol[place] [facility] [place] [facility] [place] 8. DM 9. Hypercholesterolemia 10. Prior history of traumatic intra-cranial hemorrhage 11. CKD PLAN: 1. D/c heparin gtt, continue Warfarin and monitor INR closely (INR to be maintained between 2.5-3.5)- continue Aspirin 81 qd with caution and close monitoring of hemoglobin level 2. Continue Diovan 40 qd dose titration as needed 3. Continue Lasix 40 qd 4. Continue Lipitor 40 qhs 5. Continue Cardizem CD 120 qd to assist with atrial fibrillation rate control in view of the above-noted exacerbation of her reactive airway disease 6. IV steroid taper with GI protection, Singulair, abx course, O2 and bronchodilators as per the primary team
[2019-03-14 10:33] LABS: ACTIVATED PTT 122.1 SECONDS (25.2-36.5)
[2019-03-14] MEDS: ASCORBIC ACID 500 MG TABLET (FP) PO SCH (10:40)
[2019-03-14] MEDS: MULTIVITAMINS (DAILY MVI) TABLET (FP) PO SCH (10:40)
[2019-03-14] MEDS: FOLIC ACID 1 MG TABLET (FP) PO SCH (10:40)
[2019-03-14] MEDS: SENNOSIDES 8.6MG TABLET (FP) PO SCH (10:40)
[2019-03-14] MEDS: RANITIDINE HCL 150 MG TABLET (FP) PO SCH (10:40)
[2019-03-14] MEDS: ASPIRIN COATED 81 MG TABLET.EC PO SCH ×3 (10:40→17:05)
[2019-03-14] MEDS: FUROSEMIDE 40 MG TABLET (FP) PO SCH (10:40)
[2019-03-14] MEDS: guaiFENesin 200 MG/10 ML 10 ML UNIT-DOSE CUPS PO PRN (10:41)
[2019-03-14] MEDS: HEPARIN - 25,000 UNIT in SODIUM CHLORIDE 495 ML IV SCH (10:41)
[2019-03-14] MEDS: AMANTADINE HCL 100 MG TABLET PO SCH (10:42)
[2019-03-14] MEDS: POLYETHYLENE GLYCOL 3350 119 GM BTL PO SCH (10:42)
[2019-03-14] MEDS: AZITHROMYCIN IVPB 250 MG in DEXTROSE 5%-WATER - 250 ML IVPB SCH (10:42)
[2019-03-14] MEDS: CEFTRIAXONE 1 GM in DEXTROSE 5%-WATER - 50 ML IVPB SCH (10:42)
[2019-03-14] MEDS: BUDESONIDE/FORMETEROL FUMARATE 80/4.5 mcg INHALER IH SCH (10:43)
[2019-03-14] MEDS: VALSARTAN 40 MG TABLET (FP) PO SCH (10:43)
--- NOTE | 2019-03-14 11:48 | PN ---
Progress Note, Physician History of Present Illness: PULMONARY ALERT,AMBULATING,LESS DYSPNEIC - Current Medication List Current Medications: Active Medications Albuterol Sulfate (Ventolin 0.083% Nebulizer Soln -) 1 amp NEB Q4H PRN PRN Reason: SHORT OF BREATH/WHEEZING Albuterol/Ipratropium (Duoneb -) 1 amp NEB RQID [facility] Last Admin: 03/14/19 11:29 Dose: Not Given Amantadine HCl (Symmetrel -) 100 mg PO DAILY [facility] Last Admin: 03/14/19 10:42 Dose: 100 mg Ascorbic Acid (Vitamin C -) 500 mg PO DAILY [facility] Last Admin: 03/14/19 10:40 Dose: 500 mg Aspirin (Ecotrin -) 81 mg PO ONCE [facility] Last Admin: 03/14/19 10:40 Dose: 81 mg Aspirin (Ecotrin -) 81 mg PO DAILY [facility] Last Admin: 03/14/19 10:43 Dose: 81 mg Atorvastatin Calcium (Lipitor -) 40 mg PO HS [facility] Last Admin: 03/13/19 22:18 Dose: 40 mg Benzocaine/Menthol (Cepacol Lozenge -) 1 each MM Q6H PRN PRN Reason: SORE THROAT Budesonide/Formoterol Fumarate (Symbicort 80/4.5mcg -) 2 puff IH BID [facility] Last Admin: 03/14/19 10:43 Dose: Not Given Diltiazem HCl (Cardizem Cd -) 120 mg PO DAILY [facility] Last Admin: 03/14/19 10:40 Dose: 120 mg Folic Acid (Folic Acid -) 1 mg PO DAILY [facility] Last Admin: 03/14/19 10:40 Dose: 1 mg Furosemide (Lasix -) 40 mg PO DAILY [facility] Last Admin: 03/14/19 10:40 Dose: 40 mg Guaifenesin (Robitussin -) 5 ml PO Q6H PRN PRN Reason: COUGH Last Admin: 03/14/19 10:41 Dose: 5 ml Azithromycin 250 mg/ Dextrose 250 mls @ 250 mls/hr IVPB DAILY [facility] Last Admin: 03/14/19 10:42 Dose: 250 mls/hr Ceftriaxone Sodium 1 gm/ (Dextrose) 50 mls @ 100 mls/hr IVPB DAILY [facility]; Protocol Last Admin: 03/14/19 10:42 Dose: 100 mls/hr Methylprednisolone Sodium Succinate (Solu-Medrol -) 40 mg IVPUSH Q8H-IV [facility] Last Admin: 03/14/19 10:41 Dose: 40 mg Mirtazapine (Remeron -) 15 mg PO HS [facility] Last Admin: 03/13/19 22:18 Dose: 15 mg Montelukast Sodium (Singulair -) 10 mg PO HS [facility] Last Admin: 03/13/19 22:18 Dose: 10 mg Multivitamins/Minerals/Vitamin C (Tab-A-Vit -) 1 tab PO DAILY@0800 [facility] Last Admin: 03/14/19 10:40 Dose: 1 tab Polyethylene Glycol (Miralax (For Daily Use) -) 17 gm PO DAILY [facility] Last Admin: 03/14/19 10:42 Dose: 17 grams Ranitidine HCl (Zantac -) 150 mg PO DAILY [facility] Last Admin: 03/14/19 10:40 Dose: 150 mg Senna (Senna -) 1 tab PO DAILY [facility] Last Admin: 03/14/19 10:40 Dose: 1 tab Valsartan (Diovan -) 40 mg PO DAILY [facility] Last Admin: 03/14/19 10:43 Dose: 40 mg Warfarin Sodium (Coumadin -) 5 mg PO DAILY@1800 [facility] Last Admin: 03/13/19 17:50 Dose: 5 mg - Objective Vital Signs: Vital Signs Temperature 97.7 F 03/14/19 06:00 Pulse Rate 90 03/14/19 06:00 Respiratory Rate 18 03/14/19 06:00 Blood Pressure 138/60 03/14/19 06:00 O2 Sat by Pulse Oximetry (%) 92 L 03/13/19 21:00 Constitutional: Yes: Well Nourished, Calm Eyes: Yes: WNL HENT: Yes: WNL Neck: Yes: WNL Cardiovascular: Yes: Pulse Irregular, S1, S2 Respiratory: Yes: Wheezes (SCATTERED ALEXA WHEEZES) Gastrointestinal: Yes: Normal Bowel Sounds, Soft Extremities: Yes: WNL Edema: No Labs: CBC, BMP 03/13/19 06:00 03/13/19 06:00 INR, PTT INR 2.88 (0.83-1.09) H 03/14/19 06:42 Assessment/Plan Problem List - Problems (1) Asthma with COPD with exacerbation Code(s): J44.1 - CHRONIC OBSTRUCTIVE PULMONARY DISEASE W (ACUTE) EXACERBATION; J45.901 - UNSPECIFIED ASTHMA WITH (ACUTE) EXACERBATION (2) Dementia Code(s): F03.90 - UNSPECIFIED DEMENTIA WITHOUT BEHAVIORAL DISTURBANCE (3) HLD (hyperlipidemia) Code(s): E78.5 - HYPERLIPIDEMIA, UNSPECIFIED (4) Hypertension Code(s): I10 - ESSENTIAL (PRIMARY) HYPERTENSION Qualifiers: Hypertension type: unspecified Qualified Code(s): I10 - Essential (primary ) hypertension Assessment/Plan Acute COPD Exacerbation improving LV Diastolic Dysfunction Atrial Fibrillation CAD h/o Mechanical MVR h/o CVA HTN DM Hyperlipidemia - steroid taper - inhaled bronchodilators standing and PRN - O2 to keep SpO2 >90% - antibiotics - rate control - anticoagulation DR RICHARD
[2019-03-14 15:33] VITALS: BP 137/94; PULSE 97; TEMP 98.2
--- NOTE | 2019-03-14 15:49 | PN ---
Progress Note (short form) - Note Progress Note: 83 year old female history of stroke, htn, asthma, dementia, cad, hep c , hld. paitent had episode of slurring of speech lating few minute, her nih score was 0. patient symptoms resolved and ct head was unremarkable. patient denies any focal nueological symptoms. Her coumadin has been restarted : NEUROLOGICAL EXAMINATION Alert oriented x 2, neck is supple, afebrile VSS eomi, pupils reactive no face asymmetry moving all ext sensation is normal ct head is normal, no acute findings Assessment/plan Transeint slurring of speech? tia , she has history of stroke, htn, hld . continue apsirin and statin, and coumadin .coumadin has beenresumed Plan continue aspirin and increase lipitor 40 mg once a day Life style modifications - Thanking you so much Bridgette Urban MD
[2019-03-14] MEDS: WARFARIN NA 5 MG TABLET (UD) PO SCH (17:06)
[2019-03-14] MEDS: ATORVASTATIN CA 40 MG TABLET (FP) PO SCH (17:07)
== END 2019-03-14 18:28 | disposition home or self-care (01) | DRG 191 ==
LOC: JER 21:06 → JERBED 23:51 → J7W 03-09 04:50 → J4W 03-10 14:43
PROVIDERS: ADMIT Internal Medicine; ATTEND Internal Medicine
DX: J44.1 Chronic obstructive pulmonary disease with (acute) exacerbation (principal); I50.32 Chronic diastolic (congestive) heart failure; J45.901 Unspecified asthma with (acute) exacerbation; I48.1 Persistent atrial fibrillation; J98.11 Atelectasis; E00-E89 Endocrine, nutritional and metabolic diseases; I13.0 Hypertensive heart and chronic kidney disease with heart failure and stage 1 through stage 4 chronic kidney disease, or unspecified chronic kidney disease; I09.81 Rheumatic heart failure; E11.22 Type 2 diabetes mellitus with diabetic chronic kidney disease; N18.3 Chronic kidney disease, stage 3 (moderate); D64.9 Anemia, unspecified; I25.10 Atherosclerotic heart disease of native coronary artery without angina pectoris; F03.90 Unspecified dementia, unspecified severity, without behavioral disturbance, psychotic disturbance, mood disturbance, and anxiety; E78.5 Hyperlipidemia, unspecified; I16.0 Hypertensive urgency; Z86.73 Personal history of transient ischemic attack (TIA), and cerebral infarction without residual deficits; B19.20 Unspecified viral hepatitis C without hepatic coma; Z95.1 Presence of aortocoronary bypass graft
CPT/HCPCS: 36415; 70450-TC; 71045-TC-FY; 71046-TC-FY; 80048; 80053; 80061; 83036; 83721; 85025; 85610; 85730; 87040; 93005; 93010; 93306-TC; 93880-TC; 94640; 97116-GP; 99283-25; J1644